=== PATIENT | male | born 1960 | race American Indian/Alaskan Native ===

== ENCOUNTER 2016-07-02 11:11 | Inpatient (IN) | payer MEDICAID, OTHER ==
--- NOTE | 2016-07-02 11:47 | EDPHY ---
H & P Stated Complaint: resp diff. 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 Constitutional: Initial Vital Signs Temperature (C) 36.3 C 07/02/16 11:20 Heart Rate 62 07/02/16 11:20 Respiratory Rate 16 07/02/16 11:20 Blood Pressure 120/70 07/02/16 11:20 O2 Delivery Mode Room Air Allergies/Adverse Reactions: No Known Allergies Allergy (Unverified 01/19/13 11:12) Home Medications: Medication Instructions Recorded Albuterol [Proventil Inhaler HFA 1 - 2 puffs IH DAILY PRN 07/02/16 (*)] Multivitamins [Multivitamin (*)] 1 each PO DAILY 07/02/16 Medical Decision Making ED Course/Re-evaluation: CHIEF COMPLAINT: Cough, fever, feels weak HISTORY OF PRESENT ILLNESS: 56-year-old gentleman who currently resides in the [facility]. He has a very a poor historian and not forthcoming with very much information at all. This patient complains that over the last several days he has had a cough with yellow phlegm in addition to mild shortness of breath and increase rate of breathing according to the care home nurse. It is unclear whether not he has been febrile. This patient claims he has lung cancer also. He believes the cancers now spread all over his body and that is why he is here. The care home nurse actually sent here because she is concerned he may have an upper respiratory infection. REVIEW OF SYSTEMS: A 10 point review of systems was performed and is negative with the exception of the elements mentioned in the history of present illness. PHYSICAL EXAM: HR, BP, O2 Sat, RR. Temp noted General Appearance: Alert, well hydrated, appropriate, and non-toxic appearing. Head: Atraumatic without scalp tenderness or obvious injury Eyes: Pupils equal, round, reactive to light and accommodation, EOMI, no trauma , no injection. Ears: Clear bilaterally, no perforation, normal landmarks Nose: Atraumatic, no rhinorrhea, clear. Throat: There is no erythema or exudates, no lesions, normal tonsils, mucus membranes moist. Neck: Supple, 2+ carotid upstroke, nontender, no lymphadenopathy. Respiratory: No retractions, no distress, no wheezes, and no accessory muscle use. Coarse rhonchi throughout all lung gee with no focal decrease Cardiovascular: Regular rate and rhythm, no murmurs, rubs, or gallops. Bilateral carotid, radial, dorsalis pedis, and posterior tibial pulses intact. Good capillary refill all extremities. Gastrointestinal: Abdomen is soft, nontender, non-distended, no masses, no rebound, no guarding, no peritoneal signs. Musculoskeletal: Normal active ROM of all extremities, atraumatic. Neurological: Alert, appropriate, and interactive. The patient has normal DTRs and non-focal cranial nerves, motor, sensory, and cerebellar exam. Skin: No rashes, good turgor, no nodules on palpation. Past medical history: Gastroesophageal reflux, patient claims he has lung cancer but no objective history of that in the care home medical records Past surgical history: Patient denies Family history: Patient states unknown Social history: Currently resides in care home, denies tobacco use currently but is an ex smoker, is unemployed obviously, denies alcohol or drug abuse currently. DIAGNOSTICS/PROCEDURES/CRITICAL CARE TIME: Study: PA and Lateral Chest X-ray Indication: Trauma, Chest pain Results: After viewing the images myself on the PACS system. My interpretation of the images is: diffuse bilobar pneumonia. The radiologist interpretation is 1. Progressive infiltrate, possibly indicative of chronic interstitial lung disease. 2. Chronic or recurrent cardiomegaly, with increased pulmonary venous hypertension. A pericardial effusion and/or component of underlying interstitial pulmonary edema cannot be excluded. I have discussed the above x-rays with the radiologist. DIFFERENTIAL DIAGNOSIS: The differential diagnosis for the patient's shortness of breath included but was not limited to pneumonia, myocardial infarction, acute mountain sickness, high altitude pulmonary edema, congestive heart failure, and pulmonary embolus. MEDICAL DECISION MAKING: This patient is slightly tachycardic and has coarse rhonchi with yellow phlegm. The very least this point has bronchitis. X-ray laboratory studies are pending. The patient's VBG lactic acid is markedly elevated at 9.1. Sepsis declared at 1213. He will be given fluid bolus and antibiotics. 1219: Consulted with hospitalist. Admission accepted to SDU. 1238: Reassessed patient. His blood pressure is 87/59 at this time. He is mentating properly. A second IV was established. The patient has clearly been septic for a long period of time and I believe he has compensated, which is why he appears so well at this time. If he worsens or becomes hypotensive a central line will have to be placed. 1255: Reassessed patient. After 2 liters of fluid the patient's blood pressure is 91/66. 1329: Reassessed patient. Critical Care Time: I spent a total of 45 minutes of critical care time including but not limited to obtaining history, performing a physical exam, ordering interventions and the bedside monitoring of those interventions, collecting and interpreting tests and discussion with consultants but not including time spent performing procedures. - Data Points Laboratory Results: Laboratory Results 07/02/16 11:42 07/02/16 11:42 07/02/16 11:42 WBC 16.31 H 10^3/uL (3.80-9.50) RBC 5.98 10^6/uL (4.40-6.38) Hgb 11.7 L g/dL (13.7-17.5) Hct 40.9 % (40.0-51.0) MCV 68.4 L fL (81.5-99.8) MCH 19.6 L pg (27.9-34.1) MCHC 28.6 L g/dL (32.4-36.7) RDW 21.9 H % (11.5-15.2) Plt Count 250 10^3/uL (150-400) MPV 10.2 fL (8.7-11.7) Neut % (Auto) 91.4 H % (39.3-74.2) Lymph % (Auto) 4.0 L % (15.0-45.0) Lea % (Auto) 4.0 L % (4.5-13.0) Eos % (Auto) 0.0 L % (0.6-7.6) Baso % (Auto) 0.2 L % (0.3-1.7) Nucleat RBC Rel Count 0.0 % (0.0-0.2) Absolute Neuts (auto) 14.91 H 10^3/uL (1.70-6.50) Absolute Lymphs (auto) 0.65 L 10^3/uL (1.00-3.00) Absolute Monos (auto) 0.65 10^3/uL (0.30-0.80) Absolute Eos (auto) 0.00 L 10^3/uL (0.03-0.40) Absolute Basos (auto) 0.04 10^3/uL (0.02-0.10) Absolute Nucleated RBC 0.00 10^3/uL (0-0.01) Immature Gran % 0.4 % (0.0-1.1) Seg Neutrophils % 51 % Band Neutrophils % 32 % Lymphocytes % 6 % Monocytes % 2 % Metamyelocytes % 8 % Myelocytes % 1 % Immature Gran # 0.06 10^3/uL (0.00-0.10) Absolute Seg Neuts 8.32 H 10^/uL (1.70-6.50) Absolute Band Neuts 5.22 H 10^3/uL (0.00-0.70) Absolute Lymphocytes 0.98 L 10^3/uL (1.00-3.00) Absolute Monocytes 0.33 10^3/uL (0.30-0.80) Absolute Metamyelocyte 1.30 H 10^3/mL (0.00-0.00) Absolute Myelocytes 0.16 H 10^3/mL (0.00-0.00) Platelet Estimate ADEQUATE (ADEQ) Polychromasia 1+ H Hypochromasia 2+ H Oval Macrocytes 1+ H Smear Review By Pending PT 17.6 H SEC (12.0-15.0) INR 1.45 H (0.83-1.16) APTT 35.8 SEC (23.0-38.0) VBG Lactic Acid 9.1 H mmol/L (0.7-2.1) Sodium 138 mEq/L (134-144) Potassium 4.8 mEq/L (3.5-5.2) Chloride 97 mEq/L (97-110) Carbon Dioxide 19 L mEq/l (22-31) Anion Gap 22 mEq/L (8-16) BUN 25 H mg/dL (7-23) Creatinine 1.4 H mg/dL (0.7-1.3) Estimated GFR 52 Glucose 113 H mg/dL (70-100) Calcium 8.4 L mg/dL (8.5-10.4) Total Bilirubin 1.0 mg/dL (0.1-1.4) Medications Given: Discontinued Medications Ertapenem 1 gm/ Sodium (Chloride) 100 mls @ 200 mls/hr IV EDNOW ONE PRN Reason: Protocol Stop: 07/02/16 12:42 Last Admin: 07/02/16 12:36 Dose: 100 mls Sodium Chloride (Ns) 1,000 mls @ 0 mls/hr IV ONCE ONE PRN Reason: Wide Open Stop: 07/02/16 12:52 Last Admin: 07/02/16 12:53 Dose: 1,000 mls Sodium Chloride (Ns *For Sepsis Order Set Only*) 2,177 ml IV EDNOW ONE Stop: 07/02/16 12:14 Last Admin: 07/02/16 12:28 Dose: 2,177 ml Departure - Departure Disposition: [facility] Inpatient Acute Clinical Impression: Sepsis, Lung infiltrate Condition: Fair Report Scribed for: Lucas Wilcox Report Scribed by: Janak Gregory Date of Report: 07/02/16 Time of Report: 12:19
[2016-07-02 12:13] LABS: ANION GAP 22 mEq/L (8-16); CALCIUM 8.4 mg/dL (8.5-10.4); CARBON DIOXIDE 19 mEq/l (22-31); CHLORIDE 97 mEq/L (97-110); CREATININE 1.4 mg/dL (0.7-1.3); GLOMERULAR FILTRATION RATE 52; GLUCOSE 113 mg/dL (70-100); INR 1.45 (0.83-1.16); POTASSIUM 4.8 mEq/L (3.5-5.2); PROTIME(PATIENT) 17.6 SEC (12.0-15.0); SODIUM 138 mEq/L (134-144)
[2016-07-02] MEDS ORDERED: NS 1,000 ML BAG *FOR SEPSIS ORDER SET ONLY IV ONE (12:13)
[2016-07-02] MEDS ORDERED: ERTAPENEM 1 GM in NS 100 ML IV ONE (12:13)
[2016-07-02 12:14] LABS: APTT 35.8 SEC (23.0-38.0)
[2016-07-02] MEDS ORDERED: ALTEPLASE 2 MG VIAL IVP PRN ×2 (12:24→14:08)
--- NOTE | 2016-07-02 12:31 | DX ---
PA and Lateral Chest Clinical Indications: Cough, dyspnea Comparison: May 24, 2013, chest CT July 18, 2014 Findings: There is diffuse increase in lung infiltrate, likely interstitial, since May 2013. I suspect there is also been progression since the CT 24 months ago. The heart remains enlarged. The az ygos vein is more dilated than it was previously. It is difficult to carbon cutter pulmonary vascularity due to the superimposed lung disease. There is a small wedge of consolidation at the medial left base héctor t is new since July 2014. It is difficult to exclude a small right pleural effusion. Impression: 1. Progressive infiltrate, possibly indicative of chronic interstitial lung disease. 2. Chronic or recurrent cardiomegaly, with increased pulmonary venous hypertension. A pericardial eff usion and/or component of underlying interstitial pulmonary edema cannot be excluded.
[2016-07-02 12:36] LABS: % IMMATURE GRANULYOCYTES 0.4 % (0.0-1.1); ABSOLUTE IMMATURE GRANULOCYTES 0.06 10^3/uL (0.00-0.10); ADD DIFF? NO; ADD MORPH? YES; ADD SCAN? YES; ATYPICAL LYMPHOCYTE FLAG 10 (0-99); FRAGMENT RBC FLAG 40 (0-99); HEMATOCRIT 40.9 % (40.0-51.0); HEMOGLOBIN 11.7 g/dL (13.7-17.5); LIPEMIA HEMOLYSIS FLAG 70 (0-99); MEAN CELL HEMOGLOBIN 19.6 pg (27.9-34.1); MEAN PLATELET VOLUME 10.2 fL (8.7-11.7); PLATELET CLUMPS FLAG 0 (0-99); PLATELET COUNT 250 10^3/uL (150-400); RED BLOOD CELL COUNT 5.98 10^6/uL (4.40-6.38)
[2016-07-02 12:37] LABS: LEFT SHIFT FLG 210 (0-99); MEAN CELL HEMOGLOBIN CONCENTR. 28.6 g/dL (32.4-36.7); MEAN CELL VOLUME 68.4 fL (81.5-99.8); RED CELL DISTRIBUTION WIDTH 21.9 % (11.5-15.2)
[2016-07-02] MEDS ORDERED: NS 1,000 ML IV ONE (12:51)
[2016-07-02 12:55] LABS: LACGHOST ORDER
[2016-07-02 13:01] LABS: SCAN POSITIVE
[2016-07-02 13:06] LABS: MACROCYTES 1+; POLYCHROMASIA 1+
[2016-07-02 13:07] LABS: HYPOCHROMIA 2+; PLATELET ESTIMATE ADEQUATE (ADEQ)
[2016-07-02] MEDS ORDERED: NICOTINE POLACRILEX 2 MG GUM B PRN (13:32)
[2016-07-02] MEDS ORDERED: ACETAMINOPHEN 325 MG TAB PO PRN (13:32)
[2016-07-02] MEDS ORDERED: ALBUTEROL 3 ML DEYVIAL IH PRN (13:35)
--- NOTE | 2016-07-02 13:42 | PDGENHP ---
History and Physical - Chief Complaint Acute shortness of breath - History of Present Illness PCP: None HPI: 48-year-old male presents with acute shortness of breath characterized as difficulty, labored breathing with associated productive cough of yellow sputum and anorexia with onset of symptoms quite some time ago but duration of persistent worsening of all the over the past several days. Was noted by the [facility] nurse that the patient had visibly labored breathing and he was sent to [facility] for further evaluation. The patient reports that he was hospitalized last spring a [facility] for pulmonary related issue and he maintains that he has underlying metastatic lung cancer. That being said, the patient has not sought medical attention in the outpatient setting despite being encouraged to do so. The patient denies any aspiration symptoms he reports that he has been mostly bunk bed bound over the past several months while he has been incarcerated. When asked whether there is a particular reason why he has been buying found, the patient reports that he does not like the noise in [facility]. History Information - Allergies/Home Medication List Allergies/Adverse Reactions: No Known Allergies Allergy (Unverified 01/19/13 11:12) Home Medications: Albuterol [Proventil Inhaler HFA (*)] 1 - 2 puffs IH DAILY PRN 07/02/16 [Last Taken Unknown] Multivitamins [Multivitamin (*)] 1 each PO DAILY 07/02/16 [Last Taken Unknown] I have personally reviewed and updated: family history, medical history, social history, surgical history - Past Medical History Additional medical history: Suspected interstitial lung disease with most recent CT of the chest in July of 2014 confirming dense right-sided disease but overall impacted diseases bilateral; untreated hepatitis-C virus; history of pancreatitis; history of alcoholism - Surgical History Additional surgical history: Reports orthopedic surgeries but no chest or heart surgery - Family History Additional family history: No family members with any pulmonary issues, however his mother father and siblings all have coronary artery disease - Social History Smoking Status: Current some day smoker Alcohol Use: Other (History heavy drinker but none while incarcerated) Drug Use: Other (Denies IV drug use) Additional social history: Incarcerated for the last 3 months Review of Systems ROS: 10pt was reviewed & negative except for what was stated in HPI & below Constitutional: Reports: weakness Respiratory: Reports: cough, shortness of breath Gastrointestinal: Reports: other (Anorexia) Physical Exam Temp Pulse Resp BP Pulse Ox 37.8 C 103 H 25 H 89/65 L 96 07/02/16 12:33 07/02/16 13:15 07/02/16 13:15 07/02/16 13:15 07/02/16 13:15 O2 (L/minute) 2 Constitutional: chronically ill appearing, uncomfortable, No not in pain Eyes: PERRL, anicteric sclera, EOMI Ears, Nose, Mouth, Throat: other (Very poor dentition, tacky mucous membranes) Cardiovascular: tachycardia, No systolic murmur, No irregularly irregular, No edema Respiratory: reduced air movement (Bilateral bases), respiratory distress ( Visible tachypnea and use of accessary muscles), rhonchi (Bilaterally, right greater than left), No expiratory wheeze, No bronchial breath sounds Gastrointestinal: normoactive bowel sounds, soft, non-tender abdomen, no palpable masses, No distension Skin: other (Numerous scars without any surrounding erythema, no visible rashes) Neurologic: AAOx3, sensation intact bilaterally, No weakness Psychiatric: interacting appropriately, not anxious, not encephalopathic, thought process linear, flat affect Lab Data & Imaging Review 07/02/16 11:42 07/02/16 11:42 WBC 16.31 10^3/uL (3.80-9.50) H 07/02/16 11:42 RBC 5.98 10^6/uL (4.40-6.38) 07/02/16 11:42 Hgb 11.7 g/dL (13.7-17.5) L 07/02/16 11:42 Hct 40.9 % (40.0-51.0) 07/02/16 11:42 MCV 68.4 fL (81.5-99.8) L 07/02/16 11:42 MCH 19.6 pg (27.9-34.1) L 07/02/16 11:42 MCHC 28.6 g/dL (32.4-36.7) L 07/02/16 11:42 RDW 21.9 % (11.5-15.2) H 07/02/16 11:42 Plt Count 250 10^3/uL (150-400) 07/02/16 11:42 MPV 10.2 fL (8.7-11.7) 07/02/16 11:42 Neut % (Auto) 91.4 % (39.3-74.2) H 07/02/16 11:42 Lymph % (Auto) 4.0 % (15.0-45.0) L 07/02/16 11:42 [place] % (Auto) 4.0 % (4.5-13.0) L 07/02/16 11:42 Eos % (Auto) 0.0 % (0.6-7.6) L 07/02/16 11:42 Baso % (Auto) 0.2 % (0.3-1.7) L 07/02/16 11:42 Nucleat RBC Rel Count 0.0 % (0.0-0.2) 07/02/16 11:42 Absolute Neuts (auto) 14.91 10^3/uL (1.70-6.50) H 07/02/16 11:42 Absolute Lymphs (auto) 0.65 10^3/uL (1.00-3.00) L 07/02/16 11:42 Absolute Monos (auto) 0.65 10^3/uL (0.30-0.80) 07/02/16 11:42 Absolute Eos (auto) 0.00 10^3/uL (0.03-0.40) L 07/02/16 11:42 Absolute Basos (auto) 0.04 10^3/uL (0.02-0.10) 07/02/16 11:42 Absolute Nucleated RBC 0.00 10^3/uL (0-0.01) 07/02/16 11:42 Immature Gran % 0.4 % (0.0-1.1) 07/02/16 11:42 Seg Neutrophils % 51 % 07/02/16 11:42 Band Neutrophils % 32 % 07/02/16 11:42 Lymphocytes % 6 % 07/02/16 11:42 Monocytes % 2 % 07/02/16 11:42 Metamyelocytes % 8 % 07/02/16 11:42 Myelocytes % 1 % 07/02/16 11:42 Immature Gran # 0.06 10^3/uL (0.00-0.10) 07/02/16 11:42 Absolute Seg Neuts 8.32 10^/uL (1.70-6.50) H 07/02/16 11:42 Absolute Band Neuts 5.22 10^3/uL (0.00-0.70) H 07/02/16 11:42 Absolute Lymphocytes 0.98 10^3/uL (1.00-3.00) L 07/02/16 11:42 Absolute Monocytes 0.33 10^3/uL (0.30-0.80) 07/02/16 11:42 Absolute Metamyelocyte 1.30 10^3/mL (0.00-0.00) H 07/02/16 11:42 Absolute Myelocytes 0.16 10^3/mL (0.00-0.00) H 07/02/16 11:42 Platelet Estimate ADEQUATE (ADEQ) 07/02/16 11:42 Polychromasia 1+ H 07/02/16 11:42 Hypochromasia 2+ H 07/02/16 11:42 Oval Macrocytes 1+ H 07/02/16 11:42 PT 17.6 SEC (12.0-15.0) H 07/02/16 11:42 INR 1.45 (0.83-1.16) H 07/02/16 11:42 APTT 35.8 SEC (23.0-38.0) 07/02/16 11:42 VBG Lactic Acid 3.0 mmol/L (0.7-2.1) H 07/02/16 13:06 Sodium 138 mEq/L (134-144) 07/02/16 11:42 Potassium 4.8 mEq/L (3.5-5.2) 07/02/16 11:42 Chloride 97 mEq/L (97-110) 07/02/16 11:42 Carbon Dioxide 19 mEq/l (22-31) L 07/02/16 11:42 Anion Gap 22 mEq/L (8-16) 07/02/16 11:42 BUN 25 mg/dL (7-23) H 07/02/16 11:42 Creatinine 1.4 mg/dL (0.7-1.3) H 07/02/16 11:42 Estimated GFR 52 07/02/16 11:42 Glucose 113 mg/dL (70-100) H 07/02/16 11:42 Calcium 8.4 mg/dL (8.5-10.4) L 07/02/16 11:42 Total Bilirubin 1.0 mg/dL (0.1-1.4) 07/02/16 11:42 Visualized and Interpreted Chest x-ray results: Yes Chest X-Ray results: other (Dense infiltrate on the right, bibasilar airspace disease) Visualized and Interpreted imaging results: Yes Interpretation: Telemetry demonstrates sinus tachycardia Assessment & Plan Assessment: 56-year-old male presents with severe sepsis secondary to pneumonia in the setting of suspected interstitial lung disease Plan: 1. Severe sepsis. Acute, new problem this provider, further workup indicated. Evidenced by tachycardia plus tachypnea plus leukocytosis plus clear evidence of infection notably pneumonia with evidence of end-organ failure notably lactic acidosis, acute kidney injury, respiratory failure, resulting in autonomic dysregulation in the setting of infection -severe sepsis order set placed -receiving weight based fluid challenge -empiric antibiotics -repeat serum lactic acid level 3, given that it remains elevated will recheck in 2 hours and monitor serially thereafter -given the patient's systolic blood pressure is currently greater than 100, patient does not emergently require a central venous line but a PICC line order has been placed given the potential decompensation and potential requirement of pressors for evolution of septic shock 2. Pneumonia. Acute, new problem this provider, further workup indicated. Evidenced by dense right-sided infiltrate in the setting of suspected interstitial lung disease with sepsis physiology as outlined above -get sputum culture -possible Pseudomonas for Gram-negative rods in the setting of suspected interstitial lung disease -discussed with Dr. Wilcox in the emergency department, he reports that the patient received ertapenem, will adjust the patient to renally dosed Zosyn given the possibility of Pseudomonas an underlying ILD -send urine strep and Legionella -given his severity of illness, will also treat with azithromycin 3. Acute kidney injury. Most likely secondary to a combination of hypovolemia and severe sepsis as outlined above -continue IV fluids -monitor I/O 4. Metabolic acidosis. Acute, secondary lactic acid, secondary to combination of hypovolemia and severe sepsis outlined above -monitor lactic acid levels serially -continue IV fluids 5. Hypoxic respiratory failure. Acute, evidenced by objective tachypnea with respiratory rate around 30+ visible respiratory distress with use of accessory muscles and symptomatic shortness of breath -is currently requiring supplemental nasal cannula which may need to be up titrated given his ongoing visible tachypnea -given his underlying smoking history, will provide scheduled duo nebs as needed albuterol -initiate Mucinex -treat underlying infection outlined above -if patient's respiratory status deteriorates overnight, BiPAP would be indicated but the patient has elected to not be intubated Diet. 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 Moderate risk patient, heparin subcu Code. Do not resuscitate per patient, the patient does not want to have any person as is MPOA and would prefer that all medical decisions to be made by his physicians if he is unable to do so Disposition. Anticipated discharge uncertain this time, anticipated length stay is greater than 48 hours warranting inpatient admission status for severe sepsis and pneumonia requiring ICU level of stabilization outlined above. The patient remains critically ill with high risk of morbidity and mortality, 40 minutes of critical care time spent with the patient at bedside addressing the issues outlined above. We will request outside records from [facility] to ascertain what previous workup has been performed for patient's possible ILD versus malignancy.
[2016-07-02 14:39] LABS: BILIRUBIN-CONJUGATED 0.4 mg/dL (0.0-0.5); BILIRUBIN-UNCONJUGATED 0.6 mg/dL (0.0-1.1); TOTAL PROTEIN 7.5 g/dL (6.3-8.2)
[2016-07-02] MEDS: NS 1,000 ML IV SCH ×2 (15:01→22:31)
[2016-07-02] MEDS: IPRATROPIUM/ALBUTEROL 3 ML DEYVIAL IH SCH ×2 (15:03→17:35)
[2016-07-02] MEDS ORDERED: CEPACOL LOZENGE PO PRN (15:14)
--- NOTE | 2016-07-02 15:20 | IR ---
Imaging Guided Peripherally Inserted Central Catheter History: Sepsis, suspicion of pneumonia. Technique: Following informed consent, the right arm was prepped and draped in sterile fashion. All e lements of maximal sterile barrier technique including cap, mask, sterile gown, sterile gloves, large sterile sheet, hand hygiene, and 2% chlorhexidine for cutaneous antisepsis, followed. Ultrasound tra nsducer was placed in sterile sleeve and sterile coupling gel was used. Ultrasound evaluation of pote ntial access sites was performed. After successfully identifying a patent vessel of adequate size, 1% Xylocaine was used for local anesthetic. Ultrasound guidance was used to puncture the basilic vein with a 21-gauge needle. 0.018 measuring wire was passed centrally under fluoroscopic control. A skin domonique with scalpel blade was followed by removing the access needle. A 5.5 Tongan peel-away sheath wa s followed by a 5 Tongan double-lumen central catheter , trimmed to 43 cm length. The tip of the cat heter was positioned centrally and the guidewire removed. AP fluoroscopic spot image was obtained in inspiration. The catheter irrigated easily. The hub of the catheter was secured to the skin using a S tatLock adhesive device, and a sterile dressing was applied. Fluoroscopy time in minutes: 0.1 . Estimated exposure in mGy: 2.4 . Findings: The tip of the central catheter terminates at the junction of the superior vena cava and th e right atrium. Pulmonary infiltrates are found bilaterally. Impression: 5 Tongan double lumen peripherally inserted central catheter is ready to use. - - - - - - - - - - - - - - - - - - - - - - - - - - - - - - - - - - - - - - - - - (Cross-cutting measures: Current medications were listed in the medical record, including all known prescriptions, [id number] medications, herbal medications, and nutritional supplements. The pat ient does not smoke. ) IR Call
[2016-07-02] MEDS: guaiFENesin 600 MG TAB.ER PO SCH ×2 (15:22→20:32)
[2016-07-02] MEDS: PIPERACILLIN/TAZO 3.375 GM/DEX 50 ML IV SCH ×3 (15:22→23:07)
[2016-07-02] MEDS: HEPARIN 5,000 UNIT/0.5 ML SYR SC SCH ×2 (15:22→20:33)
[2016-07-02] MEDS: NICOTINE 21 MG/24 HR PATCH TD SCH (15:22)
[2016-07-02 16:36] LABS: COLOR YELLOW; LEUKOCYTE ESTERASE,URINE NEGATIVE (NEGATIVE); NITRITE,URINE NEGATIVE (NEGATIVE)
[2016-07-02 16:41] LABS: WBC,URINE NONE SEEN /hpf (0-3)
[2016-07-03] MEDS: IPRATROPIUM/ALBUTEROL 3 ML DEYVIAL IH SCH ×5 (00:26→21:40)
[2016-07-03] MEDS: PIPERACILLIN/TAZO 3.375 GM/DEX 50 ML IV SCH ×4 (05:03→23:21)
[2016-07-03] MEDS: HEPARIN 5,000 UNIT/0.5 ML SYR SC SCH ×3 (05:03→20:44)
[2016-07-03 05:48] LABS: % IMMATURE GRANULYOCYTES 0.3 % (0.0-1.1); ABSOLUTE IMMATURE GRANULOCYTES 0.03 10^3/uL (0.00-0.10); ADD DIFF? NO; ADD MORPH? YES; ADD SCAN? NO; ATYPICAL LYMPHOCYTE FLAG 40 (0-99); FRAGMENT RBC FLAG 40 (0-99); HEMATOCRIT 29.8 % (40.0-51.0); HEMOGLOBIN 8.8 g/dL (13.7-17.5); LEFT SHIFT FLG 80 (0-99); LIPEMIA HEMOLYSIS FLAG 70 (0-99); MEAN CELL HEMOGLOBIN 19.7 pg (27.9-34.1); MEAN CELL HEMOGLOBIN CONCENTR. 29.5 g/dL (32.4-36.7); MEAN PLATELET VOLUME 9.8 fL (8.7-11.7); PLATELET CLUMPS FLAG 0 (0-99); PLATELET COUNT 182 10^3/uL (150-400); RED BLOOD CELL COUNT 4.46 10^6/uL (4.40-6.38)
[2016-07-03 05:55] LABS: MEAN CELL VOLUME 66.8 fL (81.5-99.8); RED CELL DISTRIBUTION WIDTH 20.6 % (11.5-15.2)
[2016-07-03 05:57] LABS: INR 1.35 (0.83-1.16); PROTIME(PATIENT) 16.7 SEC (12.0-15.0)
[2016-07-03 06:22] LABS: ELLIPTOCYTES 1+; HYPOCHROMIA 1+; MACROCYTES 1+; MICROCYTES 2+; PLATELET ESTIMATE ADEQUATE (ADEQ); POLYCHROMASIA 1+
[2016-07-03 06:25] LABS: ANION GAP 6 mEq/L (8-16); CALCIUM 7.4 mg/dL (8.5-10.4); CARBON DIOXIDE 25 mEq/l (22-31); CHLORIDE 107 mEq/L (97-110); CREATININE 0.7 mg/dL (0.7-1.3); GLOMERULAR FILTRATION RATE > 60; GLUCOSE 106 mg/dL (70-100); LACTATE DEHYDROGENASE 543 IU/L (313-618); MAGNESIUM 2.1 mg/dL (1.6-2.3); POTASSIUM 4.1 mEq/L (3.5-5.2); SODIUM 138 mEq/L (134-144)
[2016-07-03] MEDS: MULTIVITAMINS 1 EACH TAB PO SCH (07:32)
[2016-07-03] MEDS: NICOTINE 21 MG/24 HR PATCH TD SCH (07:32)
[2016-07-03] MEDS: guaiFENesin 600 MG TAB.ER PO SCH ×2 (07:32→20:43)
--- NOTE | 2016-07-03 10:18 | HOSPPROG ---
Hospitalist Progress Note Assessment/Plan: Assessment: 56-year-old male presents with severe sepsis secondary to pneumonia in the setting of suspected interstitial lung disease Plan: 1. Severe sepsis. Evidenced by tachycardia plus tachypnea plus leukocytosis plus clear evidence of infection notably pneumonia with evidence of end-organ failure notably lactic acidosis, acute kidney injury, respiratory failure, resulting in autonomic dysregulation in the setting of infection -severe sepsis order set placed -received weight based fluid challenge -received empiric antibiotics -monitor CBC 2. Pneumonia. Evidenced by dense right-sided infiltrate in the setting of suspected interstitial lung disease with sepsis physiology as outlined above -possible Pseudomonas for Gram-negative rods in the setting of suspected interstitial lung disease -cont renally dosed Zosyn given the possibility of Pseudomonas an underlying ILD 3. Acute kidney injury. Most likely secondary to a combination of hypovolemia and severe sepsis as outlined above -encourage PO intake -monitor I/O 4. Metabolic acidosis. Acute, secondary lactic acid, secondary to combination of hypovolemia and severe sepsis outlined above -lact cleared 5. Hypoxic respiratory failure. Acute, evidenced by objective tachypnea with respiratory rate around 30+ visible respiratory distress with use of accessory muscles and symptomatic shortness of breath -is currently requiring supplemental nasal cannula 3L -given his underlying smoking history, will provide scheduled duo nebs as needed albuterol -initiated Mucinex -treat underlying infection outlined above -if patient's respiratory status deteriorates overnight, BiPAP would be indicated but the patient has elected to not be intubated -get room air sat Diet. Regular with SERVICE DELIVERY CONSULTANT eval Prophylaxis. Moderate risk patient, heparin subcu Code. Do not resuscitate per patient, the patient does not want to have any person as is MPOA and would prefer that all medical decisions to be made by his physicians if he is unable to do so Disposition. Anticipated discharge uncertain this time, yet to clinically resolve, transfer to med surg today Subjective: ongoing pain diffuse, reports breathing improving Objective: Vital Signs Temp Pulse Resp BP Pulse Ox 36.9 C 90 26 H 92/63 L 96 07/03/16 07:41 07/03/16 07:41 07/03/16 04:00 07/03/16 07:41 07/03/16 07:41 Microbiology 07/02/16 12:43 - Final Sputum, Expectorated Laboratory Results 07/03/16 05:40 07/03/16 05:40 07/02/16 07/03/16 07/04/16 05:59 05:59 05:59 Intake Total 6205 Output Total 1000 Balance 5205 PT 16.7 SEC (12.0-15.0) H 07/03/16 05:40 INR 1.35 (0.83-1.16) H 07/03/16 05:40 - Physical Exam Constitutional: appears nourished, chronically ill appearing, uncomfortable, No not in pain Cardiovascular: tachycardia, No systolic murmur, No irregularly irregular, No edema Respiratory: rhonchi (on insp bilat), other (ongoing tachypnea), No expiratory wheeze, No bronchial breath sounds Gastrointestinal: normoactive bowel sounds, soft, non-tender abdomen, no palpable masses Neurologic: AAOx3, sensation intact bilaterally, No weakness Psychiatric: interacting appropriately, not anxious, not encephalopathic, thought process linear ICD10 Worksheet Patient Problems: Problems Problem Status Diagnosed Lung infiltrate Acute Sepsis Acute Acute respiratory failure with hypoxia Acute Alcohol abuse Acute Hematemesis Acute Ribs, multiple fractures Acute
[2016-07-03] MEDS: NS 1,000 ML IV SCH ×2 (11:56→20:15)
[2016-07-04] MEDS: NS 1,000 ML IV SCH (03:30)
[2016-07-04] MEDS: HEPARIN 5,000 UNIT/0.5 ML SYR SC SCH ×3 (05:59→21:32)
[2016-07-04] MEDS: PIPERACILLIN/TAZO 3.375 GM/DEX 50 ML IV SCH (05:59)
[2016-07-04 06:11] LABS: ANION GAP 6 mEq/L (8-16); CALCIUM 7.3 mg/dL (8.5-10.4); CARBON DIOXIDE 24 mEq/l (22-31); CHLORIDE 109 mEq/L (97-110); CREATININE 0.6 mg/dL (0.7-1.3); GLOMERULAR FILTRATION RATE > 60; GLUCOSE 112 mg/dL (70-100); POTASSIUM 3.7 mEq/L (3.5-5.2); SODIUM 139 mEq/L (134-144)
[2016-07-04 06:15] LABS: % IMMATURE GRANULYOCYTES 0.4 % (0.0-1.1); ABSOLUTE IMMATURE GRANULOCYTES 0.03 10^3/uL (0.00-0.10); ADD DIFF? NO; ADD MORPH? YES; ADD SCAN? NO; ATYPICAL LYMPHOCYTE FLAG 60 (0-99); FRAGMENT RBC FLAG 40 (0-99); HEMOGLOBIN 8.3 g/dL (13.7-17.5); LEFT SHIFT FLG 20 (0-99); LIPEMIA HEMOLYSIS FLAG 70 (0-99); MEAN CELL HEMOGLOBIN 19.5 pg (27.9-34.1); MEAN PLATELET VOLUME 9.6 fL (8.7-11.7); PLATELET CLUMPS FLAG 0 (0-99); PLATELET COUNT 177 10^3/uL (150-400); RED BLOOD CELL COUNT 4.26 10^6/uL (4.40-6.38)
[2016-07-04] MEDS: IPRATROPIUM/ALBUTEROL 3 ML DEYVIAL IH SCH ×4 (06:16→19:21)
[2016-07-04 06:38] LABS: MEAN CELL HEMOGLOBIN CONCENTR. 28.6 g/dL (32.4-36.7); MEAN CELL VOLUME 68.1 fL (81.5-99.8); RED CELL DISTRIBUTION WIDTH 21.1 % (11.5-15.2)
[2016-07-04 07:32] LABS: ELLIPTOCYTES 1+; HYPOCHROMIA 1+; MICROCYTES 2+; POLYCHROMASIA 1+
[2016-07-04 08:47] LABS: PLATELET ESTIMATE ADEQUATE (ADEQ)
--- NOTE | 2016-07-04 09:30 | HOSPPROG ---
Hospitalist Progress Note Assessment/Plan: Assessment: 56-year-old male presents with severe sepsis secondary to pneumonia in the setting of suspected interstitial lung disease Plan: 1. Severe sepsis. Evidenced by tachycardia plus tachypnea plus leukocytosis plus clear evidence of infection notably pneumonia with evidence of end-organ failure notably lactic acidosis, acute kidney injury, respiratory failure, resulting in autonomic dysregulation in the setting of infection -severe sepsis order set placed -received weight based fluid challenge -received empiric antibiotics -monitor CBC 2. Pneumonia. Evidenced by dense right-sided infiltrate in the setting of suspected interstitial lung disease with sepsis physiology as outlined above -possible Pseudomonas for Gram-negative rods in the setting of suspected interstitial lung disease -adjust to Levofloxacin today and gauge effect, monitor for fever/leukocytosis 3. Acute kidney injury. Most likely secondary to a combination of hypovolemia and severe sepsis as outlined above -encourage PO intake -monitor I/O 4. Metabolic acidosis. Acute, secondary lactic acid, secondary to combination of hypovolemia and severe sepsis outlined above -lact cleared 5. Hypoxic respiratory failure. Acute, evidenced by objective tachypnea with respiratory rate around 30+ visible respiratory distress with use of accessory muscles and symptomatic shortness of breath -required uptitration of supp o2 today w/ tachypnea -given his underlying smoking history, will provide scheduled duo nebs as needed albuterol -initiated Mucinex -treat underlying infection outlined above 6. Suspected ILD. Based on prior CT imaging, persistent dense air space disease , unclear whether he has had prior w/u -requested records from [facility] -has not seen a technical sales support manager or had lung biopsy in past, although he claims he has "cancer" -given his persistent respiratory issues, a trial of steroids may be of benefit -will consult w/ Dr. Spears today, potentially initiate steroids -will need outpt pulm f/u -will likely need supp o2 indefinitely Diet. Regular with ELECTRICIAN THIRD eval Prophylaxis. Moderate risk patient, lovenox 40 Code. Do not resuscitate per patient, the patient does not want to have any person as is MPOA and would prefer that all medical decisions to be made by his physicians if he is unable to do so Disposition. Anticipated discharge 07/05, pending resp improvement, d/w case mgmt , detention to be contacted when ready for DC Subjective: reports resp distress this AM w/ movement Objective: Vital Signs Temp Pulse Resp BP Pulse Ox 36.9 C 99 48 H 111/74 89 L 07/04/16 07:28 07/04/16 07:28 07/04/16 07:28 07/04/16 07:28 07/04/16 07:28 Microbiology 07/02/16 12:43 - Final Sputum, Expectorated Laboratory Results 07/04/16 05:45 07/04/16 05:45 07/03/16 07/04/16 07/05/16 05:59 05:59 05:59 Intake Total 6205 740 Output Total 1000 2675 Balance 5205 -1935 PT 16.7 SEC (12.0-15.0) H 07/03/16 05:40 INR 1.35 (0.83-1.16) H 07/03/16 05:40 - Time Spent With Patient Time Spent with Patient: greater than 35 minutes Time Spent with Patient: Greater than 35 minutes spent on this patients care, greater than 50% of time spent counseling, educating, and coordinating care regarding the above mentioned plan. - Pending Discharge Pending Discharge Within 24 Hours: Yes Pending Discharge Date: 07/05/16 Pending Discharge Time: 11:00 - Physical Exam Constitutional: chronically ill appearing, uncomfortable, No not in pain Cardiovascular: tachycardia, No systolic murmur, No irregularly irregular, No edema Respiratory: reduced air movement (on insp and expiration), rhonchi (on insp and expiration), No expiratory wheeze, No bronchial breath sounds Gastrointestinal: normoactive bowel sounds, soft, non-tender abdomen, no palpable masses Neurologic: AAOx3, sensation intact bilaterally Psychiatric: interacting appropriately, not anxious, not encephalopathic, thought process linear ICD10 Worksheet Patient Problems: Problems Problem Status Diagnosed Lung infiltrate Acute Sepsis Acute Acute respiratory failure with hypoxia Acute Alcohol abuse Acute Hematemesis Acute Ribs, multiple fractures Acute
[2016-07-04] MEDS: guaiFENesin 600 MG TAB.ER PO SCH ×2 (10:23→20:10)
[2016-07-04] MEDS: MULTIVITAMINS 1 EACH TAB PO SCH (10:23)
[2016-07-04] MEDS: NICOTINE 21 MG/24 HR PATCH TD SCH (10:24)
--- NOTE | 2016-07-04 15:45 | GCON ---
[f rep st] CONSULTATION CHEST CONSULTATION DATE OF CONSULTATION: 07/04/2016 REASON FOR CONSULTATION: Interstitial lung disease. HISTORY OF PRESENT ILLNESS: The patient is a 56-year-old male with a past medical history of untreated hepatitis C, pancreatitis, and alcoholism. He presents with complaints of breathlessness and in discussion the patient states that he has had increased breathlessness over the last several days with an increasing cough that is distinctly nonproductive. There is no hemoptysis. There is no fever, no night sweats. He was brought to the [facility], where he was diagnosed with pneumonia and placed on antibiotics. He still remains breathless as well as hypoxemic, but is resting comfortably on supplemental oxygen. He states that he has had pulmonary problems over the last several years. He admits to some episodes of hemoptysis while living in [place], [place], approximately 2 years ago. A year ago, he was admitted at [facility]. PAST MEDICAL HISTORY: Again, significant for untreated hepatitis C, pancreatitis, and alcoholism. PAST SURGICAL HISTORY: He has had orthopedic surgeries. ALLERGIES: No known with medications. SOCIAL HISTORY: Current heavy smoker. No significant alcohol use currently. No IV drug use. He has been incarcerated for the last 3 months. He is single without children. He has lived in [place] intermittently for many years. PHYSICAL EXAMINATION: VITAL SIGNS: Blood pressure is 117/78, pulse 100, respirations are 33, temperature is 36.7, oxygen saturation 95% on 5 L. GENERAL : He is a thin 56-year-old white male who is resting comfortably in nasal cannula oxygen. HEENT: Eyes are ALEXYS, EOMI. Throat shows no erythema or tonsillar hypertrophy. NECK: Supple. There is no cervical adenopathy. HEART : Regular rate and rhythm with a 2/6 systolic murmur at the left sternal border without radiation. LUNGS: Diminished breath sounds as well as bibasilar Velcro-like crackles. ABDOMEN: Soft, nontender. Bowel sounds present in all 4 quadrants. EXTREMITIES: No clubbing, cyanosis, or edema. LABORATORY STUDIES: White count is 8.5, hemoglobin 8.3, hematocrit 29, platelet count is 177. Sodium 139, potassium 3.7, chloride 109, CO2 24, BUN 8, creatinine 0.6, glucose is 112. Urinalysis is negative. Chest x-ray shows possible chronic interstitial lung disease. He has cardiomegaly and a pleural effusion. Echocardiogram in May of 2013 showed an ejection fraction of 75% . CT scan of the chest dated December of 2012 showed reticular nodular opacifications in the right lower lobe and right upper lobe with some mediastinal adenopathy. He was seen by Dr. Fournier, of Pulmonology, in December of 2012. RECOMMENDATIONS: 1. We will obtain a high-resolution CT scan of the chest soon. 2. We will obtain an STEVE as well as rheumatoid factor as well as an ANCA screen. 3. Continue supplemental oxygen for now. 4. We will also schedule a repeat echo. /[id number]/MODL MTDD
--- NOTE | 2016-07-04 16:37 | CT ---
CT chest without contrast dated July 04, 2016 Indication: 56-year-old man with acute shortness of breath. Current smoker. Technique: 2.5-mm thick helically acquired slices were obtained through the chest. The study was orde red as a high-resolution chest CT with supine and prone imaging. The patient was unable to hold breat h for more than 2 seconds or lie prone. The high-resolution CT protocol was subsequently abandoned du e to patient's inability to comply with the exam requirements. Dose reduction techniques were utilize d. Comparison: CT chest dated July 18, 2014. Findings: Dense multifocal confluent airspace consolidation consumes bilateral lower lobes and result s in patchy incomplete consolidation of the right upper, right middle, and left upper lobes. The prev iously assessed reticular abnormality in bilateral lower lobes is completely obscured by the underlyi ng airspace consolidation. The central airway is clear and air bronchograms extend peripherally into the consolidation in the ri ght and left lung. No endobronchial lesion or central mucous plugging. Numerous enlarged lymph nodes have developed in the thoracic inlet, superior mediastinum, AP window, and right paratracheal distribution. A industrial relations representative high right paratracheal node on image 28 of ser ies 2 measures 2.7 x 1.7 cm. No enlarged lymph nodes within the axilla or imaged portion of the upper abdomen. Small to moderate right and small left pleural effusions are present with intermediate increased dens ity. The right pleural effusion, measuring 2 cm AP, has a density of 20 Hounsfield units. Nodular ple ural thickening is present along the anterior nondependent aspect of the pleural contour in the upper lobes bilaterally. Minimal thickening and nodularity are present along the major fissures. The heart size is minimally enlarged with small pericardial effusion. Thoracic aorta is tortuous and normal caliber. Three-vessel calcified coronary plaque is present. The right HUMAN FACTORS ADVISOR LEAD is present with the tip in the superior vena cava. Limited imaged portion of the upper abdomen reveals partially calcifie d gallstone in the neck of the gallbladder, on image 132 of series 2. No bone lesions. Impression: 1. Diffuse confluent bilateral airspace consolidation. Differential diagnosis includes bronchopneumon ia, aspiration, drug reaction and less likely chronic process such as eosinophilic pneumonia or crypt ogenic organizing pneumonia. 2. New lymphadenopathy throughout the mediastinum and thoracic inlet. Differential diagnosis includes metastatic disease, lymphoproliferative disorder, or fungal infection. 3. Small to moderate right and small left pleural effusions. 4. New small pleural nodules throughout the right and left hemithorax raises the possibility of metas tatic pleural disease. 5. Trace pericardial effusion and three-vessel calcified coronary plaque. 6. Cholelithiasis.
[2016-07-04] MEDS ORDERED: FUROSEMIDE 40 MG/4 ML VIAL IVP ONE (19:43)
--- NOTE | 2016-07-04 20:22 | DX ---
Single Frontal Chest, July 04, 2016 Clinical indication: Hypoxia. Comparison: CT July 04, 2016 at 1405 hours, chest x-ray July 02, 2016. Findings: Lung volumes are low. There are bilateral pulmonary infiltrates and bilateral pleural effus ions. Infiltrates are worse than 2 days prior and the effusions are larger. Similar findings are pres ent on the CT from July 04, 2016 at 1405 hours. A PIC line is present terminating at the SVC right atrial junction. Impression: Bilateral diffuse infiltrates and bilateral pleural effusions. Not significantly changed from the CT 5 hours prior, but is worse in severity compared to the chest x-ray from 2 days ago.
[2016-07-04] MEDS ORDERED: LORazepam 2 MG/ML INJ IVP ONE (21:39)
[2016-07-05 01:03] LABS: BASE EXCESS -1.4 mEq/L (-2.5-2.5); BICARBONATE 22 mEq/L (22-26); MEASURED OXYGEN SATURATION 83 % (92-95); PCO2 32 mmHg (34-38); PO2 48 mmHg (65-75); TCO2 23 mEq/L (23-27)
[2016-07-05 01:05] LABS: BIPAP YES
[2016-07-05] MEDS ORDERED: LORazepam 2 MG/ML INJ IVP PRN (01:05)
[2016-07-05] MEDS ORDERED: fentaNYL 100 MCG/2 ML INJ IVP PRN (01:05)
[2016-07-05 01:06] LABS: EXP PRESSURE 5; INSP PRESSURE 15; O2 CONCENTRATIION 100 % (0-100); P/F RATIO 48 RATIO
[2016-07-05] MEDS ORDERED: PROPOFOL/EMULSION 1,000 MG/100 ML BOTTLE IV ONE (01:06)
--- NOTE | 2016-07-05 01:06 | HOSPPROG ---
Hospitalist Progress Note Assessment/Plan: Cross Coverage Event Note Pt is 56/M with HCV, h/o alcohol abuse, an undiagnosed interstitial lung disease who was admitted on 07/02/2016 with complaint of shortness of breath, was found to be in acute hypoxic respiratory failure due to multifocal pneumonia. He was initiated on antibiotics and by 07/03, pt appeared to be improving. However, on the evening of 07/04 pt's respiratory status acutely worsened. His O2 requirements increased from 3L NC to 15L nc, he became acutely more tachypneic and anxious. A portable CXR was ordered and revealed worsening bilateral patchy infiltrates. I was then contacted by the RN at approximately 1130pm with concern for worsening respiratory status. On my evaluation, patient stated he felt he couldn't breath. VS at that time: HR 130-140s, RR 40-50s, O2 sat 79-83% on 15L face mask. He was using all accessory muscles of respiration and had diffuse rhonchi present bilaterally; CV exam revealed tachycardia; no peripheral edema. Anxiolytic medicines ( ativan and morphine) were given, but patient demonstrated no improvement in respiratory status. BIPAP was initiated at this time and he was transferred to the ICU. At the time of my evaluation, I discussed with the patient his wishes regarding his advanced directives. I explained that the patient's respiratory status had significantly worsened and asked if he would want us to proceed with intubation , if this were to be necessary to save his life. He expressed understanding of the concept and indicated he would want that done. I then asked him about CPR, stating it is documented he wouldn't want CPR performed if needed. He then pointed to his DNR wristband and said "cut it off" and expressed his wishes to have full resuscitation efforts made. This conversation was witnessed by the CORRECTIONAL NURSE. After approximately 1 hr on BIPAP FiO2 at 100%, ABG revealed significant hypoxemic respiratory failure. At this time, decision was made to intubate, in coordination with the patient. ED physician was called and successfully intubated patient. CXR was obtained, revealed ELMA intubation, so ETT was withdrawn 3 cm in total, with adequate position confirmed on repeat CXR. Oxygen saturations improved significantly with mechanical ventilation. Will again broaden abx coverage back to Vanc/zosyn and repeat post-intubation ABG. Objective: Vital Signs Temp Pulse Resp BP Pulse Ox 38.7 C H 130 H 58 H 95/61 L 87 L 07/05/16 00:43 07/05/16 00:50 07/05/16 00:50 07/05/16 00:50 07/05/16 00:50 Microbiology 07/02/16 12:43 - Final Sputum, Expectorated Laboratory Results 07/04/16 05:45 07/04/16 05:45 07/03/16 07/04/16 07/05/16 05:59 05:59 05:59 Intake Total 6205 740 900 Output Total 1000 2675 450 Balance 5205 -1935 450 PT 16.7 SEC (12.0-15.0) H 07/03/16 05:40 INR 1.35 (0.83-1.16) H 07/03/16 05:40 ICD10 Worksheet Patient Problems: Problems Problem Status Diagnosed Lung infiltrate Acute Sepsis Acute Acute respiratory failure with hypoxia Acute Alcohol abuse Acute Hematemesis Acute Ribs, multiple fractures Acute
[2016-07-05] MEDS ORDERED: fentanYL/NACL/100 ML BAG IV ONE (01:07)
[2016-07-05] MEDS ORDERED: SUCCINYLCHOLINE CHLORIDE*ANESTHESIA ONLY*200 MG/10 ML SYR IVP ONE ×2 (01:46→02:00)
[2016-07-05] MEDS ORDERED: ETOMIDATE 40 MG/20 ML INJ ONE (01:47)
[2016-07-05] MEDS: fentaNYL/NACL 100 ML IV SCH ×3 (01:48→23:39)
[2016-07-05] MEDS ORDERED: ETOMIDATE 40 MG/20 ML INJ IVP ONE (02:00)
[2016-07-05] MEDS: PROPOFOL/EMULSION 100 ML IV SCH ×4 (02:06→20:42)
--- NOTE | 2016-07-05 02:23 | EDPHY ---
Inpatient Procedure Narrative: I was asked to come and see and evaluate this patient for possible intubation on the floor for declining status, respiratory distress with significant hypoxia. I was asked to please come and intubate the patient. Patient admitted to the hospitalist service for pneumonia with an oxygen requirement however this evening progressively had increasing need him oxygen requirement. From 2-3 L nasal clean up to 15 L and then full face BiPAP. Upon my evaluation the patient is tachypneic in the 50s satting 83% on full face BiPAP with FiO2 100%. Patient seemed to be in respiratory distress. The hospitalist service did discuss with the patient if he would like to be intubated and put on a ventilator he agreed to this. the patient was examined noted to be tachycardic, tachypneic in the 50s, hypoxic in the 80s. Severe respiratory distress. Under direct laryngoscopy the patient was intubated with an 8.0 ET tube with a MAC 4 blade. The patient was given RSI medications 20 mg of IV etomidate, 100 mg of succinylcholine, I had direct visualization of the cords the endotracheal tube was passed by the cords under direct visualization with 1 attempt no complications. The tube was confirmed with end-tidal CO2 exchange, bilateral breath sounds, and chest x-ray. ED x-ray chest one view post intubation: endotracheal tube is in appropriate position above the alessandra. Both lung gee are significant for severe pneumonia questionable/ARDS. After completion intubation patient is hemodynamically stable oxygenating appropriately.. Critical Care: Total Critical Care Time Spent Managing this Patient: 30 Minutes. This time was spent Exclusively with this patient. This Care was exclusive of procedures. The Organ System/life at risk was respiratory This Patient was in Critical Condition because severe respiratory distress, hypoxia, multifocal pneumonia, ARDS
--- NOTE | 2016-07-05 02:40 | CPEKG ---
Heart Rate: 126 RR Interval: 476 P-R Interval: 152 QRSD Interval: 94 QT Interval: 296 QTC Interval: 429 P [place]: 46 QRS [place]: 31 T Wave [place]: 10 EKG Severity - OTHERWISE NORMAL ECG - EKG Impression: SINUS TACHYCARDIA EKG Impression: LOW VOLTAGE IN FRONTAL LEADS Electronically Signed By: Rodrigo Alicea 05-Jul-2016 09:12:30
[2016-07-05 02:52] LABS: BICARBONATE 22 mEq/L (22-26); MEASURED OXYGEN SATURATION 94 % (92-95); PCO2 54 mmHg (34-38); PO2 95 mmHg (65-75); TCO2 24 mEq/L (23-27)
[2016-07-05 03:05] LABS: END TIDAL CO2 39; O2 CONCENTRATIION 100 % (0-100); P/F RATIO 95 RATIO; PATIENT RATE 31; PIP 19; PRESSURE SUPPORT 7; SIMV YES
[2016-07-05] MEDS: PIPERACILLIN SODIUM/TAZOBACTAM 3.375 GM in D5W 50 ML IV SCH ×2 (03:19→11:11)
[2016-07-05] MEDS ORDERED: VANCOMYCIN 1.25 GM in D5W 250 ML IV SCH (03:30)
[2016-07-05] MEDS ORDERED: NS BOLUS 500 ML (Wide open) IV ONE (04:00)
[2016-07-05] MEDS ORDERED: NS BOLUS 500 ML (Wide open) IV PRN (04:00)
[2016-07-05] MEDS ORDERED: NOREPINEPHRINE BITARTRATE 4 MG in D5W 500 ML IV SCH (05:00)
[2016-07-05 05:06] LABS: BASE EXCESS -3.4 mEq/L (-2.5-2.5); BICARBONATE 22 mEq/L (22-26); MEASURED OXYGEN SATURATION 94 % (92-95); PCO2 49 mmHg (34-38); PO2 85 mmHg (65-75); TCO2 24 mEq/L (23-27)
[2016-07-05 05:08] LABS: O2 CONCENTRATIION 100 % (0-100); P/F RATIO 85 RATIO; PATIENT RATE 28; PRESSURE SUPPORT 7; SIMV YES
[2016-07-05 05:12] LABS: % IMMATURE GRANULYOCYTES 0.6 % (0.0-1.1); ABSOLUTE IMMATURE GRANULOCYTES 0.07 10^3/uL (0.00-0.10); ADD DIFF? NO; ADD MORPH? YES; ADD SCAN? NO; ATYPICAL LYMPHOCYTE FLAG 40 (0-99); FRAGMENT RBC FLAG 40 (0-99); HEMATOCRIT 29.4 % (40.0-51.0); HEMOGLOBIN 8.6 g/dL (13.7-17.5); LEFT SHIFT FLG 10 (0-99); LIPEMIA HEMOLYSIS FLAG 70 (0-99); MEAN CELL HEMOGLOBIN 19.5 pg (27.9-34.1); MEAN CELL HEMOGLOBIN CONCENTR. 29.3 g/dL (32.4-36.7); MEAN PLATELET VOLUME 9.8 fL (8.7-11.7); PLATELET CLUMPS FLAG 0 (0-99); PLATELET COUNT 200 10^3/uL (150-400)
[2016-07-05 05:19] LABS: MEAN CELL VOLUME 66.8 fL (81.5-99.8); RED CELL DISTRIBUTION WIDTH 20.7 % (11.5-15.2)
[2016-07-05 05:23] LABS: ANION GAP 8 mEq/L (8-16); CARBON DIOXIDE 25 mEq/l (22-31); CHLORIDE 103 mEq/L (97-110); CREATININE 0.9 mg/dL (0.7-1.3); GLOMERULAR FILTRATION RATE > 60; GLUCOSE 79 mg/dL (70-100); SODIUM 136 mEq/L (134-144)
[2016-07-05] MEDS: HEPARIN 5,000 UNIT/0.5 ML SYR SC SCH (05:27)
[2016-07-05 05:38] LABS: ELLIPTOCYTES 1+; HYPOCHROMIA 1+; MACROCYTES 1+; MICROCYTES 2+; PLATELET ESTIMATE ADEQUATE (ADEQ); POLYCHROMASIA 1+
[2016-07-05] MEDS ORDERED: IPRATROPIUM/ALBUTEROL 3 ML DEYVIAL NEB SCH (06:00)
[2016-07-05] MEDS ORDERED: ALBUTEROL 60 PUFFS/8 GM MDI IH SCH (06:00)
[2016-07-05] MEDS: CHLORHEXIDINE GLUCONATE 15 ML UDL PO SCH ×2 (08:21→19:41)
[2016-07-05] MEDS: FAMOTIDINE 20 MG/NACL 50 ML IV SCH ×2 (08:21→20:10)
[2016-07-05] MEDS: NICOTINE 21 MG/24 HR PATCH TD SCH (08:22)
--- NOTE | 2016-07-05 08:32 | PDINTPN ---
Tool Machinist Progress Note Assessment/Plan: Assessment/Plan: * Acute Resp Failure-now on max vent support. Peak pressures okay. -increase peep and Resp rate -may need to paralyze/rotarest * ?ILD- * Strep Pneumonia from sputum-on Zosyn/vanco -D/C vanco -add levaquin * ? H/O lung cancer- -obtain records from [facility] * Sepsis * Septic shock-on levo -add colloids * Hep C * H/O alcohol abuse * VTE proph * Stress ulcer proph 40 min of critical care time spent with patient Case discussed with RT, nursing. Subjective: Sedated Objective: Vital Signs Temp Pulse Resp BP Pulse Ox 36.5 C 98 26 H 96/67 L 92 07/05/16 08:00 07/05/16 08:00 07/05/16 08:00 07/05/16 08:00 07/05/16 08:00 Microbiology 07/02/16 12:43 - Final Sputum, Expectorated Laboratory Results 07/05/16 04:50 07/05/16 04:50 07/04/16 07/05/16 07/06/16 05:59 05:59 05:59 Intake Total 740 2536.6 Output Total 2675 700 Balance -1935 1836.6 PT 16.7 SEC (12.0-15.0) H 07/03/16 05:40 INR 1.35 (0.83-1.16) H 07/03/16 05:40 Laboratory Results 07/05/16 04:50 07/05/16 04:50 07/05/16 04:55 Patient Temperature 37.9 DEGREES pCO2 49 H mmHg (34 - 38) pO2 85 H mmHg (65 - 75) Total CO2 24 mEq/L (23 - 27) ABG pH 7.29 L (7.35 - 7.45) ABG PO2/FiO2 Ratio 85 RATIO ABG O2 Saturation 94 % (92 - 95) ABG Base Excess -3.4 L mEq/L (-2.5 - 2.5) O2 Concentration % 100 % Actual Respiration Rate 28 Set Respiration Rate 28 SIMV YES Tidal Volume 500 PEEP 8 07/02/16 12:43 - Final Sputum, Expectorated Sputum Culture - Preliminary Streptococcus Pneumoniae Physical Exam - Physical Exam General Appearance: other (sedated), No alert EENT: PERRL/EOMI, ET tube Neck: non-tender, full range of motion Respiratory: respiratory distress, crackles (diffuse), other (tachypnea) Cardiac/Chest: normal peripheral pulses, regular rate, rhythm, systolic murmur Abdomen: normal bowel sounds, non-tender, soft Male Genitalia: deferred Rectal: deferred Skin: normal color, warm/dry Extremities: normal range of motion, non-tender, normal inspection, normal capillary refill Neuro/Psych: No alert ICD10 Worksheet Patient Problems: Problems Problem Status Diagnosed Lung infiltrate Acute Sepsis Acute Acute respiratory failure with hypoxia Acute Alcohol abuse Acute Hematemesis Acute Ribs, multiple fractures Acute
[2016-07-05] MEDS ORDERED: TAZOBACTAM IV SCH (08:40)
[2016-07-05] MEDS ORDERED: D5W IV SCH (08:40)
[2016-07-05] MEDS ORDERED: PIPERACILLIN SODIUM IV SCH (08:40)
[2016-07-05] MEDS ORDERED: ALBUMIN 25% 100 ML IV ONE (08:45)
[2016-07-05] MEDS ORDERED: FUROSEMIDE 40 MG/4 ML VIAL IVP ONE (08:45)
--- NOTE | 2016-07-05 08:48 | DX ---
Portable Semiupright AP Chest July 05, 2016 0149 hours History: Assess endotracheal tube. Comparison: July 04 and July 02, 2016. Findings: Endotracheal tube terminates 3.4 cm above the alessandra. Esophagogastric tube reaches the stom ach. Right upper extremity peripherally inserted central catheter terminates at the junction of super ior vena cava and right atrium. Diffuse bilateral pulmonary consolidation is exaggerated by poor insp iratory depth and possible overlying pleural fluid (non upright position). Abnormality appears simila r to July 04. Impression: 1. Endotracheal tube is in good position. 2. Esophagogastric tube and peripherally inserted central catheter are in good positions. 3. Severe bilateral pulmonary consolidation and poor inspiratory depth.
[2016-07-05] MEDS ORDERED: levOFLOXACIN 500 MG/DEXTROSE 100 ML IV SCH (09:00)
[2016-07-05] MEDS: guaiFENesin 600 MG TAB.ER PO SCH (09:07)
[2016-07-05] MEDS: MULTIVITAMINS 1 EACH TAB PO SCH (09:08)
--- NOTE | 2016-07-05 09:15 | ECHO ---
[id number] + + [address] : : [place] [address] : : [phone] + + Adult Echocardiographic Report + --+ :Name: DANNY ANDERSON NStudy Date: 07/05/2016 07:42 AM : : Hospital Admission Number: [id number] Location: 2 55: :: 1960 Gender: Male Height: 72 in : :Age: 56 yrs Race: AIA Weight: 160 lb : :Reason For Study: Eval LV Fx : : BSA: 1.9 meters2 : :History: Dyspnea : + --+ MMode/2D Measurements & Calculations IVSd: 0.88 cm RVDd: 5.9 cm FS: 39.9 % Ao root diam: 3.4 cm LVPWd: 1.1 cm LVIDd: 4.6 cm EDV(Teich): 97.2 ml ACS: 1.5 cm LVIDs: 2.8 cm ESV(Teich): 28.6 ml LA dimension: 3.2 cm EF(Teich): 70.6 % Normal Measurement Values: + + :LVIDd (3.5-5.7cm) IVSd (0.6-1.1cm) LVPWd (0.6-1.1cm) Aortic Root (2.0-3.7cm)Left Atrium (1.5-4.0cm): :LV Vol(d) (76-115ml) LV Vol(s) (29-48ml) Ejec Fraction (50-65%)PV Pankaj (0.6- 1.2m/s) TV Pankaj (0.4-1.0m/s) : :MV E Pankaj (0.8-1.0m/s)MV A Pankaj (0.3-1.0m/s)LVOT Pankaj (0.7-1.2m/s) Asc Ao Pankaj ( 0.9-1.8m/s) : + + Doppler Measurements & Calculations MV E max pankaj: 61.7 cm/sec PA V2 max: 146.3 cm/sec TR max pankaj: 384.6 cm/sec MV A max pankaj: 73.5 cm/sec PA max P.6 mmHg TR max P.2 mmHg MV E/A: 0.84 RAP systole: 10.0 mmHg RVSP(TR): 69.2 mmHg Left Ventricle The left ventricle is normal in size and function. There is normal left ventricular wall thickness. Ejection Fraction = 71%. There is Doppler evidence for diastolic dysfunction. Flattened septum is consistent with RV pressure/volume overload. Right Ventricle The right ventricle is moderate to severely dilated. The right ventricular systolic function is severely reduced. Atria The left atrial size is normal. Right atrial size is normal. Mitral Valve The mitral valve is normal. There is no mitral valve stenosis. There is no mitral regurgitation noted. Tricuspid Valve Normal tricuspid valve. There is mild tricuspid regurgitation. Right ventricular systolic pressure is 70mmHg. There is Doppler evidence for severe pulmonary hypertension. Aortic Valve Mild Aortic Valve Calcification. There is no aortic stenosis. There is no aortic insufficiency. Pulmonic Valve The pulmonic valve is normal in structure and function. There is no pulmonic valvular regurgitation. Great Vessels The aortic root is normal size. Pericardium/Pleural Small anterior pericardial effusion. There are no echocardiographic indications of cardiac tamponade. Conclusion A complete two-dimensional transthoracic echocardiogram was performed (2D, M-mode, Doppler and color flow Doppler). The left ventricle is normal in size and function. Ejection Fraction = 71%. There is Doppler evidence for diastolic dysfunction. Flattened septum is consistent with RV pressure/volume overload. The right ventricle is moderate to severely dilated. The right ventricular systolic function is severely reduced. The mitral valve is normal. There is mild tricuspid regurgitation. Right ventricular systolic pressure is 70mmHg. There is Doppler evidence for severe pulmonary hypertension. Mild Aortic Valve Calcification There is no aortic stenosis. The pulmonic valve is normal in structure and function. The aortic root is normal size. Small anterior pericardial effusion There are no echocardiographic indications of cardiac tamponade. Final Reading Physician: Dr Darcy Gamble electronically signed on 07/05/2016 09:14 AM Ordering Physician: Raghav Spears Performed By: Jose Santos, CS
[2016-07-05 09:31] LABS: ALBUMIN 2.1 g/dL (3.5-5.0); BILIRUBIN,TOTAL 0.4 mg/dL (0.1-1.4); BILIRUBIN-CONJUGATED 0.2 mg/dL (0.0-0.5); BILIRUBIN-UNCONJUGATED 0.2 mg/dL (0.0-1.1); TOTAL PROTEIN 5.1 g/dL (6.3-8.2)
[2016-07-05 09:45] LABS: BASE EXCESS -3.9 mEq/L (-2.5-2.5); BICARBONATE 22 mEq/L (22-26); MEASURED OXYGEN SATURATION 96 % (92-95); PCO2 48 mmHg (34-38); PO2 92 mmHg (65-75); TCO2 24 mEq/L (23-27)
[2016-07-05 09:46] LABS: ASSIST CONTROL YES; P/F RATIO 92 RATIO
[2016-07-05 09:47] LABS: END TIDAL CO2 39; O2 CONCENTRATIION 100 % (0-100); TOTAL RATE 28
[2016-07-05] MEDS: PIPERACILLIN/TAZO 4.5 GM/DEX 100 ML IV SCH ×3 (09:53→20:43)
[2016-07-05] MEDS: NOREPINEPHRINE BITARTRATE 16 MG in D5W 250 ML IV SCH (10:03)
[2016-07-05] MEDS ORDERED: VECURONIUM BROMIDE 50 MG in D5W 50 ML IV SCH (11:00)
[2016-07-05] MEDS: ALBUTEROL 60 PUFFS/8 GM MDI IH SCH ×3 (11:13→19:53)
[2016-07-05] MEDS ORDERED: methylPREDNISolone SOD SUCC 125 MG/2 ML VIAL IVP SCH ×2 (12:00)
[2016-07-05] MEDS: guaiFENesin 200 MG/10 ML UDCUP TUBE SCH ×3 (12:35→20:59)
[2016-07-05] MEDS: MULTIVITAMINS 5 ML UDL TUBE SCH (12:36)
[2016-07-05] MEDS: methylPREDNISolone SOD SUCC 250 MG in D5W 50 ML IV SCH ×2 (12:37→17:42)
[2016-07-05] MEDS: ACETAMINOPHEN 650 MG/20.3 ML UDCUP TUBE PRN (13:08)
--- NOTE | 2016-07-05 13:12 | GCON ---
[f rep st] CONSULTATION CARDIOLOGY CONSULT DATE OF CONSULTATION: 07/05/2016 CHIEF COMPLAINT: Respiratory failure. HISTORY OF PRESENT ILLNESS: We were asked by Dr. Spears to visit with Mr. Maria. The history is obt ained from chart review as the patient is currently intubated and sedated. Mr. Maria is a 56-year-old male with a history of ongoing tobacco abuse, past alcohol abuse, possible interstitial lung disease and a self-reported history, per the chart, of lung cancer. He also has h epatitis C. He has had previous admissions to [facility]. I reviewed some of these re cords. His was most recently there in October 2015 with an indeterminate troponin, alcohol intoxication and an upper GI bleed. He was seen by Cardiology without noninvasive testing or coronary angiogram p erformed as his echocardiogram at that time was reportedly normal. He was admitted to [facility] on July 02 with cough and progressive dyspnea. He wa s diagnosed with strep pneumoniae pneumonia and this has been complicated by respiratory failure requ iring intubation early this morning as well as sepsis currently on pressors. He did have an echocardiogram yesterday showing normal LV systolic function without ischemic wall mot ion abnormality. His right ventricle is moderately to severely dilated with severely reduced systoli c function. Estimated pulmonary pressures are in the 70s. Therefore I am asked for a cardiac evalua tion in the setting of his respiratory failure and hypotension. REVIEW OF SYSTEMS: Unable to perform due the patient's intubated status. ALLERGIES: No known drug allergies. PAST MEDICAL HISTORY: 1. Possible interstitial lung disease based on CT scan. He does have mediastinal lymphadenopathy ra ising a concern for lung cancer which is also a problem listed in his chart. 2. History of tobacco and alcohol abuse with multiple admissions for alcohol intoxication. 3. Hepatitis C. 4. Coronary artery calcification seen on chest CT. 5. History of pancreatitis. 6. GERD/esophagitis. 7. History of GI bleed. 8. Multiple orthopedic surgeries. OUTPATIENT MEDICATIONS: Multivitamin and albuterol inhaler. SOCIAL HISTORY: The patient is currently incarcerated. He does continue to smoke cigarettes daily. Past history of alcohol abuse. FAMILY HISTORY: Notable for coronary disease in siblings and parents. PHYSICAL EXAM: VITAL SIGNS: Blood pressure 101/66, heart rate in the low 100s. Oxygen saturation i s 98% on 100% FiO2 on the ventilator. T-max over the past 24 hours has been 38.7 degrees C. GENERAL : This is an ill-appearing cachectic middle-aged male. He is intubated and sedated. CARDIOVASCULAR : Regular tachycardic rhythm without murmur, rub, or gallop. LUNGS: Diffuse rhonchi throughout all anterior lateral lung gee. ABDOMEN: Soft, without obvious masses or hepatosplenomegaly. EXTREM ITIES: Warm and well perfused without cyanosis, clubbing, or edema. NEURO: He is intubated and sed ated. LAB DATA: White count 12.07, hematocrit 29.4, platelets are 200. INR 1.35. pH on his blood gas is 7.29. Sodium 136, potassium 4, chloride 103, bicarb 25, BUN 7, creatinine 0.9. LFTs are normal. Al bumin is 2.1. Urine shows 1+ protein and 1+ blood. RF factor is within normal limits. STEVE screen, proteinase 3 and myeloperoxidase antibody pending. HIV negative. Sputum culture shows streptococcus pneumoniae. Blood cultures are no growth to date. IMAGIN. EKG reviewed by me dated 07/05/2016 at 2:23 a.m.: Sinus tachycardia with low frontal lead voltag e. 2. Echocardiogram reviewed by me as detailed in the history of present illness. 3. Chest CT reviewed by me: Diffuse bilateral airspace consolidation. Mediastinal lymph adenopathy . Qculo-qs-mbizjrio right and small left pleural effusion. Pleural nodules. Trace pericardial effu samm with three-vessel coronary disease. 4. Serial chest x-ray was reviewed by me: Worsening bilateral airspace disease. ET tube in positio n on his most recent film. 5. [facility] echo 2013 shows normal biventricular size and systolic function. [facility] echo by report dated October 2015 shows mild concentric LVH with normal biventricular size and systolic function. Mild left atrial dilation. Moderate right atrial dilation. Unable to e stimate PA systolic pressures by that echo report. ASSESSMENT/PLAN: A 56-year-old, male with a history of underlying lung disease, possibly interstitia l lung disease and/or lung carcinoma in the setting of tobacco abuse. Admitted with pneumonia compli cated by respiratory failure requiring intubation and sepsis. 1. Hypoxic respiratory failure: Clearly he has pulmonary parenchymal disease with superimposed pneu monia. I do not think that his respiratory failure represents primary heart failure. Per Dr. Spears , continue antibiotics, ventilatory support, steroids. 2. Right ventricular enlargement and dysfunction with severe pulmonary hypertension seen on echocard iogram. He is currently requiring pressors. He does not have significant peripheral edema. He is l ikely preload dependent given his RV dysfunction, so would ensure adequate fluid resuscitation. Rega rding pressors, if an additional agent is needed consider low-dose dopamine for RV support. It is yanet arana that his underlying pulmonary process is causing significant RV strain. While pulmonary embolis m is on the differential, I do think that he has enough pulmonary parenchymal disease to explain his echocardiographic findings. Continue DVT prophylaxis. 3. History of indeterminate troponin when previously admitted at [facility]. Coronary calcif ications seen on chest CT. EKG is nonischemic. Upon admission, according to the chart, he did not c omplain of angina. We will check a troponin, but I doubt that there is significant contribution from coronary disease to his current clinical picture. 4. Hepatitis C virus. We will need outpatient management. 5. History of tobacco and alcohol abuse: Certainly this complicates his medical care. Thank you for allowing us to participate in Mr. Maria's care. We will follow with you. /[id number]/MODL
--- NOTE | 2016-07-05 13:25 | HOSPPROG ---
Hospitalist Progress Note Assessment/Plan: INTERVAL SUMMARY & DAILY PROGRESS NOTE DATE OF ADMISSION: 07/02/2016 INTERVAL DIAGNOSES 1. Septic shock 2. Suspected streptococcal pneumonia 3. Acute hypoxic and hypercapnic respiratory failure 4. Suspected chronic interstitial lung disease 5. Acute kidney injury 6. Acute metabolic acidosis 7. Hepatitis-C virus 8. Chronic alcoholism 9. Acute systolic CHF exacerbation CONSULTATIONS Pulmonary Critical Care PROCEDURES / IMAGING 07/05/16 intubation CHIEF COMPLAINT Acute cough and shortness of breath SUBJECTIVE Patient experienced acute worsening of his shortness of breath overnight and was intubated HOSPITAL COURSE BY PROBLEM The patient presented on 07/02/2016 with severe sepsis secondary to pneumonia in the setting of chronic interstitial lung disease. He received 3 days of Zosyn and was clinically improving when he experienced acute decompensation with tachycardia, tachypnea, fever, worsening respiratory distress comma chest x-ray which demonstrated diffuse bilateral worsening infiltrates and nearly complete whiteout. The patient had initially elected to be a do not resuscitate/do not intubate, but this was revisited with the patient prior overnight hospitalist and the patient elected to adjust his goals of care to full code at that time. Consequently, the patient was started on combination of vancomycin, Zosyn, levofloxacin, was intubated, initiated on Levophed for shock, and required 100% FiO2 on ventilator. It is suspected that the patient is experiencing worsening pneumonia as well as systolic CHF in the setting of a chronically compromised state from interstitial lung disease. An echocardiogram has demonstrated reduced left ventricular and right ventricular systolic functions as well as significantly elevated RVSP. We are considering exacerbation by pulmonary embolism and performing ultrasounds of his legs as well as consulting with Cardiology. We are also obtaining an ethics consultation to help define how medical decisions should be made for this patient who was very clear on his presentation that he did not want any family or friends involved in medical decisions and would want his treating physicians to be his medical decision makers if he was in a cognitive state where he is unable to do so. Assessment: 56-year-old male presents with septic shock secondary to pneumonia in the setting of suspected interstitial lung disease, c/b acute hypoxic and hypercapnic respiratory failure, sCHF Plan: 1. Septic shock. Evidenced by tachycardia plus tachypnea plus leukocytosis plus clear evidence of infection notably pneumonia with evidence of end-organ failure notably lactic acidosis, acute kidney injury, respiratory failure, and evolving into shock requiring pressors, resulting in autonomic dysregulation in the setting of infection -order set placed -received weight based fluid challenge -received empiric antibiotics -monitor CBC -cont on levophed -given one dose of albumin this AM 2. Suspected streptococcal pneumonia. Evidenced by dense right-sided infiltrate in the setting of suspected interstitial lung disease with sepsis physiology as outlined above, evolved to nearly complete white-out on most recent CXR (personally interpreted) -d/w Dr. Spears, will provide double coverage for strep/possible pseudomonas w/ levofloxacin/zosyn 3. Acute kidney injury. Most likely secondary to a combination of hypovolemia and severe sepsis as outlined above -monitor I/O 4. Metabolic acidosis. Acute, secondary lactic acid, secondary to combination of hypovolemia and severe sepsis outlined above -lact cleared 5. Hypoxic and hypercapnic respiratory failure. Acute, evidenced by objective tachypnea with respiratory rate around 30+ visible respiratory distress with use of accessory muscles and symptomatic shortness of breath, worsening o/n w/ pCO2 54, pH 7.25, and PaO2 48, 2/2 worsening PNA and possible systolic CHF, possible diffuse alveolar damage -patient consented to intubation, currently requiring 100% FiO2, increased PEEP -placing on rotorest bed -cont scheduled nebs -treat underlying infection and attempting to diurese -d/w Dr. Spears, will likely add steroids 6. Suspected ILD. Based on prior CT imaging, persistent dense air space disease , reviewed [facility] records from 11/13 and it does not appear that he has had prior bronchoscopy or lung biopsy -although he claims he has "lung cancer", there is no evidence of a definitive diagnosis, and it appears that his hilar/mediastinal LAD is chronic 7. Systolic CHF exacerbation. Acute, evidenced by diffuse infiltrates on CXR + Echo w/ reduced LV and RV functions -reviewed [facility] echo from 11/13, had diastolic dysfunction but normal EF and RV fxn -Cards consult appreciated -given dose of lasix last PM, again this AM, monitor I/O and UOP -get LE US to r/o large clot as contributing issue Diet. NPO Prophylaxis. Moderate risk patient, lovenox 40 Code. Patient elected to adjust code status to FULL, and this AM he has indicated that he would like to continue this course of treatment. He indicated on 07/02/16 H&P that he does NOT want family/friends involved in his care, and would want his treating medical providers to make his medical decisions for him if he is unable to do so himself. Ethics has been consulted to assist and defining which members of our team should carry this responsibility while the patient is receiving sedation and unable to fully communicate his wishes. At the present time, Dr. Spears and myself are his medical providers and will be making medical decisions in tandem, in the best interest of the patient, which is consistent with his specifically stated request from 07/02/16. Disposition. Remains critically ill. 35 minutes of additional critical care time spent w/ the patient, at bedside and on rounds, from 10:30-11:05 a.m., addressing the issues above. He remains critically ill w/ high risk of mortality. Subjective: Significantly worsening shortness of breath overnight, was intubated Objective: Vital Signs Temp Pulse Resp BP Pulse Ox 38.4 C H 106 H 28 H 91/66 L 93 07/05/16 12:00 07/05/16 12:00 07/05/16 12:00 07/05/16 12:00 07/05/16 12:00 Microbiology 07/02/16 12:43 - Final Sputum, Expectorated Laboratory Results 07/05/16 04:50 07/05/16 04:50 07/04/16 07/05/16 07/06/16 05:59 05:59 05:59 Intake Total 740 2536.6 Output Total 2675 700 35 Balance -1935 1836.6 -35 PT 16.7 SEC (12.0-15.0) H 07/03/16 05:40 INR 1.35 (0.83-1.16) H 07/03/16 05:40 - Physical Exam Constitutional: chronically ill appearing, uncomfortable Cardiovascular: systolic murmur (2/6 at the sternum), tachycardia, No irregularly irregular, No edema Respiratory: rhonchi (Diffuse, bilaterally, on inspiration and expiration) Neurologic: other (Patient able to nod yes and no, able to follow one-step commands including squeezing hand, unable to verbalize given his ET tube) ICD10 Worksheet Patient Problems: Problems Problem Status Diagnosed Lung infiltrate Acute Sepsis Acute Acute respiratory failure with hypoxia Acute Alcohol abuse Acute Hematemesis Acute Ribs, multiple fractures Acute
--- NOTE | 2016-07-05 13:51 | US ---
Ultrasound Venous Duplex Doppler - Bilateral Legs at 1319 hour History: Pulmonary hypertension. Findings: Ultrasound venous Duplex and Doppler imaging of the bilateral common femoral veins, femo ral veins, popliteal veins, calf veins, and greater saphenous vein origins demonstrates normal compre ssibility, Duplex color-flow, Doppler flow without deep venous thrombosis. Impression: No deep venous thrombosis bilateral legs.
[2016-07-05 13:52] LABS: TROPONIN I 0.125 ng/mL (0-0.034)
[2016-07-05] MEDS: ENOXAPARIN 40 MG/0.4 ML SYR SC SCH (20:11)
[2016-07-05 20:15] LABS: BASE EXCESS -6.9 mEq/L (-2.5-2.5); BICARBONATE 21 mEq/L (22-26); MEASURED OXYGEN SATURATION 97 % (92-95); PCO2 52 mmHg (34-38); PO2 110 mmHg (65-75); TCO2 22 mEq/L (23-27)
[2016-07-05 20:16] LABS: ASSIST CONTROL YES; END TIDAL CO2 37; TOTAL RATE 28
[2016-07-05 20:17] LABS: O2 CONCENTRATIION 60 % (0-100); P/F RATIO 183 RATIO
[2016-07-05] MEDS ORDERED: NA BICARBONATE 50 MEQ/50 ML VIAL ONE (20:39)
[2016-07-05] MEDS ORDERED: NA BICARBONATE 50 MEQ/50 ML VIAL IV ONE (21:00)
[2016-07-06 00:04] LABS: ANION GAP 14 mEq/L (8-16); CALCIUM 7.8 mg/dL (8.5-10.4); CARBON DIOXIDE 23 mEq/l (22-31); CHLORIDE 102 mEq/L (97-110); CREATININE 0.7 mg/dL (0.7-1.3); GLOMERULAR FILTRATION RATE > 60; GLUCOSE 175 mg/dL (70-100); MAGNESIUM 1.8 mg/dL (1.6-2.3); POTASSIUM 4.1 mEq/L (3.5-5.2); SODIUM 139 mEq/L (134-144)
--- NOTE | 2016-07-06 00:12 | CPEKG ---
Heart Rate: 63 RR Interval: 952 P-R Interval: 188 QRSD Interval: 102 QT Interval: 436 QTC Interval: 447 P [place]: 52 QRS [place]: 29 T Wave [place]: -4 EKG Severity - ABNORMAL ECG - EKG Impression: SINUS RHYTHM EKG Impression: LOW VOLTAGE IN FRONTAL LEADS EKG Impression: ABNORMAL T, PROBABLE ISCHEMIA, ANTERIOR LEADS Electronically Signed By: Rodrigo Alicea 06-Jul-2016 10:24:31
[2016-07-06] MEDS ORDERED: MAGNESIUM SULF 2 GM/WATER 50 ML IV ONE (00:36)
[2016-07-06] MEDS: ALBUTEROL 60 PUFFS/8 GM MDI IH SCH ×6 (00:47→20:02)
[2016-07-06] MEDS: methylPREDNISolone SOD SUCC 250 MG in D5W 50 ML IV SCH ×5 (00:49→23:08)
--- NOTE | 2016-07-06 01:56 | SOAPPROG ---
SOAP Progress Note Assessment/Plan: Called by RN for bradycardia: HR 40-65; has been 80-100s today. Currently on Levo and propofol. Echo showing severe RH strain. Repeat EKG shows new anterior TWIs. Repeating trop (prior 0.125) Exam afebrile, BP 151/95 (MAP 107), Fio2 60%, 100% sedated ETT in place CV: kristy Plan: 1. Bradycardia: DDx: ischemia vs. propofol -repeat trop, decrease propofol and trial Ativan for sedation 07/06/16 01:54 07/06/16 01:55 07/06/16 01:57 Objective: Vital Signs Temp Pulse Resp BP Pulse Ox 36 C 63 32 H 151/95 H 100 07/06/16 00:00 07/06/16 00:00 07/06/16 00:00 07/06/16 00:00 07/06/16 00:00 Microbiology 07/02/16 12:43 - Final Sputum, Expectorated Laboratory Results 07/05/16 04:50 07/05/16 23:10 07/04/16 07/05/16 07/06/16 05:59 05:59 05:59 Intake Total 740 2536.6 1746.0 Output Total 2675 700 1335 Balance -1935 1836.6 411.0 PT 16.7 SEC (12.0-15.0) H 07/03/16 05:40 INR 1.35 (0.83-1.16) H 07/03/16 05:40 ICD10 Worksheet Patient Problems: Problems Problem Status Diagnosed Lung infiltrate Acute Sepsis Acute Acute respiratory failure with hypoxia Acute Alcohol abuse Acute Hematemesis Acute Ribs, multiple fractures Acute
[2016-07-06] MEDS ORDERED: MIDAZOLAM HCL 50 MG in D5W 50 ML IV SCH (02:00)
[2016-07-06] MEDS ORDERED: LORazepam 40 MG in D5W 40 ML IV SCH (02:00)
[2016-07-06] MEDS: guaiFENesin 200 MG/10 ML UDCUP TUBE SCH ×6 (02:05→22:49)
[2016-07-06] MEDS: PIPERACILLIN/TAZO 4.5 GM/DEX 100 ML IV SCH ×4 (03:05→20:27)
[2016-07-06] MEDS ORDERED: NA BICARBONATE 50 MEQ/50 ML VIAL ONE (03:26)
[2016-07-06] MEDS ORDERED: NA BICARBONATE 50 MEQ/50 ML VIAL IV ONE (03:30)
[2016-07-06] MEDS ORDERED: ATROPINE SULFATE 1 MG/10 ML SYR ONE (04:20)
[2016-07-06 04:46] LABS: BICARBONATE 25 mEq/L (22-26); MEASURED OXYGEN SATURATION 99 % (92-95); PCO2 44 mmHg (34-38); PO2 134 mmHg (65-75); TCO2 27 mEq/L (23-27)
[2016-07-06 04:46] LABS: % IMMATURE GRANULYOCYTES 0.4 % (0.0-1.1); ABSOLUTE IMMATURE GRANULOCYTES 0.03 10^3/uL (0.00-0.10); ADD DIFF? NO; ADD MORPH? YES; ADD SCAN? NO; ATYPICAL LYMPHOCYTE FLAG 40 (0-99); FRAGMENT RBC FLAG 40 (0-99); HEMATOCRIT 35.5 % (40.0-51.0); LEFT SHIFT FLG 0 (0-99); LIPEMIA HEMOLYSIS FLAG 70 (0-99); MEAN CELL HEMOGLOBIN 19.2 pg (27.9-34.1); MEAN PLATELET VOLUME 9.6 fL (8.7-11.7); PLATELET CLUMPS FLAG 20 (0-99); PLATELET COUNT 244 10^3/uL (150-400); RED BLOOD CELL COUNT 5.21 10^6/uL (4.40-6.38)
[2016-07-06 04:47] LABS: ASSIST CONTROL YES
[2016-07-06 04:48] LABS: END TIDAL CO2 31; O2 CONCENTRATIION 60 % (0-100); P/F RATIO 223 RATIO; TOTAL RATE 32
[2016-07-06 04:50] LABS: MEAN CELL VOLUME 68.1 fL (81.5-99.8)
[2016-07-06 04:51] LABS: MEAN CELL HEMOGLOBIN CONCENTR. 28.2 g/dL (32.4-36.7); RED CELL DISTRIBUTION WIDTH 21.7 % (11.5-15.2)
[2016-07-06 05:00] LABS: ALANINE AMINOTRANSFERASE 30 IU/L (21-72); ALBUMIN 2.7 g/dL (3.5-5.0); ALKALINE PHOSPHATASE 111 IU/L (38-126); ANION GAP 10 mEq/L (8-16); ASPARTATE AMINOTRANSFERASE 29 IU/L (17-59); BILIRUBIN,TOTAL 0.8 mg/dL (0.1-1.4); CALCIUM 7.9 mg/dL (8.5-10.4); CARBON DIOXIDE 27 mEq/l (22-31); CHLORIDE 103 mEq/L (97-110); CREATININE 0.7 mg/dL (0.7-1.3); GLOMERULAR FILTRATION RATE > 60; GLUCOSE 159 mg/dL (70-100); SODIUM 140 mEq/L (134-144); TOTAL PROTEIN 5.8 g/dL (6.3-8.2)
[2016-07-06] MEDS: fentaNYL/NACL 100 ML IV SCH ×3 (05:38→19:40)
[2016-07-06 05:58] LABS: MICROCYTES 2+; POLYCHROMASIA 1+
[2016-07-06 06:00] LABS: HYPOCHROMIA 1+; PLATELET ESTIMATE ADEQUATE (ADEQ); SCHISTOCYTES 1+
[2016-07-06] MEDS: CHLORHEXIDINE GLUCONATE 15 ML UDL PO SCH ×2 (07:53→19:42)
[2016-07-06] MEDS: FAMOTIDINE 20 MG/NACL 50 ML IV SCH ×2 (07:53→20:01)
[2016-07-06] MEDS: MULTIVITAMINS 5 ML UDL TUBE SCH (07:56)
[2016-07-06] MEDS: NICOTINE 21 MG/24 HR PATCH TD SCH (07:58)
--- NOTE | 2016-07-06 08:18 | DX ---
Chest, One View Portable July 06, 2016 0637 hours History: Multiple tubes and lines on ventilatory support. Comparison: July 05, 2016. Findings: Cardiac silhouette is moderately enlarged. Endotracheal tube 3 cm above the alessandra. Right arm PICC in the superior vena cava. Nasogastric tube in the stomach. Bilateral diffuse alveolar opaci ties are slightly improved since yesterday. No pneumothorax. Impression: 1. Multiple tubes and lines without pneumothorax. 2. Slight improvement in bilateral diffuse alveolar opacities. 3. Endotracheal tube 3 cm above the alessandra.
--- NOTE | 2016-07-06 08:42 | CPEKG ---
Heart Rate: 74 RR Interval: 811 P-R Interval: 180 QRSD Interval: 96 QT Interval: 420 QTC Interval: 466 P [place]: 52 QRS [place]: 13 T Wave [place]: -8 EKG Severity - ABNORMAL ECG - EKG Impression: SINUS RHYTHM EKG Impression: LOW VOLTAGE IN FRONTAL LEADS EKG Impression: NONSPECIFIC T ABNORMALITIES, ANTERIOR LEADS Electronically Signed By: Rodrigo Alicea 06-Jul-2016 10:24:22
--- NOTE | 2016-07-06 08:55 | PDINTPN ---
Tube Dispatcher Progress Note Assessment/Plan: Assessment/Plan: * Acute Resp Failure-now on max vent support. Peak pressures okay. Marked improvement in FIO2 -decrease rate * Cor Pulmonale/pulmonary HTN-likely from ILD/pna -duplex US LE negative * ?ILD- * Strep Pneumonia from sputum-on Zosyn/vanco -D/C vanco -add levaquin * ? H/O lung cancer- -obtain records from [place] * Sepsis * Septic shock-resolved * Sedation-will change to precedex * Hep C * H/O alcohol abuse * VTE proph * Stress ulcer proph 35 min of critical care time spent with patient Case discussed with RT, nursing. Overall, better Subjective: sedated Objective: Vital Signs Temp Pulse Resp BP Pulse Ox 36.5 C 79 32 H 113/73 99 07/06/16 08:00 07/06/16 08:19 07/06/16 08:19 07/06/16 08:00 07/06/16 08:19 Microbiology 07/02/16 12:43 - Final Sputum, Expectorated Sputum Culture - Final Streptococcus Pneumoniae Laboratory Results 07/06/16 04:00 07/06/16 04:00 07/05/16 07/06/16 07/07/16 05:59 05:59 05:59 Intake Total 2536.6 2977.0 Output Total 700 3335 Balance 1836.6 -358.0 PT 16.7 SEC (12.0-15.0) H 07/03/16 05:40 INR 1.35 (0.83-1.16) H 07/03/16 05:40 Laboratory Results 07/06/16 04:00 07/06/16 04:00 07/06/16 07/06/16 07/06/16 04:40 04:00 01:45 Patient Temperature 36.2 DEGREES pCO2 44 H mmHg (34 - 38) pO2 134 H mmHg (65 - 75) Total CO2 27 mEq/L (23 - 27) ABG pH 7.37 (7.35 - 7.45) ABG PO2/FiO2 Ratio 223 RATIO ABG O2 Saturation 99 H % (92 - 95) ABG Base Excess 0.0 mEq/L (-2.5 - 2.5) O2 Concentration % 60 % Respiration Rate 32 Set Respiration Rate 32 Assist Control YES Tidal Volume 500 End Tidal CO2 31 PEEP 5 Calcium 7.9 L mg/dL (8.5 - 10.4) Total Bilirubin 0.8 D mg/dL (0.1 - 1.4) AST 29 IU/L (17 - 59) ALT 30 IU/L (21 - 72) Alkaline Phosphatase 111 IU/L (38 - 126) Troponin I 0.068 H ng/mL (0 - 0.034) Total Protein 5.8 L g/dL (6.3 - 8.2) Albumin 2.7 L g/dL (3.5 - 5.0) 07/02/16 12:43 - Final Sputum, Expectorated Sputum Culture - Final Streptococcus Pneumoniae CXR-ETT okay. Some improvement throughout. - Time Spent With Patient Time Spent With Patient: 35 Physical Exam - Physical Exam General Appearance: other (sedated), No alert EENT: PERRL/EOMI, normal ENT inspection, ET tube Neck: non-tender, full range of motion, supple Respiratory: crackles (bilat), No respiratory distress, No stridor, No wheezing Cardiac/Chest: normal peripheral pulses, regular rate, rhythm, systolic murmur Peripheral Pulses: 2+: carotid (R), carotid (L), femoral (R), femoral (L), dorsalis-pedis (R), dorsalis-pedis (L) Abdomen: normal bowel sounds, non-tender, soft Male Genitalia: deferred Rectal: deferred Skin: normal color, warm/dry Extremities: normal range of motion, non-tender, normal inspection, normal capillary refill Neuro/Psych: No alert ICD10 Worksheet Patient Problems: Problems Problem Status Diagnosed Lung infiltrate Acute Sepsis Acute Acute respiratory failure with hypoxia Acute Alcohol abuse Acute Hematemesis Acute Ribs, multiple fractures Acute
[2016-07-06] MEDS: DEXMEDETOMIDINE HCL 400 MCG in NS 100 ML IV SCH ×4 (09:51→23:52)
--- NOTE | 2016-07-06 10:11 | HOSPPROG ---
Hospitalist Progress Note Assessment/Plan: 56-year-old male presents with septic shock secondary to pneumonia in the setting of suspected interstitial lung disease, c/b acute hypoxic and hypercapnic respiratory failure, sCHF Plan: 1. Septic shock 2. streptococcal pneumonia -cont levaquin/zosyn as ordered 3. Acute kidney injury (resolved) 4. Metabolic acidosis (resolved) 5. Hypoxic and hypercapnic respiratory failure -attempt to wean from vent 6. Suspected ILD. Based on prior CT imaging, persistent dense air space disease , reviewed [facility] records from 11/13 and it does not appear that he has had prior bronchoscopy or lung biopsy -although he claims he has "lung cancer", there is no evidence of a definitive diagnosis, and it appears that his hilar/mediastinal LAD is chronic 7. Systolic CHF exacerbation with bradycardia -cards consult appreciated Diet. NPO Prophylaxis. Moderate risk patient, lovenox 40 Code. ethics involved. MD as proxy if pt does not regain decisional capacity Disposition. Remains critically ill. Subjective: intubated/sedated Objective: Vital Signs Temp Pulse Resp BP Pulse Ox 36.4 C 47 L 26 H 142/79 H 100 07/06/16 10:00 07/06/16 10:00 07/06/16 10:00 07/06/16 10:00 07/06/16 10:00 Microbiology 07/02/16 12:43 - Final Sputum, Expectorated Sputum Culture - Final Streptococcus Pneumoniae Laboratory Results 07/06/16 04:00 07/06/16 04:00 07/05/16 07/06/16 07/07/16 05:59 05:59 05:59 Intake Total 2536.6 2977.0 Output Total 700 3335 Balance 1836.6 -358.0 PT 16.7 SEC (12.0-15.0) H 07/03/16 05:40 INR 1.35 (0.83-1.16) H 07/03/16 05:40 - Physical Exam Constitutional: chronically ill appearing Cardiovascular: regular rate and rhythym, no murmur, rub, or gallop Respiratory: no respiratory distress, no rales or rhonchi, clear to auscultation Gastrointestinal: normoactive bowel sounds, soft, non-tender abdomen, no palpable masses Skin: no rashes or abrasions, no fluctuance, no induration ICD10 Worksheet Patient Problems: Problems Problem Status Diagnosed Lung infiltrate Acute Sepsis Acute Acute respiratory failure with hypoxia Acute Alcohol abuse Acute Hematemesis Acute Ribs, multiple fractures Acute
--- NOTE | 2016-07-06 11:27 | PDCARPN ---
Cardiology Progress Note Assessment/Plan: 56-year-old male with in severe pre-existing pulmonary issues admitted with pneumonia resulting in septic shock requiring pressors and respiratory failure requiring intubation. Echocardiography demonstrated normal left ventricular systolic function. He had RV dilatation and significant RV dysfunction. Pulmonary parameters improving (e.g.- decreasing ventilatory rate and FiO2 need) . May be able to be extubated within the next 24-48 hours. Continues on low dose Levophed. Septic Shock- in light of his poor right ventricular performance, he will be sensitive to hypovolemia. If he has additional problems with hypotension, would consider dobutamine or dopamine as pressors of choice which should help hiss RV inotropic function as well as bradycardia. Bradycardia- has had heart rates into the 30s and 40s overnight without significant hemodynamic impact. May be partly related to sedation/pain medicines. Is not on any cardioactive medications that would produce bradycardia. No indication at this time for a temporary pacemaker. As above, consider dobutamine or dopamine if problems persist. Coronary Artery Disease- has incidentally noted coronary calcification involving all 3 coronary territories on chest CT. Mild troponin elevation is likely secondary to subendocardial ischemia in the setting of his septic shock. Has early precordial T-wave inversions on ECG. Has a history of other admissions to [facility] with mild troponin elevations. Consider pharmacologic nuclear stress test prior to discharge. 07/06/16 11:28 Subjective: Unable to voice complaints. Objective: Vital Signs (8 Hrs) Temp Pulse Resp BP Pulse Ox 07/06/16 11:15 136/79 H 07/06/16 11:00 36.5 C 55 L 22 H 91/51 L 98 07/06/16 10:00 36.4 C 47 L 26 H 142/79 H 100 07/06/16 09:00 36.6 C 75 26 H 97/64 L 98 07/06/16 08:19 79 32 H 99 07/06/16 08:00 36.5 C 74 32 H 113/73 98 07/06/16 07:00 36.4 C 74 32 H 136/79 H 99 07/06/16 05:58 36.4 C 71 32 H 114/81 H 98 07/06/16 05:00 36.4 C 66 32 H 137/84 H 100 07/06/16 04:25 75 32 H 100 07/06/16 04:00 36.2 C 88 32 H 149/96 H 100 Intake/Output (24 Hrs) 07/05/16 07/06/16 07/07/16 05:59 05:59 05:59 Intake Total 2536.6 2977.0 Output Total 700 3335 Balance 1836.6 -358.0 Intake: Oral (ml) 900 IV Intake (ml) 1434 1798 IV Infused (ml) 202.6 1179.0 fentaNYL/NACL 100 ml @ 62.6 308 Per Protocol IV CONT [facility] Rx#:[id number] Propofol/Emulsion 100 ml 70 321 @ Per Protocol IV CONT [facility] Rx#:[id number] Norepinephrine Bitartrate 70 454.3 4 mg In D5w 500 ml @ Titrate IV CONT [facility] Rx#: [id number] Norepinephrine Bitartrate 89.7 16 mg In D5w 250 ml @ Per Protocol IV CONT [facility] Rx#:[id number] LORazepam 40 mg In D5w 40 6 ml @ As Directed IV CONT [facility] Rx#:[id number] Output: Urine (ml) 700 3185 Urinal 450 Catheter 250 3185 OG Drainage (ml) 150 Large Bore (>12 Samoan) 150 Non-weighted Oral 16 Samoan Other: Number of Stools Bedside Commode 1 Result Diagrams: 07/06/16 04:00 07/06/16 04:00 Cardiac Labs: Cardiac Lab Results (72 Hrs) 07/06/16 07/05/16 01:45 13:10 Troponin I 0.068 H 0.125 H - Physical Exam Constitutional: other (chronically ill appearing; intubated and sedated) Eyes: anicteric sclera Ears, Nose, Mouth, Throat: moist mucous membranes Cardiovascular: regular rate and rhythm, no murmurs Respiratory: clear to auscultate bilat (anteriorly) Gastrointestinal: normoactive bowel sounds, no masses Skin: no edema Neurologic: other (intubated and sedated) ICD10 Worksheet Patient Problems: Problems Problem Status Diagnosed Lung infiltrate Acute Sepsis Acute Acute respiratory failure with hypoxia Acute Alcohol abuse Acute Hematemesis Acute Ribs, multiple fractures Acute
[2016-07-06] MEDS: NOREPINEPHRINE BITARTRATE 16 MG in D5W 250 ML IV SCH (11:56)
[2016-07-06 18:33] LABS: BASE EXCESS 2.9 mEq/L (-2.5-2.5); BICARBONATE 27 mEq/L (22-26); MEASURED OXYGEN SATURATION 98 % (92-95); PCO2 45 mmHg (34-38); PO2 116 mmHg (65-75); TCO2 29 mEq/L (23-27)
[2016-07-06 18:34] LABS: O2 CONCENTRATIION 40 % (0-100); P/F RATIO 290 RATIO; SIMV YES
[2016-07-06 18:35] LABS: END TIDAL CO2 37; PATIENT RATE 24; PRESSURE SUPPORT 10
[2016-07-06] MEDS: ENOXAPARIN 40 MG/0.4 ML SYR SC SCH (20:28)
[2016-07-07] MEDS: ALBUTEROL 60 PUFFS/8 GM MDI IH SCH ×7 (00:42→23:18)
[2016-07-07] MEDS: fentaNYL/NACL 100 ML IV SCH ×2 (01:49→06:30)
[2016-07-07] MEDS: guaiFENesin 200 MG/10 ML UDCUP TUBE SCH ×6 (01:51→22:31)
[2016-07-07] MEDS: PIPERACILLIN/TAZO 4.5 GM/DEX 100 ML IV SCH ×4 (02:12→21:33)
[2016-07-07] MEDS: DEXMEDETOMIDINE HCL 400 MCG in NS 100 ML IV SCH (03:48)
[2016-07-07 04:29] LABS: % IMMATURE GRANULYOCYTES 0.7 % (0.0-1.1); ABSOLUTE IMMATURE GRANULOCYTES 0.05 10^3/uL (0.00-0.10); ABSOLUTE NRBC COUNT 0.02 10^3/uL (0-0.01); ADD DIFF? NO; ADD MORPH? YES; ADD SCAN? NO; ATYPICAL LYMPHOCYTE FLAG 50 (0-99); FRAGMENT RBC FLAG 40 (0-99); HEMATOCRIT 32.5 % (40.0-51.0); HEMOGLOBIN 9.5 g/dL (13.7-17.5); LEFT SHIFT FLG 0 (0-99); LIPEMIA HEMOLYSIS FLAG 70 (0-99); MEAN CELL HEMOGLOBIN 19.3 pg (27.9-34.1); MEAN CELL HEMOGLOBIN CONCENTR. 29.2 g/dL (32.4-36.7); MEAN PLATELET VOLUME 9.3 fL (8.7-11.7); NRBC-AUTO% 0.3 % (0.0-0.2); PLATELET CLUMPS FLAG 0 (0-99); PLATELET COUNT 226 10^3/uL (150-400); RED BLOOD CELL COUNT 4.91 10^6/uL (4.40-6.38)
[2016-07-07 04:31] LABS: MEAN CELL VOLUME 66.2 fL (81.5-99.8); RED CELL DISTRIBUTION WIDTH 21.5 % (11.5-15.2)
[2016-07-07 04:46] LABS: ALANINE AMINOTRANSFERASE 26 IU/L (21-72); ALBUMIN 2.7 g/dL (3.5-5.0); ALKALINE PHOSPHATASE 93 IU/L (38-126); ANION GAP 10 mEq/L (8-16); ASPARTATE AMINOTRANSFERASE 20 IU/L (17-59); BILIRUBIN,TOTAL 0.6 mg/dL (0.1-1.4); CALCIUM 8.3 mg/dL (8.5-10.4); CARBON DIOXIDE 29 mEq/l (22-31); CHLORIDE 105 mEq/L (97-110); CREATININE 0.7 mg/dL (0.7-1.3); GLOMERULAR FILTRATION RATE > 60; GLUCOSE 165 mg/dL (70-100); SODIUM 144 mEq/L (134-144)
[2016-07-07] MEDS: methylPREDNISolone SOD SUCC 250 MG in D5W 50 ML IV SCH (05:02)
[2016-07-07 05:11] LABS: HYPOCHROMIA 1+; MICROCYTES 2+; POLYCHROMASIA 1+
[2016-07-07 05:14] LABS: PLATELET ESTIMATE ADEQUATE (ADEQ)
[2016-07-07 05:17] LABS: BASE EXCESS 2.6 mEq/L (-2.5-2.5); BICARBONATE 27 mEq/L (22-26); MEASURED OXYGEN SATURATION 97 % (92-95); PCO2 42 mmHg (34-38); PO2 94 mmHg (65-75); TCO2 28 mEq/L (23-27)
[2016-07-07 05:18] LABS: CPAP YES; END TIDAL CO2 36; O2 CONCENTRATIION 40 % (0-100); P/F RATIO 235 RATIO; PATIENT RATE 19
[2016-07-07 05:19] LABS: PRESSURE SUPPORT 10
[2016-07-07] MEDS: CHLORHEXIDINE GLUCONATE 15 ML UDL PO SCH ×2 (08:13→21:32)
[2016-07-07] MEDS: NICOTINE 21 MG/24 HR PATCH TD SCH (08:13)
[2016-07-07] MEDS: MULTIVITAMINS 5 ML UDL TUBE SCH (08:13)
--- NOTE | 2016-07-07 08:31 | PDINTPN ---
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 CPAP trial good -extubate * Cor Pulmonale/pulmonary HTN-likely from ILD/pna -duplex US LE negative * ?ILD- * Strep Pneumonia from sputum-on Zosyn/vanco -D/C vanco -add levaquin * ? H/O lung cancer- -obtain records from [place] * Sepsis * Septic shock-resolved * Sedation-will continue precedex * Hep C * H/O alcohol abuse * VTE proph * Stress ulcer proph 40 min of critical care time spent with patient Case discussed with RT, nursing. Overall, better Subjective: Awake. Objective: Vital Signs Temp Pulse Resp BP Pulse Ox 36.9 C 84 14 142/82 H 99 07/07/16 06:00 07/07/16 06:00 07/07/16 07:00 07/07/16 07:00 07/07/16 07:00 Microbiology 07/02/16 12:43 - Final Sputum, Expectorated Sputum Culture - Final Streptococcus Pneumoniae Laboratory Results 07/07/16 04:19 07/07/16 04:19 07/06/16 07/07/16 07/08/16 05:59 05:59 05:59 Intake Total 2977.0 3145.8 Output Total 3335 1170 Balance -358.0 1975.8 PT 16.7 SEC (12.0-15.0) H 07/03/16 05:40 INR 1.35 (0.83-1.16) H 07/03/16 05:40 Laboratory Results 07/07/16 04:19 07/07/16 04:19 07/07/16 05:10 Patient Temperature 37.1 DEGREES pCO2 42 H mmHg (34 - 38) pO2 94 H mmHg (65 - 75) Total CO2 28 H mEq/L (23 - 27) ABG pH 7.42 (7.35 - 7.45) ABG PO2/FiO2 Ratio 235 RATIO ABG O2 Saturation 97 H % (92 - 95) ABG Base Excess 2.6 H mEq/L (-2.5 - 2.5) O2 Concentration % 40 % Actual Respiration Rate 19 End Tidal CO2 36 PEEP 5 Pressure Support 10 CPAP YES Physical Exam - Physical Exam General Appearance: alert, no apparent distress EENT: PERRL/EOMI, normal ENT inspection, ET tube Neck: non-tender, full range of motion, supple Respiratory: chest non-tender, crackles, No wheezing, No prolonged expiration Cardiac/Chest: normal peripheral pulses, regular rate, rhythm Peripheral Pulses: 2+: carotid (R), carotid (L), femoral (R), femoral (L), dorsalis-pedis (R), dorsalis-pedis (L) Abdomen: normal bowel sounds, non-tender, soft Male Genitalia: deferred Rectal: deferred Skin: normal color, warm/dry Extremities: normal range of motion, non-tender, normal inspection, normal capillary refill ICD10 Worksheet Patient Problems: Problems Problem Status Diagnosed Lung infiltrate Acute Sepsis Acute Acute respiratory failure with hypoxia Acute Alcohol abuse Acute Hematemesis Acute Ribs, multiple fractures Acute
--- NOTE | 2016-07-07 08:42 | DX ---
Portable Chest, Single View July 07, 2016 at 6:48 a.m. Indication: ICU patient. Follow up pulmonary status. Comparison: Portable chest dated July 06, 2016. Findings: The ET tube and right PICC remain well-positioned. Given differences in technique, diffuse bilateral confluent airspace consolidation has not significantly improved. Impression: No change since one day prior.
--- NOTE | 2016-07-07 09:42 | PDCARPN ---
Cardiology Progress Note Assessment/Plan: 56-year-old male with in severe pre-existing pulmonary issues admitted with pneumonia resulting in septic shock requiring pressors and respiratory failure requiring intubation. Echocardiography demonstrated normal left ventricular systolic function. He had RV dilatation and significant RV dysfunction. Septic Shock- resolved; extubated this morning; off of IV pressor agents. Bradycardia- had heart rates into the 30s and 40s two nights ago without significant hemodynamic impact. Likely related to sedation/pain meds. Resolved. Coronary Artery Disease- has incidentally noted coronary calcification involving all 3 coronary territories on chest CT. Mild troponin elevation is likely secondary to subendocardial ischemia in the setting of his septic shock. Has early precordial T-wave inversions on ECG. Has a history of other admissions to [facility] with mild troponin elevations. Needs Lexiscan nuclear stress test prior to discharge. 07/07/16 09:37 Subjective: Still very somnolent. Does not offer complaints. Objective: Vital Signs (8 Hrs) Temp Pulse Resp BP Pulse Ox 07/07/16 08:43 37.2 C 69 18 139/86 H 98 07/07/16 07:00 14 142/82 H 99 07/07/16 06:00 36.9 C 84 18 98 07/07/16 05:10 61 99 07/07/16 05:00 36.6 C 87 20 130/70 H 99 07/07/16 04:00 37.3 C 53 L 18 144/83 H 97 07/07/16 03:00 37.8 C 62 18 149/84 H 98 07/07/16 02:00 67 18 150/88 H 99 Intake/Output (24 Hrs) 07/06/16 07/07/16 07/08/16 05:59 05:59 05:59 Intake Total 2977.0 3145.8 Output Total 3335 1170 Balance -358.0 1975.8 Intake: IV Intake (ml) 1798 1375 IV Infused (ml) 1179.0 1325.8 fentaNYL/NACL 100 ml @ 308 369 Per Protocol IV CONT [facility] Rx#:[id number] Propofol/Emulsion 100 ml 321 91 @ Per Protocol IV CONT [facility] Rx#:[id number] Famotidine 20 mg/NaCl 50 50 ml @ 200 mls/hr IV Q12HRS [facility] Rx#:[id number] Norepinephrine Bitartrate 454.3 4 mg In D5w 500 ml @ Titrate IV CONT [facility] Rx#: [id number] Piperacillin/Tazo 4.5 gm/ 200 Dex 100 ml @ 200 mls/hr IV Q6H [facility] Rx#:[id number] Norepinephrine Bitartrate 89.7 30.1 16 mg In D5w 250 ml @ Per Protocol IV CONT [facility] Rx#:[id number] methylPREDNISolone SOD 100 SUCC 250 mg In D5w 50 ml @ 108 mls/hr IV Q6 [facility] Rx #:[id number] LORazepam 40 mg In D5w 40 6 29.7 ml @ As Directed IV CONT [facility] Rx#:[id number] Dexmedetomidine HCl 400 456 mcg In Ns 100 ml @ Titrate IV CONT [facility] Rx#: [id number] Tube Feeding (ml) 315 Tube Flush (ml) 130 Output: Urine (ml) 3185 1170 Catheter 3185 1170 OG Drainage (ml) 150 Large Bore (>12 Nepali) 150 Non-weighted Oral 16 Nepali Result Diagrams: 07/07/16 04:19 07/07/16 04:19 Cardiac Labs: Cardiac Lab Results (72 Hrs) 07/06/16 07/05/16 01:45 13:10 Troponin I 0.068 H 0.125 H - Physical Exam Constitutional: other (chronically ill appearing) Eyes: anicteric sclera Ears, Nose, Mouth, Throat: moist mucous membranes Cardiovascular: regular rate and rhythm, no murmurs, no gallops Respiratory: clear to auscultate bilat (anteriorly) Gastrointestinal: normoactive bowel sounds, no masses Neurologic: other (still very somnolent from sedation) ICD10 Worksheet Patient Problems: Problems Problem Status Diagnosed Lung infiltrate Acute Sepsis Acute Acute respiratory failure with hypoxia Acute Alcohol abuse Acute Hematemesis Acute Ribs, multiple fractures Acute
[2016-07-07] MEDS: FAMOTIDINE 20 MG/NACL 50 ML IV SCH ×2 (11:15→19:34)
[2016-07-07] MEDS: methylPREDNISolone SOD SUCC 125 MG/2 ML VIAL IVP SCH ×2 (11:30→17:46)
--- NOTE | 2016-07-07 14:56 | HOSPPROG ---
Hospitalist Progress Note Assessment/Plan: 56-year-old male presents with septic shock secondary to pneumonia in the setting of suspected interstitial lung disease, c/b acute hypoxic and hypercapnic respiratory failure, sCHF Plan: 1. Septic shock 2. Hypoxic and hypercapnic respiratory failure secondary to streptococcal pneumonia - extubated this am -cont levaquin/zosyn as ordered 3. Acute kidney injury (resolved) 4. Metabolic acidosis (resolved) 5. Suspected ILD. Based on prior CT imaging, persistent dense air space disease , per [facility] records from 11/13, it does not appear that he has had prior bronchoscopy or lung biopsy -although he claims he has "lung cancer", there is no evidence of a definitive diagnosis, and it appears that his hilar/mediastinal LAD is chronic 6. Systolic CHF exacerbation with bradycardia -cards consult appreciated 7. CAD - Lexiscan prior to dc Diet. NPO Prophylaxis. Moderate risk patient, lovenox 40 Code. ethics involved. MD as proxy if pt does not regain decisional capacity Disposition. Remains critically ill. Subjective: Pt is extubated, answers questions. Denies pain. Objective: Vital Signs Temp Pulse Resp BP Pulse Ox 36.9 C 63 25 H 107/61 99 07/07/16 12:00 07/07/16 12:00 07/07/16 14:00 07/07/16 14:00 07/07/16 14:00 Laboratory Results 07/07/16 04:19 07/07/16 04:19 07/06/16 07/07/16 07/08/16 05:59 05:59 05:59 Intake Total 2977.0 3145.8 Output Total 3335 1170 Balance -358.0 1975.8 PT 16.7 SEC (12.0-15.0) H 07/03/16 05:40 INR 1.35 (0.83-1.16) H 07/03/16 05:40 - Physical Exam Constitutional: no apparent distress Eyes: PERRL Ears, Nose, Mouth, Throat: moist mucous membranes Cardiovascular: regular rate and rhythym Respiratory: no respiratory distress Gastrointestinal: normoactive bowel sounds, soft, non-tender abdomen Skin: warm Neurologic: other (+digits forward) ICD10 Worksheet Patient Problems: Problems Problem Status Diagnosed Lung infiltrate Acute Sepsis Acute Acute respiratory failure with hypoxia Acute Alcohol abuse Acute Hematemesis Acute Ribs, multiple fractures Acute
[2016-07-07] MEDS: ENOXAPARIN 40 MG/0.4 ML SYR SC SCH (19:36)
[2016-07-07] MEDS ORDERED: ALBUTEROL 3 ML DEYVIAL IH PRN (23:07)
[2016-07-08] MEDS: methylPREDNISolone SOD SUCC 125 MG/2 ML VIAL IVP SCH ×5 (00:02→23:12)
[2016-07-08 03:10] LABS: BASE EXCESS 4.5 mEq/L (-2.5-2.5); BICARBONATE 28 mEq/L (22-26); MEASURED OXYGEN SATURATION 93 % (92-95); PCO2 41 mmHg (34-38); PO2 67 mmHg (65-75); TCO2 30 mEq/L (23-27)
[2016-07-08] MEDS: ALBUTEROL 60 PUFFS/8 GM MDI IH SCH ×4 (03:25→16:18)
[2016-07-08] MEDS: guaiFENesin 200 MG/10 ML UDCUP TUBE SCH ×4 (03:25→15:40)
[2016-07-08] MEDS: PIPERACILLIN/TAZO 4.5 GM/DEX 100 ML IV SCH ×4 (03:31→20:25)
[2016-07-08 04:08] LABS: ADD DIFF? NO; ADD MORPH? YES; ADD SCAN? NO; ATYPICAL LYMPHOCYTE FLAG 30 (0-99); FRAGMENT RBC FLAG 60 (0-99); HEMOGLOBIN 9.1 g/dL (13.7-17.5); LEFT SHIFT FLG 0 (0-99); LIPEMIA HEMOLYSIS FLAG 70 (0-99); MEAN CELL HEMOGLOBIN 19.3 pg (27.9-34.1); MEAN CELL HEMOGLOBIN CONCENTR. 29.4 g/dL (32.4-36.7); MEAN PLATELET VOLUME 8.9 fL (8.7-11.7); PLATELET CLUMPS FLAG 0 (0-99); PLATELET COUNT 263 10^3/uL (150-400); RED BLOOD CELL COUNT 4.72 10^6/uL (4.40-6.38)
[2016-07-08 04:10] LABS: MEAN CELL VOLUME 65.7 fL (81.5-99.8); RED CELL DISTRIBUTION WIDTH 21.4 % (11.5-15.2)
[2016-07-08 04:38] LABS: ALANINE AMINOTRANSFERASE 23 IU/L (21-72); ALBUMIN 2.7 g/dL (3.5-5.0); ALKALINE PHOSPHATASE 75 IU/L (38-126); ANION GAP 10 mEq/L (8-16); ASPARTATE AMINOTRANSFERASE 20 IU/L (17-59); BILIRUBIN,TOTAL 0.4 mg/dL (0.1-1.4); CALCIUM 8.2 mg/dL (8.5-10.4); CARBON DIOXIDE 30 mEq/l (22-31); CHLORIDE 105 mEq/L (97-110); CREATININE 0.6 mg/dL (0.7-1.3); GLOMERULAR FILTRATION RATE > 60; GLUCOSE 145 mg/dL (70-100); POTASSIUM 3.4 mEq/L (3.5-5.2); SODIUM 145 mEq/L (134-144); TOTAL PROTEIN 5.6 g/dL (6.3-8.2)
[2016-07-08 04:41] LABS: GIANT PLATELETS PRESENT; HYPOCHROMIA 2+; LARGE PLATELETS PRESENT; MICROCYTES 2+; PLATELET ESTIMATE ADEQUATE (ADEQ)
[2016-07-08 04:45] LABS: POLYCHROMASIA 1+; TOXIC GRANULATION PRESENT
--- NOTE | 2016-07-08 08:29 | DX ---
Portable chest x-ray 0635 hours. History: Followup pneumonia. Findings: Comparison to July 07, 2016. The ET tube and NG tube have been removed. PICC line remains in place. Heart size remains mildly enla rged. Pulmonary vasculature is prominent centrally stable in appearance. Moderate bilateral alveolar infiltrates are once again seen diffusely. There may be small effusions layering posteriorly. Osseous structures are unchanged. Impression: 1. Interval removal of ET tube and NG tube. 2. Stable moderate bilateral alveolar infiltrates. There may be small effusions as well layering post eriorly.
[2016-07-08] MEDS ORDERED: FUROSEMIDE 40 MG/4 ML VIAL IVP ONE (09:06)
[2016-07-08] MEDS ORDERED: PROTOCOL POTASSIUM 1 DOSE MISC PRN (09:06)
[2016-07-08] MEDS ORDERED: POTASSIUM CL 10 MEQ TAB PO ONE ×2 (09:08→19:35)
[2016-07-08] MEDS: CHLORHEXIDINE GLUCONATE 15 ML UDL PO SCH ×2 (09:10→19:34)
[2016-07-08] MEDS: MULTIVITAMINS 5 ML UDL TUBE SCH (09:11)
[2016-07-08] MEDS: FAMOTIDINE 20 MG/NACL 50 ML IV SCH (09:11)
[2016-07-08] MEDS: NICOTINE 21 MG/24 HR PATCH TD SCH (09:14)
--- NOTE | 2016-07-08 09:14 | HOSPPROG ---
Hospitalist Progress Note Assessment/Plan: 56-year-old male presents with septic shock secondary to pneumonia in the setting of suspected interstitial lung disease, c/b acute hypoxic and hypercapnic respiratory failure, sCHF Plan: 1. Septic shock 2. Hypoxic and hypercapnic respiratory failure secondary to streptococcal pneumonia - extubated yesterday and was on 4 LPM, now up to 15 LPM and more tachypneic. -cont levaquin/zosyn as ordered -Query some fluid aspect, repeat Lasix today -U/S thoracentesis today, fluid analysis and cytology planned -wean high dose steroids 3. Acute kidney injury (resolved) 4. Metabolic acidosis (resolved) 5. Suspected ILD. Based on prior CT imaging, persistent dense air space disease , per [facility] records from 11/13, it does not appear that he has had prior bronchoscopy or lung biopsy -although he claims he has "lung cancer", there is no evidence of a definitive diagnosis, and it appears that his hilar/mediastinal LAD is chronic 6. Diastolic CHF exacerbation with bradycardia -cards consult appreciated -repeat Lasix today 7. CAD - Lexiscan prior to dc Diet. NPO Prophylaxis. Moderate risk patient, lovenox 40 Code. ethics involved. MD as proxy if pt does not maintain decisional capacity Disposition - ICU Subjective: Pt awake, alert, more tachypneic. Denies CP. No fevers. Still some cough. Objective: Vital Signs Temp Pulse Resp BP Pulse Ox 36.8 C 67 29 H 141/79 H 94 07/08/16 08:00 07/08/16 08:00 07/08/16 08:00 07/08/16 08:00 07/08/16 08:00 Laboratory Results 07/08/16 04:01 07/08/16 04:01 07/07/16 07/08/16 07/09/16 05:59 05:59 05:59 Intake Total 3145.8 1000 Output Total 1170 1050 Balance 1975.8 -50 PT 16.7 SEC (12.0-15.0) H 07/03/16 05:40 INR 1.35 (0.83-1.16) H 07/03/16 05:40 - Physical Exam Constitutional: no apparent distress Eyes: PERRL Ears, Nose, Mouth, Throat: moist mucous membranes Cardiovascular: regular rate and rhythym Respiratory: no respiratory distress, inspiratory crackles Gastrointestinal: normoactive bowel sounds, soft, non-tender abdomen Skin: warm Neurologic: AAOx3 Psychiatric: interacting appropriately ICD10 Worksheet Patient Problems: Problems Problem Status Diagnosed Lung infiltrate Acute Sepsis Acute Acute respiratory failure with hypoxia Acute Alcohol abuse Acute Hematemesis Acute Ribs, multiple fractures Acute
--- NOTE | 2016-07-08 09:35 | PDINTPN ---
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 H/O lung cancer- -agree with thoracentesis * Sepsis-resolved * Septic shock-resolved * Sedation-will continue precedex * Hep C * H/O alcohol abuse * VTE proph * Stress ulcer proph Case discussed with RT, nursing. Overall, better Subjective: Awake and alert. Breathing easier. Hungry Objective: Vital Signs Temp Pulse Resp BP Pulse Ox 36.8 C 67 29 H 141/79 H 94 07/08/16 08:00 07/08/16 08:00 07/08/16 08:00 07/08/16 08:00 07/08/16 08:00 Laboratory Results 07/08/16 04:01 07/08/16 04:01 07/07/16 07/08/16 07/09/16 05:59 05:59 05:59 Intake Total 3145.8 1000 Output Total 1170 1050 Balance 1975.8 -50 PT 16.7 SEC (12.0-15.0) H 07/03/16 05:40 INR 1.35 (0.83-1.16) H 07/03/16 05:40 Laboratory Results 07/08/16 04:01 07/08/16 04:01 07/08/16 02:50 Patient Temperature 37.0 DEGREES pCO2 41 H mmHg (34 - 38) pO2 67 mmHg (65 - 75) Total CO2 30 H mEq/L (23 - 27) ABG pH 7.46 H (7.35 - 7.45) ABG O2 Saturation 93 % (92 - 95) ABG Base Excess 4.5 H mEq/L (-2.5 - 2.5) Total O2 Concentration 6.0 LITERS Physical Exam - Physical Exam General Appearance: alert, mild distress EENT: PERRL/EOMI, normal ENT inspection Neck: non-tender, full range of motion, supple Respiratory: respiratory distress (mild), crackles (scattered), No wheezing, No prolonged expiration Cardiac/Chest: normal peripheral pulses, regular rate, rhythm, systolic murmur Peripheral Pulses: 2+: carotid (R), carotid (L), femoral (R), femoral (L), dorsalis-pedis (R), dorsalis-pedis (L) Abdomen: normal bowel sounds, non-tender, soft Male Genitalia: deferred Rectal: deferred Skin: normal color, warm/dry Extremities: normal range of motion, non-tender, normal inspection, normal capillary refill Neuro/Psych: alert ICD10 Worksheet Patient Problems: Problems Problem Status Diagnosed Lung infiltrate Acute Sepsis Acute Acute respiratory failure with hypoxia Acute Alcohol abuse Acute Hematemesis Acute Ribs, multiple fractures Acute
[2016-07-08 10:04] LABS: LACTATE DEHYDROGENASE 779 IU/L (313-618)
--- NOTE | 2016-07-08 11:58 | PDCARPN ---
Cardiology Progress Note Assessment/Plan: 56-year-old male with in severe pre-existing pulmonary issues admitted with pneumonia resulting in septic shock requiring pressors and respiratory failure requiring intubation. Echocardiography demonstrated normal left ventricular systolic function. He had RV dilatation and significant RV dysfunction. Septic Shock- resolved; extubated yesterday; off of IV pressor agents. Bradycardia- had heart rates into the 30s and 40s; Likely related to sedation/ pain meds. Resolved. Coronary Artery Disease- has incidentally noted coronary calcification involving all 3 coronary territories on chest CT. Mild troponin elevation was likely secondary to subendocardial ischemia in the setting of his septic shock. Has early precordial T-wave inversions on ECG. Has a history of other admissions to [facility] with mild troponin elevations. Needs Lexiscan nuclear stress test prior to discharge. 07/08/16 11:55 Objective: Vital Signs (8 Hrs) Temp Pulse Resp BP Pulse Ox 07/08/16 10:00 87 29 H 122/68 H 95 07/08/16 09:59 98 24 H 94 07/08/16 08:00 36.8 C 67 29 H 141/79 H 94 07/08/16 04:00 37.4 C 80 16 130/68 H 93 Intake/Output (24 Hrs) 07/07/16 07/08/16 07/09/16 05:59 05:59 05:59 Intake Total 3145.8 1000 Output Total 1170 1050 Balance 1975.8 -50 Intake: Oral (ml) 400 IV Intake (ml) 1375 600 IV Infused (ml) 1325.8 fentaNYL/NACL 100 ml @ 369 Per Protocol IV CONT [facility] Rx#:[id number] Propofol/Emulsion 100 ml 91 @ Per Protocol IV CONT [facility] Rx#:[id number] Famotidine 20 mg/NaCl 50 50 ml @ 200 mls/hr IV Q12HRS [facility] Rx#:[id number] Piperacillin/Tazo 4.5 gm/ 200 Dex 100 ml @ 200 mls/hr IV Q6H [facility] Rx#:[id number] Norepinephrine Bitartrate 30.1 16 mg In D5w 250 ml @ Per Protocol IV CONT [facility] Rx#:[id number] methylPREDNISolone SOD 100 SUCC 250 mg In D5w 50 ml @ 108 mls/hr IV Q6 [facility] Rx #:[id number] LORazepam 40 mg In D5w 40 29.7 ml @ As Directed IV CONT [facility] Rx#:[id number] Dexmedetomidine HCl 400 456 mcg In Ns 100 ml @ Titrate IV CONT [facility] Rx#: [id number] Tube Feeding (ml) 315 Tube Flush (ml) 130 Output: Urine (ml) 1170 1050 Urinal 200 Bedside Commode 450 Catheter 1170 400 Other: Number of Voids Bedside Commode 3 Number of Stools Bedside Commode 3 Result Diagrams: 07/08/16 04:01 07/08/16 04:01 Cardiac Labs: Cardiac Lab Results (72 Hrs) 07/06/16 07/05/16 01:45 13:10 Troponin I 0.068 H 0.125 H - Physical Exam Constitutional: other (somnolent) Eyes: anicteric sclera Ears, Nose, Mouth, Throat: moist mucous membranes Cardiovascular: regular rate and rhythm, no murmurs Respiratory: clear to auscultate bilat Gastrointestinal: normoactive bowel sounds, no masses Psychiatric: other (somnolent, not interacting) ICD10 Worksheet Patient Problems: Problems Problem Status Diagnosed Lung infiltrate Acute Sepsis Acute Acute respiratory failure with hypoxia Acute Alcohol abuse Acute Hematemesis Acute Ribs, multiple fractures Acute
--- NOTE | 2016-07-08 15:39 | DX ---
Portable AP chest July 08, 2016, 1503 hours History: immediate post right thoracentesis of 600 mL. Findings: Compared to 0635 hours today and also to yesterday. Silhouette of the right hemidiaphragm i s now visible. Lungs are diffusely consolidated, bilaterally. Peripherally inserted central catheter terminates at the junction of superior vena cava and right atrium. Oxygen tubing and telemetry leads pass over the chest. Impression: 1. No pneumothorax after right thoracentesis. 2. Severe bilateral pulmonary consolidation. IR Call
--- NOTE | 2016-07-08 16:27 | US ---
Ultrasound-Guided Right Thoracentesis History: Pneumonia, pleural effusion. Consent: Risks and benefits of the procedure were discussed in detail. Informed consent was obtained . Technique: Preliminary sonography was used to locate the optimal site for entry. The skin was labeled and then prepped and draped in sterile fashion. 1% Xylocaine was used for local anesthetic. After a skin domonique with a scalpel, a 6-Moldovan multi-sidehole pigtail drainage tube was inserted into the right pleural cavity in trocar fashion. 600 mL of clear yellow fluid were evacuated. The fluid was sent to the laboratory for multiple tests. Sterile dressing was applied. The patient tolerated the procedure well and was taken to diagnostic radiology for chest radiograph. Findings: It was somewhat surprising to evacuate 600 mL given the small size of the pleural effusion by sonography. Impression: Ultrasound-guided right thoracentesis of 600 mL of clear yellow fluid. - - - - - - - - - - - - - - - - - - - - - - - - - - - - - - - - - - - - - - - - - - - - (PQRS Measures: Current medications were listed in the medical record, including all known prescript ions, oxsu-sef-mazjozs medications, herbal medications, and nutritional supplements. Tobacco Use: Non e. Prophylactic antibiotic: Unnecessary. VTE prophylaxis: Unnecessary .) IR Call
[2016-07-08] MEDS ORDERED: guaiFENesin 200 MG/10 ML UDCUP TUBE PRN (16:49)
[2016-07-08 17:38] LABS: LD, PLEURAL FLUID 421 IU/L
[2016-07-08 18:32] LABS: POTASSIUM 3.2 mEq/L (3.5-5.2)
--- NOTE | 2016-07-08 19:22 | CPEKG ---
Heart Rate: 78 RR Interval: 769 P-R Interval: 156 QRSD Interval: 96 QT Interval: 456 QTC Interval: 520 P [place]: 41 QRS [place]: 8 T Wave [place]: 20 EKG Severity - ABNORMAL ECG - EKG Impression: SINUS RHYTHM EKG Impression: BORDERLINE T ABNORMALITIES, ANTERIOR LEADS EKG Impression: BORDERLINE PROLONGED QT INTERVAL Electronically Signed By: Rodrigo Alicea 08-Jul-2016 22:06:14
[2016-07-08] MEDS: ENOXAPARIN 40 MG/0.4 ML SYR SC SCH (20:13)
[2016-07-08] MEDS: FAMOTIDINE 20 MG TAB PO SCH (20:19)
[2016-07-09] MEDS: PIPERACILLIN/TAZO 4.5 GM/DEX 100 ML IV SCH ×2 (02:09→07:39)
[2016-07-09] MEDS: methylPREDNISolone SOD SUCC 125 MG/2 ML VIAL IVP SCH (05:09)
[2016-07-09 05:17] LABS: ANION GAP 8 mEq/L (8-16); CARBON DIOXIDE 35 mEq/l (22-31); CHLORIDE 103 mEq/L (97-110); CREATININE 0.6 mg/dL (0.7-1.3); GLOMERULAR FILTRATION RATE > 60; GLUCOSE 180 mg/dL (70-100); POTASSIUM 3.4 mEq/L (3.5-5.2); SODIUM 146 mEq/L (134-144)
[2016-07-09] MEDS: FAMOTIDINE 20 MG TAB PO SCH ×2 (07:39→21:56)
[2016-07-09] MEDS: NICOTINE 21 MG/24 HR PATCH TD SCH (07:39)
[2016-07-09] MEDS: MULTIVITAMINS 5 ML UDL TUBE SCH (07:39)
[2016-07-09] MEDS: CHLORHEXIDINE GLUCONATE 15 ML UDL PO SCH ×2 (07:41→21:56)
[2016-07-09] MEDS ORDERED: POTASSIUM CL 10 MEQ TAB PO ONE (08:09)
[2016-07-09] MEDS ORDERED: FUROSEMIDE 40 MG/4 ML VIAL IVP SCH (09:00)
[2016-07-09] MEDS ORDERED: POTASSIUM CL 10 MEQ TAB ONE (09:03)
--- NOTE | 2016-07-09 09:08 | DX ---
AP Portable Chest July 09, 2016 Clinical Indication: Pneumonia. Comparison: July 07, 2016. Findings: PICC tip terminates in the upper right atrium unchanged in position. Heart size is mildly e nlarged. Diffuse interstitial and alveolar infiltrates are unchanged. Costophrenic angles are slightl y blunted suggesting small effusions. There is no significant change from one day prior. Impression: 1. Stable alveolar interstitial infiltrates. 2. Stable bilateral effusions from one day prior. 3. PICC unchanged.
[2016-07-09] MEDS: ACETAMINOPHEN 650 MG/20.3 ML UDCUP TUBE PRN (12:22)
--- NOTE | 2016-07-09 13:01 | HOSPPROG ---
Hospitalist Progress Note Assessment/Plan: 56-year-old male presents with septic shock secondary to pneumonia in the setting of suspected interstitial lung disease, c/b acute hypoxic and hypercapnic respiratory failure, sCHF Plan: 1. Septic shock - shock physiology resolved 2. Hypoxic and hypercapnic respiratory failure secondary to streptococcal pneumonia by sputum Cx - extubated 07/08. -tailor to oral Levaquin -Query some fluid aspect, continue IV Lasix -U/S thoracentesis yesterday, fluid appears to be transudative -wean high dose steroids, change to oral Prednisone 3. Acute kidney injury (resolved) 4. Metabolic acidosis (resolved) 5. Suspected ILD. Based on prior CT imaging, persistent dense air space disease , per [facility] records from 11/13, it does not appear that he has had prior bronchoscopy or lung biopsy -although he claims he has "lung cancer", there is no evidence of a definitive diagnosis, and it appears that his hilar/mediastinal LAD is chronic -cytology sent of pleural fluid 6. Diastolic CHF exacerbation with bradycardia -cards consult appreciated -repeat Lasix today 7. CAD - Lexiscan in am Diet. NPO Prophylaxis. Moderate risk patient, lovenox 40 Code. ethics involved. MD as proxy if pt does not maintain decisional capacity Disposition - ICU Subjective: Pt feels better, up in chair, less SOB. No fevers. Appetite improved. Denies CP. Objective: Vital Signs Temp Pulse Resp BP Pulse Ox 36.6 C 81 16 117/77 92 07/08/16 20:00 07/09/16 12:00 07/09/16 12:00 07/09/16 12:00 07/09/16 12:00 Microbiology 07/02/16 12:43 - Final Sputum, Expectorated Sputum Culture - Final Streptococcus Pneumoniae 07/08/16 15:45 Gram Stain - Final Thoracic Fluid - Aspirate Laboratory Results 07/08/16 04:01 07/09/16 04:26 07/08/16 07/09/16 07/10/16 05:59 05:59 05:59 Intake Total 1000 1250 Output Total 1050 2975 1900 Balance -50 -1725 -1900 PT 16.7 SEC (12.0-15.0) H 07/03/16 05:40 INR 1.35 (0.83-1.16) H 07/03/16 05:40 - Physical Exam Constitutional: no apparent distress Eyes: PERRL Ears, Nose, Mouth, Throat: moist mucous membranes Cardiovascular: regular rate and rhythym, no murmur, rub, or gallop Respiratory: no respiratory distress, reduced air movement Gastrointestinal: normoactive bowel sounds, soft, non-tender abdomen Skin: warm Neurologic: AAOx3 Psychiatric: interacting appropriately ICD10 Worksheet Patient Problems: Problems Problem Status Diagnosed Lung infiltrate Acute Sepsis Acute Acute respiratory failure with hypoxia Acute Alcohol abuse Acute Hematemesis Acute Ribs, multiple fractures Acute
--- NOTE | 2016-07-09 14:10 | PDCARPN ---
Cardiology Progress Note Assessment/Plan: 56-year-old male with in severe pre-existing pulmonary issues admitted with pneumonia resulting in septic shock requiring pressors and respiratory failure requiring intubation. Echocardiography demonstrated normal left ventricular systolic function. He had RV dilatation and significant RV dysfunction. Septic Shock- resolved; extubated 07/07; off of IV pressor agents. Going to PCU today. Bradycardia- had heart rates into the 30s and 40s; Likely related to sedation/ pain meds. Resolved. Coronary Artery Disease- has incidentally noted coronary calcification involving all 3 coronary territories on chest CT. Mild troponin elevation was likely secondary to subendocardial ischemia in the setting of his septic shock. Has early precordial T-wave inversions on ECG. Has a history of other admissions to [facility] with mild troponin elevations. Lexiscan nuclear stress test tomorrow. 07/09/16 14:07 Subjective: No complaints. Objective: Vital Signs (8 Hrs) Pulse Resp BP Pulse Ox 07/09/16 13:30 117/77 98 07/09/16 12:00 81 16 117/77 92 07/09/16 10:00 82 14 110/73 96 07/09/16 08:00 80 14 119/80 97 Intake/Output (24 Hrs) 07/08/16 07/09/16 07/10/16 05:59 05:59 05:59 Intake Total 1000 1250 Output Total 1050 2975 2100 Balance -50 -1725 -2100 Intake: Oral (ml) 400 950 IV Intake (ml) 600 300 Output: Urine (ml) 1050 2975 2100 Urinal 200 2975 1900 Bedside Commode 450 200 Catheter 400 Other: Output Comment Bedside Commode knutson Number of Voids Bedside Commode 3 Number of Stools Bedside Commode 3 1 1 Result Diagrams: 07/08/16 04:01 07/09/16 04:26 - Physical Exam Constitutional: other (Chronically ill appearing) Eyes: anicteric sclera Ears, Nose, Mouth, Throat: moist mucous membranes Cardiovascular: regular rate and rhythm, no murmurs Respiratory: clear to auscultate bilat Gastrointestinal: normoactive bowel sounds, no masses Skin: no edema Psychiatric: interactive, not anxious ICD10 Worksheet Patient Problems: Problems Problem Status Diagnosed Lung infiltrate Acute Sepsis Acute Acute respiratory failure with hypoxia Acute Alcohol abuse Acute Hematemesis Acute Ribs, multiple fractures Acute
--- NOTE | 2016-07-09 17:44 | PDINTPN ---
Demonstrator Knitting Progress Note Assessment/Plan: Assessment: * Acute Resp Failure- resolved * Cor Pulmonale/pulmonary HTN-likely from ILD/pna -duplex US LE negative * ILD-verses more of an acute interstitial pneumonia/fluid * Strep Pneumonia from sputum-on levaquin * ? H/O lung CA - S/P thoracentesis. Cytology is pending * Sepsis-resolved * Septic shock-resolved * Sedation-will continue precedex * Hep C * H/O alcohol abuse * VTE proph * Stress ulcer proph Plan: Continue antibiotics, bronchopulmonary therapies. Can decrease steroids. Can transfer to a medical-surgical bed today. Objective: Vital Signs Temp Pulse Resp BP Pulse Ox 36.8 C 80 18 116/78 98 07/09/16 15:53 07/09/16 15:53 07/09/16 15:53 07/09/16 15:53 07/09/16 15:53 Microbiology 07/08/16 15:45 Gram Stain - Final Thoracic Fluid - Aspirate 07/02/16 12:43 - Final Sputum, Expectorated Sputum Culture - Final Streptococcus Pneumoniae Laboratory Results 07/08/16 04:01 07/09/16 04:26 07/08/16 07/09/16 07/10/16 05:59 05:59 05:59 Intake Total 1000 1250 Output Total 1050 2975 2100 Balance -50 -1725 -2100 PT 16.7 SEC (12.0-15.0) H 07/03/16 05:40 INR 1.35 (0.83-1.16) H 07/03/16 05:40 Laboratory Tests 07/08/16 07/09/16 02:50 04:26 pCO2 41 H pO2 67 ABG pH 7.46 H Total O2 Concentration 6.0 Calcium 8.0 L CXR: Bilateral infiltrates centrally unchanged. Small effusions present. Physical Exam - Physical Exam General Appearance: alert, no apparent distress EENT: other (Nasal cannula 2 L) Neck: normal inspection Respiratory: decreased breath sounds, rales (At both bases), No rhonchi Cardiac/Chest: regular rate, rhythm Abdomen: normal bowel sounds, non-tender, soft Skin: warm/dry Extremities: pedal edema (Trace +) Neuro/Psych: no motor/sensory deficits, No cognition abnormalities ICD10 Worksheet Patient Problems: Problems Problem Status Diagnosed Lung infiltrate Acute Sepsis Acute Acute respiratory failure with hypoxia Acute Alcohol abuse Acute Hematemesis Acute Ribs, multiple fractures Acute
[2016-07-09 18:26] LABS: POTASSIUM 3.6 mEq/L (3.5-5.2)
[2016-07-09] MEDS: ENOXAPARIN 40 MG/0.4 ML SYR SC SCH (21:55)
[2016-07-09] MEDS: POTASSIUM CL 20 MEQ TAB PO SCH (21:56)
[2016-07-10 04:17] LABS: % IMMATURE GRANULYOCYTES 0.9 % (0.0-1.1); ABSOLUTE IMMATURE GRANULOCYTES 0.08 10^3/uL (0.00-0.10); ABSOLUTE NRBC COUNT 0.02 10^3/uL (0-0.01); ADD DIFF? NO; ADD MORPH? YES; ADD SCAN? NO; ATYPICAL LYMPHOCYTE FLAG 30 (0-99); FRAGMENT RBC FLAG 40 (0-99); HEMATOCRIT 32.5 % (40.0-51.0); HEMOGLOBIN 9.6 g/dL (13.7-17.5); LEFT SHIFT FLG 0 (0-99); LIPEMIA HEMOLYSIS FLAG 70 (0-99); MEAN CELL HEMOGLOBIN 19.9 pg (27.9-34.1); MEAN CELL HEMOGLOBIN CONCENTR. 29.5 g/dL (32.4-36.7); NRBC-AUTO% 0.2 % (0.0-0.2); PLATELET CLUMPS FLAG 0 (0-99); PLATELET COUNT 279 10^3/uL (150-400); RED BLOOD CELL COUNT 4.83 10^6/uL (4.40-6.38)
[2016-07-10 04:22] LABS: MEAN CELL VOLUME 67.3 fL (81.5-99.8)
[2016-07-10 04:23] LABS: RED CELL DISTRIBUTION WIDTH 22.1 % (11.5-15.2)
[2016-07-10 04:28] LABS: ANION GAP 5 mEq/L (8-16); CALCIUM 8.1 mg/dL (8.5-10.4); CARBON DIOXIDE 35 mEq/l (22-31); CHLORIDE 103 mEq/L (97-110); CREATININE 0.6 mg/dL (0.7-1.3); GLOMERULAR FILTRATION RATE > 60; GLUCOSE 81 mg/dL (70-100); POTASSIUM 3.3 mEq/L (3.5-5.2); SODIUM 143 mEq/L (134-144)
[2016-07-10] MEDS ORDERED: POTASSIUM CL 10 MEQ TAB PO ONE ×2 (04:52→08:29)
[2016-07-10 05:10] LABS: GIANT PLATELETS PRESENT; LARGE PLATELETS PRESENT; MACROCYTES 1+; MICROCYTES 1+; PLATELET ESTIMATE ADEQUATE (ADEQ); POLYCHROMASIA 1+; TOXIC GRANULATION PRESENT
[2016-07-10 05:13] LABS: HYPOCHROMIA 3+
[2016-07-10] MEDS: CHLORHEXIDINE GLUCONATE 15 ML UDL PO SCH ×2 (08:40→22:41)
[2016-07-10] MEDS: MULTIVITAMINS 5 ML UDL TUBE SCH (08:40)
[2016-07-10] MEDS: POTASSIUM CL 20 MEQ TAB PO SCH ×3 (08:41→22:42)
[2016-07-10] MEDS: predniSONE 20 MG TAB PO SCH (08:41)
[2016-07-10] MEDS: NICOTINE 21 MG/24 HR PATCH TD SCH (08:41)
[2016-07-10] MEDS: FAMOTIDINE 20 MG TAB PO SCH (08:55)
[2016-07-10] MEDS ORDERED: FUROSEMIDE 40 MG/4 ML VIAL IVP SCH (09:00)
--- NOTE | 2016-07-10 09:34 | HOSPPROG ---
Hospitalist Progress Note Assessment/Plan: 56-year-old male presents with septic shock secondary to pneumonia in the setting of suspected interstitial lung disease with acute hypoxic and hypercapnic respiratory failure Plan: . Septic shock - shock physiology resolved . Hypoxic and hypercapnic respiratory failure secondary to streptococcal pneumonia by sputum Cx - extubated 07/08. -cont oral Levaquin -Query some fluid aspect, continue Lasix -U/S thoracentesis done, fluid appears to be transudative -cont oral Prednisone . Acute kidney injury (resolved) . Severe pulmonary hypertension likely secondary to ILD . Suspected ILD. Based on prior CT imaging. He claims he has "lung cancer", but there is no evidence of a definitive diagnosis, and it appears that his hilar/mediastinal LAD is chronic -cytology on pleural fluid pending . Diastolic CHF exacerbation with bradycardia -cards consult appreciated -change to oral Lasix . CAD - Lexiscan today Diet. NPO Prophylaxis. Moderate risk patient, lovenox 40 Code. ethics involved. MD as proxy if pt does not maintain decisional capacity Disposition - ICU Subjective: Pt feels better. He has exhibited some behavioral issues today, stooling on the floor and in the trash can. Spits on the floor. No fevers. Breathing improved. No CP. Objective: Vital Signs Temp Pulse Resp BP Pulse Ox 36.3 C 68 14 110/69 99 07/10/16 08:05 07/10/16 08:05 07/10/16 08:05 07/10/16 08:05 07/10/16 08:05 Microbiology 07/08/16 15:45 Gram Stain - Final Thoracic Fluid - Aspirate 07/02/16 12:43 - Final Sputum, Expectorated Sputum Culture - Final Streptococcus Pneumoniae Laboratory Results 07/10/16 04:00 07/10/16 04:00 07/09/16 07/10/16 07/11/16 05:59 05:59 05:59 Intake Total 1250 550 Output Total 2975 3075 Balance -1725 -2525 PT 16.7 SEC (12.0-15.0) H 07/03/16 05:40 INR 1.35 (0.83-1.16) H 07/03/16 05:40 - Physical Exam Constitutional: no apparent distress Eyes: PERRL Ears, Nose, Mouth, Throat: moist mucous membranes Cardiovascular: regular rate and rhythym Respiratory: no respiratory distress Gastrointestinal: normoactive bowel sounds, soft, non-tender abdomen Skin: warm Neurologic: AAOx3 Psychiatric: interacting appropriately ICD10 Worksheet Patient Problems: Problems Problem Status Diagnosed Lung infiltrate Acute Sepsis Acute Acute respiratory failure with hypoxia Acute Alcohol abuse Acute Hematemesis Acute Ribs, multiple fractures Acute
--- NOTE | 2016-07-10 10:51 | NM ---
Radiopharmaceutical Administration for Aborted Nuclear Medicine Myocardial Perfusion Scan Clinical History: 56-year-old male in the ICU, presenting for evaluation of myocardial ischemia. Radiopharmaceutical: 10.7 mCi of IV technetium 99m sestamibi. Note: The technologist indicated that the patient was injected with the radiopharmaceutical, but no i mages were acquired as the patient was unable to stay still under the camera. A resting study will be reattempted again tomorrow.
[2016-07-10] MEDS: FUROSEMIDE 40 MG TAB PO SCH (12:20)
--- NOTE | 2016-07-10 12:44 | SOAPPROG ---
SOAP Progress Note Assessment/Plan: Assessment: * Acute Resp Failure- resolved * Cor Pulmonale/pulmonary HTN-likely from ILD/pna -duplex US LE negative. On Lasix * ILD-verses more of an acute interstitial pneumonia/fluid-CHF picture. On steroids * Strep Pneumonia from sputum-on levaquin * ? H/O lung CA - S/P thoracentesis. Cytology is pending * Sepsis/Septic shock-resolved * Hep C * H/O alcohol abuse * VTE proph-on Lovenox * Stress ulcer proph-eating, can stop Pepcid * Anemia: Hematocrit 31, stable. 40 on admission but likely volume depleted at that time. Plan: Continue Levaquin, bronchopulmonary therapies, Lasix. Continue steroids : Prednisone at 58. Awaiting cytologies. Follow chest x-ray intermittently, laboratory Subjective: Doing okay, denies significant shortness of breath. Has some anterior chest discomfort. Objective: Vital Signs Temp Pulse Resp BP Pulse Ox 36.3 C 81 18 114/73 98 07/10/16 12:17 07/10/16 12:17 07/10/16 12:17 07/10/16 12:17 07/10/16 12:17 Microbiology 07/08/16 15:45 Gram Stain - Final Thoracic Fluid - Aspirate 07/02/16 12:43 - Final Sputum, Expectorated Sputum Culture - Final Streptococcus Pneumoniae Laboratory Results 07/10/16 04:00 07/10/16 04:00 07/09/16 07/10/16 07/11/16 05:59 05:59 05:59 Intake Total 1250 550 Output Total 2975 3075 Balance -1725 -2525 PT 16.7 SEC (12.0-15.0) H 07/03/16 05:40 INR 1.35 (0.83-1.16) H 07/03/16 05:40 Laboratory Tests 07/04/16 07/08/16 07/10/16 05:45 02:50 04:00 pCO2 41 H pO2 67 ABG pH 7.46 H Total O2 Concentration 6.0 Calcium 8.1 L STEVE Screen 1.80 H STEVE Titer 1:160 STEVE Pattern HOMOGENOUS Physical Exam - Physical Exam General Appearance: alert, no apparent distress EENT: other (Nasal cannula at 2 L, 98%) Neck: normal inspection (JVD present) Respiratory: lungs clear (Anteriorly), decreased breath sounds (And decreased excursions), rales (Few at the bases), wheezing (Minimal expiratory wheezing), other (Somewhat tachypneic, positive E to A changes at the lower right base), No rhonchi Cardiac/Chest: regular rate, rhythm (Distant heart tones, likely soft systolic murmur, increased P2) Abdomen: normal bowel sounds, non-tender, soft Male Genitalia: other (No Ibarra catheter. Good urine output the last 2 days. Output greater than input) Skin: warm/dry, pallor Lymphatic: no adenopathy Extremities: No pedal edema Neuro/Psych: no motor/sensory deficits, cognition abnormalities (Responses somewhat limited) ICD10 Worksheet Patient Problems: Problems Problem Status Diagnosed Lung infiltrate Acute Sepsis Acute Acute respiratory failure with hypoxia Acute Alcohol abuse Acute Hematemesis Acute Ribs, multiple fractures Acute
[2016-07-10 18:09] LABS: POTASSIUM 4.2 mEq/L (3.5-5.2)
[2016-07-10] MEDS: ENOXAPARIN 40 MG/0.4 ML SYR SC SCH (22:40)
[2016-07-11] MEDS: predniSONE 20 MG TAB PO SCH (07:50)
[2016-07-11] MEDS: FUROSEMIDE 40 MG TAB PO SCH (07:51)
[2016-07-11] MEDS: MULTIVITAMINS 5 ML UDL TUBE SCH (07:51)
[2016-07-11] MEDS: CHLORHEXIDINE GLUCONATE 15 ML UDL PO SCH (07:51)
[2016-07-11] MEDS: POTASSIUM CL 20 MEQ TAB PO SCH ×3 (07:51→20:49)
[2016-07-11] MEDS: NICOTINE 21 MG/24 HR PATCH TD SCH (07:52)
[2016-07-11 07:59] LABS: ANION GAP 8 mEq/L (8-16); CALCIUM 8.1 mg/dL (8.5-10.4); CARBON DIOXIDE 31 mEq/l (22-31); CHLORIDE 103 mEq/L (97-110); CREATININE 0.7 mg/dL (0.7-1.3); GLOMERULAR FILTRATION RATE > 60; GLUCOSE 89 mg/dL (70-100); POTASSIUM 4.2 mEq/L (3.5-5.2); SODIUM 142 mEq/L (134-144)
--- NOTE | 2016-07-11 12:09 | PDCARPN ---
Cardiology Progress Note Assessment/Plan: 56-year-old male with in severe pre-existing pulmonary issues admitted with pneumonia resulting in septic shock requiring pressors and respiratory failure requiring intubation. Echocardiography demonstrated normal left ventricular systolic function. He had RV dilatation and significant RV dysfunction. Septic Shock- resolved; extubated 07/07; off of IV pressor agents. Coronary Artery Disease- has incidentally noted coronary calcification involving all 3 coronary territories on chest CT. Mild troponin elevation was likely secondary to subendocardial ischemia in the setting of his septic shock. Has early precordial T-wave inversions on ECG. Has a history of other admissions to [facility] with mild troponin elevations. Lexiscan nuclear stress test attempted yesterday but was aborted as resting perfusion images could not be performed due to the patient's inability to remain still under the camera. Will reattempt tomorrow. Should be on low dose ASA and a statin. Will check a lipid panel in a.m. to guide dosing decision. 07/11/16 12:16 Subjective: Complains of all over pain. Objective: Vital Signs (8 Hrs) Temp Pulse Resp BP Pulse Ox 07/11/16 11:09 36.9 C 74 20 102/68 98 07/11/16 07:07 36.4 C 75 14 103/67 93 Intake/Output (24 Hrs) 07/10/16 07/11/16 07/12/16 05:59 05:59 05:59 Intake Total 550 1200 240 Output Total 3075 1625 Balance -2525 -425 240 Intake: Oral (ml) 550 1200 240 Output: Urine (ml) 3075 1625 Urinal 1900 1625 Bedside Commode 1175 Other: Intake Quantity Yes Sufficient Output Comment Bedside Commode knutson Number of Voids Urinal 1 Bedside Commode 1 Incontinence 4 Number of Stools Bedside Commode 1 1 Result Diagrams: 07/10/16 04:00 07/11/16 07:16 - Physical Exam Constitutional: no apparent distress Eyes: anicteric sclera Ears, Nose, Mouth, Throat: moist mucous membranes Cardiovascular: regular rate and rhythm, no murmurs, no gallops Respiratory: clear to auscultate bilat Gastrointestinal: normoactive bowel sounds, no masses Skin: no edema Psychiatric: cooperative, following commands ICD10 Worksheet Patient Problems: Problems Problem Status Diagnosed Lung infiltrate Acute Sepsis Acute Acute respiratory failure with hypoxia Acute Alcohol abuse Acute Hematemesis Acute Ribs, multiple fractures Acute
[2016-07-11] MEDS ORDERED: ACETAMINOPHEN 325 MG TAB ONE (16:21)
[2016-07-11] MEDS: ACETAMINOPHEN 650 MG/20.3 ML UDCUP TUBE PRN ×2 (16:22→20:48)
--- NOTE | 2016-07-11 17:23 | HOSPPROG ---
Hospitalist Progress Note Assessment/Plan: 56-year-old male presents with septic shock secondary to pneumonia in the setting of suspected interstitial lung disease with acute hypoxic and hypercapnic respiratory failure Plan: . Septic shock - shock physiology resolved . Hypoxic and hypercapnic respiratory failure secondary to streptococcal pneumonia by sputum Cx - extubated 07/08. -he has completed 9 days of atbx, will dc Levaquin -Query some fluid aspect, continue Lasix -thora done, fluid appears to be transudative -s/p 7 days of prednisone burst, will dc . Acute kidney injury (resolved) . Severe pulmonary hypertension likely secondary to ILD . Suspected ILD. Based on prior CT imaging. He claims he has "lung cancer", but there is no evidence of a definitive diagnosis, and it appears that his hilar/mediastinal LAD is chronic -cytology on pleural fluid neg for malignancy . Diastolic CHF exacerbation with bradycardia -cards consult appreciated -change to oral Lasix . CAD - Lexiscan yesterday not completed due to pt's inability to remain still. Pt already had caffeine today. -Make caffeine free and re-attempt Lori in am -Start low dose ASA -lipid panel in am, likely to start statin Diet. Cardiac Prophylaxis. Moderate risk patient, lovenox 40 Code. ethics MD (Dr. Zhanna Cruz) as proxy if pt does not maintain decisional capacity Disposition - PCU Subjective: Pt still feels poorly, a bit SOB. Denies CP. Appetite good. No fevers. Objective: Vital Signs Temp Pulse Resp BP Pulse Ox 36.9 C 80 18 99/65 L 99 07/11/16 15:07 07/11/16 15:07 07/11/16 15:07 07/11/16 15:07 07/11/16 15:07 Microbiology 07/08/16 15:45 Gram Stain - Final Thoracic Fluid - Aspirate Body Fluid Culture - Final Laboratory Results 07/10/16 04:00 07/11/16 07:16 07/10/16 07/11/16 07/12/16 05:59 05:59 05:59 Intake Total 550 1200 240 Output Total 3075 1625 600 Balance -2675 -425 -360 PT 16.7 SEC (12.0-15.0) H 07/03/16 05:40 INR 1.35 (0.83-1.16) H 01/03/17 05:40 - Physical Exam Constitutional: no apparent distress Eyes: PERRL Ears, Nose, Mouth, Throat: moist mucous membranes Cardiovascular: regular rate and rhythym Respiratory: no respiratory distress, reduced air movement Gastrointestinal: normoactive bowel sounds, soft, non-tender abdomen Skin: warm Neurologic: AAOx3 Psychiatric: interacting appropriately ICD10 Worksheet Patient Problems: Problems Problem Status Diagnosed Lung infiltrate Acute Sepsis Acute Acute respiratory failure with hypoxia Acute Alcohol abuse Acute Hematemesis Acute Ribs, multiple fractures Acute
[2016-07-11] MEDS: ASPIRIN EC 81 MG TAB PO SCH (18:13)
[2016-07-11 20:13] LABS: POTASSIUM 4.8 mEq/L (3.5-5.2)
[2016-07-11] MEDS: ENOXAPARIN 40 MG/0.4 ML SYR SC SCH (20:48)
[2016-07-12] MEDS: ACETAMINOPHEN 650 MG/20.3 ML UDCUP TUBE PRN ×2 (01:39→08:13)
[2016-07-12 05:33] LABS: CHOLESTEROL 126 mg/dL (140-220); CHOLESTEROL/HDL RATIO 3.41 RATIO (1.00-4.97); HIGH DENSITY LIPOPROTEIN 37 mg/dL (40-65); LDL/HDL RATIO 1.95 RATIO (1.00-3.64); LOW DENSITY LIPOPROTEIN 72 mg/dL (80-100); NON-HIGH DENSITY LIPOPROTEIN 89 mg/dL (90-129); POTASSIUM 4.2 mEq/L (3.5-5.2); TRIGLYCERIDE 85 mg/dL (40-150); VERY LOW DENSITY LIPOPROTEINS 17 mg/dL (8-25)
[2016-07-12] MEDS: ASPIRIN EC 81 MG TAB PO SCH (08:12)
[2016-07-12] MEDS: POTASSIUM CL 20 MEQ TAB PO SCH ×3 (08:13→23:11)
[2016-07-12] MEDS ORDERED: predniSONE 20 MG TAB PO SCH (09:00)
--- NOTE | 2016-07-12 09:30 | HOSPPROG ---
Hospitalist Progress Note Assessment/Plan: DIAGNOSIS: 1. ACUTE RESPIRATORY FAILURE, HYPOXEMIC 2. ? ACUTE PNEUMONIA, COMMUNITY ACQUIRED 3. INTERSTITIAL LUNG DISEASE, PROGRESSED SINCE 2015; PULMONARY HYPERTENSION 4. SUBSTERNAL/EPIGASTRIC PAIN UNCERTAIN ETIOLOGY 5. HIGH RISK FOR CORONARY ARTERY DISEASE This patient's story is very difficult to sort through in terms of getting history from him and assessing symptoms. He changes his story several times during my visit with him today. Assessing the severity, chronicity, and location and quality of his pain is difficult. He does continue to repeat to me that he has had cancer that spread all through his body but when I asked him what kind of cancer mention that I have never seen any documentation of cancer in his chart he states that maybe it is cirrhosis that on talking about. The patient does state that he has ongoing chronic pain and has been taking chronic pain medicines. I mentioned to him that this was not ascertained by our pharmacist when they did his regional reconciliation. He tells me that he has been getting pain medicines from pharmacy at the [facility] in [place] though has not been there for some time. Despite this he mentions that he has been getting pain medicines recently. At 1st he tells me he was taking morphine and then he tells me he was switched to OxyContin. There are other inconsistencies in the story as well. This morning he declined to have his Lexiscan stress test. I did discuss with him that he is at high risk for coronary disease and having chest pains in that we wish to assess his heart further to determine whether he might need interventions. At this point he seems agreeable. PLANS: -Will attempt to get Lexiscan stress test done today if the patient will cooperate with that -will try to contact his primary care doctor at [facility] to clarify any of the above history that I can clarify -will check the [place] prescription medication profile to see if I can find whether he actually has been getting narcotics here recently - yesterday Dr. Rios mentioned continuing steroids for his lungs the steroid was discontinued. I will review this with pulmonology today SUBJECTIVE: Complains of ongoing pain in multiple body locations. The pain in his abdomen and chest are unchanged. Very difficult for me to determine chronicity and location of his various pains or the quality of his pains due to his changing stories and somewhat tangential answers to my questions. Denies shortness of breath. Says he has been unable to eat due to vomiting. OBJECTIVE Vitals reviewed: Stable without fever security monitor, reviewed by me: Sinus rhythm Exam: alert oriented Somewhat tangential in speech but does not appear psychotic or confused skin warm dry color ok resps not labored lungs diffuse rales heart regular abd soft nondistended nontender, bowel sounds present limbs warm, no edema iv site ok Labs reviewed by me I reviewed his chest x-ray images from this hospitalization as well Objective: Vital Signs Temp Pulse Resp BP Pulse Ox 36.7 C 83 18 101/63 95 07/12/16 07:08 07/12/16 07:08 07/12/16 07:08 07/12/16 07:08 07/12/16 07:08 Microbiology 07/08/16 15:45 Gram Stain - Final Thoracic Fluid - Aspirate Body Fluid Culture - Final Laboratory Results 07/10/16 04:00 07/12/16 04:45 07/11/16 07/12/16 07/13/16 06:59 06:59 06:59 Intake Total 1200 740 Output Total 1625 925 Balance -425 -185 PT 16.7 SEC (12.0-15.0) H 07/03/16 05:40 INR 1.35 (0.83-1.16) H 07/03/16 05:40 ICD10 Worksheet Patient Problems: Problems Problem Status Diagnosed Lung infiltrate Acute Sepsis Acute Acute respiratory failure with hypoxia Acute Alcohol abuse Acute Hematemesis Acute Ribs, multiple fractures Acute
--- NOTE | 2016-07-12 11:08 | PDCARPN ---
Cardiology Progress Note Assessment/Plan: 56-year-old male with in severe pre-existing pulmonary issues admitted with pneumonia resulting in septic shock requiring pressors and respiratory failure requiring intubation. Echocardiography demonstrated normal left ventricular systolic function. He had RV dilatation and significant RV dysfunction. Septic Shock- resolved; extubated 07/07; off of IV pressor agents. Coronary Artery Disease- has incidentally noted coronary calcification involving all 3 coronary territories on chest CT. Mild troponin elevation was likely secondary to subendocardial ischemia in the setting of his septic shock. Has early precordial T-wave inversions on ECG. Has a history of other admissions to [facility] with mild troponin elevations. Informs me he does not want to do Lexiscan nuclear stress test. Will defer further cardiac testing until such time as he is able and willing ot proceed. Should be on low dose ASA and a statin. Lipid panel this a.m. demonstrated an LDL of 72. Will start atorvastatin 10 mg daily. 07/12/16 10:59 Subjective: Continues to complain of pain all over. Objective: Vital Signs (8 Hrs) Temp Pulse Resp BP Pulse Ox 07/12/16 07:08 36.7 C 83 18 101/63 95 07/12/16 03:57 36.6 C 77 16 98/64 L 95 Intake/Output (24 Hrs) 07/11/16 07/12/16 07/13/16 05:59 05:59 05:59 Intake Total 1200 740 Output Total 1625 925 Balance -425 -185 Intake: Oral (ml) 1200 740 Output: Urine (ml) 1625 925 Urinal 1625 325 Incontinence 600 Other: Intake Quantity Yes Sufficient Number of Voids Urinal 1 1 Incontinence 4 Number of Stools Bedside Commode 1 Result Diagrams: 07/10/16 04:00 07/12/16 04:45 - Physical Exam Constitutional: other (chronically ill appearing) Eyes: anicteric sclera Ears, Nose, Mouth, Throat: moist mucous membranes Cardiovascular: regular rate and rhythm, no murmurs Respiratory: clear to auscultate bilat Gastrointestinal: normoactive bowel sounds, no masses Skin: no edema Psychiatric: following commands, not anxious ICD10 Worksheet Patient Problems: Problems Problem Status Diagnosed Lung infiltrate Acute Sepsis Acute Acute respiratory failure with hypoxia Acute Alcohol abuse Acute Hematemesis Acute Ribs, multiple fractures Acute
[2016-07-12] MEDS: NICOTINE 21 MG/24 HR PATCH TD SCH (12:39)
[2016-07-12] MEDS ORDERED: ACETAMINOPHEN 325 MG TAB PO PRN (15:54)
[2016-07-12] MEDS ORDERED: guaiFENesin 200 MG/10 ML UDCUP PO PRN (15:55)
[2016-07-12] MEDS: FUROSEMIDE 40 MG TAB PO SCH (16:30)
[2016-07-12] MEDS: ATORVASTATIN CALCIUM 10 MG TAB PO SCH (16:30)
[2016-07-12] MEDS: predniSONE 20 MG TAB PO SCH (16:30)
[2016-07-12] MEDS: ENOXAPARIN 40 MG/0.4 ML SYR SC SCH (20:38)
[2016-07-12] MEDS ORDERED: traMADol 50 MG TAB PO PRN (20:56)
[2016-07-12] MEDS: ONDANSETRON 4 MG/2 ML VIAL IVP PRN (22:41)
[2016-07-13] MEDS ORDERED: traMADol 50 MG TAB PO PRN (00:01)
[2016-07-13] MEDS: traMADol 50 MG TAB PO PRN ×4 (01:54→20:01)
[2016-07-13] MEDS: FUROSEMIDE 40 MG TAB PO SCH (09:33)
[2016-07-13] MEDS: ATORVASTATIN CALCIUM 10 MG TAB PO SCH (09:33)
[2016-07-13] MEDS: predniSONE 20 MG TAB PO SCH (09:33)
[2016-07-13] MEDS: POTASSIUM CL 20 MEQ TAB PO SCH ×3 (09:33→23:18)
[2016-07-13] MEDS: ASPIRIN EC 81 MG TAB PO SCH (09:33)
[2016-07-13] MEDS: NICOTINE 21 MG/24 HR PATCH TD SCH (09:34)
[2016-07-13] MEDS: IPRATROPIUM/ALBUTEROL 3 ML DEYVIAL IH SCH ×2 (16:40→22:05)
[2016-07-13] MEDS: ONDANSETRON 4 MG/2 ML VIAL IVP PRN (17:18)
--- NOTE | 2016-07-13 17:18 | HOSPPROG ---
Hospitalist Progress Note Assessment/Plan: DIAGNOSIS: 1. ACUTE RESPIRATORY FAILURE, HYPOXEMIC 2. ? ACUTE PNEUMONIA, COMMUNITY ACQUIRED 3. INTERSTITIAL LUNG DISEASE, PROGRESSED SINCE 2015; PULMONARY HYPERTENSION 4. SUBSTERNAL/EPIGASTRIC PAIN UNCERTAIN ETIOLOGY 5. HIGH RISK FOR CORONARY ARTERY DISEASE PLANS: -Will attempt to get Lexiscan stress test done tomorrow which the patient is now agreeable to -continue steroid for now -may need abd imaging and or gi endoscopy for gi sxs, but would like to look at his heart first SUBJECTIVE: still w some pain today but less eating a bit better but nausea still an issue he is now agreeable to lexiscan stress test OBJECTIVE Vitals reviewed: Stable without fever channel account manager, reviewed by me: Sinus rhythm Exam: alert oriented more direct and logical in speech today, does not have changing conflicting statements like yesterday skin warm dry color ok resps not labored lungs diffuse rales heart regular abd soft nondistended nontender, bowel sounds present limbs warm, no edema iv site ok Objective: Vital Signs Temp Pulse Resp BP Pulse Ox 36.4 C 95 18 108/77 93 07/13/16 12:00 07/13/16 16:40 07/13/16 16:40 07/13/16 12:00 07/13/16 16:40 Laboratory Results 07/10/16 04:00 07/12/16 04:45 07/12/16 07/13/16 07/14/16 06:59 06:59 06:59 Intake Total 740 940 Output Total 925 1125 Balance -185 -185 PT 16.7 SEC (12.0-15.0) H 07/03/16 05:40 INR 1.35 (0.83-1.16) H 07/03/16 05:40 ICD10 Worksheet Patient Problems: Problems Problem Status Diagnosed Lung infiltrate Acute Sepsis Acute Acute respiratory failure with hypoxia Acute Alcohol abuse Acute Hematemesis Acute Ribs, multiple fractures Acute
[2016-07-13 18:24] LABS: POTASSIUM 3.9 mEq/L (3.5-5.2)
[2016-07-13] MEDS: ENOXAPARIN 40 MG/0.4 ML SYR SC SCH (20:01)
[2016-07-14] MEDS: IPRATROPIUM/ALBUTEROL 3 ML DEYVIAL IH SCH ×3 (04:28→15:27)
[2016-07-14] MEDS: FUROSEMIDE 40 MG TAB PO SCH (08:34)
[2016-07-14] MEDS: ASPIRIN EC 81 MG TAB PO SCH (08:34)
[2016-07-14] MEDS: ATORVASTATIN CALCIUM 10 MG TAB PO SCH (08:34)
[2016-07-14] MEDS: POTASSIUM CL 20 MEQ TAB PO SCH ×2 (08:34→14:14)
[2016-07-14] MEDS: predniSONE 20 MG TAB PO SCH (08:35)
[2016-07-14] MEDS: NICOTINE 21 MG/24 HR PATCH TD SCH ×2 (08:35→08:38)
[2016-07-14] MEDS: traMADol 50 MG TAB PO PRN ×2 (08:41→14:14)
--- NOTE | 2016-07-14 09:41 | SOAPPROG ---
SOAP Progress Note Assessment/Plan: Assessment: 1. Coronary artery disease by CT scanning. 2. abnormal EKG with precordial T-wave inversions. 3. RV dilatation with RV dysfunction in the setting of underlying COPD, pneumonia. 4. mild troponin elevation. 5. Cardiovascular risk: Tobacco, hyperlipidemia. Patient has been previously seen by my partner Dr. Jermain Larsen. Since last visit patient has had no significant cardiac events. He has had continued right -sided pleuritic chest pain felt to be secondary to his rib fractures and pneumonia. He continues to feel weak. He denies angina, PND, orthopnea. He has had no palpitations syncope or near syncope. Fever has resolved. He is committed to quitting smoking. At the present time based on stable vital signs , stable clinical examination there is no evidence of an acute coronary syndrome. Troponin elevation likely secondary RV strain in the setting of sepsis and pneumonia. An attempt was made to perform a Lexiscan but the patient was unable to complete this. He is tolerating medical therapy well. Would recommend continued convalescence from recent critical illness. Aggressive medical therapy. Outpatient follow-up. Considerations for risk stratification at that time pending how he is doing clinically.Will repeat EKG today. If changes are involving would revisit inpatient risk stratification. 07/14/16 09:37 Subjective: Tired and weak. Continues to have right-sided pleuritic chest pain. Walking minimally. No fever or chills. Review of past medical history patient has had no prior cardiac events. He does have a family history of heart disease, He continues to smoke at least 3-4 cigarettes per day. Objective: Vital Signs Temp Pulse Resp BP Pulse Ox 36.8 C 86 17 107/68 84 L 07/14/16 08:00 07/14/16 08:00 07/14/16 08:00 07/14/16 08:00 07/14/16 09:05 Laboratory Results 07/10/16 04:00 07/13/16 17:30 07/13/16 07/14/16 07/15/16 05:59 05:59 05:59 Intake Total 940 3500 Output Total 1125 1800 Balance -185 1700 PT 16.7 SEC (12.0-15.0) H 07/03/16 05:40 INR 1.35 (0.83-1.16) H 07/03/16 05:40 Physical Exam - Physical Exam General Appearance: cachetic, other EENT: other ( poor dentition) Neck: supple Respiratory: decreased breath sounds, crackles, rhonchi, pain on movement Cardiac/Chest: normal peripheral pulses, regular rate, rhythm, No edema, No gallop, No JVD Abdomen: normal bowel sounds Skin: warm/dry Lymphatic: no adenopathy Extremities: No pedal edema, No calf tenderness Neuro/Psych: alert, speech abnormalities, depressed affect ICD10 Worksheet Patient Problems: Problems Problem Status Diagnosed Lung infiltrate Acute Sepsis Acute Acute respiratory failure with hypoxia Acute Alcohol abuse Acute Hematemesis Acute Ribs, multiple fractures Acute Review of Systems - Review of Systems Constitutional: denies: chills, fever Respiratory: cough, hurts to breath Cardiac: no symptoms reported Gastrointestinal/Abdominal: no symptoms reported Genitourinary: no symptoms Musculoskelatal: no symptoms Skin: no symptoms Neurological: no symptoms Hematologic/Lymphatic: no symptoms reported Past Medical History - Personal History Current Tetanus/Diphtheria Vaccine: Unsure Current Tetanus Diphtheria and Acellular Pertussis (TDAP): Unsure Tetanus Vaccine Date: unknown - Medical/Surgical History Hx Asthma: No Hx Chronic Respiratory Disease: Yes Hx Cardiac Disease: No Hx Diabetes: No Hx Renal Disease: No Hx Alcoholism: Yes Hx Cirrhosis: Yes Hx HIV/AIDS: No Hx Splenectomy or Spleen Trauma: No Other PMH: 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
--- NOTE | 2016-07-14 11:05 | CPEKG ---
Heart Rate: 106 RR Interval: 566 P-R Interval: 168 QRSD Interval: 82 QT Interval: 324 QTC Interval: 431 P [place]: 54 QRS [place]: 28 T Wave [place]: 27 EKG Severity - OTHERWISE NORMAL ECG - EKG Impression: SINUS TACHYCARDIA Electronically Signed By: Milad Benson 15-Jul-2016 08:34:49
[2016-07-14 11:09] LABS: TROPONIN I 0.012 ng/mL (0-0.034)
[2016-07-14 15:14] VITALS: BP 95/59; TEMP 98.6
[2016-07-14 15:30] VITALS: PULSE 108; RESP 22; O2SAT 94
--- NOTE | 2016-07-14 17:07 | PDIAF ---
- Diagnosis Diagnosis: 1. chf 2. pneumonia 3. coronary calcium plaque 4. sepsis Code Status: Full Code - Medication Management Discharge Medications: Medications to Continue on Transfer Multivitamins [Multivitamin (*)] 1 each PO DAILY 07/02/16 [Last Taken Unknown] Aspirin EC [Aspirin EC 81 mg (*)] 81 mg PO DAILY #0 tab 07/14/16 [Last Taken Unknown] Atorvastatin Calcium [Lipitor 10 mg (*)] 10 mg PO DAILY #0 tab 07/14/16 [Last Taken Unknown] Furosemide [Lasix 40 MG (*)] 40 mg PO DAILY #0 tab 07/14/16 [Last Taken Unknown] Ipratropium/Albuterol [Duoneb (*)] 3 ml IH Q6HRS #0 deyvial 07/14/16 [Last Taken Unknown] Nicotine [Nicoderm Cq 21 mg (*)] 21 mg TD DAILY #0 patch 07/14/16 [Last Taken Unknown] Potassium Cl [Klor-Con 20 meq (*)] 20 meq PO TID #0 tab 07/14/16 [Last Taken Unknown] predniSONE 20 mg PO DAILY #0 tablet 07/14/16 [Last Taken Unknown] traMADol [Ultram 50 mg (*)] 50 - 100 mg PO Q6HRS PRN #0 tab 07/14/16 [Last Taken Unknown] Discharge Medications: Refer to the Discharge Home Medication list for PRN reason. - Orders Services needed: Registered Nurse Oxygen: 1 L nc Diet Recommendation: sodium restricted Diet Texture: Regular Texture Diet, Thin Liquids, Meds Whole w/Liquids Equipment: cane Additional: Follow up appts: [facility] 2 weeks [phone]; Dr Rios in 2- 3 weeks [phone] pulmonology
--- NOTE | 2016-07-14 17:08 | PDDCSUM ---
Discharge Summary Discharge Summary: DISCHARGE SUMMARY NOTE DISCHARGE DIAGNOSES: 1. ACUTE RESPIRATORY FAILURE, HYPOXEMIC 2. ? ACUTE PNEUMONIA, COMMUNITY ACQUIRED 3. INTERSTITIAL LUNG DISEASE, PROGRESSED SINCE 2015; PULMONARY HYPERTENSION 4. SUBSTERNAL/EPIGASTRIC PAIN UNCERTAIN ETIOLOGY 5. HIGH RISK FOR CORONARY ARTERY DISEASE CONSULTANTS: Cardiology PROCEDURES: CT scan chest, with no evidence of pulmonary embolism, with evidence pneumonia HOSPITAL COURSE SUMMARY: This 56-year-old man who was transferred here from care home with shortness of breath. He was found to have evidence of probable pneumonia, acute on chronic respiratory failure with chronic interstitial lung disease. He was treated with steroids bronchodilators and antibiotics and responded well. Cultures did not grow any organism. In addition the patient was with likely evidence of acute sepsis at the time of admission and this resolved quickly with standard therapy. He also had a minimally elevated troponin which was felt likely due to his acute illness as above. However there was some chest ache felt most likely to due to pneumonia and rib fractures. He does have a CT scan here showing evidence of coronary calcification, he is a smoker, and has family history of cardiac coronary disease. We did attempt to do risk stratification with Lexiscan and stress testing on 2 occasions but the patient was too anxious and unwilling to comply with the procedure. It was not felt that angiography was indicated. At this time was elected to proceed with smoking cessation attempts, aggressive preventive medical care, and trying to get him back into the Cardiology Clinic where he might be more able to comply with a Lexiscan stress test in the outpatient setting. At this time the patient is stable for discharge from the hospital. It is required that he goes back to the care home. He does require 1 L of nasal cannula oxygen, and a cane. FOLLOW-UP PLAN: Appointments recommended with Dr. Antonio Rios in 2-3 weeks and jose cruz [facility] in 2 weeks Greater than 35 minutes bedside and care coordination time today
--- NOTE | 2016-07-14 18:04 | PDINTPN ---
Speed Belt Sander Tender Progress Note Assessment/Plan: Assessment: * Acute Resp Failure- resolved * Cor Pulmonale/pulmonary HTN-secondary to acute and possibly chronic pulmonary disease? -duplex US LE negative. On Lasix * ILD-verses more of an acute interstitial pneumonia/fluid-CHF picture. On steroids * Strep Pneumonia from sputum-on levaquin * ? H/O lung CA - S/P thoracentesis. Cytology is negative for evidence of malignancy * Sepsis/Septic shock-resolved * Hep C * H/O alcohol abuse * VTE proph-on Lovenox * Stress ulcer proph-eating * Anemia: Hematocrit 32.5, slightly better. 40 on admission but likely volume depleted at that time. Plan: [facility] from my standpoint. May or may not need a small amount of oxygen over time. Taper prednisone slowly. Repeat chest x- ray in 2-4 weeks with outpatient follow-up if possible. He could do this at [facility] were can follow up in our office if needed. Subjective: Doing okay. Denies significant shortness of breath. Since his breathing is probably close to baseline. Upset regarding being returned to prison in the near future. Objective: Vital Signs Temp Pulse Resp BP Pulse Ox 37.0 C 108 H 22 H 95/59 L 94 07/14/16 15:10 07/14/16 15:25 07/14/16 15:25 07/14/16 15:10 07/14/16 15:25 Laboratory Results 07/10/16 04:00 07/13/16 17:30 07/13/16 07/14/16 07/15/16 05:59 05:59 05:59 Intake Total 940 3500 300 Output Total 1125 1800 475 Balance -185 1700 -175 PT 16.7 SEC (12.0-15.0) H 07/03/16 05:40 INR 1.35 (0.83-1.16) H 07/03/16 05:40 Laboratory Tests 07/14/16 10:30 Creatine Kinase < 20 Troponin I 0.012 Physical Exam - Physical Exam General Appearance: alert, no apparent distress EENT: other (Nasal cannula 1 L: 94%) Neck: normal inspection (No JVD) Respiratory: lungs clear, decreased breath sounds (And excursions), No rales, No rhonchi, No wheezing Cardiac/Chest: tachycardia (105, systolic murmur), systolic murmur Abdomen: normal bowel sounds, non-tender, soft Skin: normal color, warm/dry Extremities: No pedal edema Neuro/Psych: no motor/sensory deficits, No cognition abnormalities ICD10 Worksheet Patient Problems: Problems Problem Status Diagnosed Lung infiltrate Acute Sepsis Acute Acute respiratory failure with hypoxia Acute Alcohol abuse Acute Hematemesis Acute Ribs, multiple fractures Acute
--- NOTE | 2016-07-18 13:08 | PQFORM ---
PHYSICIAN QUERY FORM Needs Your Response This query form is being sent to you to assure this patient record is coded properly. Please respond to the question below: FURNACE OPERATOR AND TENDER QUESTION: Dear Dr. Mackey, Patient is documented in the Hospitalist Progress Note's to have 'Severe sepsis with septic shock'. Stated to be "evidenced by tachycardia, leukocytosis with end organ failure." After study, do you believe the diagnosis of 'Severe sepsis with septic shock' should be included in the Discharge summary? Yes No Other Unable to determine Thank you Paradise Verduzco, [facility] [phone] INSTRUCTIONS FOR RESPONSE: Answer question by clicking on the "Edit Document" button. Move cursor to area below the stars. When complete, hit "Save." Click on the "Sign" button, then click "Sign" again. Type in your PIN and hit "Enter." yes septic shock was present MTDD
--- NOTE | 2016-07-18 13:16 | PQFORM ---
PHYSICIAN QUERY FORM Needs Your Response This query form is being sent to you to assure this patient record is coded properly. Please respond to the question below: CRIMINAL INTELLIGENCE SPECIALIST QUESTION: Dear Dr. Mackey, Patient is documented to have 'Acute kidney injury' due to both severe sepsis and hypovolemia. After study, do you believe that the diagnosis of ' Acute kidney injury' should be included in the Discharge summary? Yes No Other Unable to determine Thank you [facility] [phone] INSTRUCTIONS FOR RESPONSE: Answer question by clicking on the "Edit Document" button. Move cursor to area below the stars. When complete, hit "Save." Click on the "Sign" button, then click "Sign" again. Type in your PIN and hit "Enter." yes acute kidney injury was present MTDD
--- NOTE | 2016-07-18 13:35 | PQFORM ---
PHYSICIAN QUERY FORM Needs Your Response This query form is being sent to you to assure this patient record is coded properly. Please respond to the question below: VICE PRESIDENT INDUSTRIAL RELATIONS QUESTION: Dear Dr. Mackey, Patient is documented in the Hospitalist progress note's to have 'Acute systolic CHF exacerbation, with diffuse infiltrates on chest XR, Echo with reduced LV and RV functions.' Also documented is 'Diastolic CHF exacerbation with bradycardia.' After study, can the Congestive heart failure be further specified as: Combined acute systolic and diastolic heart failure Combined acute on chronic systolic and diastolic heart failure Acute systolic heart failure Unspecified Diastolic heart failure Other more appropriate diagnosis Unable to determine Thank you [facility] [phone] INSTRUCTIONS FOR RESPONSE: Answer question by clicking on the "Edit Document" button. Move cursor to area below the stars. When complete, hit "Save." Click on the "Sign" button, then click "Sign" again. Type in your PIN and hit "Enter." right side chf was present MTDD
--- NOTE | 2016-07-18 13:42 | PQFORM ---
PHYSICIAN QUERY FORM Needs Your Response This query form is being sent to you to assure this patient record is coded properly. Please respond to the question below: FRONT OFFICE MANAGER QUESTION: Dear Dr. Mackey, Patient is documented in the H&P as well as the progress notes to have ' Metabolic acidosis secondary to lactic acid, hypovolemia and severe sepsis.' After study, do you believe that the diagnosis of 'acidosis' should be included in the Discharge summary? Yes No Other Unable to determine Thank you [facility] [phone] INSTRUCTIONS FOR RESPONSE: Answer question by clicking on the "Edit Document" button. Move cursor to area below the stars. When complete, hit "Save." Click on the "Sign" button, then click "Sign" again. Type in your PIN and hit "Enter." MTDD
== END 2016-07-14 18:00 | DRG 871 ==
LOC: F2N 14:39 → F3E 07-03 15:26 → F2N 07-05 00:37 → F2W 07-10 14:14
PROVIDERS: ADMIT Internal Medicine; ATTEND Internal Medicine
PROC: 02HV33Z Insertion of Infusion Device into Superior Vena Cava, Percutaneous Approach (ICD-10-PCS; 2016-07-02)
PROC: 5A1945Z Respiratory Ventilation, 24-96 Consecutive Hours (ICD-10-PCS; principal; 2016-07-05)
PROC: 0BH18EZ Insertion of Endotracheal Airway into Trachea, Via Natural or Artificial Opening Endoscopic (ICD-10-PCS; principal; 2016-07-05)
PROC: 0W993ZZ Drainage of Right Pleural Cavity, Percutaneous Approach (ICD-10-PCS; 2016-07-08)
DX: A40.3 Sepsis due to Streptococcus pneumoniae (principal); J18.8 Other pneumonia, unspecified organism; J96.21 Acute and chronic respiratory failure with hypoxia; R65.21 Severe sepsis with septic shock; N17.9 Acute kidney failure, unspecified; I27.2 Other secondary pulmonary hypertension; I50.9 Heart failure, unspecified; B19.20 Unspecified viral hepatitis C without hepatic coma; R10.13 Epigastric pain; Z66 Do not resuscitate; Z72.0 Tobacco use
CPT/HCPCS: 83516-90; 83520-90; 92526-GN; 92610-GN; 96365; 97116-GP; 97161-GP; 97164-GP; A9500; C1751; J0330; J0461; J1335; J1650; J1956; J2060; J2405; J2543; J2704; J2930; J2997; J3010; J3370; P9047

== ENCOUNTER 2016-08-27 18:04 | Inpatient (IN) | payer MEDICAID, OTHER ==
--- NOTE | 2016-08-27 18:22 | CPEKG ---
Heart Rate: 94 RR Interval: 638 P-R Interval: 168 QRSD Interval: 84 QT Interval: 344 QTC Interval: 431 P [place]: 64 QRS [place]: 44 T Wave [place]: 9 EKG Severity - NORMAL ECG - EKG Impression: SINUS RHYTHM Electronically Signed By: Maciej Vu 28-Aug-2016 17:04:11
[2016-08-27] MEDS ORDERED: NS 1,000 ML IV ONE (18:26)
--- NOTE | 2016-08-27 18:31 | EDPHY ---
General Narrative: CHIEF COMPLAINT: Chest pain HISTORY OF PRESENT ILLNESS: Sudden onset of left-sided chest pain that started at 3:00 p.m. today. The patient was at rest at his relative's house. It is a moderate to severe pain that radiates to the back. Patient is minimally ambulatory due to chronic debility, and denies any change in pain with his minimal ambulation. Comprehensive Advisor is difficult to quantify exacerbating factors. Nausea but no vomiting. No diaphoresis. No cough or recent infection. No abdominal pain. No urinary complaints. No fever chills. Does not have a diagnosis of coronary artery disease to his knowledge, but has had a previous cardiac workup sometime last year. He does not remember feeling any stents. No history of venous thrombolic event or PE. No recent travel or surgery. No lower extremity erythema edema or pain. No other associated complaints or modifying factors. REVIEW OF SYSTEMS: Ten systems reviewed and are negative unless otherwise noted in the HPI EXAMINATION General Appearance: Alert, no distress , unkempt. Head: normocephalic, atraumatic Eyes: Pupils equal and round, no conjunctival pallor or injection . EOMs intact. ENT, Mouth: Mucous membranes moist . Uvula midline. No erythema or edema. Neck: Normal inspection, supple, non-tender Respiratory: Mild scattered rhonchi. No wheezing. No consolidation. No diminishment. No distress. Cardiovascular: Regular rate and rhythm . No murmur. Pulses intact distally with symmetric radial pulses are 2+, symmetric DP pulses at 2+. Gastrointestinal: Abdomen is soft and nontender . No CVA tenderness. Neurological: A&O, nonfocal, Walks with a cane.Strength is symmetric in all limbs. Skin: Warm and dry, no rash Extremities: Nontender, no pedal edema Psychiatric: Mood and affect normal DIFFERENTIAL DIAGNOSES: Including but not limited to ACS, chest pain NOS, PE, reflux, pneumonia, costochondritis, strain, malingering MDM: 6:30 p.m. chest pain that started at approximately 3:00 p.m. while at rest. Radiates into the back. Patient is minimally ambulatory but says it was worse when he was up with his cane. Nausea but no vomiting. Some sweating. No fever chills. No cough. Recent cardiac workup several months ago, but he does not know the details. 7:10 p.m. notified by radiologist that the patient has pneumonia appears to be improving by chest x-ray, but that he cannot rule out a small pneumothorax on the right side of the chest. Given the patient's pain radiates to the back I will obtain a CT scan of the chest rule out PE, evaluated left-sided pain, and rule out or in a right-sided pneumothorax. 8:[address] scan of the chest is negative for PE. There is some interstitial lung disease as well as a right-sided apical pneumothorax. I have re-evaluated the patient and contacted Trauma for consult. Patient still denies any trauma or chest pain on the right side. He is resting comfortably, has no right-sided pain , is normotensive, is oxygenating well on room air. 8:30 p.m. case discussed with Dr. Lindquist via circulating nurse. He will provide consultation. Case also discussed with Dr. Blue, and she will admit the patient. 9:00 p.m. patient has been admitted for chest pain. Primary admission was initially for ACS rule out for the left-sided chest pain that started at 3:00 p.m.. However during the workup we found an incidental right-sided apical pneumothorax. This has been addressed by Trauma consultation. No need for chest tube at this time per trauma surgeon. He will be monitored overnight with repeat imaging in the morning. He has been admitted to Medicine for his chest pain In stable condition. EKG: Interpreted by Dr. Adam SUPERVISION: Patient was evaluated in conjunction with the supervising physician. Please see their note for details. - History Smoking Status: Current some day smoker - Objective Vital Signs: Initial Vital Signs Temperature (C) 98.4 F 08/27/16 18:09 Heart Rate 95 08/27/16 18:09 Respiratory Rate 20 08/27/16 18:09 Blood Pressure 103/80 08/27/16 18:09 O2 Sat (%) 92 08/27/16 18:09 O2 Delivery Mode Room Air Allergies/Adverse Reactions: No Known Allergies Allergy (Verified 08/27/16 18:08) Home Medications: Medication Instructions Recorded Multivitamins [Multivitamin (*)] 1 each PO DAILY 07/02/16 Aspirin EC [Aspirin EC 81 mg (*)] 81 mg PO DAILY #0 tab 07/14/16 Atorvastatin Calcium [Lipitor 10 10 mg PO DAILY #0 tab 07/14/16 mg (*)] Furosemide [Lasix 40 MG (*)] 40 mg PO DAILY #0 tab 07/14/16 Ipratropium/Albuterol [Duoneb (*)] 3 ml IH Q6HRS #0 deyvial 07/14/16 Nicotine [Nicoderm Cq 21 mg (*)] 21 mg TD DAILY #0 patch 07/14/16 Potassium Cl [Klor-Con 20 meq (*)] 20 meq PO TID #0 tab 07/14/16 predniSONE 20 mg PO DAILY #0 tablet 07/14/16 traMADol [Ultram 50 mg (*)] 50 - 100 mg PO Q6HRS PRN #0 tab 07/14/16 Laboratory Results: Laboratory Results 08/27/16 18:40 08/27/16 18:40 08/27/16 08/27/16 08/27/16 18:40 18:40 18:40 WBC 8.10 10^3/uL 10^3/uL (3.80-9.50) RBC 6.08 10^6/uL 10^6/uL (4.40-6.38) Hgb 12.5 g/dL L g/dL (13.7-17.5) Hct 43.7 % % (40.0-51.0) MCV 71.9 fL L fL (81.5-99.8) MCH 20.6 pg L pg (27.9-34.1) MCHC 28.6 g/dL L g/dL (32.4-36.7) RDW 21.5 % H % (11.5-15.2) Plt Count 326 10^3/uL 10^3/uL (150-400) MPV 9.4 fL fL (8.7-11.7) Neut % (Auto) 71.4 % % (39.3-74.2) Lymph % (Auto) 14.9 % L % (15.0-45.0) [place] % (Auto) 5.3 % % (4.5-13.0) Eos % (Auto) 7.5 % % (0.6-7.6) Baso % (Auto) 0.7 % % (0.3-1.7) Nucleat RBC Rel Count 0.0 % % (0.0-0.2) Absolute Neuts (auto) 5.77 10^3/uL 10^3/uL (1.70-6.50) Absolute Lymphs (auto) 1.21 10^3/uL 10^3/uL (1.00-3.00) Absolute Monos (auto) 0.43 10^3/uL 10^3/uL (0.30-0.80) Absolute Eos (auto) 0.61 10^3/uL H 10^3/uL (0.03-0.40) Absolute Basos (auto) 0.06 10^3/uL 10^3/uL (0.02-0.10) Absolute Nucleated RBC 0.00 10^3/uL 10^3/uL (0-0.01) Immature Gran % 0.2 % % (0.0-1.1) Immature Gran # 0.02 10^3/uL 10^3/uL (0.00-0.10) Platelet Estimate ADEQUATE (ADEQ) Polychromasia 1+ H Hypochromasia 2+ H Microcytic Cells 2+ H PT 13.9 SEC SEC (12.0-15.0) INR 1.08 (0.83-1.16) APTT 29.1 SEC SEC (23.0-38.0) D-Dimer 0.52 ug/mLFEU H ug/mLFEU (0.00-0.50) Sodium 137 mEq/L mEq/L (134-144) Potassium 4.2 mEq/L mEq/L (3.5-5.2) Chloride 105 mEq/L mEq/L (97-110) Carbon Dioxide 21 mEq/l L mEq/l (22-31) Anion Gap 11 mEq/L mEq/L (8-16) BUN 13 mg/dL mg/dL (7-23) Creatinine 0.6 mg/dL L mg/dL (0.7-1.3) Estimated GFR > 60 Glucose 88 mg/dL mg/dL (70-100) Calcium 9.2 mg/dL mg/dL (8.5-10.4) Troponin I < 0.012 ng/mL ng/mL (0-0.034) NT-Pro-B Natriuret Pep 175 pg/mL H pg/mL (0-125) Lipase 247.0 IU/L IU/L (23-300) Medications Given: Discontinued Medications Sodium Chloride (Ns) 1,000 mls @ 0 mls/hr IV ONCE ONE PRN Reason: Wide Open Stop: 08/27/16 18:27 Last Admin: 08/27/16 19:00 Dose: 1,000 mls Departure - Departure Disposition: [facility] Inpatient Acute Clinical Impression: Acute chest pain, Pneumothorax, right, Interstitial lung disease Condition: Good Referrals: NONE *PRIMARY CARE P,. [Primary Care Provider] - As per Instructions [facility],. [Clinic] - As per Instructions Raad Bains MD [Medical Doctor] - As per Instructions
[2016-08-27 18:46] LABS: % IMMATURE GRANULYOCYTES 0.2 % (0.0-1.1); ABSOLUTE IMMATURE GRANULOCYTES 0.02 10^3/uL (0.00-0.10); ADD DIFF? NO; ADD MORPH? YES; ADD SCAN? NO; ATYPICAL LYMPHOCYTE FLAG 10 (0-99); FRAGMENT RBC FLAG 40 (0-99); HEMATOCRIT 43.7 % (40.0-51.0); HEMOGLOBIN 12.5 g/dL (13.7-17.5); LEFT SHIFT FLG 0 (0-99); LIPEMIA HEMOLYSIS FLAG 70 (0-99); MEAN CELL HEMOGLOBIN 20.6 pg (27.9-34.1); MEAN CELL VOLUME 71.9 fL (81.5-99.8); MEAN PLATELET VOLUME 9.4 fL (8.7-11.7); PLATELET CLUMPS FLAG 20 (0-99); PLATELET COUNT 326 10^3/uL (150-400); RED BLOOD CELL COUNT 6.08 10^6/uL (4.40-6.38)
[2016-08-27 18:50] LABS: MEAN CELL HEMOGLOBIN CONCENTR. 28.6 g/dL (32.4-36.7); RED CELL DISTRIBUTION WIDTH 21.5 % (11.5-15.2)
[2016-08-27 19:07] LABS: ANION GAP 11 mEq/L (8-16); CALCIUM 9.2 mg/dL (8.5-10.4); CARBON DIOXIDE 21 mEq/l (22-31); CHLORIDE 105 mEq/L (97-110); CREATININE 0.6 mg/dL (0.7-1.3); GLOMERULAR FILTRATION RATE > 60; GLUCOSE 88 mg/dL (70-100); POTASSIUM 4.2 mEq/L (3.5-5.2); SODIUM 137 mEq/L (134-144)
[2016-08-27 19:12] LABS: INR 1.08 (0.83-1.16); PROTIME(PATIENT) 13.9 SEC (12.0-15.0)
[2016-08-27 19:13] LABS: APTT 29.1 SEC (23.0-38.0)
[2016-08-27 19:16] LABS: HYPOCHROMIA 2+; MICROCYTES 2+; PLATELET ESTIMATE ADEQUATE (ADEQ); POLYCHROMASIA 1+
[2016-08-27] MEDS ORDERED: IOPAMIDOL (ISOVUE 370) 100 ML BTL IV ONE (19:18)
[2016-08-27 19:19] LABS: TROPONIN I < 0.012 ng/mL (0-0.034)
[2016-08-27] MEDS ORDERED: ONDANSETRON DISINTEGRATING 4 MG TAB PO PRN (20:36)
[2016-08-27] MEDS ORDERED: ALBUTEROL 60 PUFFS/8 GM MDI IH PRN (21:13)
--- NOTE | 2016-08-27 22:01 | GHP ---
DATE OF ADMISSION: 08/27/2016 CHIEF COMPLAINT: Chest pain. HISTORY OF PRESENT ILLNESS: The patient is a 56-year-old homeless male, recently released from alf, presenting with chest pain. He states he was sitting at 3 o'clock today and developed sharp, stabbing, substernal chest pain that lasted for 1 minute. It felt like a needle with some SOB. No radiation, numbness, or diaphoresis. Reports productive cough for an unknown amount of time. Of note, patient is a very poor historian. He was hospitalized recently in July with sepsis secondary to Streptococcus pneumoniae warranting intubation and ICU admission. He c/o of chronic pain all over. Denies fevers, chills or sweats. No nausea, vomiting, or diarrhea. He was released a week ago. He does not have a place to stay. ER team planned to admit him here today for ACS rule out and incidentally found a right-sided apical pneumothorax on CXR and CT chest.Surgery was consulted. REVIEW OF SYSTEMS: I completed a 10-point review of systems. Negative, except as noted in HPI. PAST MEDICAL HISTORY: 1. Pulmonary hypertension. 2. Interstitial lung disease. 3. Streptococcus pneumoniae pneumonia in July 2016. 4. Recent right-sided pleura effusion that was negative for malignancy. 5. Chronic pain. 6. Hepatitis C. 7. History of alcohol abuse. 8. History of tobacco abuse. 9. Anemia. PAST SURGICAL HISTORY: None. MEDICATIONS: The patient was not able to tell me what medications he is taking , but per reconciliation: 1. Tramadol 50 q.6 hours p.r.n. 2. Prednisone 20 mg daily. 3. Potassium. 4. Nicotine patch. 5. Multivitamin. 6. Albuterol. 7. Lasix 40 mg daily. 8. Atorvastatin. 9. Aspirin 81 mg daily. ALLERGIES: No known drug allergies. FAMILY HISTORY: Mother and father unknown. Brother with an MD. SOCIAL HISTORY: Out of alf 1 week. Homeless now. Reports less cigarettes 6 months ago. Reports last drink of alcohol a month ago. Eats edibles. PHYSICAL EXAM: VITAL SIGNS: Temperature 36.9, blood pressure 103/87, heart rate 95, respirations 20, 92% on room air. GENERAL: Patient is disheveled. HEENT: PERRLA, EOMI. Poor dentition. Oropharynx clear. No exudate or erythema. CV: Regular rate and rhythm. No murmurs, gallops, or rubs. LUNGS: Decreased breath sounds throughout. Crackles left lower base. ABDOMEN: Diffusely tender. No rebound or guarding. Positive bowel sounds. : No [place]. No suprapubic tenderness. MUSCULOSKELETAL: Moving all 4 extremities. NEURO: Cranial nerves II through XII intact. PSYCH: Alert and oriented x3. Not participating in interview consistently. LABS: WBC is 8, hemoglobin is 12, hematocrit is 43, platelets 326, MCV is 71. D-dimer is 0.52. INR is 1.3. PT 13. Sodium 137, potassium 4.2, chloride 105, carbon dioxide 21, BUN 13, creatinine 0.6, glucose 80. Troponin less than 0.012. BNP is 195. Lipase is 247. STUDIES: EKG as personally reviewed by me: Sinus tachycardia normal sinus rhythm. Chest x-ray as personally reviewed by me: Mild apical right-sided pneumothorax , pulmonary fibrosis bilaterally. CTA: No definite pulmonary embolism, no aortic aneurysm, coronary atherosclerosis, small right pneumothorax, UIP/interstitial pulmonary fibrosis with honeycombing throughout. ASSESSMENT AND PLAN: 1. Acute chest pain: Differential dx includes pulmonary embolism versus acute coronary syndrome versus gastroesophageal reflux disease versus musculoskeletal. Initial troponin and EKG were negative. CTA negative for clot. He was evaluated by Cardiology last admission and they recommended a Lexiscan, but patient could not tolerate it. Cardiac cath was not deemed necessary then, thus maximize medical management. Will continue statin and aspirin and repeat troponin and EKG. 2. Small right apical pneumothorax: evaluated by Dr. Lindquist with Surgery. Will repeat x-ray in the morning. If increased in size, will place a chest tube. He is currently stable on room air. 3. Chronic pain: Continue tramadol. 4. Pulmonary fibrosi/pulmonary hypertension: Stable on room air. 5. Will provide an inhaler. 6. Diet: Regular. 7. Deep venous thrombosis prophylaxis: Ambulatory. DISPOSITION: Patient warrants observation admission given acute pneumothorax warranting oxygen and repeat imaging. /[id number]/MODL MTDD
[2016-08-27] MEDS: NICOTINE 21 MG/24 HR PATCH TD SCH (22:05)
[2016-08-27] MEDS: ATORVASTATIN CALCIUM 10 MG TAB PO SCH (23:02)
[2016-08-27] MEDS: ASPIRIN 81 MG CHEWABLE TAB PO SCH (23:02)
[2016-08-27] MEDS: traMADol 50 MG TAB PO PRN (23:05)
[2016-08-28 06:32] LABS: ALANINE AMINOTRANSFERASE 34 IU/L (21-72); ALBUMIN 3.5 g/dL (3.5-5.0); ALKALINE PHOSPHATASE 90 IU/L (38-126); ANION GAP 11 mEq/L (8-16); ASPARTATE AMINOTRANSFERASE 34 IU/L (17-59); BILIRUBIN,TOTAL 0.4 mg/dL (0.1-1.4); CALCIUM 9.1 mg/dL (8.5-10.4); CARBON DIOXIDE 22 mEq/l (22-31); CHLORIDE 106 mEq/L (97-110); CREATININE 0.6 mg/dL (0.7-1.3); GLOMERULAR FILTRATION RATE > 60; GLUCOSE 84 mg/dL (70-100); POTASSIUM 4.7 mEq/L (3.5-5.2); SODIUM 139 mEq/L (134-144); TOTAL PROTEIN 6.8 g/dL (6.3-8.2)
[2016-08-28 06:42] LABS: TROPONIN I < 0.012 ng/mL (0-0.034)
--- NOTE | 2016-08-28 07:02 | GCON ---
DATE OF CONSULTATION: 08/27/2016 CHIEF COMPLAINT: Left-sided chest pain. HISTORY OF PRESENT ILLNESS: This is a 56-year-old, homeless male, who presents to the emergency dep artment complaining of left-sided chest pain, although on further review the patient has pain pretty much everywhere you touch. He states that he has not really felt well since his recent admission, which briefly he was admitted for the better part of July, most of it spent in the intensive care unit on the ventilator for bilateral pneumonia. He was subsequently discharged back to snf and re leased early August. He states that he has never really felt well. He is currently homeless and states that the left-sided chest pain became acutely worse earlier today, which prompted his present ation here. He endorses fevers and chills and pain pretty much everywhere you touch, including the extremities, but states that the majority of his pain is on the left side of his chest. He is reall y otherwise a poor historian. Chest film was performed, as well as a CT of the chest in the emergen cy department, which showed a small right-sided pneumothorax. PAST MEDICAL HISTORY: Pulmonary hypertension, interstitial lung disease, strep pneumonia, recent ri ght-sided pleural effusion, negative for malignancy, chronic pain, hepatitis C, alcohol abuse, tobac co abuse, anemia. PAST SURGICAL HISTORY: None. CURRENT MEDICATIONS: Please see the medical reconciliation in the chart for full med rec. ALLERGIES: None. REVIEW OF SYSTEMS: A full 10-point review was performed and unless explicitly stated above, is othe rwise negative. SOCIAL HISTORY: Homeless, recently out of snf. Endorses alcohol and tobacco use. PHYSICAL EXAM: VITAL SIGNS: Temp 36.9, blood pressure 103/87, heart rate 95, respirations 20, 92% on room air. GENERAL: The patient appears older than stated age. He is disheveled and appears to be in mild amount of distress. CV: He is normotensive with a regular rhythm. LUNGS: Clear. I do not appreciate any distant lung sounds on the right side. ABDOMEN: Tender to palpation everywhere . EXTREMITIES: Warm. LABS: White count 8, hemoglobin 12, D-dimer elevated at 0.52. Chest x-ray shows the above right-si ded pneumothorax. CT scan confirms that it is small. ASSESSMENT AND PLAN: A 56-year-old male with recent hospital admission for severe bilateral pneumon ia, now with right-sided pneumothorax. The patient appears to be not symptomatic from it, as he is currently saturating well on room air. His pain is also on the contralateral side. He will subsequ ently be admitted to the medical service for further workup and treatment of his ailments. Will dash sarmiento to follow with plan to obtain a chest x-ray in the morning to evaluate whether or not the cristiana ent requires tube thoracostomy placement. I discussed this with him. He appears to understand alth ough is fairly distant for the conversation. /[id number]/MODL
[2016-08-28] MEDS: NICOTINE 21 MG/24 HR PATCH TD SCH (07:29)
[2016-08-28] MEDS: ASPIRIN 81 MG CHEWABLE TAB PO SCH (07:29)
[2016-08-28] MEDS: traMADol 50 MG TAB PO PRN ×3 (07:29→20:26)
[2016-08-28] MEDS: ATORVASTATIN CALCIUM 10 MG TAB PO SCH (07:29)
[2016-08-28] MEDS ORDERED: ALBUTEROL 60 PUFFS/8 GM MDI IH PRN (13:47)
--- NOTE | 2016-08-28 14:30 | HOSPPROG ---
Hospitalist Progress Note Assessment/Plan: 56 yo M with hx of pulmonary fibrosis recently discharged from [facility] admitted with chest pain and found to have ptx # ptx: small right apical PTX noted on personal review of chest xray and CT. Gen surg following and at this point likely self limited and will resolve with additional o2. repeat CXR showing no change # chest pain: in setting of above and likely related to same, previous admission for chest pain led to recommendation for stress test that patient never had. Would recommend stress when clinically improved from above. Trops and ecg not c/w acs. Personal review of ecg showing sr without ischemic changes # chronic pain: patient notes pain literally "everywhere", not significantly more pain in his chest. On discussion with patient, though he is a very poor historian, this does sound to be chronic rather than acute. Continue tramadol. # pulmonary fibrosis: noted to have bilateral honeycombing on CT and findings c/ w UIP. Patient should establish care with pulmonary. Likely underlying etiology for spontaneous ptx. # distal esophageal thickening: ct findings c/w esophagitis and associated small hiatal hernia. Will begin PPI. # dispo: IP status, will need > 48 hours stay for eval/mgmt of above Patient new to my care. Old records reviewed and summarized as above. Subjective: no significant overnight events, patient states he continues to have pain everywhere but better than before Objective: Vital Signs Temp Pulse Resp BP Pulse Ox 36.7 C 99 18 106/77 95 08/28/16 11:50 08/28/16 11:50 08/28/16 11:50 08/28/16 11:50 08/28/16 11:50 Laboratory Results 08/28/16 04:20 08/27/16 08/28/16 08/29/16 05:59 05:59 05:59 Intake Total 1500 Output Total 200 Balance 1500 -200 PT 13.9 SEC (12.0-15.0) 08/27/16 18:40 INR 1.08 (0.83-1.16) 08/27/16 18:40 thin awake alert anicteric op clear rrr tachy no mrg cta with dec bs throughout soft nt nd no cce warm dry well perfused oriented appropriate ICD10 Worksheet Patient Problems: Problems Problem Status Onset Hematemesis Acute Acute respiratory failure with hypoxia Acute Alcohol abuse Acute Ribs, multiple fractures Acute Sepsis Acute Lung infiltrate Acute Acute chest pain Acute Pneumothorax, right Acute Interstitial lung disease Acute
[2016-08-29] MEDS: traMADol 50 MG TAB PO PRN ×4 (02:31→22:26)
[2016-08-29] MEDS: NICOTINE 21 MG/24 HR PATCH TD SCH (09:28)
[2016-08-29] MEDS: ATORVASTATIN CALCIUM 10 MG TAB PO SCH (09:31)
[2016-08-29] MEDS: ASPIRIN 81 MG CHEWABLE TAB PO SCH (09:31)
--- NOTE | 2016-08-29 17:11 | HOSPPROG ---
Hospitalist Progress Note Assessment/Plan: 56 yo M with hx of pulmonary fibrosis recently discharged from [facility] admitted with chest pain and found to have ptx # ptx: small right apical PTX noted on personal review of chest xray and CT. repeat cxr again today personally reviewed and shows no change # chest pain: improved and likely related to above as well as underlying chronic pain syndrome # chronic pain: pain improved on tramadol, will continue # acute hypoxic respiratory failure: desaturating to mid 80s on RA, but improved to low 90s with low flow o2, likely related to ptx and limited mobility but with underlying pulmonary fibrosis as below as well # pulmonary fibrosis: noted to have bilateral honeycombing on CT and findings c/ w UIP. Patient should establish care with pulmonary. Likely underlying etiology for spontaneous ptx. # distal esophageal thickening: ct findings c/w esophagitis and associated small hiatal hernia. Will treat with PPI # dispo: IP status, will need > 48 hours stay for eval/mgmt of above Subjective: no signficant overnight events, patient currently feeling a bit better, though still doesn't feel great, denies sob, has pain everywhere still Objective: Vital Signs Temp Pulse Resp BP Pulse Ox 36.6 C 97 20 115/75 97 08/29/16 08:50 08/29/16 08:50 08/29/16 08:50 08/29/16 08:50 08/29/16 08:50 08/28/16 08/29/16 08/30/16 05:59 05:59 05:59 Intake Total 1200 Output Total 200 225 Balance 1000 -225 PT 13.9 SEC (12.0-15.0) 08/27/16 18:40 INR 1.08 (0.83-1.16) 08/27/16 18:40 thin awake alert anicteric op clear rrr tachy no mrg cta with dec bs throughout soft nt nd no cce warm dry well perfused oriented appropriate ICD10 Worksheet Patient Problems: Problems Problem Status Onset Acute chest pain Acute Interstitial lung disease Acute Pneumothorax, right Acute Acute respiratory failure with hypoxia Acute Alcohol abuse Acute Hematemesis Acute Lung infiltrate Acute Ribs, multiple fractures Acute Sepsis Acute
[2016-08-29] MEDS: PANTOPRAZOLE SODIUM 40 MG TAB PO SCH (18:44)
[2016-08-30] MEDS: traMADol 50 MG TAB PO PRN ×4 (04:20→22:42)
[2016-08-30] MEDS: ASPIRIN 81 MG CHEWABLE TAB PO SCH (08:00)
[2016-08-30] MEDS: PANTOPRAZOLE SODIUM 40 MG TAB PO SCH (08:00)
[2016-08-30] MEDS: ATORVASTATIN CALCIUM 10 MG TAB PO SCH (08:00)
[2016-08-30] MEDS: NICOTINE 21 MG/24 HR PATCH TD SCH (08:01)
--- NOTE | 2016-08-30 09:03 | SOAPPROG ---
SOAP Progress Note Assessment/Plan: Assessment/Plan - PTX from CXR yesterday shows no changes, still no plan for CT placement. Will cont to monitor. 08/30/16 09:02 Objective: Vital Signs Temp Pulse Resp BP Pulse Ox 36.8 C 108 H 20 118/82 H 89 L 08/30/16 08:05 08/30/16 08:05 08/30/16 08:05 08/30/16 08:05 08/30/16 08:05 08/29/16 08/30/16 08/31/16 05:59 05:59 05:59 Intake Total 1200 500 Output Total 200 1025 200 Balance 1000 -525 -200 PT 13.9 SEC (12.0-15.0) 08/27/16 18:40 INR 1.08 (0.83-1.16) 08/27/16 18:40 ICD10 Worksheet Patient Problems: Problems Problem Status Onset Acute chest pain Acute Interstitial lung disease Acute Pneumothorax, right Acute Acute respiratory failure with hypoxia Acute Alcohol abuse Acute Hematemesis Acute Lung infiltrate Acute Ribs, multiple fractures Acute Sepsis Acute
--- NOTE | 2016-08-30 17:24 | HOSPPROG ---
Hospitalist Progress Note Assessment/Plan: 56 yo M with hx of pulmonary fibrosis recently discharged from care home admitted with chest pain and found to have ptx # ptx: small right apical PTX noted on personal review of chest xray and CT which has had no change since admission. Will not require intervention. # chest pain: improved and likely related to above as well as underlying chronic pain syndrome # chronic pain: pain improved on tramadol, will continue # acute hypoxic respiratory failure: continues to desaturate to as low as 80%, given that patient is homeless and does not have any way to have oxygen when he discharges cannot dc today. Unclear if we will be able to dc him now. # pulmonary fibrosis: noted to have bilateral honeycombing on CT and findings c/ w UIP. Patient should establish care with pulmonary. Likely underlying etiology for spontaneous ptx. # distal esophageal thickening: ct findings c/w esophagitis and associated small hiatal hernia. Will treat with PPI # dispo: IP status, will need > 48 hours stay for eval/mgmt of above Subjective: no significant overnight events, patient continues to complain of "pain everywhere" Objective: Vital Signs Temp Pulse Resp BP Pulse Ox 37.3 C 120 H 24 H 135/84 H 93 08/30/16 16:42 08/30/16 16:42 08/30/16 16:42 08/30/16 16:26 08/30/16 16:42 08/29/16 08/30/16 08/31/16 05:59 05:59 05:59 Intake Total 5730 601 4929 Output Total 200 1025 200 Balance 1000 -525 800 PT 13.9 SEC (12.0-15.0) 08/27/16 18:40 INR 1.08 (0.83-1.16) 08/27/16 18:40 thin awake alert anicteric op clear rrr tachy no mrg cta with dec bs throughout soft nt nd no cce warm dry well perfused oriented appropriate ICD10 Worksheet Patient Problems: Problems Problem Status Onset Acute chest pain Acute Interstitial lung disease Acute Pneumothorax, right Acute Acute respiratory failure with hypoxia Acute Alcohol abuse Acute Hematemesis Acute Lung infiltrate Acute Ribs, multiple fractures Acute Sepsis Acute
[2016-08-30] MEDS: IPRATROPIUM/ALBUTEROL 3 ML DEYVIAL IH SCH ×2 (17:51→21:46)
[2016-08-30] MEDS: ACETYLCYSTEINE 10% 30 ML VIAL IH SCH ×2 (17:51→21:47)
[2016-08-31] MEDS: traMADol 50 MG TAB PO PRN ×3 (04:16→19:29)
[2016-08-31] MEDS: ACETYLCYSTEINE 10% 30 ML VIAL IH SCH ×4 (05:54→23:07)
[2016-08-31] MEDS: IPRATROPIUM/ALBUTEROL 3 ML DEYVIAL IH SCH ×4 (05:54→23:06)
[2016-08-31] MEDS: ASPIRIN 81 MG CHEWABLE TAB PO SCH (09:50)
[2016-08-31] MEDS: ATORVASTATIN CALCIUM 10 MG TAB PO SCH (09:50)
[2016-08-31] MEDS: PANTOPRAZOLE SODIUM 40 MG TAB PO SCH ×2 (09:50→20:09)
[2016-08-31] MEDS: NICOTINE 21 MG/24 HR PATCH TD SCH (09:50)
--- NOTE | 2016-08-31 14:31 | HOSPPROG ---
Hospitalist Progress Note Assessment/Plan: 56 yo M with hx of pulmonary fibrosis recently discharged from half-way admitted with chest pain and found to have ptx # ptx: small right apical PTX on arrival, spontaneous and in setting of underlying pulmonary fibrosis. On personal review of cxr from today it has resolved # acute on chronic hypoxic respiratory failure: has had intermittent improvement however with even minimal exertion is desaturating to the low 80s or high 70s. Given resolution of ptx and no e/o pna, suspect that this is largely related to pulmonary fibrosis and atelectasis. Unclear if this is likely to improve and given his homelessness it will be difficult to dc him with oxygen. Treatment as next # pulmonary fibrosis: likely UIP based on imaging, query if he may be having an acute exacerbation--challenging to determine as patient is a very poor historian and even physical exam is challenging given his tendency to moan constantly. Will start IV methylpred for now and monitor for improvement with hopes that he can be weaned off of o2 in order to dc given homelessness # chronic pain: pain improved on tramadol, will continue, patient does continue to complain of pain "everywhere" without any clear etiology or foci # pulmonary fibrosis: noted to have bilateral honeycombing on CT and findings c/ w UIP. Patient should establish care with pulmonary. Likely underlying etiology for spontaneous ptx. # distal esophageal thickening: ct findings c/w esophagitis and associated small hiatal hernia. Will treat with PPI # dispo: IP status, will need > 48 hours stay for eval/mgmt of above. CM looking into possible snf stay though this will be challenging given that patient's only real acute issue is need for supplemntal o2. Care plan reviewed with case management and RT Subjective: no significant overnight events, continues to desaturate Objective: Vital Signs Temp Pulse Resp BP Pulse Ox 36.6 C 125 H 30 H 110/78 83 L 08/31/16 08:27 08/31/16 10:22 08/31/16 10:22 08/31/16 08:27 08/31/16 10:22 08/30/16 08/31/16 09/01/16 05:59 05:59 05:59 Intake Total 500 1500 Output Total 1025 1000 225 Balance -525 500 -225 PT 13.9 SEC (12.0-15.0) 08/27/16 18:40 INR 1.08 (0.83-1.16) 08/27/16 18:40 thin awake alert anicteric op clear rrr tachy no mrg cta with dec bs throughout soft nt nd no cce warm dry well perfused oriented appropriate - Time Spent With Patient Time Spent with Patient: greater than 35 minutes Time Spent with Patient: Greater than 35 minutes spent on this patients care, greater than 50% of time spent counseling, educating, and coordinating care regarding the above mentioned plan. ICD10 Worksheet Patient Problems: Problems Problem Status Onset Acute chest pain Acute Interstitial lung disease Acute Pneumothorax, right Acute Acute respiratory failure with hypoxia Acute Alcohol abuse Acute Hematemesis Acute Lung infiltrate Acute Ribs, multiple fractures Acute Sepsis Acute
--- NOTE | 2016-08-31 14:40 | SOAPPROG ---
SOAP Progress Note Assessment/Plan: Assessment/Plan - CXR this AM shows resolution of R sided ptx, in addition Pt having no R sided CP or Sx. Will s/o. Call with questions 08/30/16 09:02 08/31/16 14:39 Subjective: No SOB, likes the nasal canula better than the facemask Objective: Vital Signs Temp Pulse Resp BP Pulse Ox 36.6 C 125 H 30 H 110/78 83 L 08/31/16 08:27 08/31/16 10:22 08/31/16 10:22 08/31/16 08:27 08/31/16 10:22 08/30/16 08/31/16 09/01/16 05:59 05:59 05:59 Intake Total 500 1500 Output Total 1025 1000 225 Balance -525 500 -225 PT 13.9 SEC (12.0-15.0) 08/27/16 18:40 INR 1.08 (0.83-1.16) 08/27/16 18:40 ICD10 Worksheet Patient Problems: Problems Problem Status Onset Acute chest pain Acute Interstitial lung disease Acute Pneumothorax, right Acute Acute respiratory failure with hypoxia Acute Alcohol abuse Acute Hematemesis Acute Lung infiltrate Acute Ribs, multiple fractures Acute Sepsis Acute
[2016-08-31] MEDS ORDERED: methylPREDNISolone SOD SUCC 125 MG/2 ML VIAL IVP SCH (18:00)
[2016-08-31] MEDS: METHYLPREDNISOLONE SOD SUCC IV SCH ×2 (18:45→23:30)
[2016-08-31] MEDS: D5W IV SCH ×2 (18:45→23:30)
[2016-09-01] MEDS: traMADol 50 MG TAB PO PRN ×4 (01:35→21:57)
[2016-09-01 05:44] LABS: % IMMATURE GRANULYOCYTES 0.3 % (0.0-1.1); ABSOLUTE IMMATURE GRANULOCYTES 0.01 10^3/uL (0.00-0.10); ADD DIFF? NO; ADD MORPH? YES; ADD SCAN? YES; ATYPICAL LYMPHOCYTE FLAG 0 (0-99); FRAGMENT RBC FLAG 40 (0-99); HEMATOCRIT 41.9 % (40.0-51.0); HEMOGLOBIN 11.8 g/dL (13.7-17.5); LEFT SHIFT FLG 0 (0-99); LIPEMIA HEMOLYSIS FLAG 70 (0-99); MEAN CELL HEMOGLOBIN 20.4 pg (27.9-34.1); MEAN CELL VOLUME 72.5 fL (81.5-99.8); MEAN PLATELET VOLUME 9.9 fL (8.7-11.7); PLATELET CLUMPS FLAG 0 (0-99); PLATELET COUNT 311 10^3/uL (150-400); RED BLOOD CELL COUNT 5.78 10^6/uL (4.40-6.38)
[2016-09-01 05:50] LABS: MEAN CELL HEMOGLOBIN CONCENTR. 28.2 g/dL (32.4-36.7); RED CELL DISTRIBUTION WIDTH 20.3 % (11.5-15.2)
[2016-09-01] MEDS: ACETYLCYSTEINE 10% 30 ML VIAL IH SCH ×4 (05:53→21:06)
[2016-09-01] MEDS: IPRATROPIUM/ALBUTEROL 3 ML DEYVIAL IH SCH ×3 (05:53→21:06)
[2016-09-01 06:08] LABS: ANION GAP 13 mEq/L (8-16); CALCIUM 9.6 mg/dL (8.5-10.4); CARBON DIOXIDE 24 mEq/l (22-31); CHLORIDE 101 mEq/L (97-110); CREATININE 0.5 mg/dL (0.7-1.3); GLOMERULAR FILTRATION RATE > 60; GLUCOSE 154 mg/dL (70-100); POTASSIUM 4.9 mEq/L (3.5-5.2); SODIUM 138 mEq/L (134-144)
[2016-09-01 06:38] LABS: SCAN POSITIVE
[2016-09-01 06:52] LABS: HYPOCHROMIA 2+; MICROCYTES 2+; PLATELET ESTIMATE ADEQUATE (ADEQ); POLYCHROMASIA 1+
[2016-09-01] MEDS: D5W IV SCH ×2 (06:59→11:52)
[2016-09-01] MEDS: METHYLPREDNISOLONE SOD SUCC IV SCH ×2 (06:59→11:52)
[2016-09-01] MEDS: ATORVASTATIN CALCIUM 10 MG TAB PO SCH (08:15)
[2016-09-01] MEDS: PANTOPRAZOLE SODIUM 40 MG TAB PO SCH ×2 (08:15→21:57)
[2016-09-01] MEDS: ASPIRIN 81 MG CHEWABLE TAB PO SCH (08:15)
[2016-09-01] MEDS: NICOTINE 21 MG/24 HR PATCH TD SCH (08:16)
--- NOTE | 2016-09-01 15:37 | HOSPPROG ---
Hospitalist Progress Note Assessment/Plan: 56 yo M with hx of pulmonary fibrosis recently discharged from skilled nursing admitted with chest pain and found to have ptx # ptx: small right apical PTX on arrival, spontaneous and in setting of underlying pulmonary fibrosis with honeycombing. personally reviewed cxr from yesterday, PTX has resolved # acute on chronic hypoxic respiratory failure: desats to low 80s or high 70s with activity. Given resolution of ptx and no e/o pna, suspect that this is largely related to pulmonary fibrosis and atelectasis. He has h/o PNA in 07/2016 , which may still be resolving. Unclear if this is likely to improve and given his homelessness it will be difficult to dc him with oxygen. # pulmonary fibrosis: personally reviewed CT, b/l honeycombing, improved from prior CT when he had PNA. ? acute exacerbation. Discussed with Pulmonology, no indication for steroids. Will d/c solumedrol, cont mucomyst. Will need outpt pulm f/u. # chronic pain: prn tramadol # distal esophageal thickening: ct findings c/w esophagitis and associated small hiatal hernia. Cont PPI # dvt pplx - lovenox # dispo: Cont inpt. CM looking into possible snf stay though this will be challenging given that patient's only real acute issue is need for supplemental o2. Subjective: Pt still c/o some SOB, moans a lot. Denies CP. Tolerating po. Ambulating. Weaning O2 as able as he is unable to receive home O2, ?homeless. Objective: Vital Signs Temp Pulse Resp BP Pulse Ox 36.6 C 111 H 22 H 129/92 H 96 09/01/16 08:00 09/01/16 10:15 09/01/16 10:15 09/01/16 08:00 09/01/16 10:15 Laboratory Results 09/01/16 05:20 09/01/16 05:20 08/31/16 09/01/16 09/02/16 05:59 05:59 05:59 Intake Total 1500 1050 480 Output Total 1000 1025 300 Balance 500 25 180 PT 13.9 SEC (12.0-15.0) 08/27/16 18:40 INR 1.08 (0.83-1.16) 08/27/16 18:40 - Physical Exam Constitutional: no apparent distress Eyes: PERRL Ears, Nose, Mouth, Throat: moist mucous membranes Cardiovascular: tachycardia Respiratory: no respiratory distress, clear to auscultation Gastrointestinal: normoactive bowel sounds, soft, non-tender abdomen Skin: warm Neurologic: AAOx3 Psychiatric: interacting appropriately ICD10 Worksheet Patient Problems: Problems Problem Status Onset Acute chest pain Acute Interstitial lung disease Acute Pneumothorax, right Acute Acute respiratory failure with hypoxia Acute Alcohol abuse Acute Hematemesis Acute Lung infiltrate Acute Ribs, multiple fractures Acute Sepsis Acute
[2016-09-01] MEDS: ENOXAPARIN 40 MG/0.4 ML SYR SC SCH (18:25)
[2016-09-01] MEDS: CEPACOL LOZENGE PO PRN ×2 (22:37→23:39)
[2016-09-01] MEDS ORDERED: NS 500 ML IV ONE (23:41)
[2016-09-02 01:38] LABS: LACTATE DEHYDROGENASE 678 IU/L (313-618)
[2016-09-02] MEDS: ACETYLCYSTEINE 10% 30 ML VIAL IH SCH ×4 (05:08→22:49)
[2016-09-02] MEDS: IPRATROPIUM/ALBUTEROL 3 ML DEYVIAL IH SCH ×4 (05:09→22:49)
[2016-09-02] MEDS ORDERED: methylPREDNISolone SOD SUCC 125 MG in D5W 100 ML IV SCH (09:00)
[2016-09-02] MEDS: ATORVASTATIN CALCIUM 10 MG TAB PO SCH (09:19)
[2016-09-02] MEDS: ASPIRIN 81 MG CHEWABLE TAB PO SCH (09:19)
[2016-09-02] MEDS: PANTOPRAZOLE SODIUM 40 MG TAB PO SCH ×2 (09:19→21:47)
[2016-09-02] MEDS: NICOTINE 21 MG/24 HR PATCH TD SCH (09:19)
[2016-09-02] MEDS ORDERED: LIDOCAINE 1% 30 ML SDV IF ONE (11:43)
--- NOTE | 2016-09-02 11:57 | HOSPPROG ---
Hospitalist Progress Note Assessment/Plan: 56 yo M with hx of pulmonary fibrosis recently discharged from care home admitted with chest pain and found to have ptx # ptx: small right apical PTX on arrival, spontaneous, in setting of underlying IPF with honeycombing. this completely resolved without chest tube, but pt had increased SOB and increased O2 requirement today. Rpt CXR today showed moderately large right PTX, CT placed by Dr. Lindquist with improvement on f/u film. He then acutely decompensated and rpt CXR showed much larger PTX. Surgery notified, adjusted CT with ~1L output of jd blood. PTX much improved on rpt film. He is transferred to SDU. # hypotension and tachycardia: in setting of acute decompensation from enlarging PTX. no IV access for some time after pt pulled out IV. Peripheral line finally placed, followed by central line. SBP and HR responsive to NS fluid bolus, improving, cont IVF's. hgb stable, no need for transfusion at this time, follow. # elevated troponin: likely strain given acute decompensation. will trend. # acute on chronic hypoxic respiratory failure: in setting of new, larger PTX, improving with adjusted CT. # pulmonary fibrosis: personally reviewed CT, b/l honeycombing, improved from prior CT when he had PNA. Discussed with Pulmonology, no indication for steroids. Solumedrol d/c'd, cont mucomyst. Will need outpt pulm f/u. # chronic pain: prn tramadol # distal esophageal thickening: ct findings c/w esophagitis and associated small hiatal hernia. Cont PPI # dvt pplx - lovenox # dispo: Cont inpt. CM looking into possible snf stay though this will be challenging given that patient's only real acute issue is need for supplemental o2. Subjective: Pt more SOb this am, found to have PTX, chest tube placed. shortly after, he became very SOB, panicky. Required IM Valium, transfer to ICU and chest tube manipulation. Late this afternoon, he is resting comfortably. No fevers. Objective: Vital Signs Temp Pulse Resp BP Pulse Ox 36.6 C 106 H 20 137/81 H 90 L 09/02/16 07:12 09/02/16 07:12 09/02/16 07:12 09/02/16 07:12 09/02/16 07:12 Laboratory Results 09/01/16 05:20 09/01/16 09/02/16 09/03/16 05:59 05:59 05:59 Intake Total 1050 980 Output Total 1025 600 400 Balance 25 380 -400 PT 13.9 SEC (12.0-15.0) 08/27/16 18:40 INR 1.08 (0.83-1.16) 08/27/16 18:40 - Physical Exam Constitutional: chronically ill appearing Eyes: PERRL Ears, Nose, Mouth, Throat: moist mucous membranes Cardiovascular: tachycardia Respiratory: reduced air movement, respiratory distress Gastrointestinal: normoactive bowel sounds, soft, non-tender abdomen Skin: warm Musculoskeletal: full muscle strength Psychiatric: poor insight ICD10 Worksheet Patient Problems: Problems Problem Status Onset Acute chest pain Acute Interstitial lung disease Acute Pneumothorax, right Acute Acute respiratory failure with hypoxia Acute Alcohol abuse Acute Hematemesis Acute Lung infiltrate Acute Ribs, multiple fractures Acute Sepsis Acute
[2016-09-02 11:58] LABS: % IMMATURE GRANULYOCYTES 0.4 % (0.0-1.1); ABSOLUTE IMMATURE GRANULOCYTES 0.03 10^3/uL (0.00-0.10); ADD DIFF? NO; ADD MORPH? YES; ADD SCAN? NO; ATYPICAL LYMPHOCYTE FLAG 10 (0-99); FRAGMENT RBC FLAG 40 (0-99); HEMATOCRIT 36.7 % (40.0-51.0); HEMOGLOBIN 10.4 g/dL (13.7-17.5); LEFT SHIFT FLG 0 (0-99); LIPEMIA HEMOLYSIS FLAG 70 (0-99); MEAN CELL HEMOGLOBIN 20.1 pg (27.9-34.1); MEAN CELL VOLUME 70.8 fL (81.5-99.8); MEAN PLATELET VOLUME 9.5 fL (8.7-11.7); PLATELET CLUMPS FLAG 0 (0-99); PLATELET COUNT 307 10^3/uL (150-400); RED BLOOD CELL COUNT 5.18 10^6/uL (4.40-6.38); RED CELL DISTRIBUTION WIDTH 19.9 % (11.5-15.2)
[2016-09-02 12:00] LABS: MEAN CELL HEMOGLOBIN CONCENTR. 28.3 g/dL (32.4-36.7)
[2016-09-02] MEDS: traMADol 50 MG TAB PO PRN ×2 (12:05→19:23)
[2016-09-02 12:42] LABS: HYPOCHROMIA 2+
[2016-09-02 12:43] LABS: MICROCYTES 2+; PLATELET ESTIMATE ADEQUATE (ADEQ); POLYCHROMASIA 1+
[2016-09-02] MEDS: HYDROmorphONE/DILAUDID 1 MG/ML SYR IVP PRN ×5 (13:37→22:03)
--- NOTE | 2016-09-02 14:07 | GOP ---
DATE OF OPERATION: 09/02/2016 SURGEON: Brandon Lindquist MD ZIGZAG STITCHER: None. ANESTHESIA: 1% lidocaine local with IV narcotic adjunct. PREOPERATIVE DIAGNOSIS: Expanding right pneumothorax. POSTOPERATIVE DIAGNOSIS: Expanding right pneumothorax. PROCEDURE PERFORMED: Right chest tube thoracostomy placement. FINDINGS: Successful placement into the right chest cavity. Good wagner of air upon entering the dav[address] st cavity. Minimal bleeding. SPECIMENS: None. ESTIMATED BLOOD LOSS: 10 cc. DESCRIPTION OF PROCEDURE: The patient was greeted in his room. Risks, benefits, and alternatives to thoracostomy tube placement were discussed. After this was done, the consent was signed. The [facility] chest was prepped and draped in a typical sterile fashion. A [employer] timeout wa s performed prior to doing so. Local anesthesia was infiltrated throughout the area to create a field block. I then made an approx imate 2 cm incision in the anterior axillary line at the approximate 5th intercostal space. I track ed this through subcutaneous tissue, where I encountered the intercostal space. I then bluntly ente red the chest cavity and had a large wagner of air upon entering it. Through this, I inserted my 28-Fr ench straight chest tube without incident, noting good wagner of air and minimal blood loss. It was t hen attached to the skin with an interrupted silk suture and attached to the Pleur-evac, where an ai r leak was appreciated. Patient tolerated the procedure without any intraprocedural complications. DRAINS: [id number] straight chest tube to the right chest. /[id number]/MODL
[2016-09-02] MEDS: ENOXAPARIN 40 MG/0.4 ML SYR SC SCH (14:29)
[2016-09-02] MEDS ORDERED: DIAZEPAM 10 MG/2 ML SYR IVP ONE ×2 (15:19→15:30)
[2016-09-02] MEDS ORDERED: NS 1,000 ML IV ONE (15:30)
--- NOTE | 2016-09-02 15:31 | CPEKG ---
Heart Rate: 156 RR Interval: 385 P-R Interval: 88 QRSD Interval: 86 QT Interval: 256 QTC Interval: 413 P [place]: 0 QRS [place]: 60 T Wave [place]: -20 EKG Severity - OTHERWISE NORMAL ECG - EKG Impression: SINUS TACHYCARDIA EKG Impression: VENTRICULAR PREMATURE COMPLEX Electronically Signed By: Milad Benson 02-Sep-2016 21:05:47
[2016-09-02] MEDS ORDERED: LIDOCAINE 1% 30 ML SDV ONE (16:10)
[2016-09-02 16:17] LABS: BASE EXCESS -11.4 mEq/L (-2.5-2.5); BICARBONATE 18 mEq/L (22-26); MEASURED OXYGEN SATURATION 48 % (92-95); PCO2 59 mmHg (34-38); TCO2 20 mEq/L (23-27)
[2016-09-02 16:20] LABS: PO2 39 mmHg (65-75)
[2016-09-02] MEDS ORDERED: ALTEPLASE 2 MG VIAL IVP PRN (16:20)
[2016-09-02 17:26] LABS: % IMMATURE GRANULYOCYTES 0.3 % (0.0-1.1); ABSOLUTE IMMATURE GRANULOCYTES 0.04 10^3/uL (0.00-0.10); ABSOLUTE NRBC COUNT 0.07 10^3/uL (0-0.01); ADD DIFF? NO; ADD MORPH? YES; ADD SCAN? NO; ATYPICAL LYMPHOCYTE FLAG 10 (0-99); FRAGMENT RBC FLAG 40 (0-99); HEMOGLOBIN 9.8 g/dL (13.7-17.5); LEFT SHIFT FLG 40 (0-99); LIPEMIA HEMOLYSIS FLAG 70 (0-99); MEAN CELL HEMOGLOBIN 20.2 pg (27.9-34.1); MEAN PLATELET VOLUME 9.3 fL (8.7-11.7); NRBC-AUTO% 0.5 % (0.0-0.2); PLATELET CLUMPS FLAG 0 (0-99); PLATELET COUNT 429 10^3/uL (150-400); RED BLOOD CELL COUNT 4.86 10^6/uL (4.40-6.38); RED CELL DISTRIBUTION WIDTH 19.9 % (11.5-15.2)
[2016-09-02 17:41] LABS: ANION GAP 7 mEq/L (8-16); CALCIUM 8.6 mg/dL (8.5-10.4); CARBON DIOXIDE 27 mEq/l (22-31); CHLORIDE 109 mEq/L (97-110); CREATININE 0.9 mg/dL (0.7-1.3); GLOMERULAR FILTRATION RATE > 60; GLUCOSE 97 mg/dL (70-100); POTASSIUM 4.5 mEq/L (3.5-5.2); SODIUM 143 mEq/L (134-144)
[2016-09-02 17:52] LABS: TROPONIN I 0.045 ng/mL (0-0.034)
[2016-09-02 17:53] LABS: HYPOCHROMIA 2+; MICROCYTES 2+; PLATELET ESTIMATE ADEQUATE (ADEQ)
[2016-09-02 18:10] LABS: BASE EXCESS -2.1 mEq/L (-2.5-2.5); BICARBONATE 24 mEq/L (22-26); MEASURED OXYGEN SATURATION 98 % (92-95); PCO2 49 mmHg (34-38); PO2 114 mmHg (65-75); TCO2 25 mEq/L (23-27)
[2016-09-02] MEDS ORDERED: KETOROLAC 30 MG/1 ML SDV IVP PRN (19:58)
[2016-09-02] MEDS ORDERED: KETOROLAC 30 MG/1 ML SDV IVP ONE (20:30)
--- NOTE | 2016-09-02 21:54 | GOP ---
DATE OF OPERATION: 09/02/2016 SURGEON: Brandon Lindquist MD GLASS SILVERER: None. ANESTHESIA: 1% lidocaine local. PREOPERATIVE DIAGNOSIS: Nonfunctioning previous chest tube with worsening pneumothorax and tension physiology. POSTOPERATIVE DIAGNOSIS: Nonfunctioning previous chest tube with worsening pneumothorax and tension physiology. PROCEDURE PERFORMED: 32-Cameroonian straight chest tube placement. FINDINGS: ESTIMATED BLOOD LOSS: 5 cc from the procedure, and an additional 900 cc out from the tube. DESCRIPTION OF PROCEDURE: The patient was transferred to the Intensive Care Unit. Consent was gain ed verbally, as the patient was in extremis. His previous right chest tube had not been functioning appropriately. The right chest was prepped and draped in the midaxillary line at the approximate 5 th intercostal space. Local anesthesia was induced to create a field block, through which dissectio n was done. The chest cavity was entered, where a large wagner of air was identified, through which a 32-Cameroonian straight chest tube was placed without incident. It was attached to the skin with an int errupted silk suture into the Pleur-evac suction. It was tidaling well with a positive air leak. T he patient tolerated the procedure without any intraprocedural complications. DRAINS: A 32-Cameroonian straight chest tube. /[id number]/MODL
--- NOTE | 2016-09-02 21:54 | GOP ---
DATE OF OPERATION: 09/02/2016 SURGEON: Brandon Lindquist MD YOUTH AGENT: None. ANESTHESIA: 1% lidocaine. PREOPERATIVE DIAGNOSIS: Hypotension. POSTOPERATIVE DIAGNOSIS: Hypotension. PROCEDURE PERFORMED: Right subclavian central venous catheter placement. FINDINGS: Satisfactory placement without complication. ESTIMATED BLOOD LOSS: 1 cc. DESCRIPTION OF PROCEDURE: After placing the patient's previous chest tube, intravenous access was d ifficult to obtain. I obtained consent for a triple-lumen catheter. After obtaining consent, I pre pped his right neck in the typical sterile fashion. Using an anatomical technique, I identified the deltopectoral groove and successfully cannulated the right subclavian vein with a single pass, thro ugh which I threaded my needle and my wire. Over the wire, I serially dilated and placed the triple -lumen catheter within the subclavian vein and tracked it to the superior vena cava. Once in correc t position, it withdrew and flushed appropriately. It was attached to the skin with a single interr upted silk suture. A sterile dressing with Biopatch was placed. The patient tolerated the procedur e well without any intraoperative complications. DRAINS: Triple-lumen catheter successfully cannulated into the subclavian vein at the atriocaval ju nction. /[id number]/MODL
[2016-09-02] MEDS: NS 1,000 ML IV SCH (22:05)
[2016-09-02] MEDS: NS 1,000 ML IV PRN (22:05)
[2016-09-02 22:21] LABS: HEMATOCRIT 32.2 % (40.0-51.0); HEMOGLOBIN 8.8 g/dL (13.7-17.5)
[2016-09-03] MEDS: KETOROLAC 15 MG/1 ML SDV IVP SCH ×4 (02:05→21:12)
[2016-09-03] MEDS: ACETYLCYSTEINE 10% 30 ML VIAL IH SCH (04:50)
[2016-09-03] MEDS: IPRATROPIUM/ALBUTEROL 3 ML DEYVIAL IH SCH ×4 (04:50→20:17)
[2016-09-03] MEDS: NS 1,000 ML IV SCH ×3 (05:03→20:27)
[2016-09-03 05:09] LABS: % IMMATURE GRANULYOCYTES 0.3 % (0.0-1.1); ABSOLUTE IMMATURE GRANULOCYTES 0.02 10^3/uL (0.00-0.10); ADD DIFF? NO; ADD MORPH? YES; ADD SCAN? NO; ATYPICAL LYMPHOCYTE FLAG 30 (0-99); FRAGMENT RBC FLAG 40 (0-99); HEMATOCRIT 24.4 % (40.0-51.0); LEFT SHIFT FLG 90 (0-99); LIPEMIA HEMOLYSIS FLAG 70 (0-99); MEAN CELL HEMOGLOBIN 20.4 pg (27.9-34.1); MEAN CELL VOLUME 73.3 fL (81.5-99.8); MEAN PLATELET VOLUME 9.1 fL (8.7-11.7); PLATELET CLUMPS FLAG 0 (0-99); PLATELET COUNT 225 10^3/uL (150-400); RED BLOOD CELL COUNT 3.33 10^6/uL (4.40-6.38); RED CELL DISTRIBUTION WIDTH 19.6 % (11.5-15.2)
[2016-09-03 05:15] LABS: HEMOGLOBIN 6.8 g/dL (13.7-17.5); MEAN CELL HEMOGLOBIN CONCENTR. 27.9 g/dL (32.4-36.7)
[2016-09-03] MEDS: HYDROmorphONE/DILAUDID 1 MG/ML SYR IVP PRN ×8 (05:24→21:41)
[2016-09-03 05:36] LABS: ANION GAP 5 mEq/L (8-16); CALCIUM 7.5 mg/dL (8.5-10.4); CARBON DIOXIDE 24 mEq/l (22-31); CHLORIDE 112 mEq/L (97-110); CREATININE 0.8 mg/dL (0.7-1.3); GLOMERULAR FILTRATION RATE > 60; GLUCOSE 108 mg/dL (70-100); SODIUM 141 mEq/L (134-144)
[2016-09-03 05:40] LABS: TROPONIN I 0.032 ng/mL (0-0.034)
[2016-09-03 06:18] LABS: HYPOCHROMIA 2+; MICROCYTES 2+; POLYCHROMASIA 1+
[2016-09-03 06:19] LABS: PLATELET ESTIMATE ADEQUATE (ADEQ); ROULEAUX PRESENT
[2016-09-03] MEDS: traMADol 50 MG TAB PO PRN ×3 (07:19→18:38)
[2016-09-03] MEDS: ASPIRIN 81 MG CHEWABLE TAB PO SCH (07:19)
[2016-09-03] MEDS: PANTOPRAZOLE SODIUM 40 MG TAB PO SCH ×2 (07:19→20:22)
[2016-09-03] MEDS: ENOXAPARIN 40 MG/0.4 ML SYR SC SCH (07:19)
[2016-09-03] MEDS: ATORVASTATIN CALCIUM 10 MG TAB PO SCH (07:20)
[2016-09-03] MEDS: NICOTINE 21 MG/24 HR PATCH TD SCH (07:23)
--- NOTE | 2016-09-03 08:51 | HOSPPROG ---
Hospitalist Progress Note Assessment/Plan: 56 yo M with hx of pulmonary fibrosis recently [facility] admitted with chest pain and found to have ptx # tension ptx: small right apical PTX on arrival, spontaneous, in setting of underlying IPF with honeycombing. this completely resolved without chest tube, but pt had increased SOB and increased O2 requirement yesterday. Rpt CXR showed moderately large right PTX, CT placed by Dr. Lindquist with improvement on f/u film. He then acutely decompensated and rpt CXR showed much larger tension PTX. Surgery notified, adjusted CT with ~1L output of jd blood. PTX much improved on rpt film, stable this am, personally reviewed CXR. Continue O2, CT and ICU care. # hypotension and tachycardia: in setting of acute decompensation from enlarging PTX. no IV access for some time after pt pulled out IV. Peripheral line finally placed, followed by central line. SBP and HR responsive to NS fluid bolus, improving, cont IVF's. # acute blood loss anemia: hgb trended down to 6.5, needs prbc's today, ordered. # elevated troponin: likely strain given acute decompensation, trended down. # acute on chronic hypoxic respiratory failure: in setting of new, larger PTX, improving with adjusted CT. # pulmonary fibrosis: personally reviewed CT, b/l honeycombing, improved from prior CT when he had PNA. Discussed with Pulmonology, no indication for steroids. Solumedrol d/c'd, cont mucomyst. Discussed case with Dr. Rios, who will consult today. # chronic pain: prn tramadol # distal esophageal thickening: ct findings c/w esophagitis and associated small hiatal hernia. Cont PPI # dvt pplx - lovenox # dispo: Cont inpt. CM looking into possible snf stay though this will be challenging given that patient's only real acute issue is need for supplemental o2. Subjective: Pt feels much better today, denies SOB, though appears tachypneic. No CP. No fevers. Coughing up some knutson sputum. No N/V/D. Objective: Vital Signs Temp Pulse Resp BP Pulse Ox 37.1 C 136 H 44 H 94/63 L 87 L 09/03/16 04:00 09/03/16 07:00 09/03/16 07:00 09/03/16 07:00 09/03/16 07:00 Laboratory Results 09/03/16 04:55 09/03/16 04:55 09/02/16 09/03/16 09/04/16 05:59 05:59 05:59 Intake Total 980 3850 Output Total 600 2470 Balance 380 1380 PT 13.9 SEC (12.0-15.0) 08/27/16 18:40 INR 1.08 (0.83-1.16) 08/27/16 18:40 - Physical Exam Constitutional: no apparent distress Eyes: PERRL Ears, Nose, Mouth, Throat: moist mucous membranes Cardiovascular: regular rate and rhythym Respiratory: other (tachypneic, clear on left, diminished on right) Gastrointestinal: normoactive bowel sounds, soft, non-tender abdomen Skin: warm Musculoskeletal: full muscle strength Neurologic: AAOx3 Psychiatric: interacting appropriately ICD10 Worksheet Patient Problems: Problems Problem Status Onset Acute chest pain Acute Interstitial lung disease Acute Pneumothorax, right Acute Acute respiratory failure with hypoxia Acute Alcohol abuse Acute Hematemesis Acute Lung infiltrate Acute Ribs, multiple fractures Acute Sepsis Acute
[2016-09-03] MEDS: ONDANSETRON 4 MG/2 ML VIAL IVP PRN ×2 (12:15→20:22)
--- NOTE | 2016-09-03 12:17 | SOAPPROG ---
SOAP Progress Note Assessment/Plan: Assessment/Plan - Did ok overnight, pain does seem better but requiring a lot of adjuncts. Will start CAFETERIA TABLE ATTENDANT today to see if it helps - CXR shows persistent ptx, CT is tidaling without air leak? will cont to suction. Hesitant to place addl tube given overall friability of the lung tissue and wanting to avoid any further trauma/bleeding. - vomiting: RN thinks may be bloody, looks like dark bile to me. - Hb< 7, transfuse 1 unit today. Recheck but CT output has slowed and thinned. 08/30/16 09:02 08/31/16 14:39 09/03/16 12:15 Subjective: Pain is better, but still tachypneic and breathing heavy Objective: Vital Signs Temp Pulse Resp BP Pulse Ox 37.1 C 120 H 37 H 106/89 H 99 09/03/16 04:00 09/03/16 10:00 09/03/16 10:00 09/03/16 10:00 09/03/16 10:00 Laboratory Results 09/03/16 04:55 09/03/16 04:55 09/02/16 09/03/16 09/04/16 05:59 05:59 05:59 Intake Total 980 3850 Output Total 600 2470 303 Balance 380 1380 -303 PT 13.9 SEC (12.0-15.0) 08/27/16 18:40 INR 1.08 (0.83-1.16) 08/27/16 18:40 ICD10 Worksheet Patient Problems: Problems Problem Status Onset Acute chest pain Acute Interstitial lung disease Acute Pneumothorax, right Acute Acute respiratory failure with hypoxia Acute Alcohol abuse Acute Hematemesis Acute Lung infiltrate Acute Ribs, multiple fractures Acute Sepsis Acute
[2016-09-03] MEDS: CEPACOL LOZENGE PO PRN (12:48)
[2016-09-03] MEDS: LORazepam 2 MG/ML INJ IVP PRN (13:19)
[2016-09-03 18:06] LABS: HEMATOCRIT 26.2 % (40.0-51.0)
--- NOTE | 2016-09-03 19:52 | GCON ---
PULMONARY CONSULTATION DATE OF CONSULTATION: 09/03/2016 REASON FOR CONSULTATION: Interstitial lung disease, pneumothorax. HISTORY: The patient is a 56-year-old who is known to our service. He was here about a month ago w ith streptococcal pneumoniae. He previously had known interstitial lung disease. This was present on his last admission with some basilar honeycombing. He was found to have this on a previous hospi talization. The patient when last seen [facility]. To my knowledge, he did not follow u p with Pulmonary. He was discharged on prednisone. No oxygen was given as his saturations were gen erally around 90%. He was let out of prison to the streets. He did well for about a week until he de veloped chest pain. He came back to the emergency department and was found to have a small pneumoth orax. He was admitted 4 days ago. A chest tube was placed. He had some bleeding associated with t his, is stopped functioning, and a larger bore chest tube was put in. He has been treated in the intensive care unit. He states he is feeling better. However, he still has some persistent chest pain. PAST MEDICAL HISTORY: Remarkable for the interstitial lung disease, secondary pulmonary hypertensio n, history of a pleural effusion for which a thoracentesis was done on his previous admission. Ther e was no evidence of malignancy. There is a history of chronic pain and narcotic use, hepatitis C, alcohol and tobacco use, and chronic anemia. ALLERGIES: None known. SOCIAL HISTORY: He is homeless. He states he has not been drinking since he has been out of prison. He does take marijuana edibles. He smokes cigarettes daily when he has them, up to a pack per day. He is a [place]. He does have some relatives who live elsewhere, but no , and I believe his parents are . PHYSICAL EXAMINATION: GENERAL: Reveals a pleasant gentleman who remembers me from previously. He is lying comfortably in bed. A chest tube is in place on the right. There is no air leak currently . VITAL SIGNS: Blood pressure is 100/70, heart rate 125 with sinus rhythm on the monitor. Respira tory rate is 30 and somewhat shallow, on 5 L saturations are 100%. HEENT: Unremarkable for lymphad enopathy or thyromegaly. Mucous membranes appear moist. CHEST: Reveals decreased breath sounds bi laterally with some scattered bibasilar rales. There are no wheezes, rhonchi. The heart is tachyca rdic. Heart tones are distant. Soft systolic murmur is present. There is no obvious gallop. ABDO MEN: Soft, nontender. Bowel sounds are present. There is no organomegaly. No Ibarra catheter is i n place. EXTREMITIES: Remarkable for only trace plus edema. NEUROLOGIC: Nonfocal, cognition is i ntact. DATABASE: Chest x-ray today shows a persistent pneumothorax on the right, interstitial disease is p resent. LABORATORY DATA: White blood cell count 7300, hematocrit 24, platelets 225,000. PT and PTT on admi ssion were normal. Sodium is 141, potassium 5.0, BUN 35, with creatinine 0.8, CO2 of 24, glucose 10 8, calcium 7.5, troponin 0.032. ASSESSMENT: 1. Interstitial lung disease. He likely has idiopathic pulmonary fibrosis. Previous workup for in flammatory disorders or collagen vascular disease was negative. Some of the serology can be repeate d. 2. Spontaneous pneumothorax. Clearly related to his interstitial lung disease and honeycombing. H e has a chest tube in place but no large air leak, arguing that the lung may be difficult to expand even with negative pressure suction. There does appear to be good respiratory variations in the tub e and it is not blocked. 3. Pulmonary hypertension, secondary to interstitial lung disease and likely hypoxemia. 4. Anemia. Hematocrit is 24. There is evidence of some old blood that he occasionally will bring up from his stomach, likely secondary to gastritis. 5. Gastrointestinal bleed, probably gastritis. Hematocrit is being followed. There is no bright r ed blood or evidence of a bleed currently. 6. History of homelessness. 7. History of alcohol tobacco abuse in the past. 8. History of hepatitis C. 9. Disposition is going to be a difficult issue. He cannot return to the streets with the severity of his underlying lung disease. He will likely need to be in a residential facility and will r equire oxygen going forward. This was discussed with social professionals, who are trying to help make a rrangements for him once he is ready to be discharged. PLAN/RECOMMENDATIONS: The patient will be kept in the intensive care unit. Chest tube will be kept to suction. Chest x-ray will be followed. Hematocrit will be followed. If old gastric blood pers ists, then GI consultation can be considered. Chemistries will be followed as well. I will review his previous workup for interstitial lung disease and see if there is anything we may be missing. Florian onofre would not appear to be a candidate for newer agents like pirfenidone, but this can be discussed in the future at some point. Pulmonary function studies will be needed. These can be done as an outp atient. Further plans and recommendations will be made based on his progress over the next 12-24 hours. /[id number]/MODL
[2016-09-04] MEDS: HYDROmorphONE/DILAUDID 1 MG/ML SYR IVP PRN (00:12)
[2016-09-04] MEDS: LORazepam 2 MG/ML INJ IVP PRN (00:13)
[2016-09-04 00:59] LABS: ABSOLUTE NRBC COUNT 0.08 10^3/uL (0-0.01); ADD MORPH? YES; ADD SCAN? YES; ATYPICAL LYMPHOCYTE FLAG 0 (0-99); FRAGMENT RBC FLAG 40 (0-99); HEMATOCRIT 27.1 % (40.0-51.0); HEMOGLOBIN 7.8 g/dL (13.7-17.5); LIPEMIA HEMOLYSIS FLAG 70 (0-99); MEAN CELL HEMOGLOBIN 23.2 pg (27.9-34.1); MEAN CELL VOLUME 80.7 fL (81.5-99.8); MEAN PLATELET VOLUME 9.8 fL (8.7-11.7); NRBC-AUTO% 0.4 % (0.0-0.2); PLATELET CLUMPS FLAG 0 (0-99); PLATELET COUNT 278 10^3/uL (150-400); RED BLOOD CELL COUNT 3.36 10^6/uL (4.40-6.38); RED CELL DISTRIBUTION WIDTH 19.2 % (11.5-15.2)
[2016-09-04 01:00] LABS: LEFT SHIFT FLG 120 (0-99); MEAN CELL HEMOGLOBIN CONCENTR. 28.8 g/dL (32.4-36.7)
[2016-09-04 01:16] LABS: BICARBONATE 13 mEq/L (22-26); MEASURED OXYGEN SATURATION 91 % (92-95); TCO2 14 mEq/L (23-27)
[2016-09-04 01:19] LABS: BASE EXCESS -14.2 mEq/L (-2.5-2.5); PCO2 37 mmHg (34-38); PO2 81 mmHg (65-75)
[2016-09-04 01:26] LABS: ADD DIFF? YES; SCAN POSITIVE
[2016-09-04 01:39] LABS: HYPOCHROMIA 1+; MACROCYTES 2+; PLATELET ESTIMATE ADEQUATE (ADEQ); POLYCHROMASIA 2+
[2016-09-04 01:42] LABS: HYPOCHROMIA 1+; MACROCYTES 2+; PLATELET ESTIMATE ADEQUATE (ADEQ); POLYCHROMASIA 2+
[2016-09-04] MEDS ORDERED: SODIUM BICARBONATE 50 MEQ/50 ML SYR ONE (01:43)
[2016-09-04] MEDS ORDERED: SODIUM BICARBONATE 50 MEQ/50 ML SYR IV ONE (02:00)
[2016-09-04] MEDS ORDERED: PROPOFOL/EMULSION 1,000 MG/100 ML BOTTLE IV ONE (02:26)
[2016-09-04] MEDS ORDERED: LIDOCAINE 1% 30 ML SDV ONE (02:35)
[2016-09-04] MEDS ORDERED: LIDOCAINE 2% JELLY 20 ML (UROJECT) ONE ×3 (02:35→03:10)
[2016-09-04] MEDS ORDERED: LIDOCAINE 2% JELLY 5 ML TUBE ONE (02:36)
[2016-09-04 02:40] LABS: ANION GAP 11 mEq/L (8-16); CALCIUM 7.9 mg/dL (8.5-10.4); CARBON DIOXIDE 17 mEq/l (22-31); CHLORIDE 111 mEq/L (97-110); CREATININE 1.4 mg/dL (0.7-1.3); GLOMERULAR FILTRATION RATE 52; GLUCOSE 129 mg/dL (70-100); POTASSIUM 5.4 mEq/L (3.5-5.2); SODIUM 139 mEq/L (134-144)
[2016-09-04] MEDS ORDERED: ERTAPENEM 1 GM in NS 100 ML IV ONE (03:00)
[2016-09-04] MEDS ORDERED: SODIUM BICARBONATE 50 MEQ/50 ML SYR IVP ONE (03:06)
[2016-09-04] MEDS ORDERED: NS 1,000 ML BAG *FOR SEPSIS ORDER SET ONLY IV ONE (03:07)
[2016-09-04 03:18] LABS: INR 1.67 (0.83-1.16); PROTIME(PATIENT) 19.7 SEC (12.0-15.0)
[2016-09-04 03:19] LABS: APTT 34.9 SEC (23.0-38.0)
[2016-09-04] MEDS: PROPOFOL/EMULSION 100 ML IV SCH ×2 (03:20→14:23)
[2016-09-04] MEDS ORDERED: fentaNYL 100 MCG/2 ML INJ IVP ONE (03:30)
[2016-09-04] MEDS ORDERED: MIDAZOLAM 2 MG/2 ML VIAL IVP ONE (03:30)
[2016-09-04] MEDS ORDERED: NA BICARBONATE 50 MEQ/50 ML VIAL IV ONE (03:30)
[2016-09-04] MEDS ORDERED: VANCOMYCIN HCL/NORMAL SALINE 250 ML IV ONE (03:30)
[2016-09-04] MEDS: KETOROLAC 15 MG/1 ML SDV IVP SCH (03:36)
[2016-09-04 03:44] LABS: BASE EXCESS -5.5 mEq/L (-2.5-2.5); BICARBONATE 21 mEq/L (22-26); HEMOGLOBIN ABG 5.6 gm/dL (14.5-17.3); IONIZED CALCIUM 1.14 MMOL/L (1.12-1.30); MEASURED OXYGEN SATURATION 99 % (92-95); PCO2 50 mmHg (34-38); PO2 198 mmHg (65-75); SODIUM ABG 143 mEq/L (137-146); TCO2 22 mEq/L (23-27)
[2016-09-04 03:47] LABS: ASSIST CONTROL YES; END TIDAL CO2 40; O2 CONCENTRATIION 100 % (0-100); P/F RATIO 198 RATIO; TOTAL RATE 28
[2016-09-04 03:51] LABS: COLOR YELLOW; LEUKOCYTE ESTERASE,URINE NEGATIVE (NEGATIVE); NITRITE,URINE NEGATIVE (NEGATIVE)
[2016-09-04 03:53] LABS: CALCULATED OXYGEN SATURATION 63 % (92-95)
[2016-09-04 03:55] LABS: AMORPHOUS PRESENT /hpf (NONE-1+); BACTERIA 4+ /hpf (NONE SEEN)
--- NOTE | 2016-09-04 04:00 | PDINTPN ---
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 The patient had hypotension, with a systolic blood pressure in the 60s shortly after my arrival. Pertinent laboratories included a marked increase in white blood count , Cr, and INR, and a low but stable Hgb. Septic Shock: Suspect intra-abdominal source, with possible perforation due to peptic ulcer or ischemic bowel. Urinary tract infection and pneumonia or other possible sources. I emergently consulted Dr. Dean who promptly responded, and it was his opinion that it is appropriate for the patient to be taken to emergently to the operating room for an exploratory laparotomy and chest tube repositioning. Due to the patient's respiratory distress I intubated him and performed bronchoscopy, which demonstrated probable gastric contents primarily in the right lower lobe, which was easily cleared with suctioning. Patient was started on the sepsis protocol. His systolic blood pressure improved to the 90s with 2 L of IV fluids. Blood cultures were drawn and he was given vancomycin and Invanz a urine culture was sent as well as sputum culture for bacteria and AFB. His Lovenox will be held. D/W Emmett Christie, Mirna, RN, RT Prognosis guarded Total critical care time exclusive of procedures: 95 minutes 09/04/16 04:14 Subjective: Obtunded Objective: Vital Signs Temp Pulse Resp BP Pulse Ox 37.3 C 147 H 55 H 87/48 L 91 L 09/04/16 00:00 09/04/16 02:00 09/04/16 02:00 09/04/16 02:00 09/04/16 02:00 Laboratory Results 09/04/16 00:46 09/04/16 02:10 09/02/16 09/03/16 09/04/16 05:59 05:59 05:59 Intake Total 980 3850 2282 Output Total 600 2470 1953 Balance 380 1380 329 PT 19.7 SEC (12.0-15.0) H 09/04/16 03:02 INR 1.67 (0.83-1.16) H 09/04/16 03:02 3-way: Stable PTX, Increased infiltrates bases. Possible free air RLQ, dilated cecum. Images reviewed. Laboratory Tests 09/04/16 09/04/16 09/04/16 01:10 01:40 03:02 INR 1.67 H pCO2 37 pO2 81 H Total CO2 ABG pH 7.17 L* ABG HCO3 ABG O2 Saturation ABG Lactic Acid 8.1 H Total O2 Concentration 10.0 O2 Concentration % Respiration Rate Assist Control Tidal Volume 09/04/16 09/04/16 03:30 03:42 INR pCO2 50 H 53 H pO2 198 H D 40 L Total CO2 22 L ABG pH 7.24 L 7.19 L* ABG HCO3 20 L ABG O2 Saturation 99 H ABG Lactic Acid Total O2 Concentration O2 Concentration % 100 Respiration Rate 28 Assist Control YES Tidal Volume 550 Physical Exam - Physical Exam General Appearance: obtunded EENT: No pharynx normal (dry) Neck: normal inspection Respiratory: crackles Cardiac/Chest: tachycardia Abdomen: No normal bowel sounds, No non-tender (diffusely tender-patient moaning ), No soft (semi-rigid) Skin: No normal color (pallor) Extremities: normal inspection Neuro/Psych: No alert ICD10 Worksheet Patient Problems: Problems Problem Status Onset Acute chest pain Acute Interstitial lung disease Acute Pneumothorax, right Acute Acute respiratory failure with hypoxia Acute Alcohol abuse Acute Hematemesis Acute Lung infiltrate Acute Ribs, multiple fractures Acute Sepsis Acute
[2016-09-04] MEDS ORDERED: ROCURONIUM 50 MG/5 ML VIAL ONE ×3 (04:25→05:14)
--- NOTE | 2016-09-04 04:25 | HOSPPROG ---
Hospitalist Progress Note Assessment/Plan: Patient developed acute tachypnea and worsening tachycardia prompting STAT ABG # Acute septic shock - elevated WBC count , worsening tachypnea RR > 50, Tachycardia HR 140-150's and new hypotension- intraabdominal source suspected - IVF boluses given - broad spectrum antibiotic started- cultures collected - pressors initiated # Acute Hypoxic Respiratory failure - O2 requirements increased to 10L - marked new Tachypnea - ABG with ph 7.17 and lactic acid of 8.1 CXR confirming no new or recurrent PTX - emergently intubated by Dr. Betts- mechanical ventilation initiated - work up for metabolic acidosis initiated # Acute Metabolic Acidosis - lactic acid of 8.1- in setting of abd pain and preceding hematemesis very worrisome for bowel ischemia/perforation ABD xray (personally reviewed and interpreted) worrisome for free air - 4 amps bicarb given IV push - patient taken emergently to OR by Dr. Dean for exploration - can continue correction post op based on gases # JAMIE 2/2 septic shock - creatinine 0.8->1.4 - above treatment of septic shock I spent > 60 minutes bedside providing critical care Case discussed with Dr. Dean and Alpesh- patient stabilized and taken emergently to OR Subjective: reporting abd pain Objective: Vital Signs Temp Pulse Resp BP Pulse Ox 37.3 C 147 H 55 H 87/48 L 91 L 09/04/16 00:00 09/04/16 02:00 09/04/16 02:00 09/04/16 02:00 09/04/16 02:00 Laboratory Results 09/04/16 00:46 09/04/16 02:10 09/02/16 09/03/16 09/04/16 05:59 05:59 05:59 Intake Total 980 3850 2282 Output Total 600 2470 1953 Balance 380 1380 329 PT 19.7 SEC (12.0-15.0) H 09/04/16 03:02 INR 1.67 (0.83-1.16) H 09/04/16 03:02 - Physical Exam Constitutional: chronically ill appearing Eyes: anicteric sclera Ears, Nose, Mouth, Throat: other (ETT) Cardiovascular: tachycardia Respiratory: inspiratory crackles Gastrointestinal: distension, other (tense) Genitourinary: no bladder fullness Skin: normal color Musculoskeletal: No asymmetric calves Neurologic: other (sedated), No AAOx3 Psychiatric: No agitated Lymph, Heme, Immunologic: No no cervical LAD ICD10 Worksheet Patient Problems: Problems Problem Status Onset Acute chest pain Acute Interstitial lung disease Acute Pneumothorax, right Acute Acute respiratory failure with hypoxia Acute Alcohol abuse Acute Hematemesis Acute Lung infiltrate Acute Ribs, multiple fractures Acute Sepsis Acute
[2016-09-04 04:54] LABS: BASE EXCESS -3.7 mEq/L (-2.5-2.5); BICARBONATE 22 mEq/L (22-26); MEASURED OXYGEN SATURATION 99 % (92-95); PCO2 50 mmHg (34-38); PO2 225 mmHg (65-75); TCO2 24 mEq/L (23-27)
[2016-09-04] MEDS: NS 1,000 ML IV PRN (05:57)
[2016-09-04] MEDS ORDERED: NS 1,000 ML IV ONE (05:58)
--- NOTE | 2016-09-04 05:58 | POSTOPPROG ---
Post Op Note Date of Operation: 09/04/16 Surgeon: Rodriguez Dean Anesthesia: GET(General Endotracheal) Pre-op Diagnosis: sepsis - etiology unclear Post-op Diagnosis: no intra-abdominal source for sepsis Indication: sepsis - etiology unclear Procedure: exploratory laparotomy Findings: no intra-abdominal source for sepsis- 2900 cc coffee grounds out NG Inf/Abcess present in the surg proc area at time of surgery?: No EBL: Minimal Complications: none
[2016-09-04] MEDS: ALBUTEROL 60 PUFFS/8 GM MDI IH SCH ×4 (06:02→20:34)
--- NOTE | 2016-09-04 06:04 | GPN ---
DATE OF PROCEDURE: 09/04/2016 PROCEDURE: Flexible fiberoptic bronchoscopy. REASON FOR PROCEDURE: Acute hypercapnic and hypoxemic respiratory failure, possible aspiration of g astric contents, need for deep suctioning and airway management. DESCRIPTION OF PROCEDURE: Due to the emergent nature of the procedure and the obtundation of the pa tiepili, informed consent was implied. The entire procedure was performed in the intensive care unit. Because of the emergent nature of the procedure, the procedure could not be performed in a negativ e pressure room so N95 respiratory masks were used by all personnel throughout the procedure. The claire kong's oropharynx was anesthetized with 1% lidocaine, and a bite block was placed between his teet h. The bronchoscope was advanced through the bite block into the vocal cords. There was a brown/bl ack thin liquid in the posterior pharynx, consistent with bloody gastric contents. This was bypasse d and the bronchoscope was advanced through the vocal cords into the main trachea. A 7.5 endotrache al tube was advanced over the endotracheal tube and was secured in place. The patient was bagged, t hen the bronchoscope was reintroduced into the endotracheal tube and the airways were examined. On the left side there was scant dark secretions which relieved with suction. On the right, there was a moderate amount of thin black secretions in the right lower lobe which were easily suctioned, and sent for culture. All airways were clear of secretions at the end of the procedure. The patient to lerated the procedure well. 2 mg of Versed were used intravenously for analgesia. Specimens were s ent for bacterial and AFB cultures. There was no blood loss. /[id number]/MODL
[2016-09-04 06:20] LABS: BASE EXCESS -3.8 mEq/L (-2.5-2.5); BICARBONATE 23 mEq/L (22-26); MEASURED OXYGEN SATURATION 100 % (92-95); PCO2 63 mmHg (34-38); PO2 271 mmHg (65-75); TCO2 25 mEq/L (23-27)
[2016-09-04 06:21] LABS: ASSIST CONTROL YES
[2016-09-04 06:22] LABS: END TIDAL CO2 51; P/F RATIO 301 RATIO; TOTAL RATE 28
[2016-09-04 06:23] LABS: O2 CONCENTRATIION 90 % (0-100)
[2016-09-04] MEDS: PIPERACILLIN/TAZO 4.5 GM/DEX 100 ML IV SCH ×3 (06:24→17:51)
--- NOTE | 2016-09-04 06:24 | GOP ---
DATE OF OPERATION: 09/04/2016 SURGEON: Rodriguez Dean MD PREOPERATIVE DIAGNOSIS: 1. Sepsis, unclear etiology. 2. Persistent pneumothorax. POSTOPERATIVE DIAGNOSIS: No intraabdominal source for sepsis. PROCEDURE PERFORMED: 1. Exploratory laparotomy. 2. Removal of hypofunctional right chest tube. 3. Placement of 36-Malian straight chest tube over the top of the 3rd rib in the mid axilla. FINDINGS: No intraabdominal source for sepsis, 1900 cc of coffee-ground out NG. SPECIMENS: None. ESTIMATED BLOOD LOSS: Minimal. INDICATIONS: This patient appears to be septic. He has an ongoing acidosis which appears to be both respiratory and metabolic in origin. He has a tender abdomen and unknown source for his sepsis. DESCRIPTION OF PROCEDURE: A surgical time-out was carried out and agreed to by all members of the operative team. The patient was placed under general endotracheal anesthesia. He had been warmed and resuscitated as best as we could. The abdomen was prepped and draped. A vertical midline incision was made from upper epigastrium to upper hypogastrium. Cautery was used to control bleeding. Hemostasis is adequately controlled. The abdomen was carefully entered. Although the cecum is somewhat distended, the colon is full of hard stool. The small bowel was run throughout its length and it is unremarkable. I cannot palpate a duodenal ulcer. I do not appreciated a gastric ulcer either. An NG tube in place at the beginning of the case, and 2900 cc of dark coffee ground material was removed. This was the same type of material which had been removed on bronchoscopy. I felt nothing further could be gained from intraabdominal exploration. The fascia was closed with a running suture #0 PDS. The subcutaneous tissue was irrigated. The skin was closed with lora. A sterile dressing was applied. Attention was now directed to the right chest. A sterile field was developed. The skin is incised just below the right 3rd rib. Careful dissection was carried over the top of the right 3rd rib. A 36-Malian straight chest tube was positioned. Secured with sutures. The old chest tube was removed. Site was prepped and the skin was closed with vertical a mattress suture of 2-0 silk. The new chest tube was secured appropriately. A chest x-ray is pending. The patient was transferred to the ICU in a stable and satisfactory condition. INDICATIONS: Sepsis etiology unclear. COMPLICATIONS: None. /[id number]/MODL MTDD
[2016-09-04 06:50] LABS: ALANINE AMINOTRANSFERASE 91 IU/L (21-72); ALBUMIN 1.5 g/dL (3.5-5.0); ALKALINE PHOSPHATASE 47 IU/L (38-126); ANION GAP 5 mEq/L (8-16); ASPARTATE AMINOTRANSFERASE 124 IU/L (17-59); BILIRUBIN,TOTAL 0.2 mg/dL (0.1-1.4); CALCIUM 6.7 mg/dL (8.5-10.4); CARBON DIOXIDE 25 mEq/l (22-31); CHLORIDE 114 mEq/L (97-110); CREATININE 1.1 mg/dL (0.7-1.3); GLOMERULAR FILTRATION RATE > 60; GLUCOSE 112 mg/dL (70-100); POTASSIUM 4.7 mEq/L (3.5-5.2); SODIUM 144 mEq/L (134-144); TOTAL PROTEIN 3.3 g/dL (6.3-8.2)
[2016-09-04] MEDS: SUCRALFATE 1 GM/10 ML UDCUP PO SCH ×2 (07:10→12:18)
[2016-09-04 07:26] LABS: MIXED VENOUS O2 SATURATION 90 % (65-75)
[2016-09-04] MEDS: NOREPINEPHRINE BITARTRATE 4 MG in D5W 500 ML IV SCH ×5 (07:40→16:39)
[2016-09-04] MEDS: VASOPRESSIN/DEXTROSE 250 ML IV SCH ×3 (08:50→20:53)
[2016-09-04] MEDS: ASPIRIN 81 MG CHEWABLE TAB PO SCH (09:48)
[2016-09-04] MEDS: ATORVASTATIN CALCIUM 10 MG TAB PO SCH (09:49)
[2016-09-04] MEDS: NICOTINE 21 MG/24 HR PATCH TD SCH (09:49)
[2016-09-04] MEDS: PANTOPRAZOLE SODIUM 40 MG TAB PO SCH (09:49)
[2016-09-04] MEDS: PANTOPRAZOLE SODIUM 40 MG in NS 100 ML IV SCH ×2 (09:56→20:52)
[2016-09-04 10:29] LABS: % IMMATURE GRANULYOCYTES 1.4 % (0.0-1.1); ABSOLUTE IMMATURE GRANULOCYTES 0.22 10^3/uL (0.00-0.10); ABSOLUTE NRBC COUNT 0.06 10^3/uL (0-0.01); ADD DIFF? NO; ADD MORPH? NO; ADD SCAN? YES; ATYPICAL LYMPHOCYTE FLAG 30 (0-99); FRAGMENT RBC FLAG 20 (0-99); HEMATOCRIT 27.2 % (40.0-51.0); HEMOGLOBIN 8.6 g/dL (13.7-17.5); LIPEMIA HEMOLYSIS FLAG 80 (0-99); MEAN CELL HEMOGLOBIN 24.5 pg (27.9-34.1); MEAN CELL HEMOGLOBIN CONCENTR. 31.6 g/dL (32.4-36.7); MEAN CELL VOLUME 77.5 fL (81.5-99.8); MEAN PLATELET VOLUME 9.2 fL (8.7-11.7); NRBC-AUTO% 0.4 % (0.0-0.2); PLATELET CLUMPS FLAG 10 (0-99); PLATELET COUNT 175 10^3/uL (150-400); RED BLOOD CELL COUNT 3.51 10^6/uL (4.40-6.38); RED CELL DISTRIBUTION WIDTH 19.1 % (11.5-15.2)
[2016-09-04 10:30] LABS: LEFT SHIFT FLG 300 (0-99)
[2016-09-04 10:38] LABS: INR 1.46 (0.83-1.16); PROTIME(PATIENT) 17.7 SEC (12.0-15.0)
[2016-09-04 10:39] LABS: APTT 33.9 SEC (23.0-38.0)
[2016-09-04 10:52] LABS: ALANINE AMINOTRANSFERASE 135 IU/L (21-72); ALBUMIN 1.8 g/dL (3.5-5.0); ALKALINE PHOSPHATASE 53 IU/L (38-126); ANION GAP 7 mEq/L (8-16); ASPARTATE AMINOTRANSFERASE 212 IU/L (17-59); BILIRUBIN,TOTAL 0.8 mg/dL (0.1-1.4); CARBON DIOXIDE 24 mEq/l (22-31); CHLORIDE 110 mEq/L (97-110); GLOMERULAR FILTRATION RATE > 60; GLUCOSE 180 mg/dL (70-100); POTASSIUM 4.9 mEq/L (3.5-5.2); SODIUM 141 mEq/L (134-144); TOTAL PROTEIN 4.1 g/dL (6.3-8.2)
[2016-09-04 10:59] LABS: SCAN POSITIVE
[2016-09-04 11:04] LABS: TROPONIN I 0.013 ng/mL (0-0.034)
[2016-09-04 11:06] LABS: MICROCYTES 1+; PLATELET ESTIMATE ADEQUATE (ADEQ); POLYCHROMASIA 1+
--- NOTE | 2016-09-04 11:43 | PDINTPN ---
Equity Research Associate Progress Note Assessment/Plan: Assessment: Plan: Objective: Vital Signs Temp Pulse Resp BP Pulse Ox 38.1 C 113 H 28 H 94/56 L 100 09/04/16 11:00 09/04/16 11:00 09/04/16 11:00 09/04/16 11:00 09/04/16 11:00 Laboratory Results 09/04/16 10:20 09/04/16 10:20 09/03/16 09/04/16 09/05/16 05:59 05:59 05:59 Intake Total 3350 7765 Output Total 7510 2228 Balance 1380 5541 PT 17.7 SEC (12.0-15.0) H 09/04/16 10:20 INR 1.46 (0.83-1.16) H 09/04/16 10:20 ICD10 Worksheet Patient Problems: Problems Problem Status Onset Hematemesis Acute Acute respiratory failure with hypoxia Acute Alcohol abuse Acute Ribs, multiple fractures Acute Sepsis Acute Lung infiltrate Acute Acute chest pain Acute Pneumothorax, right Acute Interstitial lung disease Acute
[2016-09-04 12:32] LABS: CALCULATED OXYGEN SATURATION 93 % (92-95)
--- NOTE | 2016-09-04 12:32 | PDINTPN ---
Lockstitch Back Maker Progress Note Assessment/Plan: Assessment: Acute respiratory failure. Likely this was secondary to aspiration of gastric coffee ground material. Status post bronchoscopy and intubation. Cultures pending. Oxygenation is good and pCO2 coming down with ventilatory adjustments. Hypotension: Multifactorial. In part secondary to blood loss and hypovolemia. Sepsis cannot be excluded. Probably secondary to acute pneumonia/pneumonitis from aspiration. On Zosyn and vancomycin. On pressors. CVP remains low despite blood in fluids. Interstitial lung disease, status post spontaneous pneumothorax. Had a new chest tube placed last night. Expansion of the lungs clearly better and no definite acute process is evident by chest x-ray. Status post exploratory laparotomy: Secondary to abdominal pain last night around the time of intubation. Findings were negative last night. Per Dr. Dean. GI bleed. Clearly has an upper GI bleed with coffee-ground material from his stomach yesterday and with over 2 L of this material when his NG tube was placed. GI consultation has been requested. They will see him later this afternoon. Upper endoscopy requested. Acute blood-loss anemia: Secondary to above. He has received 3 units of blood today. Follow-up H&H pending. Elevated liver function studies. AST and ALT have increased today. Possibly secondary to hypotension. History of tobacco abuse, alcohol use, hepatitis-C, homelessness, etc Plan: Ventilatory support will be maintained with adjustments as needed. Continue pressors, IV fluids, blood and blood products as needed. Follow laboratory, H&H, ABG, and chest x-ray. Await GI evaluation and upper endoscopy later today. 1 hour of critical care time spent directly with the patient today. Discussed with Dr. Dean, hospitalist, nursing, respiratory therapy, and the ICU multi disciplinary team. Subjective: Sedated, on the ventilator, arouses. Objective: Vital Signs Temp Pulse Resp BP Pulse Ox 38.3 C 117 H 28 H 90/51 L 100 09/04/16 12:00 09/04/16 12:16 09/04/16 12:16 09/04/16 12:00 09/04/16 12:16 Laboratory Results 09/04/16 10:20 09/04/16 10:20 09/03/16 09/04/16 09/05/16 05:59 05:59 05:59 Intake Total 3850 7794 Output Total 2470 2228 900 Balance 1380 5541 -900 PT 17.7 SEC (12.0-15.0) H 09/04/16 10:20 INR 1.46 (0.83-1.16) H 09/04/16 10:20 Laboratory Tests 09/03/16 09/04/16 09/04/16 Unknown 06:10 10:20 PT INR APTT pCO2 63 H pO2 271 H ABG pH 7.20 L ABG Lactic Acid 1.5 D Respiration Rate 28 Tidal Volume 550 Calcium 7.0 L AST 212 H ALT 135 H Troponin I 0.013 Albumin 1.8 L Gastric Occult Blood POSITIVE H 09/04/16 10:20 PT 17.7 H INR 1.46 H APTT 33.9 pCO2 pO2 ABG pH ABG Lactic Acid Respiration Rate Tidal Volume Calcium AST ALT Troponin I Albumin Gastric Occult Blood CXR: Lungs better expanded, small pneumothorax remains present. Lines and tubes appear to be in good position Physical Exam - Physical Exam General Appearance: thin, other (Sedated, on the ventilator. It appears comfortable) EENT: PERRL/EOMI, ET tube, other (NG in place, decreased) Neck: normal inspection (No JVD. CVP 2-3) Respiratory: decreased breath sounds, rales (Bilateral crackles), No rhonchi, No wheezing Cardiac/Chest: tachycardia (Sinus,) Abdomen: soft, No normal bowel sounds, No organomegaly Male Genitalia: other (Ibarra catheter in place: Input greater than output) Skin: warm/dry, pallor Extremities: pedal edema (Trace +) Neuro/Psych: no motor/sensory deficits (Moves all extremities), No cognition abnormalities (Hard to assess, doubt) ICD10 Worksheet Patient Problems: Problems Problem Status Onset Hematemesis Acute Acute respiratory failure with hypoxia Acute Alcohol abuse Acute Ribs, multiple fractures Acute Sepsis Acute Lung infiltrate Acute Acute chest pain Acute Pneumothorax, right Acute Interstitial lung disease Acute
[2016-09-04] MEDS ORDERED: ALBUMIN 5% 500 ML IV ONE (15:41)
[2016-09-04 16:10] LABS: HEMATOCRIT 28.1 % (40.0-51.0); HEMOGLOBIN 9.2 g/dL (13.7-17.5)
--- NOTE | 2016-09-04 16:19 | SOAPPROG ---
SOAP Progress Note Assessment/Plan: 09/04/16 16:12 POD#1 Assessment: On pressors, HCT stable with augmentation, lactate up slightly. Impression- ongoing GI blood loss. Awaiting GI for endoscopy. Currently on PPI and carafate. Appears to have volume issue secondary to GI blood loss. Presume a posterior duodenal ulcer although gastritis remains a possibility. Intermittent air leak noted. Chest tube to 30 cmH2O and lung up. Plan: Maintain volume replacement (use pressors as second line support), Get GI consult/EGD, Follow lactate, ABG's other labs and CXR. Subjective: Patient intubated Objective: Vital Signs Temp Pulse Resp BP Pulse Ox 38.2 C 109 H 28 H 96/56 L 100 09/04/16 15:00 09/04/16 15:57 09/04/16 15:57 09/04/16 15:00 09/04/16 15:57 Laboratory Results 09/04/16 10:20 09/03/16 09/04/16 09/05/16 05:59 05:59 05:59 Intake Total 3850 7769 975 Output Total 2470 2228 900 Balance 1380 5541 75 PT 17.7 SEC (12.0-15.0) H 09/04/16 10:20 INR 1.46 (0.83-1.16) H 09/04/16 10:20 - Time Spent With Patient Time Spent With Patient: 35 minutes critical care - Pending Discharge Pending Discharge Within 24 Hours: No Pending Discharge Within 48 Hours: No Physical Exam - Physical Exam General Appearance: other (intubated but arousable) Neck: normal inspection Respiratory: crackles, rales, rhonchi Cardiac/Chest: regular rate, rhythm Abdomen: non-tender, soft, distended, other (hypoactive bowel sounds) Male Genitalia: deferred Rectal: deferred Skin: normal color, warm/dry ICD10 Worksheet Patient Problems: Problems Problem Status Onset Acute chest pain Acute Interstitial lung disease Acute Pneumothorax, right Acute Acute respiratory failure with hypoxia Acute Alcohol abuse Acute Hematemesis Acute Lung infiltrate Acute Ribs, multiple fractures Acute Sepsis Acute
[2016-09-04] MEDS: VANCOMYCIN 750 MG in D5W 150 ML IV SCH (16:39)
--- NOTE | 2016-09-04 17:38 | HOSPPROG ---
Hospitalist Progress Note Assessment/Plan: Assessment: 56 yo M p/w acute tension pneumothorax c/b acute upper GI hemorrhage resulting in suspected aspiration PNA, acute shock, acute respiratory failure, JAMIE Plan: # Shock. Acute, likely multifactoral including hemorrhagic, hypovolemic, and possibly septic, evidenced by lactic 8.1 and requiring 2 pressors - cont on levo and vaso, A-line monitoring - maintenance IVF when not receiving blood - cont CVP monitoring - status post ex lap by Dr. Dean, no evidence of ischemic bowel # Possible Septic shock. Evidenced by sepsis-2 and [id number] criteria w/ leukocytosis (WBC 21,300) + tachypnea (RR 55) + tachycardia (HR 120s) + source ( aspiration pneumonia) + shock (lact 8.1) and end-organ failure (trop 0.1, coagulopathy, JAMIE, resp failure, encephalopathy) - cont broad Abx - cont IVF and CVP monitoring, pressors # Suspected aspiration PNA. Gastric material noted in R bronchi on bronch by Dr. Betts, s/p vomiting - on Vanco/Zosyn re: recent hospitalization - cont Abx D#1 # Acute on chronic hypoxic and hypercapnic respiratory failure. Evidenced by pH 7.2 w/ pCO2 63, PaO2 40, labored breathing and distress, 2/2 suspected aspiration PNA in setting of known ILD - intubated, sedated - appreciate pulm assistance o/n w/ vent mgmt # Acute upper gastrointestinal hemorrhage. Coffee ground emesis w/ FOB (+) - d/w Dr. Rios, has arranged EGD today # Acute blood loss anemia. Hgb 12.5->7.8, s/p 2u - combination of pulm (at chest tube site) and GI - cont to monitor # Tension ptx. Acute, right apical PTX on arrival, spontaneous, in setting of underlying IPF with honeycombing - d/w Dr. Dean, s/p chest tube replacement o/n # Pulmonary fibrosis. Chronic, no indication for steroids # Distal esophageal thickening. CT findings c/w esophagitis and associated small hiatal hernia, cont PPI Diet. NPO PPx. Holding given bleed, on SCDs Code. Full Dispo. ADD uncertain Additional 50 minutes of critical care time spent with the patient at bedside, [id number], addressing issues outlined above and coordinating care between patient's numerous intensive care unit providers. Patient remains high risk for worsening morbidity and/or mortality, remains critically ill. Subjective: Worsening respiratory status overnight, vomiting, X lap Objective: Vital Signs Temp Pulse Resp BP Pulse Ox 38 C 99 28 H 103/51 L 100 09/04/16 16:00 09/04/16 17:00 09/04/16 17:00 09/04/16 17:00 09/04/16 17:00 Laboratory Results 09/04/16 15:55 09/04/16 10:20 09/03/16 09/04/16 09/05/16 05:59 05:59 05:59 Intake Total 3850 7769 975 Output Total 2470 2228 900 Balance 1380 5541 75 PT 17.7 SEC (12.0-15.0) H 09/04/16 10:20 INR 1.46 (0.83-1.16) H 09/04/16 10:20 - Physical Exam Constitutional: not in pain, chronically ill appearing Eyes: other (Pupils fixed and reactive to light) Cardiovascular: systolic murmur (2/6 at the sternum), tachycardia, No irregularly irregular, No edema Respiratory: rhonchi (Bilaterally on inspiration), No expiratory wheeze, No bronchial breath sounds Gastrointestinal: No normoactive bowel sounds (Hypoactive bowel sounds), No distension Skin: no rashes or abrasions, no fluctuance, no induration Psychiatric: other (Not responded to tactile stimuli) ICD10 Worksheet Patient Problems: Problems Problem Status Onset Acute chest pain Acute Interstitial lung disease Acute Pneumothorax, right Acute Acute respiratory failure with hypoxia Acute Alcohol abuse Acute Hematemesis Acute Lung infiltrate Acute Ribs, multiple fractures Acute Sepsis Acute
[2016-09-04] MEDS: SUCRALFATE 1 GM/10 ML UDCUP TUBE SCH ×2 (17:51→20:53)
--- NOTE | 2016-09-04 17:53 | SOAPPROG ---
SOAP Progress Note Assessment/Plan: Assessment:EGD requested to evaluate for source of coffee grounds in stomach. Previous h/o GI disease unknown. Pt intubated. Consent signed by Attending. EGD reveals small non-bleeding erosions in fundus, no varices or MW tear, no other peptic injuries. Currently no evidence of active or recent bleeding. CLOtest not performed to avoid iatrogenic bleeding. Plan:Continue PPIs. D/C octreotide. Carafate can also be d/c'd. Please call for further GI issues. 09/04/16 17:50 Objective: Vital Signs Temp Pulse Resp BP Pulse Ox 38 C 99 28 H 103/51 L 100 09/04/16 16:00 09/04/16 17:00 09/04/16 17:00 09/04/16 17:00 09/04/16 17:00 Laboratory Results 09/04/16 15:55 09/04/16 10:20 09/03/16 09/04/16 09/05/16 05:59 05:59 05:59 Intake Total 3850 7793 975 Output Total 2470 2228 900 Balance 1380 5541 75 PT 17.7 SEC (12.0-15.0) H 09/04/16 10:20 INR 1.46 (0.83-1.16) H 09/04/16 10:20 ICD10 Worksheet Patient Problems: Problems Problem Status Onset Acute chest pain Acute Interstitial lung disease Acute Pneumothorax, right Acute Acute respiratory failure with hypoxia Acute Alcohol abuse Acute Hematemesis Acute Lung infiltrate Acute Ribs, multiple fractures Acute Sepsis Acute
--- NOTE | 2016-09-04 18:31 | GPN ---
PROCEDURE: Gastroscopy. INDICATIONS: The patient is a 56-year-old male, who has been admitted for a pulmonary issue but dur ing intubation last night, was noted to have coffee-grounds emesis. Further history from the patien t is unobtainable. Apparently, he has had hospitalizations for hematemesis due to alcoholic gastrit is. Gastroscopy is being requested to evaluate for the source of the coffee-grounds. DESCRIPTION OF PROCEDURE: After proper consent was obtained via the attending physician, patient wa s more deeply sedated with propofol. Videogastroscope was introduced through the mouth, down the es ophagus, into the stomach, past the pylorus, into the duodenum. Findings were as follows: 1. Esophagus appears normal with no varices or esophagitis. 2. The fundus has small erosions, which are not actively bleeding. These are superficial in nature . 3. The antrum and duodenum are normal. There is a small amount of retained stomach contents, but no evidence of any active bleeding. I elected not to perform a CLOtest to avoid any iatrogenically caused bleeding. At this point, the instrument was removed. Patient tolerated the procedure well and remained in ICU in critical condition. RECOMMENDATIONS: Agree with continuing proton pump inhibitors. Carafate could be discontinued. If the patient is on octreotide, I would be comfortable having that discontinued. /[id number]/MODL
[2016-09-04] MEDS: NS 1,000 ML IV SCH (20:53)
[2016-09-05] MEDS: ALBUTEROL 60 PUFFS/8 GM MDI IH SCH ×7 (00:11→23:38)
[2016-09-05] MEDS: PROPOFOL/EMULSION 100 ML IV SCH ×2 (00:54→08:21)
[2016-09-05] MEDS: NOREPINEPHRINE BITARTRATE 4 MG in D5W 500 ML IV SCH ×2 (00:54→09:30)
[2016-09-05] MEDS: PIPERACILLIN/TAZO 4.5 GM/DEX 100 ML IV SCH ×4 (00:55→19:32)
[2016-09-05] MEDS: VANCOMYCIN 750 MG in D5W 150 ML IV SCH ×2 (04:32→17:54)
[2016-09-05 05:10] LABS: BASE EXCESS 1.7 mEq/L (-2.5-2.5); BICARBONATE 26 mEq/L (22-26); MEASURED OXYGEN SATURATION 98 % (92-95); PCO2 42 mmHg (34-38); PO2 102 mmHg (65-75); TCO2 27 mEq/L (23-27)
[2016-09-05 05:11] LABS: ASSIST CONTROL YES; END TIDAL CO2 33; O2 CONCENTRATIION 40 % (0-100); P/F RATIO 255 RATIO
[2016-09-05 05:19] LABS: ADD MORPH? NO; ADD SCAN? YES; ATYPICAL LYMPHOCYTE FLAG 0 (0-99); FRAGMENT RBC FLAG 20 (0-99); HEMATOCRIT 21.4 % (40.0-51.0); LIPEMIA HEMOLYSIS FLAG 80 (0-99); MEAN CELL HEMOGLOBIN 25.8 pg (27.9-34.1); MEAN CELL HEMOGLOBIN CONCENTR. 32.7 g/dL (32.4-36.7); MEAN PLATELET VOLUME 9.6 fL (8.7-11.7); PLATELET CLUMPS FLAG 10 (0-99); PLATELET COUNT 83 10^3/uL (150-400); RED BLOOD CELL COUNT 2.71 10^6/uL (4.40-6.38); RED CELL DISTRIBUTION WIDTH 19.5 % (11.5-15.2)
[2016-09-05 05:30] LABS: INR 1.53 (0.83-1.16); PROTIME(PATIENT) 18.4 SEC (12.0-15.0)
[2016-09-05 05:31] LABS: APTT 39.3 SEC (23.0-38.0)
[2016-09-05 05:34] LABS: ALANINE AMINOTRANSFERASE 143 IU/L (21-72); ALBUMIN 1.6 g/dL (3.5-5.0); ALKALINE PHOSPHATASE 48 IU/L (38-126); ANION GAP 4 mEq/L (8-16); ASPARTATE AMINOTRANSFERASE 169 IU/L (17-59); BILIRUBIN,TOTAL 0.6 mg/dL (0.1-1.4); BILIRUBIN-CONJUGATED 0.3 mg/dL (0.0-0.5); BILIRUBIN-UNCONJUGATED 0.3 mg/dL (0.0-1.1); CALCIUM 7.3 mg/dL (8.5-10.4); CARBON DIOXIDE 26 mEq/l (22-31); CHLORIDE 101 mEq/L (97-110); CREATININE 0.6 mg/dL (0.7-1.3); GLOMERULAR FILTRATION RATE > 60; GLUCOSE 146 mg/dL (70-100); MAGNESIUM 1.6 mg/dL (1.6-2.3); POTASSIUM 3.7 mEq/L (3.5-5.2); SODIUM 131 mEq/L (134-144); TOTAL PROTEIN 3.4 g/dL (6.3-8.2)
[2016-09-05 05:36] LABS: LEFT SHIFT FLG 280 (0-99)
[2016-09-05 05:49] LABS: ADD DIFF? YES; SCAN POSITIVE
[2016-09-05 05:55] LABS: HYPOCHROMIA 2+; MICROCYTES 2+; POLYCHROMASIA 1+
[2016-09-05 05:56] LABS: LARGE PLATELETS PRESENT; PLATELET ESTIMATE DECREASED (ADEQ); TOXIC GRANULATION PRESENT
[2016-09-05] MEDS ORDERED: NS 1,000 ML IV SCH (06:15)
--- NOTE | 2016-09-05 06:21 | SOAPPROG ---
SOAP Progress Note Assessment/Plan: 09/04/16 16:12 POD#1 Assessment: On pressors, HCT stable with augmentation, lactate up slightly. Impression- ongoing GI blood loss. Awaiting GI for endoscopy. Currently on PPI and carafate. Appears to have volume issue secondary to GI blood loss. Presume a posterior duodenal ulcer although gastritis remains a possibility. Intermittent air leak noted. Chest tube to 30 cmH2O and lung up. Plan: Maintain volume replacement (use pressors as second line support), Get GI consult/EGD, Follow lactate, ABG's other labs and CXR. 09/05/16 06:13 POD#2 Assesment/Plan: Etiology of events now a bit clearer. Blood cultures (1 of 2) positive for MSSA. WBC dpwn Bands decreased from 48 to 39. On vancomycin. EGD consistent with gastritis. Minimal bowel sounds. Would not attempt to feed yet. Hct decreased from 28 to 21. IV fluids at ~ 200 cc/hr. ~2000cc urine out this shift. I feel that the hct drop is due to fluid recruitment/overload and hemolysis of transfused blood. I have decreased IV fluids and ordered a F/u HCT. He is not showing compromise from fluids yet so have not ordered diuretics yet. Minimal air leak remains. 200 cc out chest tube ( mainly serous ). Will continue chest tube suction. CXR pending ( done but not available yet) Subjective: He is awake and responding Objective: Vital Signs Temp Pulse Resp BP Pulse Ox 37.3 C 78 28 H 124/60 H 100 09/05/16 04:00 09/05/16 05:00 09/05/16 05:00 09/05/16 05:00 09/05/16 05:00 Microbiology 09/04/16 03:20 Mycobacterial Smear (SOFI) - Final Lung Left Lobe - Bronchial Washings Laboratory Results 09/05/16 05:00 09/05/16 05:00 09/04/16 09/05/16 09/06/16 05:59 05:59 05:59 Intake Total 6638 47 Output Total 6222 7521 Balance 5541 2060 PT 18.4 SEC (12.0-15.0) H 09/05/16 05:00 INR 1.53 (0.83-1.16) H 09/05/16 05:00 - Time Spent With Patient Time Spent With Patient: 30 - Pending Discharge Pending Discharge Within 24 Hours: No Pending Discharge Within 48 Hours: No Physical Exam - Physical Exam General Appearance: WD/WN, alert, no apparent distress, other (intubated) Neck: full range of motion, supple Respiratory: lungs clear, normal breath sounds Cardiac/Chest: regular rate, rhythm Abdomen: soft, other (hypoactive bowel sounds. NG output clearing somewhat) Male Genitalia: deferred Rectal: deferred Skin: normal color, warm/dry Neuro/Psych: alert ICD10 Worksheet Patient Problems: Problems Problem Status Onset Acute chest pain Acute Interstitial lung disease Acute Pneumothorax, right Acute Acute respiratory failure with hypoxia Acute Alcohol abuse Acute Hematemesis Acute Lung infiltrate Acute Ribs, multiple fractures Acute Sepsis Acute
[2016-09-05] MEDS: SUCRALFATE 1 GM/10 ML UDCUP TUBE SCH ×4 (06:29→22:23)
[2016-09-05 09:51] LABS: % IMMATURE GRANULYOCYTES 2.1 % (0.0-1.1); ABSOLUTE IMMATURE GRANULOCYTES 0.16 10^3/uL (0.00-0.10); ABSOLUTE NRBC COUNT 0.02 10^3/uL (0-0.01); ADD DIFF? NO; ADD MORPH? YES; ADD SCAN? YES; ATYPICAL LYMPHOCYTE FLAG 0 (0-99); FRAGMENT RBC FLAG 20 (0-99); HEMATOCRIT 20.1 % (40.0-51.0); LIPEMIA HEMOLYSIS FLAG 80 (0-99); MEAN CELL HEMOGLOBIN 25.9 pg (27.9-34.1); MEAN CELL HEMOGLOBIN CONCENTR. 33.3 g/dL (32.4-36.7); MEAN CELL VOLUME 77.6 fL (81.5-99.8); MEAN PLATELET VOLUME 9.6 fL (8.7-11.7); NRBC-AUTO% 0.3 % (0.0-0.2); PLATELET CLUMPS FLAG 0 (0-99); PLATELET COUNT 80 10^3/uL (150-400); RED BLOOD CELL COUNT 2.59 10^6/uL (4.40-6.38); RED CELL DISTRIBUTION WIDTH 19.7 % (11.5-15.2)
[2016-09-05 09:53] LABS: HEMOGLOBIN 6.7 g/dL (13.7-17.5); LEFT SHIFT FLG 160 (0-99)
[2016-09-05] MEDS: PANTOPRAZOLE SODIUM 40 MG in NS 100 ML IV SCH ×2 (09:54→22:23)
[2016-09-05] MEDS ORDERED: ALTEPLASE 2 MG VIAL IVP PRN (10:09)
[2016-09-05 10:51] LABS: APTT 36.5 SEC (23.0-38.0); FIBRINOGEN 529 mg/dL (214-456); PROTIME(PATIENT) 17.1 SEC (12.0-15.0)
[2016-09-05 11:32] LABS: SCAN NEGATIVE
[2016-09-05 11:34] LABS: PLATELET ESTIMATE DECREASED (ADEQ)
[2016-09-05 11:39] LABS: MICROCYTES 1+
[2016-09-05 11:40] LABS: POLYCHROMASIA 1+
[2016-09-05 11:42] LABS: PLATELET COUNT 80 10^3/uL (150-400)
--- NOTE | 2016-09-05 11:55 | PDINTPN ---
Negative Spotter Progress Note Assessment/Plan: Assessment: Acute respiratory failure. Likely secondary to aspiration of gastric coffee ground material. Status post bronchoscopy and intubation. Cultures neg so far. Oxygenation is good, pCO2 down: 42 with a normal pH. We can start CPAP trials Hypotension: Multifactorial. In part secondary to blood loss and hypovolemia and sepsis/SIRS associated with acute pulmonary injury/infection. On Zosyn and vancomycin, pressors. CVP remains low despite blood and fluids. Interstitial lung disease, status post spontaneous pneumothorax. Has a new chest tube. Lung now re-expanded. Positive air leak. Increased infiltrates probably on right consistent with aspiration pneumonia/pneumonitis. Status post exploratory laparotomy: Secondary to abdominal pain at the time of intubation. Findings were negative. GI bleed. Clearly has an upper GI bleed with coffee-ground material from his stomach, with over 2 L of this material in stomach when his NG tube was placed. GI consultation appreciated. EGD did not find much: Only some gastric erosions. These may have been the source of his GI bleed. Acute blood-loss anemia: Secondary to above. Remains anemic, hematocrit 20 today. For 2 more units. No evidence of active ongoing bleeding at this time. Current drop likely secondary to ablation.. Elevated liver function studies. AST and ALT remain increased, stable. Possibly secondary to hypotension. Will follow History of tobacco abuse, alcohol use, hepatitis-C, homelessness, etc Plan: Ventilatory support will be maintained with adjustments as needed. Will start CPAP trials Continue pressors, wean as possible. Continue, IV fluids, blood and blood products as needed. For 2 units more today. Follow laboratory , H&H, ABG, and chest x-ray. 50 mins of critical care time spent directly with the patient today. Discussed with Dr. Dean, hospitalist, nursing, respiratory therapy, and the ICU multi disciplinary team. Subjective: Sedated, on the ventilator, arouses weekly and responds. Appears comfortable Objective: Vital Signs Temp Pulse Resp BP Pulse Ox 37.5 C 74 28 H 115/53 L 100 09/05/16 11:00 09/05/16 11:00 09/05/16 11:00 09/05/16 11:00 09/05/16 11:00 Microbiology 09/04/16 03:00 Blood Panel (PCR) - Final Blood S.aureus Methicillin Suscept. 09/04/16 03:20 Mycobacterial Smear (SOFI) - Final Lung Left Lobe - Bronchial Washings Laboratory Results 09/05/16 09:40 09/05/16 05:00 09/04/16 09/05/16 09/06/16 05:59 05:59 05:59 Intake Total 7769 7412 Output Total 2228 4382 325 Balance 5541 3030 -325 PT 17.1 SEC (12.0-15.0) H 09/05/16 09:40 INR 1.40 (0.83-1.16) H 09/05/16 09:40 Laboratory Tests 09/05/16 09/05/16 05:00 05:00 pCO2 42 H pO2 102 H ABG O2 Saturation 98 H O2 Concentration % 40 Set Respiration Rate 28 Assist Control YES Tidal Volume 650 PEEP 5 Calcium 7.3 L Phosphorus 1.7 L Total Bilirubin 0.6 AST 169 H ALT 143 H Albumin 1.6 L CXR: Bilateral pulmonary infiltrates and interstitial disease persists, right greater than left. The right lung is now well expanded. Lines and tubes in good position. Physical Exam - Physical Exam General Appearance: moderate distress, other (Sedated, on the ventilator, arouses and responds weekly), No no apparent distress EENT: ET tube, other (NG in place) Neck: normal inspection Respiratory: decreased breath sounds, rales (Bilaterally, right greater than left), other (Right touch tube in place, positive air leak.), No rhonchi Cardiac/Chest: regular rate, rhythm Abdomen: soft, No normal bowel sounds, No non-tender (Mild tenderness appears to be present) Male Genitalia: other (Ibarra catheter in place. Good urine output but input greater than output by approximately 8.5 L last 48 hours) Skin: normal color, warm/dry Extremities: pedal edema (Trace) Neuro/Psych: no motor/sensory deficits (Difficult to assess but moves all extremities weakly, follows commands) ICD10 Worksheet Patient Problems: Problems Problem Status Onset Hematemesis Acute Acute respiratory failure with hypoxia Acute Alcohol abuse Acute Ribs, multiple fractures Acute Sepsis Acute Lung infiltrate Acute Acute chest pain Acute Pneumothorax, right Acute Interstitial lung disease Acute
[2016-09-05] MEDS: NICOTINE 21 MG/24 HR PATCH TD SCH (13:13)
--- NOTE | 2016-09-05 15:36 | SOAPPROG ---
SOAP Progress Note Assessment/Plan: Assessment:EGD requested to evaluate for source of coffee grounds in stomach. Previous h/o GI disease unknown. Pt intubated. Consent signed by Attending. EGD reveals small non-bleeding erosions in fundus, no varices or MW tear, no other peptic injuries. Currently no evidence of active or recent bleeding. CLOtest not performed to avoid iatrogenic bleeding. Plan:Continue PPIs. D/C octreotide. Carafate can also be d/c'd. Please call for further GI issues. 09/04/16 17:50 09/05/16 15:35 No further coffee grounds in NG aspirate. I will sign off. If further GI issues arise, [facility] will be covering me through Saturday. Objective: Vital Signs Temp Pulse Resp BP Pulse Ox 37.6 C 26 L 24 H 121/58 H 100 09/05/16 13:00 09/05/16 15:25 09/05/16 13:00 09/05/16 13:00 09/05/16 15:25 Microbiology 09/04/16 03:00 Blood Panel (PCR) - Final Blood S.aureus Methicillin Suscept. 09/04/16 03:20 Mycobacterial Smear (SOFI) - Final Lung Left Lobe - Bronchial Washings Laboratory Results 09/05/16 09:40 09/05/16 05:00 09/04/16 09/05/16 09/06/16 05:59 05:59 05:59 Intake Total 7769 7412 Output Total 2228 4382 435 Balance 5541 3030 -435 PT 17.1 SEC (12.0-15.0) H 09/05/16 09:40 INR 1.40 (0.83-1.16) H 09/05/16 09:40 ICD10 Worksheet Patient Problems: Problems Problem Status Onset Acute chest pain Acute Interstitial lung disease Acute Pneumothorax, right Acute Acute respiratory failure with hypoxia Acute Alcohol abuse Acute Hematemesis Acute Lung infiltrate Acute Ribs, multiple fractures Acute Sepsis Acute
--- NOTE | 2016-09-05 18:12 | HOSPPROG ---
Hospitalist Progress Note Assessment/Plan: Assessment: 56 yo M p/w acute tension pneumothorax c/b acute upper GI hemorrhage resulting in suspected aspiration PNA, acute shock, acute respiratory failure, JAMIE, MSSA bacteremia Plan: # Shock. Acute, likely multifactoral including hemorrhagic, hypovolemic, and septic, evidenced by lactic 8.1 and requiring 2 pressors - cont on levo and vaso, A-line monitoring - maintenance IVF when not receiving blood - cont CVP monitoring - status post ex lap by Dr. Dean, no evidence of ischemic bowel # Septic shock. Evidenced by sepsis-2 and sepsis-3 criteria w/ leukocytosis ( WBC 21,300) + tachypnea (RR 55) + tachycardia (HR 120s) + source (aspiration pneumonia) + shock (lact 8.1) and end-organ failure (trop 0.1, coagulopathy, JAMIE , resp failure, encephalopathy) - cont broad Abx - cont IVF and CVP monitoring, pressors # Aspiration PNA. Gastric material noted in R bronchi on bronch by Dr. Betts, infiltrate on CXR on R stable (personally interpreted) - on Vanco/Zosyn re: recent hospitalization - cont Abx D#2 # MSSA bacteremia. Present on 09/04 BCx 2/2 bottles, unclear whether 2/2 pulm source vs. CVC - removed CVC, PICC placed s/p 24hrs of Abx - d/w Dr. Bowman, ID consult appreciated - on Vanco, can likely narrow to naf or ancef, pending whether we continue dual abx for asp PNA - repeat BCx 3/9 AM # Acute on chronic hypoxic and hypercapnic respiratory failure. Evidenced by pH 7.2 w/ pCO2 63, PaO2 40, labored breathing and distress, 2/2 suspected aspiration PNA in setting of known ILD - intubated, sedated - appreciate pulm assistance o/n w/ vent mgmt, begin CPAP trials # Acute upper gastrointestinal hemorrhage. Coffee ground emesis w/ FOB (+) - EGD w/ gastritis, cont PPI # Acute blood loss anemia. Hgb 12.5->7, giving 3/4th units today - combination of pulm (at chest tube site) and GI - cont to monitor # Tension ptx. Acute, right apical PTX on arrival, spontaneous, in setting of underlying IPF with honeycombing - d/w Dr. Dean, s/p chest tube replacement # Pulmonary fibrosis. Chronic, no indication for steroids # Distal esophageal thickening. CT findings c/w esophagitis and associated small hiatal hernia, cont PPI # Thrombocytopenia. Acute, new problem, further w/u indicated. Consider DIC vs. HIT - get DIC panel and HIT ab Diet. NPO PPx. Holding given bleed, on SCDs Code. Full Dispo. ADD uncertain Subjective: Patient is currently intubated and sedated, responds to commands Objective: Vital Signs Temp Pulse Resp BP Pulse Ox 37.4 C 101 H 24 H 113/55 L 100 09/05/16 17:00 09/05/16 17:00 09/05/16 17:00 09/05/16 17:00 09/05/16 17:00 Microbiology 09/04/16 03:15 Blood Panel (PCR) - Final Blood No Organism Detected 09/04/16 03:00 Blood Panel (PCR) - Final Blood S.aureus Methicillin Suscept. 09/04/16 03:20 Mycobacterial Smear (SOFI) - Final Lung Left Lobe - Bronchial Washings Laboratory Results 09/05/16 09:40 09/05/16 05:00 09/04/16 09/05/16 09/06/16 05:59 05:59 05:59 Intake Total 7769 7436 2005 Output Total 2221 4382 935 Balance 5541 3030 1071 PT 17.1 SEC (12.0-15.0) H 09/05/16 09:40 INR 1.40 (0.83-1.16) H 09/05/16 09:40 - Physical Exam Constitutional: no apparent distress, not in pain, chronically ill appearing, No uncomfortable Eyes: PERRL, anicteric sclera, EOMI (To voice commands) Cardiovascular: systolic murmur (1/6 systolic murmur at the sternum, distant heart sounds), No irregularly irregular, No tachycardia, No edema Respiratory: rhonchi (On inspiration bilaterally), No reduced air movement, No expiratory wheeze, No bronchial breath sounds Gastrointestinal: soft, non-tender abdomen, No normoactive bowel sounds ( Hypoactive bowel sounds), No guarding, No distension Neurologic: other (Patient able to follow one-step commands, response to verbal stimuli) ICD10 Worksheet Patient Problems: Problems Problem Status Onset Hematemesis Acute Acute respiratory failure with hypoxia Acute Alcohol abuse Acute Ribs, multiple fractures Acute Sepsis Acute Lung infiltrate Acute Acute chest pain Acute Pneumothorax, right Acute Interstitial lung disease Acute
[2016-09-06] MEDS: PIPERACILLIN/TAZO 4.5 GM/DEX 100 ML IV SCH ×4 (00:54→19:15)
[2016-09-06] MEDS: ALBUTEROL 60 PUFFS/8 GM MDI IH SCH ×5 (03:27→20:17)
[2016-09-06] MEDS: VANCOMYCIN 750 MG in D5W 150 ML IV SCH ×2 (03:46→16:52)
[2016-09-06] MEDS: PROPOFOL/EMULSION 100 ML IV SCH (03:59)
[2016-09-06 04:10] LABS: % IMMATURE GRANULYOCYTES 2.4 % (0.0-1.1); ABSOLUTE NRBC COUNT 0.04 10^3/uL (0-0.01); ADD DIFF? NO; ADD MORPH? NO; ADD SCAN? NO; ATYPICAL LYMPHOCYTE FLAG 10 (0-99); FRAGMENT RBC FLAG 20 (0-99); HEMATOCRIT 25.8 % (40.0-51.0); HEMOGLOBIN 8.7 g/dL (13.7-17.5); LEFT SHIFT FLG 80 (0-99); LIPEMIA HEMOLYSIS FLAG 80 (0-99); MEAN CELL HEMOGLOBIN 26.7 pg (27.9-34.1); MEAN CELL HEMOGLOBIN CONCENTR. 33.7 g/dL (32.4-36.7); MEAN CELL VOLUME 79.1 fL (81.5-99.8); MEAN PLATELET VOLUME 9.1 fL (8.7-11.7); NRBC-AUTO% 0.5 % (0.0-0.2); PLATELET CLUMPS FLAG 0 (0-99); PLATELET COUNT 72 10^3/uL (150-400); RED BLOOD CELL COUNT 3.26 10^6/uL (4.40-6.38); RED CELL DISTRIBUTION WIDTH 18.5 % (11.5-15.2)
[2016-09-06 04:32] LABS: ALANINE AMINOTRANSFERASE 151 IU/L (21-72); ALBUMIN 1.7 g/dL (3.5-5.0); ALKALINE PHOSPHATASE 62 IU/L (38-126); ANION GAP 4 mEq/L (8-16); ASPARTATE AMINOTRANSFERASE 138 IU/L (17-59); BILIRUBIN,TOTAL 0.9 mg/dL (0.1-1.4); CALCIUM 7.5 mg/dL (8.5-10.4); CARBON DIOXIDE 28 mEq/l (22-31); CHLORIDE 104 mEq/L (97-110); CREATININE 0.5 mg/dL (0.7-1.3); GLOMERULAR FILTRATION RATE > 60; GLUCOSE 73 mg/dL (70-100); POTASSIUM 2.9 mEq/L (3.5-5.2); SODIUM 136 mEq/L (134-144); TOTAL PROTEIN 3.6 g/dL (6.3-8.2)
[2016-09-06] MEDS ORDERED: PROTOCOL POTASSIUM 1 DOSE MISC PRN (04:46)
[2016-09-06] MEDS: POTASSIUM Cl (KCl) 50 ML IV SCH ×4 (05:11→21:46)
[2016-09-06] MEDS: PANTOPRAZOLE SODIUM 40 MG in NS 100 ML IV SCH ×2 (08:55→20:52)
[2016-09-06] MEDS ORDERED: MAGNESIUM SULF 2 GM/WATER 50 ML IV ONE (09:04)
[2016-09-06 10:20] LABS: POTASSIUM 3.3 mEq/L (3.5-5.2)
[2016-09-06] MEDS: SUCRALFATE 1 GM/10 ML UDCUP TUBE SCH ×4 (10:36→20:51)
[2016-09-06] MEDS: NICOTINE 21 MG/24 HR PATCH TD SCH (10:36)
[2016-09-06] MEDS: POTASSIUM Cl (KCl) 100 ML IV SCH ×2 (10:45→11:47)
--- NOTE | 2016-09-06 10:47 | GCON ---
[f rep st] CONSULTATION INPATIENT INFECTIOUS DISEASE CONSULTATION REFERRING PHYSICIAN: Maciej Partida MD REASON FOR CONSULTATION: Staph aureus bacteremia. HISTORY OF PRESENT ILLNESS: Patient is a 56-year-old male, who was admitted to [facility] on the evening of 08/27/2016 with a complaint of chest pain. Patient has a history of interstit ial lung disease and was diagnosed with a spontaneous pneumothorax that required thoracostomy tube p lacement on 09/02/2016. Patient had a kel postoperative course including development of a tension pneumothorax as well as hypotension felt to be secondary to sepsis. He had a tender abdomen and was taken to surgery again on 09/04/2016 for evaluation for infected source intra-abdominally. Nothing w as found. Patient has since then been managed in the ICU. He had evidence of aspiration. Blood cultu res drawn on 09/04/2016 showed methicillin sensitive Staph aureus in 1 out of 2 sets. Patient was th en placed empirically starting on 09/04 with vancomycin and Zosyn. Currently, he is in the ICU intub ated with decreasing need for pressors. We are consulted to help guide duration of therapy and choic e of agent. PAST MEDICAL HISTORY: 1. Pulmonary hypertension. 2. Interstitial lung disease. 3. Chronic pain. 4. Hepatitis C. 5. Alcohol abuse. 6. Tobacco abuse. 7. Chronic anemia. PAST SURGICAL HISTORY: As above in the history of present illness. MEDICATIONS: Antibiotics: 1. Vancomycin. 2. Zosyn. ALLERGIES: No known drug allergies. SOCIAL HISTORY: Patient is homeless. He was recently incarcerated. He smokes and consumes alcohol. FAMILY HISTORY: Reviewed from the chart, but noncontributory. REVIEW OF SYSTEMS: Other than that detailed above in the history of present illness, a comprehensiv e 10-system review is negative. PHYSICAL EXAMINATION: VITAL SIGNS: Temperature maximum is 38.3, temperature current is 37.3, heart rate is 93, respiratory rate is 24, blood pressure is 122/58. GENERAL: Patient is a well-formed, wel l-nourished, older male, who is intubated and sedated in the ICU. HEENT: Normocephalic, atraumatic. No scleral icterus. No oral lesion. ET tube in correct position. Eyes, lids, and conjunctivae within normal limits. Pupils are equal, round, bilaterally. NECK: Supple. No meningismus. LUNGS: Coarse br eath sounds bilaterally. HEART: Tachycardic, but regular. No significant peripheral edema. ABDOMEN: Soft. Incision dressed. No rash or lesion noted. MUSCULOSKELETAL: No muscle belly tenderness is note d. No joint line effusion or arthritis seen. LABORATORY DATA: Patient has a CBC dated 09/05/2016 shows a white blood cell count of 7.6, hemoglob in of 6.7, hematocrit of 20.1, platelet count of 80. Differential shows left shift with 79.5 segment ed neutrophils. Serum chemistries on 09/05/2016 show sodium 131, potassium 3.7, chloride 101, bicarb lino 26, BUN of 21, creatinine of 0.6. AST is 169, ALT is 143. LABORATORY DATA: Patient's blood cultures dated 09/04/2016, one out of two sets is growing methicil aileen-sensitive Staph aureus. The other set is growing a gram-positive venecia. ASSESSMENT: 1. Bacteremia with methicillin-sensitive Staph aureus. Patient is clearly covered with both vancomy giovana and Zosyn. 2. Likely aspiration pneumonia. Both of the above drugs would cover typical etiologies. I do not be lieve that the bacteremia has a source from the pulmonary infiltrate. PLAN: 1. Continue vancomycin and Zosyn empirically at present. Discussed with [facility], and bronch wash samples are being initiated for routine culture and Gram stain. 2. Follow clinical course and decrease pressor use. /[id number]/MODL
[2016-09-06 12:09] LABS: BASE EXCESS 2.5 mEq/L (-2.5-2.5); BICARBONATE 28 mEq/L (22-26); MEASURED OXYGEN SATURATION 99 % (92-95); PCO2 48 mmHg (34-38); PO2 127 mmHg (65-75); TCO2 29 mEq/L (23-27)
[2016-09-06 12:11] LABS: CPAP YES; END TIDAL CO2 48; O2 CONCENTRATIION 40 % (0-100); P/F RATIO 318 RATIO; PATIENT RATE 24; PRESSURE SUPPORT 7
[2016-09-06] MEDS: POTASSIUM Cl (KCl) 40 MEQ in NS 1,000 ML IV SCH (12:14)
--- NOTE | 2016-09-06 12:45 | PDINTPN ---
Fur Liner Progress Note Assessment/Plan: Assessment: Acute respiratory failure. Likely secondary to aspiration of gastric coffee ground material. Status post bronchoscopy and intubation 09/04. Sputum cultures negative. Doing well on CPAP. If weaning parameters and CPAP gas okay then I will extubate. On Zosyn and vancomycin secondary to aspiration in presumed nosocomial acquired aspiration pneumonia. Hypotension: Multifactorial, resolved, off pressors. In part secondary to blood loss and hypovolemia and sepsis/SIRS associated with acute pulmonary injury/infection. CVP improved, approximately 6 currently. Interstitial lung disease, status post spontaneous pneumothorax. Has a new chest tube. Lung now re-expanded. Positive air leak. Stable. Status post exploratory laparotomy: Secondary to abdominal pain at the time of intubation. Findings were negative. Has residual postop tenderness GI bleed. Clearly had an upper GI bleed with coffee-ground material from his stomach, with over 2 L of this material in stomach when his NG tube was placed. GI consultation appreciated. EGD did not find much: only some gastric erosions. These may have been the source of his GI bleed. He has had no evidence of active GI bleeding since. Acute blood-loss anemia: Secondary to above. Improved hematocrit: 26.7 today after 2 units yesterday. No evidence of active ongoing bleeding at this time. Elevated liver function studies. AST and ALT remain increased, stable. Possibly secondary to hypotension or underlying hep C? Will follow. Nutrition: None since intubation and laparotomy. Hopefully we can start feeding him once extubated. History of tobacco abuse, alcohol use, hepatitis-C, homelessness, etc Plan: Will extubate today if weaning parameters and gas on CPAP after 3 hours or so are acceptable. Continue supportive care in the intensive care unit. Continue antibiotics, bronchodilator therapies. Continue CT to suction. Follow x-ray, laboratory... 45 mins of critical care time spent directly with the patient. Discussed with Dr. Orellana, hospitalist, nursing, respiratory therapy, and the ICU multi disciplinary team. Subjective: Sedated lightly, on the ventilator. Responds, appropriate. Doing well on CPAP. Objective: Vital Signs Temp Pulse Resp BP Pulse Ox 37.4 C 99 20 114/62 100 09/06/16 12:00 09/06/16 12:00 09/06/16 12:00 09/06/16 12:00 09/06/16 12:00 Microbiology 09/04/16 03:00 Blood Panel (PCR) - Final Blood S.aureus Methicillin Suscept. 09/04/16 03:20 Urine Culture - Final Urine,Catheterized 09/04/16 03:15 Blood Panel (PCR) - Final Blood No Organism Detected 09/04/16 03:28 Gram Stain - Final Lung Left Lower Lobe - Bronchial Washings Laboratory Results 09/06/16 04:00 09/06/16 09:45 09/05/16 09/06/16 09/07/16 05:59 05:59 05:59 Intake Total 7412 3525 Output Total 4382 4440 1150 Balance 3030 -915 -1150 PT 17.1 SEC (12.0-15.0) H 09/05/16 09:40 INR 1.40 (0.83-1.16) H 09/05/16 09:40 Laboratory Tests 09/06/16 12:00 pCO2 48 H ABG pH 7.38 O2 Concentration % 40 CPAP YES CXR: Lungs well expanded on the right. Chest tube in place. Bilateral infiltrates persist, impart chronic with likely some acute changes on the right secondary to aspiration. Lines and tubes in good position Physical Exam - Physical Exam General Appearance: other (On ventilator, arouses, responds) EENT: PERRL/EOMI, ET tube, other (NG tube to suction) Neck: normal inspection (Venous distension) Respiratory: decreased breath sounds, rales (Bibasilar rales are present), other (Chest tube in place, good respiratory excursions, small air leak.) Cardiac/Chest: regular rate, rhythm (To sinus tachycardia) Abdomen: No normal bowel sounds (Hypoactive), No non-tender (Tenderness present) , No soft Male Genitalia: other (Ibarra catheter in place. Excellent urine output.) Skin: normal color, warm/dry Extremities: No pedal edema Neuro/Psych: no motor/sensory deficits, No cognition abnormalities ICD10 Worksheet Patient Problems: Problems Problem Status Onset Hematemesis Acute Acute respiratory failure with hypoxia Acute Alcohol abuse Acute Ribs, multiple fractures Acute Sepsis Acute Lung infiltrate Acute Acute chest pain Acute Pneumothorax, right Acute Interstitial lung disease Acute
[2016-09-06] MEDS ORDERED: fentaNYL/NACL 100 ML IV SCH (15:00)
[2016-09-06 15:53] LABS: HEPARIN INDUCED ANTIBODY Negative (Negative); REACTIVITY 9 % (<20)
[2016-09-06 16:12] LABS: HEMATOCRIT 28.6 % (40.0-51.0); HEMOGLOBIN 9.4 g/dL (13.7-17.5)
--- NOTE | 2016-09-06 17:37 | PCMIDPN ---
Assessment/Plan: Assessment/Plan: * MSSA bacteremia: No clearly defined etiology although multiple considerations with complex hospital stay. Repeat blood cultures are pending to assess for clearing of bacteremia. Currently covered by Zosyn which is being utilized for aspiration pneumonia. * Gram-positive venecia bacteremia: Unclear if this represents true pathogen versus contaminant. Await identification. Continue vancomycin pending further ID. * Aspiration pneumonia: Continue Zosyn which has activity against healthcare associated pathogens which could be contributing based on length of stay. 09/06/16 17:34 Subjective: Patient extubated today. Complains of mild abdominal pain. Objective: Vital Signs Temp Pulse Resp BP Pulse Ox 37.6 C 96 28 H 111/69 97 09/06/16 16:00 09/06/16 16:00 09/06/16 16:00 09/06/16 16:00 09/06/16 16:00 Microbiology 09/04/16 03:00 Blood Panel (PCR) - Final Blood S.aureus Methicillin Suscept. 09/04/16 03:15 Blood Panel (PCR) - Final Blood No Organism Detected 09/04/16 03:20 Urine Culture - Final Urine,Catheterized 09/04/16 03:28 Gram Stain - Final Lung Left Lower Lobe - Bronchial Washings Laboratory Results 09/06/16 15:55 09/06/16 09:45 09/05/16 09/06/16 09/07/16 05:59 05:59 05:59 Intake Total 7412 3525 Output Total 4382 4440 1850 Balance 3030 -915 -1850 Vancomycin # 3 Zosyn # 3 Blood cultures 1/2 sets MSSA, 1/2 sets gram-positive venecia Blood cultures 09/06/2016 pending Chest x-ray with bilateral infiltrates - Physical Exam General Appearance: alert, no apparent distress EENT: No scleral icterus, No conjunctival petechiae Respiratory: crackles (Right base) Cardiac/Chest: regular rate, rhythm Abdomen: non-tender (Mild j luis-incisional), other (Midline incision with intact lora), No distended Skin: No embolic lesions - Line/s LUE PICC Lines: No drainage, No erythema ICD10 Worksheet Patient Problems: Problems Problem Status Onset Acute chest pain Acute Interstitial lung disease Acute Pneumothorax, right Acute Acute respiratory failure with hypoxia Acute Alcohol abuse Acute Hematemesis Acute Lung infiltrate Acute Ribs, multiple fractures Acute Sepsis Acute
[2016-09-06] MEDS: VANCOMYCIN HCL/NORMAL SALINE 250 ML IV SCH (17:59)
[2016-09-06 18:42] LABS: POTASSIUM 3.1 mEq/L (3.5-5.2)
--- NOTE | 2016-09-06 19:12 | HOSPPROG ---
Hospitalist Progress Note Assessment/Plan: INTERVAL SUMMARY & DAILY PROGRESS NOTE DATE OF ADMISSION: 08/27/2016 INTERVAL DIAGNOSES 1. Septic shock 2. Aspiration pneumonia 3. MSSA bacteremia 4. Acute on chronic hypoxic and hypercapnic respiratory failure 5. Acute upper gastrointestinal hemorrhage 6. Acute blood loss anemia 7. Acute tension pneumothorax 8. Chronic pulmonary fibrosis 9. Acute thrombocytopenia CONSULTATIONS General surgery, pulmonary Critical Care, Infectious Disease PROCEDURES / IMAGING 09/04/2016 exploratory laparotomy not demonstrating any ischemic bowel, 09/04/2016 bronchoscopy demonstrating coffee-ground material in the right lung, intubation CHIEF COMPLAINT Chest pain shortness of breath SUBJECTIVE Patient is currently intubated, attempting to communicate with this hand HOSPITAL COURSE BY PROBLEM The patient presented with acute chest pain shortness of breath secondary to a spontaneous pneumothorax on the right. He received a chest tube placement and experienced a recurrent pneumothorax causing tension. He underwent chest tube adjustment and there was evidence of blood which drained from the pulmonary space. On 09/04, he began experiencing abdominal pain nausea and vomiting. It is suspected that he aspirated some blood which was secondary to gastritis and this caused aspiration pneumonia as well as septic shock. He underwent exploratory laparotomy which did not demonstrate any abnormalities. He was intubated and treated for shock as well as infection. His condition has been stabilizing and he is undergoing CPAP trial for extubation consideration today. Assessment: 56 yo M p/w acute tension pneumothorax c/b acute upper GI hemorrhage resulting in aspiration PNA, septic shock, acute respiratory failure , JAMIE, MSSA bacteremia Plan: # Shock. Acute, likely multifactoral including hemorrhagic, hypovolemic, and septic, evidenced by lactic 8.1 and requiring 2 pressors - cont on levo, wean - maintenance IVF - status post ex lap by Dr. Dean, no evidence of ischemic bowel # Septic shock. Cont broad Abx, cont maint IVF and levo # Aspiration PNA. Gastric material noted in R bronchi on bronch by Dr. Betts, cont on Vanco/Zosyn re: recent hospitalization - cont Abx D#3 # MSSA bacteremia. Present on 09/04 BCx, unclear whether 2/2 pulm source vs. CVC - removed CVC, PICC placed s/p 24hrs of Abx - repeat BCx 09/06 # Acute on chronic hypoxic and hypercapnic respiratory failure. 2/2 suspected aspiration PNA in setting of known ILD - intubated, CPAP trial today # Acute upper gastrointestinal hemorrhage. Coffee ground emesis w/ FOB (+) - EGD w/ gastritis, cont PPI # Acute blood loss anemia. Hgb 12.5->7, giving 4 units - combination of pulm (at chest tube site) and GI - cont to monitor # Tension ptx. Acute, right apical PTX on arrival, spontaneous, in setting of underlying IPF with honeycombing - appreciate gen surg CT mgmt # Pulmonary fibrosis. Chronic, no indication for steroids # Distal esophageal thickening. CT findings c/w esophagitis and associated small hiatal hernia, cont PPI # Thrombocytopenia. Acute, new problem, further w/u indicated. No e/o DIC, HIT Ab pending Diet. NPO PPx. Holding given bleed, on SCDs Code. Full, d/w Ethics, patient would like to clarify his MPOA/[place] when extubated Dispo. ADD uncertain Subjective: Patient attempting to signal with hands Objective: Vital Signs Temp Pulse Resp BP Pulse Ox 37.5 C 90 26 H 111/70 100 09/06/16 18:00 09/06/16 18:00 09/06/16 18:00 09/06/16 18:00 09/06/16 18:00 Microbiology 09/04/16 03:28 Gram Stain - Final Lung Left Lower Lobe - Bronchial Washings 09/04/16 03:00 Blood Panel (PCR) - Final Blood S.aureus Methicillin Suscept. 09/04/16 03:15 Blood Panel (PCR) - Final Blood No Organism Detected 09/04/16 03:20 Urine Culture - Final Urine,Catheterized Laboratory Results 09/06/16 15:55 09/06/16 18:00 09/05/16 09/06/16 09/07/16 05:59 05:59 05:59 Intake Total 7412 3525 1028 Output Total 4382 4440 2750 Balance 3030 -915 -1722 PT 17.1 SEC (12.0-15.0) H 09/05/16 09:40 INR 1.40 (0.83-1.16) H 09/05/16 09:40 - Physical Exam Constitutional: no apparent distress, not in pain, chronically ill appearing, uncomfortable Cardiovascular: No systolic murmur, No irregularly irregular, No tachycardia, No edema Respiratory: reduced air movement (On right), rhonchi (On inspiration on), No expiratory wheeze, No bronchial breath sounds, No respiratory distress Gastrointestinal: normoactive bowel sounds, tenderness (Right hemidiaphragm), No guarding, No distension Skin: no rashes or abrasions, no fluctuance, no induration Neurologic: other (Patient following commands, signaling with hands) ICD10 Worksheet Patient Problems: Problems Problem Status Onset Hematemesis Acute Acute respiratory failure with hypoxia Acute Alcohol abuse Acute Ribs, multiple fractures Acute Sepsis Acute Lung infiltrate Acute Acute chest pain Acute Pneumothorax, right Acute Interstitial lung disease Acute
[2016-09-06] MEDS ORDERED: LACTULOSE 20 GM/30 ML UDCUP PO PRN (19:13)
[2016-09-06] MEDS ORDERED: POLYETHYLENE GLYCOL 3350 17 GM PKT PO PRN (19:13)
[2016-09-06] MEDS ORDERED: BISACODYL 10 MG SUPP PR PRN (19:13)
[2016-09-06] MEDS ORDERED: MAGNESIUM HYDROXIDE 30 ML UDCUP PO PRN (19:13)
[2016-09-06] MEDS: IPRATROPIUM/ALBUTEROL 3 ML DEYVIAL IH SCH (20:40)
[2016-09-06] MEDS: HYDROmorphONE/DILAUDID 1 MG/ML SYR IVP PRN (20:55)
[2016-09-06] MEDS ORDERED: SENNOSIDES 17.6 MG/10 ML UDL TUBE ONE (21:00)
--- NOTE | 2016-09-06 23:52 | SOAPPROG ---
SOAP Progress Note Assessment/Plan: Assessment: ABD SOFT WITH INCISIONAL TENDERNESS LOW GRADE TEMP/ CXR SHOWS RLL INFILTRATE WOUND CLEAN AND DRY Plan:PER IM 09/06/16 23:51 Objective: Vital Signs Temp Pulse Resp BP Pulse Ox 37.5 C 96 20 106/66 96 09/06/16 22:00 09/06/16 22:00 09/06/16 22:00 09/06/16 22:00 09/06/16 22:00 Microbiology 09/04/16 03:15 Blood Panel (PCR) - Final Blood No Organism Detected 09/04/16 03:28 Gram Stain - Final Lung Left Lower Lobe - Bronchial Washings 09/04/16 03:00 Blood Panel (PCR) - Final Blood S.aureus Methicillin Suscept. 09/04/16 03:20 Urine Culture - Final Urine,Catheterized Laboratory Results 09/06/16 15:55 09/06/16 18:00 09/05/16 09/06/16 09/07/16 05:59 05:59 05:59 Intake Total 7412 3525 1028 Output Total 4382 4440 2900 Balance 3030 -915 -1872 PT 17.1 SEC (12.0-15.0) H 09/05/16 09:40 INR 1.40 (0.83-1.16) H 09/05/16 09:40 ICD10 Worksheet Patient Problems: Problems Problem Status Onset Acute chest pain Acute Interstitial lung disease Acute Pneumothorax, right Acute Acute respiratory failure with hypoxia Acute Alcohol abuse Acute Hematemesis Acute Lung infiltrate Acute Ribs, multiple fractures Acute Sepsis Acute
[2016-09-07] MEDS: PIPERACILLIN/TAZO 4.5 GM/DEX 100 ML IV SCH ×5 (00:52→23:58)
[2016-09-07 01:31] LABS: POTASSIUM 3.7 mEq/L (3.5-5.2)
[2016-09-07] MEDS ORDERED: POTASSIUM Cl (KCl) 50 ML IV ONE ×2 (02:11→09:38)
[2016-09-07] MEDS: IPRATROPIUM/ALBUTEROL 3 ML DEYVIAL IH SCH ×4 (03:46→19:57)
[2016-09-07] MEDS: VANCOMYCIN HCL/NORMAL SALINE 250 ML IV SCH (05:22)
[2016-09-07 05:39] LABS: ABSOLUTE NRBC COUNT 0.07 10^3/uL (0-0.01); ADD DIFF? YES; ADD MORPH? NO; ADD SCAN? NO; ATYPICAL LYMPHOCYTE FLAG 20 (0-99); FRAGMENT RBC FLAG 20 (0-99); HEMATOCRIT 30.6 % (40.0-51.0); HEMOGLOBIN 9.7 g/dL (13.7-17.5); LEFT SHIFT FLG 70 (0-99); LIPEMIA HEMOLYSIS FLAG 80 (0-99); MEAN CELL HEMOGLOBIN 26.7 pg (27.9-34.1); MEAN CELL HEMOGLOBIN CONCENTR. 31.7 g/dL (32.4-36.7); MEAN CELL VOLUME 84.3 fL (81.5-99.8); MEAN PLATELET VOLUME 9.6 fL (8.7-11.7); NRBC-AUTO% 0.5 % (0.0-0.2); PLATELET CLUMPS FLAG 70 (0-99); PLATELET COUNT 85 10^3/uL (150-400); RED BLOOD CELL COUNT 3.63 10^6/uL (4.40-6.38)
[2016-09-07 05:52] LABS: ALANINE AMINOTRANSFERASE 126 IU/L (21-72); ALKALINE PHOSPHATASE 100 IU/L (38-126); ANION GAP 8 mEq/L (8-16); ASPARTATE AMINOTRANSFERASE 86 IU/L (17-59); BILIRUBIN,TOTAL 0.9 mg/dL (0.1-1.4); CALCIUM 7.7 mg/dL (8.5-10.4); CARBON DIOXIDE 25 mEq/l (22-31); CHLORIDE 106 mEq/L (97-110); CREATININE 0.5 mg/dL (0.7-1.3); GLOMERULAR FILTRATION RATE > 60; GLUCOSE 76 mg/dL (70-100); POTASSIUM 3.8 mEq/L (3.5-5.2); SODIUM 139 mEq/L (134-144); TOTAL PROTEIN 4.3 g/dL (6.3-8.2)
[2016-09-07 06:33] LABS: GIANT PLATELETS PRESENT; HYPOCHROMIA 1+; PLATELET ESTIMATE DECREASED (ADEQ); POLYCHROMASIA 2+
[2016-09-07 08:40] LABS: BASE EXCESS 2.4 mEq/L (-2.5-2.5); BICARBONATE 27 mEq/L (22-26); MEASURED OXYGEN SATURATION 99 % (92-95); PCO2 48 mmHg (34-38); PO2 167 mmHg (65-75); TCO2 29 mEq/L (23-27)
[2016-09-07 08:41] LABS: BIPAP YES; EXP PRESSURE 7; INSP PRESSURE 15; O2 CONCENTRATIION 100 % (0-100); P/F RATIO 167 RATIO
--- NOTE | 2016-09-07 09:06 | SOAPPROG ---
SOAP Progress Note Assessment/Plan: 09/04/16 16:12 POD#1 Assessment: On pressors, HCT stable with augmentation, lactate up slightly. Impression- ongoing GI blood loss. Awaiting GI for endoscopy. Currently on PPI and carafate. Appears to have volume issue secondary to GI blood loss. Presume a posterior duodenal ulcer although gastritis remains a possibility. Intermittent air leak noted. Chest tube to 30 cmH2O and lung up. Plan: Maintain volume replacement (use pressors as second line support), Get GI consult/EGD, Follow lactate, ABG's other labs and CXR. 09/05/16 06:13 POD#2 Assesment/Plan: Etiology of events now a bit clearer. Blood cultures (1 of 2) positive for MSSA. WBC dpwn Bands decreased from 48 to 39. On vancomycin. EGD consistent with gastritis. Minimal bowel sounds. Would not attempt to feed yet. Hct decreased from 28 to 21. IV fluids at ~ 200 cc/hr. ~2000cc urine out this shift. I feel that the hct drop is due to fluid recruitment/overload and hemolysis of transfused blood. I have decreased IV fluids and ordered a F/u HCT. He is not showing compromise from fluids yet so have not ordered diuretics yet. Minimal air leak remains. 200 cc out chest tube ( mainly serous ). Will continue chest tube suction. CXR pending ( done but not available yet) 09/07/16 09:02 POD#4 Assessment: Patient alert on BiPAP. Respiratory rate increasing as is PCO2. Minimal apical Right Ptx but no air leak. Chest tube migrated slightly. Chest tube site looks good. Right pleural fluid on CXR. 250cc serosanguineous fluid out last 24. Increasing left chest infiltrates. Will probably need reintubation. GI- He reports passing flatus. BS, none the less, are quite hypoactive and abdomen tympanitic. Nutrition needs to be addressed (TPN?). That will increase his CO2 production and will also tip him more toward reintubation. Incision looks good. Infection - addressed by ID (WBC up, gram negative venecia on blood culture ( yet to be ID'd ) influence uncertain) Plan: Follow CXR and reassess chest tube. GI tract not yet ready for nutritional challenge. Subjective: C/o dry mouth, reports flatus Objective: Vital Signs Temp Pulse Resp BP Pulse Ox 37.9 C 95 40 H 118/63 100 03/10/17 08:35 09/07/16 08:35 09/07/16 08:35 09/07/16 06:00 09/07/16 08:35 Microbiology 09/04/16 03:15 Blood Panel (PCR) - Final Blood No Organism Detected 09/04/16 03:28 Gram Stain - Final Lung Left Lower Lobe - Bronchial Washings 09/04/16 03:00 Blood Panel (PCR) - Final Blood S.aureus Methicillin Suscept. 09/04/16 03:20 Urine Culture - Final Urine,Catheterized Laboratory Results 09/07/16 05:30 09/07/16 05:30 09/06/16 09/07/16 09/08/16 05:59 05:59 05:59 Intake Total 3525 2228 Output Total 4440 4100 Balance -915 -1872 PT 17.1 SEC (12.0-15.0) H 09/05/16 09:40 INR 1.40 (0.83-1.16) H 09/05/16 09:40 - Time Spent With Patient Time Spent With Patient: 30 Physical Exam - Physical Exam General Appearance: alert, mild distress Neck: non-tender, full range of motion, supple, normal inspection Respiratory: crackles, rhonchi, other (Chest tube - no air leak but fluctuation with respiration, 250 serosanguinous output in last 24 hours. Tachypnea) Cardiac/Chest: tachycardia Abdomen: non-tender, soft, distended, other (Hypoactive bowel sounds) Male Genitalia: normal genitalia Rectal: deferred Skin: normal color, warm/dry, other (chest wall petechial rash) Neuro/Psych: alert ICD10 Worksheet Patient Problems: Problems Problem Status Onset Acute chest pain Acute Interstitial lung disease Acute Pneumothorax, right Acute Acute respiratory failure with hypoxia Acute Alcohol abuse Acute Hematemesis Acute Lung infiltrate Acute Ribs, multiple fractures Acute Sepsis Acute
[2016-09-07] MEDS: NICOTINE 21 MG/24 HR PATCH TD SCH ×2 (09:17→09:20)
[2016-09-07] MEDS: SENNOSIDES/DOCUSATE SODIUM TAB PO SCH ×2 (09:17→20:43)
[2016-09-07] MEDS: SUCRALFATE 1 GM/10 ML UDCUP TUBE SCH ×4 (09:18→20:43)
[2016-09-07] MEDS: PANTOPRAZOLE SODIUM 40 MG in NS 100 ML IV SCH ×2 (09:19→20:43)
[2016-09-07] MEDS ORDERED: LIDOCAINE 1% 30 ML SDV MISC ONE (11:03)
[2016-09-07] MEDS ORDERED: LIDOCAINE 2% JELLY 5 ML TUBE TP ONE (11:03)
[2016-09-07] MEDS ORDERED: MIDAZOLAM 2 MG/2 ML VIAL ONE ×2 (11:50→12:07)
[2016-09-07] MEDS ORDERED: MIDAZOLAM 2 MG/2 ML VIAL IVP ONE (12:14)
[2016-09-07] MEDS ORDERED: PROPOFOL/EMULSION 100 ML IV SCH (12:30)
[2016-09-07] MEDS ORDERED: fentaNYL/NACL 100 ML IV SCH (12:30)
[2016-09-07] MEDS: METOCLOPRAMIDE 10 MG/2 ML VIAL IVP SCH ×3 (12:34→23:58)
--- NOTE | 2016-09-07 12:40 | PDINTPN ---
[facility] Progress Note Assessment/Plan: Assessment: Acute respiratory failure, recurrent. Likely secondary to aspiration of gastric coffee ground material in the setting of underlying interstitial disease. Status post bronchoscopy and intubation 09/04, 09/06, and now with recurrent respiratory failure, increasing infiltrates, hypoxemia and tachypnea. Will need to be reintubated today, ventilated. Sputum cultures negative from previous bronchoscopy. On Zosyn and vancomycin secondary to aspiration and presumed nosocomial acquired aspiration pneumonia. Hypotension: Multifactorial, resolved, off pressors. In part secondary to blood loss and hypovolemia and sepsis/SIRS associated with acute pulmonary injury/infection. CVP improved, last 6. Interstitial lung disease, status post spontaneous pneumothorax. Has a new chest tube, small pneumothorax today, small leak. Stable. Status post exploratory laparotomy: Secondary to abdominal pain at the time of intubation. Findings were negative. Has residual postop tenderness GI bleed. Clearly had an upper GI bleed with coffee-ground material from his stomach, with almost 3 L of this material in stomach when his NG tube was placed. GI consultation appreciated. EGD did not find much: only some gastric erosions. These may have been the source of his GI bleed. He has had no evidence of active GI bleeding since. Acute blood-loss anemia: Secondary to above. Improved hematocrit/stable: 30 today after 7 units given between 09/03 and 09/05.. No evidence of active ongoing bleeding at this time. Elevated liver function studies. AST and ALT remain increased, stable. Possibly secondary to hypotension or underlying hep C? Will follow. Nutrition: None since intubation and laparotomy. Still with hypoactive bowel sounds. Hopefully we can start tube feedings tomorrow. Will start Reglan today. History of tobacco abuse, alcohol use, hepatitis-C, homelessness, etc Plan: Will re-intube semi-electively this AM, ventilate, sedate, etc. Will re- culture sputums, therapeutic bronch. . Continue CT to suction. Follow x-ray, ABG, laboratory... Consider a trial of empiric steroids. Reglan today, hopefully start tube feedings tomorrow. 45 mins of critical care time spent directly with the patient, not including bronchoscopy and intubation. Discussed with Dr. Dean, hospitalist, nursing, respiratory therapy, and the ICU multi disciplinary team. Subjective: Increased oxygen requirements overnight, now on BiPAP. In some respiratory distress. Objective: Vital Signs Temp Pulse Resp BP Pulse Ox 37.9 C 95 40 H 118/63 100 09/07/16 08:35 09/07/16 08:35 09/07/16 08:35 09/07/16 06:00 09/07/16 08:35 Microbiology 09/04/16 03:15 Blood Panel (PCR) - Final Blood No Organism Detected 09/04/16 03:28 Gram Stain - Final Lung Left Lower Lobe - Bronchial Washings 09/04/16 03:00 Blood Panel (PCR) - Final Blood S.aureus Methicillin Suscept. 09/04/16 03:20 Urine Culture - Final Urine,Catheterized Laboratory Results 09/07/16 05:30 09/07/16 05:30 09/06/16 09/07/16 09/08/16 05:59 05:59 05:59 Intake Total 3525 2228 Output Total 4440 4100 Balance -915 -1872 PT 17.1 SEC (12.0-15.0) H 09/05/16 09:40 INR 1.40 (0.83-1.16) H 09/05/16 09:40 Laboratory Tests 09/07/16 09/07/16 05:30 08:33 pCO2 48 H pO2 167 H ABG pH 7.38 O2 Concentration % 100 Mode BiPAP YES Calcium 7.7 L Total Bilirubin 0.9 AST 86 H ALT 126 H Albumin 2.0 L CXR: Increased hypoventilatory changes with new infiltrate/increasing dense consolidation of the left upper lung zone. Right-sided about the same. Chest tube remains in place, small apical pneumo is present. Physical Exam - Physical Exam General Appearance: mild distress, other (On BiPAP, tachypneic), No unresponsive EENT: PERRL/EOMI, other (BiPAP, NG tube, dry mucous membranes) Neck: other (Jugular venous distension present) Respiratory: decreased breath sounds, rales (Bilaterally), rhonchi, wheezing ( Mild end expiratory with bronchial changes at the bases) Cardiac/Chest: tachycardia (Sinus) Abdomen: soft, No normal bowel sounds (Diminished, present), No non-tender ( Tender) Male Genitalia: other (Ibarra catheter in place, good urine output: Output greater than input by approximately 2800 cc last 48 hours) Skin: warm/dry, pallor Extremities: No pedal edema Neuro/Psych: no motor/sensory deficits, No cognition abnormalities ICD10 Worksheet Patient Problems: Problems Problem Status Onset Hematemesis Acute Acute respiratory failure with hypoxia Acute Alcohol abuse Acute Ribs, multiple fractures Acute Sepsis Acute Lung infiltrate Acute Acute chest pain Acute Pneumothorax, right Acute Interstitial lung disease Acute
--- NOTE | 2016-09-07 13:18 | PCMIDPN ---
Assessment/Plan: Assessment: MSSA bacteremia from an unclear source. Initial pneumothorax right side. Right lung now has the appearance of infection. Bronch wash is also growing MSSA. Covered by regimen of vancomycin and Zosyn. Lactobacillus species in same blood culture 1/2 sets. Probably not a contaminant. This would indicate that an echocardiogram is likely needed to rule out endocarditis which is common in the setting of lactobacillus bacteremia. These isolates are intrinsically resistant to Vancomycin. However Zosyn is likely to have a better coverage profile. Plan: 1. Continue Zosyn. Will discontinue vancomycin. 2. Check 2D echocardiogram. 3. Follow clinical course. 09/07/16 14:14 Subjective: Patient is on BiPAP. Struggling to maintain respiratory stability. No fevers or chills. Objective: Vancomycin #4 Zosyn #4 Vital Signs Temp Pulse Resp BP Pulse Ox 37.5 C 104 H 30 H 118/63 98 09/07/16 12:33 09/07/16 12:33 09/07/16 12:33 09/07/16 06:00 09/07/16 12:33 Microbiology 09/04/16 03:15 Blood Panel (PCR) - Final Blood No Organism Detected 09/04/16 03:28 Gram Stain - Final Lung Left Lower Lobe - Bronchial Washings 09/04/16 03:00 Blood Panel (PCR) - Final Blood S.aureus Methicillin Suscept. 09/04/16 03:20 Urine Culture - Final Urine,Catheterized Laboratory Results 09/07/16 05:30 09/07/16 12:45 09/06/16 09/07/16 09/08/16 05:59 05:59 05:59 Intake Total 5532 2227 Output Total 4490 8434 Balance -913 -4419 - Physical Exam General Appearance: WD/WN, alert, apparent distress (Moderate respiratory distress) Respiratory: crackles, coarse breath sounds, No lungs clear, No normal breath sounds Cardiac/Chest: regular rate, rhythm, No tachycardia Skin: normal color, warm/dry, No rash Neuro/Psych: alert ICD10 Worksheet Patient Problems: Problems Problem Status Onset Acute chest pain Acute Interstitial lung disease Acute Pneumothorax, right Acute Acute respiratory failure with hypoxia Acute Alcohol abuse Acute Hematemesis Acute Lung infiltrate Acute Ribs, multiple fractures Acute Sepsis Acute
--- NOTE | 2016-09-07 14:40 | HOSPPROG ---
Hospitalist Progress Note Assessment/Plan: Shock. Acute, likely multifactoral including hemorrhagic, hypovolemic, and septic, evidenced by lactic 8.1 and requiring 2 pressors off pressors today CVP 3- bolus 1 L plus albumin lactobacillus bacteremia: check echo given high association w SBE Septic shock. Cont broad Abx, cont maint IVF and levo Aspiration PNA. Gastric material noted in R bronchi on bronch by Dr. Betts, cont on Vanco/Zosyn re: recent hospitalization cont Abx D#4 MSSA bacteremia. Present on 09/04 BCx, unclear whether 2/2 pulm source vs. CVC removed CVC, PICC placed s/p 24hrs of Abx repeat BCx 09/06 zosyn monotherapy Acute on chronic hypoxic and hypercapnic respiratory failure. 2/2 suspected aspiration PNA in setting of known ILD reintubated this AM Acute upper gastrointestinal hemorrhage. Coffee ground emesis w/ FOB (+) EGD w/ gastritis, cont PPI Acute blood loss anemia. Hgb 12.5->7, giving 4 units total of 4 units this admit Tension ptx. no w chest tube Pulmonary fibrosis. Chronic, no indication for steroids Distal esophageal thickening. CT findings c/w esophagitis and associated small hiatal hernia, cont PPI Thrombocytopenia. HIT ab neg Diet. NPO PPx. Holding given bleed, on SCDs Code. Full, d/w Ethics, patient would like to clarify his MPOA/[place] when extubated Dispo. ADD uncertain Subjective: case d/w dr thacker. persistent R pneumothorax on cxr (interp by ri, d/w dr thacker) Objective: Vital Signs Temp Pulse Resp BP Pulse Ox 37.5 C 104 H 30 H 118/63 98 09/07/16 12:33 09/07/16 12:33 09/07/16 12:33 09/07/16 06:00 09/07/16 12:33 Microbiology 09/07/16 12:38 - Final Sputum, Induced/Suctioned 09/04/16 03:15 Blood Panel (PCR) - Final Blood No Organism Detected 09/04/16 03:28 Gram Stain - Final Lung Left Lower Lobe - Bronchial Washings 09/04/16 03:00 Blood Panel (PCR) - Final Blood S.aureus Methicillin Suscept. 09/04/16 03:20 Urine Culture - Final Urine,Catheterized Laboratory Results 09/07/16 05:30 03/10/17 12:45 09/06/16 09/07/16 09/08/16 05:59 05:59 05:59 Intake Total 3525 2228 Output Total 4460 4100 Balance -915 -1872 PT 17.1 SEC (12.0-15.0) H 09/05/16 09:40 INR 1.40 (0.83-1.16) H 09/05/16 09:40 - Physical Exam Constitutional: no apparent distress, other (intubated, sedated) Eyes: PERRL, anicteric sclera Ears, Nose, Mouth, Throat: moist mucous membranes, hearing normal Cardiovascular: regular rate and rhythym, no murmur, rub, or gallop Respiratory: no respiratory distress, no rales or rhonchi, other (chest tube) Gastrointestinal: normoactive bowel sounds, soft, non-tender abdomen Genitourinary: rosado in urethra Skin: warm Neurologic: No AAOx3 Psychiatric: interacting appropriately, not anxious ICD10 Worksheet Patient Problems: Problems Problem Status Onset Acute chest pain Acute Interstitial lung disease Acute Pneumothorax, right Acute Acute respiratory failure with hypoxia Acute Alcohol abuse Acute Hematemesis Acute Lung infiltrate Acute Ribs, multiple fractures Acute Sepsis Acute
[2016-09-07 15:11] LABS: BASE EXCESS 2.8 mEq/L (-2.5-2.5); BICARBONATE 29 mEq/L (22-26); MEASURED OXYGEN SATURATION 100 % (92-95); PCO2 54 mmHg (34-38); PO2 289 mmHg (65-75); TCO2 30 mEq/L (23-27)
[2016-09-07 15:12] LABS: O2 CONCENTRATIION 100 % (0-100); P/F RATIO 289 RATIO; SIMV YES
[2016-09-07 15:13] LABS: PRESSURE SUPPORT 7
[2016-09-07] MEDS: POTASSIUM Cl (KCl) 40 MEQ in NS 1,000 ML IV SCH (15:13)
[2016-09-07] MEDS: PROPOFOL/EMULSION 100 ML IV SCH ×3 (15:14→22:22)
[2016-09-07] MEDS ORDERED: NS 1,000 ML IV ONE (15:30)
--- NOTE | 2016-09-07 16:11 | GPN ---
[f rep st] PROCEDURE NOTE DATE OF PROCEDURE: 09/07/2016 PROCEDURE: Intubation. INDICATION: Recurrent respiratory failure, with increasing left-sided infiltrates, hypoxemia and re spiratory distress. DESCRIPTION OF PROCEDURE: The procedure was done in the Intensive Care Unit. The patient was not in a negative-pressure room, as there has been no evidence previously of any communicable airborne res piratory disease. N95 masks were worn. Informed consent was obtained verbally from the patient. Cons cious sedation consisted of 4 mg of IV Versed. Topical anesthesia to the posterior oropharynx and tr achea included a small amount of Hurricaine spray and 10 cc of 1% lidocaine. The fiberoptic bronchoscope was passed via bite block into the larynx. The vocal cords were observed and cannulated. They appeared to move normally with respiration and cough. The endotracheal tube wa s advanced into the trachea and left 2 to 3 cm above the main alessandra. There were some thick secretio ns, not large amounts, and blood in the airways. The latter was likely secondary to mild trauma duri ng intubation. After the bronchoscope was removed, the patient was stabilized by bagging and placed on the ventilat or. IMPRESSION: Successful endotracheal tube intubation. A 7.5 mm tube was used. /[id number]/MODL
--- NOTE | 2016-09-07 16:16 | GPN ---
[f rep st] PROCEDURE NOTE DATE OF PROCEDURE: 09/07/2016 PROCEDURE: Therapeutic bronchoscopy. INDICATION: Recurrent respiratory failure associated with increasing infiltrates, respiratory distr ess, and increased secretions. PROCEDURE NOTE: The procedure was performed following the patient's endotracheal intubation. The fi beroptic bronchoscope was advanced via an adaptor on the end of the patient's endotracheal tube into the distal trachea. Blood and mucus in the trachea and in the lower tracheobronchial tree were serge jonathan. The endobronchium appeared normal. There were at least modest purulent secretions. A sample was obtained for cultures and sent to the laboratory. /[id number]/MODL
[2016-09-07 19:40] LABS: POTASSIUM 5.3 mEq/L (3.5-5.2)
[2016-09-08] MEDS: PROPOFOL/EMULSION 100 ML IV SCH ×4 (03:14→21:24)
[2016-09-08 03:20] LABS: HEMOGLOBIN 9.2 g/dL (13.7-17.5); RED BLOOD CELL COUNT 3.38 10^6/uL (4.40-6.38)
[2016-09-08 03:21] LABS: HEMATOCRIT 29.2 % (40.0-51.0); MEAN CELL HEMOGLOBIN 27.2 pg (27.9-34.1); MEAN CELL HEMOGLOBIN CONCENTR. 31.5 g/dL (32.4-36.7); MEAN CELL VOLUME 86.4 fL (81.5-99.8)
[2016-09-08 03:26] LABS: RED CELL DISTRIBUTION WIDTH 20.2 % (11.5-15.2)
[2016-09-08 03:30] LABS: POTASSIUM 3.6 mEq/L (3.5-5.2)
[2016-09-08] MEDS: IPRATROPIUM/ALBUTEROL 3 ML DEYVIAL IH SCH (03:54)
[2016-09-08] MEDS: POTASSIUM Cl (KCl) 50 ML IV SCH ×3 (04:35→06:28)
[2016-09-08] MEDS: ALBUTEROL 60 PUFFS/8 GM MDI IH SCH ×7 (04:36→23:41)
[2016-09-08] MEDS: METOCLOPRAMIDE 10 MG/2 ML VIAL IVP SCH ×3 (05:28→17:28)
[2016-09-08] MEDS: PIPERACILLIN/TAZO 4.5 GM/DEX 100 ML IV SCH ×3 (05:29→17:28)
[2016-09-08 05:41] LABS: BASE EXCESS 2.6 mEq/L (-2.5-2.5); BICARBONATE 28 mEq/L (22-26); MEASURED OXYGEN SATURATION 90 % (92-95); PCO2 53 mmHg (34-38); PO2 61 mmHg (65-75); TCO2 30 mEq/L (23-27)
[2016-09-08 05:48] LABS: END TIDAL CO2 41; O2 CONCENTRATIION 50 % (0-100); P/F RATIO 122 RATIO; PATIENT RATE 32; PRESSURE SUPPORT 7; SIMV YES
[2016-09-08] MEDS: POTASSIUM Cl (KCl) 40 MEQ in NS 1,000 ML IV SCH (05:53)
[2016-09-08] MEDS: SENNOSIDES/DOCUSATE SODIUM TAB PO SCH ×2 (08:17→20:04)
[2016-09-08] MEDS: PANTOPRAZOLE SODIUM 40 MG in NS 100 ML IV SCH ×2 (08:17→20:05)
[2016-09-08] MEDS: NICOTINE 21 MG/24 HR PATCH TD SCH ×2 (08:17→09:47)
[2016-09-08] MEDS: SUCRALFATE 1 GM/10 ML UDCUP TUBE SCH ×4 (08:17→20:05)
--- NOTE | 2016-09-08 09:51 | SOAPPROG ---
SOAP Progress Note Assessment/Plan: 09/04/16 16:12 POD#1 Assessment: On pressors, HCT stable with augmentation, lactate up slightly. Impression- ongoing GI blood loss. Awaiting GI for endoscopy. Currently on PPI and carafate. Appears to have volume issue secondary to GI blood loss. Presume a posterior duodenal ulcer although gastritis remains a possibility. Intermittent air leak noted. Chest tube to 30 cmH2O and lung up. Plan: Maintain volume replacement (use pressors as second line support), Get GI consult/EGD, Follow lactate, ABG's other labs and CXR. 09/05/16 06:13 POD#2 Assesment/Plan: Etiology of events now a bit clearer. Blood cultures (1 of 2) positive for MSSA. WBC dpwn Bands decreased from 48 to 39. On vancomycin. EGD consistent with gastritis. Minimal bowel sounds. Would not attempt to feed yet. Hct decreased from 28 to 21. IV fluids at ~ 200 cc/hr. ~2000cc urine out this shift. I feel that the hct drop is due to fluid recruitment/overload and hemolysis of transfused blood. I have decreased IV fluids and ordered a F/u HCT. He is not showing compromise from fluids yet so have not ordered diuretics yet. Minimal air leak remains. 200 cc out chest tube ( mainly serous ). Will continue chest tube suction. CXR pending ( done but not available yet) 09/07/16 09:02 POD#4 Assessment: Patient alert on BiPAP. Respiratory rate increasing as is PCO2. Minimal apical Right Ptx but no air leak. Chest tube migrated slightly. Chest tube site looks good. Right pleural fluid on CXR. 250cc serosanguineous fluid out last 24. Increasing left chest infiltrates. Will probably need reintubation. GI- He reports passing flatus. BS, none the less, are quite hypoactive and abdomen tympanitic. Nutrition needs to be addressed (TPN?). That will increase his CO2 production and will also tip him more toward reintubation. Incision looks good. Infection - addressed by ID (WBC up, gram negative venecia on blood culture ( yet to be ID'd ) influence uncertain) Plan: Follow CXR and reassess chest tube. GI tract not yet ready for nutritional challenge. 09/08/16 09:44 POD#5 Assessment: Patient reintubated yesterday. Chest tube - no air leak or "tidaling" - taken off suction. Will follow chest tube output - expect less off suction. Will continue to re-assess regarding return to suction. GI- abdomen less distended, faint scattered bowel sounds, minimal NG output continues. Will consider tube feeds today to address nutritional deficiency. Incision looks good. Issues- Volume status - CVP non functional, tachycardic, slightly hypotensive but good urine output. - will check lactate to aid in volume assessment. Pulmonary - etiology of "blossoming" left lung still unclear. ID input appreciated. GI bleed - stable. Subjective: less responsive today. Intubated Objective: Vital Signs Temp Pulse Resp BP Pulse Ox 37.9 C 104 H 28 H 92/61 L 96 09/08/16 09:02 09/08/16 09:02 09/08/16 09:02 09/08/16 09:02 09/08/16 09:02 Microbiology 09/04/16 03:15 Blood Panel (PCR) - Final Blood No Organism Detected 09/04/16 03:28 Gram Stain - Final Lung Left Lower Lobe - Bronchial Washings Bronchial Washings Culture - Final Staphylococcus Aureus 09/07/16 12:38 - Final Sputum, Induced/Suctioned Laboratory Results 09/08/16 03:10 09/08/16 03:10 09/07/16 09/08/16 09/09/16 05:59 05:59 06:59 Intake Total 2228 3386.1 Output Total 4100 1355 Balance -1872 2031.1 PT 17.1 SEC (12.0-15.0) H 09/05/16 09:40 INR 1.40 (0.83-1.16) H 09/05/16 09:40 - Time Spent With Patient Time Spent With Patient: 30 Physical Exam - Physical Exam General Appearance: no apparent distress Neck: non-tender, full range of motion, supple Respiratory: crackles, rales, rhonchi Cardiac/Chest: tachycardia Abdomen: non-tender, soft, other (incision clean and dry, hypoactive but improved bowel sounds) Rectal: deferred ICD10 Worksheet Patient Problems: Problems Problem Status Onset Acute chest pain Acute Interstitial lung disease Acute Pneumothorax, right Acute Acute respiratory failure with hypoxia Acute Alcohol abuse Acute Hematemesis Acute Lung infiltrate Acute Ribs, multiple fractures Acute Sepsis Acute
[2016-09-08 11:05] LABS: ALANINE AMINOTRANSFERASE 86 IU/L (21-72); ALKALINE PHOSPHATASE 114 IU/L (38-126); ANION GAP 8 mEq/L (8-16); ASPARTATE AMINOTRANSFERASE 48 IU/L (17-59); BILIRUBIN,TOTAL 0.8 mg/dL (0.1-1.4); CALCIUM 7.7 mg/dL (8.5-10.4); CARBON DIOXIDE 28 mEq/l (22-31); CHLORIDE 106 mEq/L (97-110); CREATININE 0.5 mg/dL (0.7-1.3); GLOMERULAR FILTRATION RATE > 60; GLUCOSE 65 mg/dL (70-100); SODIUM 142 mEq/L (134-144); TOTAL PROTEIN 4.2 g/dL (6.3-8.2)
--- NOTE | 2016-09-08 11:48 | ECHO ---
[id number] + + [address] : : [place] [address] : : [phone] + + Adult Echocardiographic Report + + :Name: DANNY ANDERSON Study Date: 09/07/2016 03:08 PM : : Hospital Admission Number: [id number] : :: 1960 Gender: Male Height: 72 in : :Age: 56 yrs Race: AIA Weight: 183 lb : :Reason For Study: Eval LV Fx : : BSA: 2.1 meters2: :History: Intubated, Bacteremia and Sepsis : + + MMode/2D Measurements \T\ Calculations IVSd: 0.72 cm LVIDd: 4.1 cm FS: 40.6 % Ao root diam: 3.6 cm LVPWd: 0.99 cm LVIDs: 2.4 cm EDV(Teich): 74.6 ml ACS: 1.7 cm ESV(Teich): 21.0 ml EF(Teich): 71.8 % Normal Measurement Values: + + :LVIDd (3.5-5.7cm) IVSd (0.6-1.1cm) LVPWd (0.6-1.1cm) Aortic Root (2.0-3.7cm)Left Atrium (1.5-4.0cm): :LV Vol(d) (76-115ml) LV Vol(s) (29-48ml) Ejec Fraction (50-65%)PV Pankaj (0.6- 1.2m/s) TV Pankaj (0.4-1.0m/s) : :MV E Pankaj (0.8-1.0m/s)MV A Pankaj (0.3-1.0m/s)LVOT Pankaj (0.7-1.2m/s) Asc Ao Pankaj ( 0.9-1.8m/s) : + + Doppler Measurements \T\ Calculations MV E max pankaj: 59.7 cm/sec PA V2 max: 85.5 cm/sec TR max pankaj: 407.2 cm/sec MV A max pankaj: 70.6 cm/sec PA max P.9 mmHg TR max P.3 mmHg MV E/A: 0.85 RAP systole: 5.0 mmHg RVSP(TR): 71.3 mmHg Left Ventricle The left ventricle is normal in size and function. There is normal left ventricular wall thickness. The left ventricular ejection fraction is normal. There is Doppler evidence for diastolic dysfunction. Ejection Fraction = 60-65%%. Right Ventricle The right ventricle is normal in size and function. Atria The left atrial size is normal. Right atrial size is normal. Mitral Valve The mitral valve is normal in structure and function. There is mild mitral annular calcification. There is no evidence of mitral valve prolapse. There is no vegetation seen on the mitral valve. There is no mitral valve stenosis. There is no mitral regurgitation noted. Tricuspid Valve There is mild tricuspid regurgitation. Right ventricular systolic pressure is 72mmHg. There is Doppler evidence for severe pulmonary hypertension. Aortic Valve Mild Aortic Valve Calcification. The aortic valve is trileaflet. Calcification of Right Coronary Cusp. There is no aortic valvular vegetation. There is no aortic stenosis. There is no aortic insufficiency. Pulmonic Valve The pulmonic valve is not well visualized. There is no pulmonic valvular regurgitation. Great Vessels The aortic root is normal size. Pericardium/Pleural There is no pericardial effusion. There is no pleural effusion. Conclusion A complete two-dimensional transthoracic echocardiogram was performed (2D, M-mode, Doppler and color flow Doppler). There is no evidence of a mass or vegetation. This does not rule out endocarditis. The left ventricular ejection fraction is normal. There is Doppler evidence for diastolic dysfunction. The mitral valve is normal in structure and function. There is no evidence of mitral valve prolapse. There is no vegetation seen on the mitral valve. There is mild tricuspid regurgitation. Right ventricular systolic pressure is 72mmHg. There is Doppler evidence for severe pulmonary hypertension. Mild Aortic Valve Calcification There is no aortic valvular vegetation. There is no pericardial effusion. Ejection Fraction = 60-65%%. There is no pleural effusion. The left ventricle is normal in size and function. Final Reading Physician: Antonio Condon electronically signed on 09/08/2016 11:47 AM Ordering Physician: Lucas Bowman Performed By: Jose Santos, RDGERARDO
[2016-09-08] MEDS ORDERED: LIDOCAINE 1% 30 ML SDV MISC ONE (12:07)
[2016-09-08] MEDS ORDERED: LIDOCAINE 2% JELLY 5 ML TUBE TP ONE (12:07)
[2016-09-08] MEDS: ACETAMINOPHEN 325 MG TAB PO PRN (12:41)
--- NOTE | 2016-09-08 14:40 | HOSPPROG ---
Hospitalist Progress Note Assessment/Plan: Shock. Acute, likely multifactoral including hemorrhagic, hypovolemic, and septic, evidenced by lactic 8.1 and requiring 2 pressors off pressors today CVP 3- bolus 1 L plus albumin markedly elevated R sided pressures noted, not new lactobacillus bacteremia: check echo given high association w SBE Septic shock. Cont broad Abx, cont maint IVF and levo Aspiration PNA. Gastric material noted in R bronchi on bronch by Dr. Betts, cont on Vanco/Zosyn re: recent hospitalization cont Abx D#5 MSSA bacteremia. Present on 09/04 BCx, unclear whether 2/2 pulm source vs. CVC removed CVC, PICC placed s/p 24hrs of Abx repeat BCx 09/06 zosyn monotherapy Acute on chronic hypoxic and hypercapnic respiratory failure. 2/2 suspected aspiration PNA in setting of known ILD reintubated this AM Acute upper gastrointestinal hemorrhage. Coffee ground emesis w/ FOB (+) EGD w/ gastritis, cont PPI Acute blood loss anemia. Hgb 12.5->7, giving 4 units total of 4 units this admit Tension ptx. no w chest tube Pulmonary fibrosis. Chronic, no indication for steroids Distal esophageal thickening. CT findings c/w esophagitis and associated small hiatal hernia, cont PPI Thrombocytopenia. HIT ab neg Diet. NPO PPx. Holding given bleed, on SCDs Code. Full, d/w Ethics, patient would like to clarify his MPOA/[place] when extubated Dispo. ADD uncertain Subjective: CHEST TUBE TO WATERSEAL BRIEFLY, developed tension, back on suction. hypotensive w maximal sedation. case d/w dr thacker. cxr: severe b/l airspace disease (interp by me) Objective: Vital Signs Temp Pulse Resp BP Pulse Ox 38.1 C 118 H 26 H 106/64 96 09/08/16 14:00 09/08/16 14:00 09/08/16 14:00 09/08/16 14:00 09/08/16 14:00 Microbiology 09/04/16 03:15 Blood Panel (PCR) - Final Blood No Organism Detected 09/07/16 12:38 - Final Sputum, Induced/Suctioned 09/04/16 03:28 Gram Stain - Final Lung Left Lower Lobe - Bronchial Washings Bronchial Washings Culture - Final Staphylococcus Aureus Laboratory Results 09/08/16 03:10 09/07/16 09/08/16 09/09/16 05:59 05:59 06:59 Intake Total 2228 3386.1 Output Total 4100 1355 Balance -1872 2031.1 PT 17.1 SEC (12.0-15.0) H 09/05/16 09:40 INR 1.40 (0.83-1.16) H 09/05/16 09:40 - Physical Exam Constitutional: other (intubated, agitated) Eyes: PERRL, anicteric sclera Ears, Nose, Mouth, Throat: moist mucous membranes, hearing normal Cardiovascular: no murmur, rub, or gallop, tachycardia Respiratory: other (very rhoncorous) Gastrointestinal: normoactive bowel sounds, soft, non-tender abdomen Genitourinary: No rosado in urethra Skin: warm, normal color Musculoskeletal: full muscle strength, no muscle tenderness Neurologic: AAOx3, sensation intact bilaterally Psychiatric: No interacting appropriately, No not anxious Lymph, Heme, Immunologic: no cervical LAD ICD10 Worksheet Patient Problems: Problems Problem Status Onset Acute chest pain Acute Interstitial lung disease Acute Pneumothorax, right Acute Acute respiratory failure with hypoxia Acute Alcohol abuse Acute Hematemesis Acute Lung infiltrate Acute Ribs, multiple fractures Acute Sepsis Acute
--- NOTE | 2016-09-08 15:38 | PCMIDPN ---
Assessment/Plan: Assessment: MSSA bacteremia from an unclear source. Initial pneumothorax right side. Right lung now has the appearance of infection. Bronch wash is also growing MSSA. Covered by regimen of vancomycin and Zosyn. Lactobacillus species in same blood culture 1/2 sets. Probably not a contaminant. 2D echocardiogram reviewed with Cardiology. No evidence of vegetation on heart valves. If bacteremia clears quickly see no need at this point for TEZ. Plan: 1. Continue Zosyn. 2. Follow clinical course. 09/07/16 14:14 09/08/16 15:35 Subjective: Patient is intubated. Persistent air leak on the right side. Some moderate respiratory distress. Objective: Zosyn # 5 Vital Signs Temp Pulse Resp BP Pulse Ox 37.7 C 107 H 28 H 97/66 L 98 09/08/16 15:25 09/08/16 15:25 09/08/16 15:25 09/08/16 15:25 09/08/16 15:25 Microbiology 09/04/16 03:15 Blood Panel (PCR) - Final Blood No Organism Detected 09/07/16 12:38 - Final Sputum, Induced/Suctioned 09/04/16 03:28 Gram Stain - Final Lung Left Lower Lobe - Bronchial Washings Bronchial Washings Culture - Final Staphylococcus Aureus Laboratory Results 09/08/16 03:10 09/08/16 14:00 09/07/16 09/08/16 09/09/16 05:59 05:59 06:59 Intake Total 2228 3386.1 Output Total 4100 1355 Balance -1872 2031.1 - Physical Exam General Appearance: WD/WN, alert, no apparent distress, non-toxic Respiratory: respiratory distress, No lungs clear, No normal breath sounds ( Absent breath sounds on right side. Returned with reintroduction of VAC to the chest tube.) Cardiac/Chest: regular rate, rhythm, tachycardia, No irregularly irregular Skin: normal color, warm/dry, No rash Neuro/Psych: No alert ICD10 Worksheet Patient Problems: Problems Problem Status Onset Acute chest pain Acute Interstitial lung disease Acute Pneumothorax, right Acute Acute respiratory failure with hypoxia Acute Alcohol abuse Acute Hematemesis Acute Lung infiltrate Acute Ribs, multiple fractures Acute Sepsis Acute
--- NOTE | 2016-09-08 16:11 | PDINTPN ---
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 Initially likely secondary to aspiration of gastric coffee ground material in the setting of underlying interstitial disease. Status post bronchoscopy and intubation 09/04, 09/06, and 09/07. Intubation on 09/07 associated with blossoming new infiltrates on the left. Unclear as to their etiology: Question progressive pneumonia, fluid overload, verses ARDS were pneumonitis? On Zosyn. Hypotension: Multifactorial, resolved, off pressors. In part secondary to blood loss and hypovolemia and sepsis/SIRS associated with acute pulmonary injury/infection initially. CVP improved, last 9. Interstitial lung disease, status post spontaneous pneumothorax. Has a new chest tube, small pneumothorax today, small leak. Stable. Status post exploratory laparotomy: Secondary to abdominal pain at the time of initial intubation 09/04. Findings were negative. Has residual postop tenderness. Now tolerating tube feedings GI bleed. Clearly had an upper GI bleed with coffee-ground material from his stomach, with almost 3 L of this material in stomach when his NG tube was placed. GI consultation appreciated. EGD did not find much: only some gastric erosions. These may have been the source of his GI bleed. He has had no evidence of active GI bleeding since. Acute blood-loss anemia: Secondary to above. Improved hematocrit/stable: 29 today after 7 units given between 09/03 and 09/05.. No evidence of active ongoing bleeding at this time. Elevated liver function studies. AST and ALT improving. Possibly secondary to hypotension or underlying hep C? Will follow. Nutrition: On tube feedings as of today. Continue Reglan. History of tobacco abuse, alcohol use, hepatitis-C, homelessness, etc Plan: Continue ventilatory support, sedation. Continue CT to suction. Follow x -ray, ABG, laboratory... Continue antibiotics, bronchodilators, other medications. Continue aggressive supportive care. 50 mins of critical care time spent directly with the patient, not including bronchoscopy. Discussed with Dr. Dean, hospitalist, nursing, respiratory therapy, and the ICU multi disciplinary team. Subjective: Sedated but arouses, can pull on tubes. On the ventilator. Objective: Vital Signs Temp Pulse Resp BP Pulse Ox 37.7 C 107 H 28 H 97/66 L 98 09/08/16 15:25 09/08/16 15:25 09/08/16 15:25 09/08/16 15:25 09/08/16 15:25 Microbiology 09/04/16 03:15 Blood Panel (PCR) - Final Blood No Organism Detected 09/07/16 12:38 - Final Sputum, Induced/Suctioned 09/04/16 03:28 Gram Stain - Final Lung Left Lower Lobe - Bronchial Washings Bronchial Washings Culture - Final Staphylococcus Aureus Laboratory Results 09/08/16 03:10 09/08/16 14:00 09/07/16 09/08/16 09/09/16 05:59 05:59 06:59 Intake Total 2228 3386.1 Output Total 4100 1355 Balance -1872 2031.1 PT 17.1 SEC (12.0-15.0) H 09/05/16 09:40 INR 1.40 (0.83-1.16) H 09/05/16 09:40 Laboratory Tests 09/08/16 09/08/16 05:35 10:27 pCO2 53 H pO2 61 L ABG pH 7.35 ABG O2 Saturation 90 L O2 Concentration % 50 Actual Respiration Rate 32 Set Respiration Rate 28 SIMV YES Tidal Volume 550 PEEP 7 Pressure Support 7 Calcium 7.7 L Total Bilirubin 0.8 AST 48 ALT 86 H NT-Pro-B Natriuret Pep 8530 H Albumin 2.0 L Cultures: MSSA from blood and lungs, lactobacillus in blood: 1 culture Cardiac echo: no evidence of endocarditis. Normal left ventricular ejection fraction. Pulmonary systolic pressure 70, unchanged. Chest x-ray: Unchanged: Bilateral infiltrates persist. Diffuse, left as well as right. Lines and tubes in good position. However PICC may be somewhat deep. Physical Exam - Physical Exam General Appearance: no apparent distress, other (Sedated, on ventilator) EENT: PERRL/EOMI, ET tube, other (NG to) Neck: normal inspection (Mild JVD present) Respiratory: rales (Bilateral), rhonchi (Few present), other (Chest tube in place, small air leak occasionally. Serosanguineous drainage), No decreased breath sounds, No wheezing Cardiac/Chest: tachycardia (Sinus) Abdomen: soft, other (Tolerating tube feeding so far), No normal bowel sounds ( Hypoactive, present), No non-tender (Still with mild tenderness) Male Genitalia: other (Ibarra catheter in place, input greater than output last 24 hours. CVP 9.) Skin: normal color, warm/dry Extremities: pedal edema (Trace) Neuro/Psych: no motor/sensory deficits (Moves all extremities), No cognition abnormalities (Appears intact) ICD10 Worksheet Patient Problems: Problems Problem Status Onset Hematemesis Acute Acute respiratory failure with hypoxia Acute Alcohol abuse Acute Ribs, multiple fractures Acute Sepsis Acute Lung infiltrate Acute Acute chest pain Acute Pneumothorax, right Acute Interstitial lung disease Acute
[2016-09-08] MEDS ORDERED: FUROSEMIDE 20 MG/2 ML VIAL IVP ONE (16:34)
[2016-09-08 18:30] LABS: POTASSIUM 3.8 mEq/L (3.5-5.2)
--- NOTE | 2016-09-08 18:50 | GPN ---
[f rep st] PROCEDURE NOTE PROCEDURE: Therapeutic bronchoscopy. INDICATION: Self-extubation, removal of secretions. DESCRIPTION OF PROCEDURE: The procedure was performed in the patient's room in the intensive care u [facility]. The patient self-extubated, bringing the endotracheal tube up into his larynx and was breathin g around the tube, gurgling secondary to secretions. Saturations on high-flow oxygen were in the lo w 90s and the patient was tachypneic, in some degree of respiratory distress. No informed consent c ould be obtained as this was an emergent re-intubation. Appropriate time-out was performed. An N95 mask was worn. The fiberoptic bronchoscope was advanced through the patient's endotracheal tube. The tip of the en dotracheal tube was at the vocal cords. The trachea could be visualized below. The bronchoscope wa s advanced into the trachea and the endotracheal tube readvanced over this and left approximately 2 cm above the main alessandra. The bronchoscope was removed. The balloon was reinflated. The patient w as stabilized on the ventilator. An adaptor was then placed on the end of the endotracheal tube onc e the patient was stable and saturations returned into the mid 90s on the ventilator. Bronchoscopy was then performed. There were a moderate too large amount of secretions found in the trachea and i n the lower tracheobronchial tree bilaterally. These were removed with suction. The patient tolera theron the procedure well. There were no complications. The patient was on fentanyl and propofol at t he time of the procedure, and no additional medications were required. ASSESSMENT: 1. Successful re-intubation. 2. Moderate to large amount of secretions consistent with bronchopneumonia. These were removed wit h suction. Cultures were not sent as cultures had been sent yesterday. /[id number]/MODL
[2016-09-08] MEDS: methylPREDNISolone SOD SUCC 125 MG/2 ML VIAL IVP SCH (21:24)
[2016-09-08] MEDS ORDERED: POTASSIUM Cl (KCl) 50 ML IV ONE (21:36)
[2016-09-09] MEDS: METOCLOPRAMIDE 10 MG/2 ML VIAL IVP SCH ×4 (01:08→17:55)
[2016-09-09] MEDS: PIPERACILLIN/TAZO 4.5 GM/DEX 100 ML IV SCH ×4 (01:08→17:55)
[2016-09-09] MEDS: ALBUTEROL 60 PUFFS/8 GM MDI IH SCH ×6 (03:39→23:44)
[2016-09-09 04:04] LABS: ALANINE AMINOTRANSFERASE 72 IU/L (21-72); ALBUMIN 2.2 g/dL (3.5-5.0); ALKALINE PHOSPHATASE 131 IU/L (38-126); ANION GAP 10 mEq/L (8-16); ASPARTATE AMINOTRANSFERASE 65 IU/L (17-59); BILIRUBIN,TOTAL 0.9 mg/dL (0.1-1.4); CALCIUM 7.9 mg/dL (8.5-10.4); CARBON DIOXIDE 27 mEq/l (22-31); CHLORIDE 106 mEq/L (97-110); CREATININE 0.5 mg/dL (0.7-1.3); GLOMERULAR FILTRATION RATE > 60; GLUCOSE 99 mg/dL (70-100); POTASSIUM 4.7 mEq/L (3.5-5.2); SODIUM 143 mEq/L (134-144); TOTAL PROTEIN 4.7 g/dL (6.3-8.2)
[2016-09-09] MEDS: methylPREDNISolone SOD SUCC 125 MG/2 ML VIAL IVP SCH ×3 (05:24→21:03)
[2016-09-09] MEDS: PROPOFOL/EMULSION 100 ML IV SCH ×4 (05:25→17:55)
[2016-09-09 06:06] LABS: BASE EXCESS 1.3 mEq/L (-2.5-2.5); BICARBONATE 27 mEq/L (22-26); MEASURED OXYGEN SATURATION 98 % (92-95); PCO2 54 mmHg (34-38); PO2 112 mmHg (65-75); TCO2 29 mEq/L (23-27)
[2016-09-09 06:07] LABS: END TIDAL CO2 45; O2 CONCENTRATIION 55 % (0-100); P/F RATIO 204 RATIO; SIMV YES
[2016-09-09 06:08] LABS: PATIENT RATE 28; PRESSURE SUPPORT 7
[2016-09-09] MEDS: POTASSIUM Cl (KCl) 40 MEQ in NS 1,000 ML IV SCH (06:33)
--- NOTE | 2016-09-09 07:11 | SOAPPROG ---
SOAP Progress Note Assessment/Plan: 09/04/16 16:12 POD#1 Assessment: On pressors, HCT stable with augmentation, lactate up slightly. Impression- ongoing GI blood loss. Awaiting GI for endoscopy. Currently on PPI and carafate. Appears to have volume issue secondary to GI blood loss. Presume a posterior duodenal ulcer although gastritis remains a possibility. Intermittent air leak noted. Chest tube to 30 cmH2O and lung up. Plan: Maintain volume replacement (use pressors as second line support), Get GI consult/EGD, Follow lactate, ABG's other labs and CXR. 09/05/16 06:13 POD#2 Assesment/Plan: Etiology of events now a bit clearer. Blood cultures (1 of 2) positive for MSSA. WBC dpwn Bands decreased from 48 to 39. On vancomycin. EGD consistent with gastritis. Minimal bowel sounds. Would not attempt to feed yet. Hct decreased from 28 to 21. IV fluids at ~ 200 cc/hr. ~2000cc urine out this shift. I feel that the hct drop is due to fluid recruitment/overload and hemolysis of transfused blood. I have decreased IV fluids and ordered a F/u HCT. He is not showing compromise from fluids yet so have not ordered diuretics yet. Minimal air leak remains. 200 cc out chest tube ( mainly serous ). Will continue chest tube suction. CXR pending ( done but not available yet) 09/07/16 09:02 POD#4 Assessment: Patient alert on BiPAP. Respiratory rate increasing as is PCO2. Minimal apical Right Ptx but no air leak. Chest tube migrated slightly. Chest tube site looks good. Right pleural fluid on CXR. 250cc serosanguineous fluid out last 24. Increasing left chest infiltrates. Will probably need reintubation. GI- He reports passing flatus. BS, none the less, are quite hypoactive and abdomen tympanitic. Nutrition needs to be addressed (TPN?). That will increase his CO2 production and will also tip him more toward reintubation. Incision looks good. Infection - addressed by ID (WBC up, gram negative venecia on blood culture ( yet to be ID'd ) influence uncertain) Plan: Follow CXR and reassess chest tube. GI tract not yet ready for nutritional challenge. 09/08/16 09:44 POD#5 Assessment: Patient reintubated yesterday. Chest tube - no air leak or "tidaling" - taken off suction. Will follow chest tube output - expect less off suction. Will continue to re-assess regarding return to suction. GI- abdomen less distended, faint scattered bowel sounds, minimal NG output continues. Will consider tube feeds today to address nutritional deficiency. Incision looks good. Issues- Volume status - CVP non functional, tachycardic, slightly hypotensive but good urine output. - will check lactate to aid in volume assessment. Pulmonary - etiology of "blossoming" left lung still unclear. ID input appreciated. GI bleed - stable. 09/09/16 07:06 POD#6 Assessment: Patient stable. He is more alert in that he opens his eyes promptly and will squeeze my hand on request. He deteriorated yesterday and was placed back on chest tube suction. Again no air leak today. Would consider decreasing chest tube suction from 30 to 20 if still stable tomorrow. Tolerating trickle feeds so far. Bowel sounds noted. Minimal smear of stool noted. Issues: Volume status- lactate normal yesterday, Good urine output, Not on pressors, BP improved, still mildly tachycardic. Pulmonary - CXR improving. GI Bleed - Stable Subjective: intubated but responding Objective: Vital Signs Temp Pulse Resp BP Pulse Ox 37.3 C 103 H 29 H 103/74 100 09/09/16 06:00 09/09/16 06:00 09/09/16 06:00 09/09/16 06:00 09/09/16 06:00 Microbiology 09/04/16 03:00 Blood Culture - Final Blood Staphylococcus Aureus Blood Panel (PCR) - Final S.aureus Methicillin Suscept. 09/04/16 03:15 Blood Culture - Final Blood Lactobacillus Species Blood Panel (PCR) - Final No Organism Detected 09/07/16 12:38 - Final Sputum, Induced/Suctioned Laboratory Results 09/08/16 03:10 09/09/16 03:40 09/08/16 09/09/16 09/10/16 04:59 05:59 05:59 Intake Total Output Total Balance PT 17.1 SEC (12.0-15.0) H 09/05/16 09:40 INR 1.40 (0.83-1.16) H 09/05/16 09:40 - Time Spent With Patient Time Spent With Patient: 35 Physical Exam - Physical Exam General Appearance: other (Arousable, intubated) Respiratory: crackles Cardiac/Chest: tachycardia Abdomen: normal bowel sounds, non-tender, soft Male Genitalia: deferred Rectal: deferred Skin: normal color, warm/dry ICD10 Worksheet Patient Problems: Problems Problem Status Onset Acute chest pain Acute Interstitial lung disease Acute Pneumothorax, right Acute Acute respiratory failure with hypoxia Acute Alcohol abuse Acute Hematemesis Acute Lung infiltrate Acute Ribs, multiple fractures Acute Sepsis Acute
[2016-09-09] MEDS: NICOTINE 21 MG/24 HR PATCH TD SCH (08:12)
[2016-09-09] MEDS: SUCRALFATE 1 GM/10 ML UDCUP TUBE SCH ×4 (08:12→20:56)
[2016-09-09] MEDS: SENNOSIDES/DOCUSATE SODIUM TAB PO SCH ×2 (08:12→20:55)
[2016-09-09] MEDS: PANTOPRAZOLE SODIUM 40 MG in NS 100 ML IV SCH ×2 (11:55→20:55)
[2016-09-09 12:31] LABS: POTASSIUM 4.2 mEq/L (3.5-5.2)
--- NOTE | 2016-09-09 13:54 | PDINTPN ---
Credit Coordinator Progress Note Assessment/Plan: Assessment: Acute respiratory failure, recurrent. Initially likely secondary to aspiration of gastric coffee ground material in the setting of underlying interstitial disease. Status post bronchoscopy and intubation 09/04, 09/06, and 09/07. Intubation on 09/07 associated with blossoming new infiltrates on the left. Unclear as to their etiology: Question progressive pneumonia, fluid overload, verses ARDS were pneumonitis? On Zosyn. Hypotension: Multifactorial, resolved, off pressors. In part secondary to blood loss and hypovolemia and sepsis/SIRS associated with acute pulmonary injury/infection initially. CVP improved, last 9. Interstitial lung disease, status post spontaneous pneumothorax. Has a new chest tube, small pneumothorax today, small leak. Stable. Status post exploratory laparotomy: Secondary to abdominal pain at the time of initial intubation 09/04. Findings were negative. Has residual postop tenderness. Now tolerating tube feedings GI bleed. Clearly had an upper GI bleed with coffee-ground material from his stomach, with almost 3 L of this material in stomach when his NG tube was placed. GI consultation appreciated. EGD did not find much: only some gastric erosions. These may have been the source of his GI bleed. He has had no evidence of active GI bleeding since. Acute blood-loss anemia: Secondary to above. Improved hematocrit/stable: 29 today after 7 units given between 09/03 and 09/05.. No evidence of active ongoing bleeding at this time. Elevated liver function studies. AST and ALT improving. Possibly secondary to hypotension or underlying hep C? Will follow. Nutrition: On tube feedings as of today. Continue Reglan. History of tobacco abuse, alcohol use, hepatitis-C, homelessness, etc Plan: Continue ventilatory support, sedation. Continue CT to suction. Follow x -ray, ABG, laboratory... Continue antibiotics, bronchodilators, other medications. Continue aggressive supportive care. 50 mins of critical care time spent directly with the patient, not including bronchoscopy. Discussed with Dr. Dean, hospitalist, nursing, respiratory therapy, and the ICU multi disciplinary team. Subjective: Sedated, arouses weekly, tries to pull on tubes. On ventilator Objective: Vital Signs Temp Pulse Resp BP Pulse Ox 37.3 C 108 H 29 H 103/74 100 09/09/16 06:00 09/09/16 11:30 09/09/16 06:00 09/09/16 06:00 09/09/16 11:30 Microbiology 09/07/16 12:38 - Final Sputum, Induced/Suctioned Sputum Culture - Final 09/04/16 03:00 Blood Culture - Final Blood Staphylococcus Aureus Blood Panel (PCR) - Final S.aureus Methicillin Suscept. 09/04/16 03:15 Blood Culture - Final Blood Lactobacillus Species Blood Panel (PCR) - Final No Organism Detected Laboratory Results 09/08/16 03:10 09/09/16 12:00 09/08/16 09/09/16 09/10/16 04:59 05:59 05:59 Intake Total Output Total Balance PT 17.1 SEC (12.0-15.0) H 09/05/16 09:40 INR 1.40 (0.83-1.16) H 09/05/16 09:40 Laboratory Tests 09/09/16 09/09/16 03:40 05:55 pCO2 54 H pO2 112 H ABG pH 7.33 L ABG O2 Saturation 98 H O2 Concentration % 55 Actual Respiration Rate 28 Tidal Volume 550 PEEP 7 Pressure Support 7 Calcium 7.9 L Total Bilirubin 0.9 AST 65 H ALT 72 CXR: No significant changes in bilateral pulmonary infiltrates. Lines and tubes in good position. Chest tube in right. No obvious pneumothorax. Physical Exam - Physical Exam General Appearance: no apparent distress, other (On ventilator, restless at times) EENT: PERRL/EOMI, ET tube, other (NG) Neck: normal inspection (No JVD) Respiratory: decreased breath sounds, rales (Bilateral), rhonchi (Few centrally) , other (Chest tube in place, small amount of serosanguineous drainage. No obvious air leak at this time), No wheezing Cardiac/Chest: tachycardia Abdomen: non-tender, soft, other (Tolerating tube feeding), No normal bowel sounds (Hypoactive, present) Male Genitalia: other (Ibarra catheter in place, good urine output) Skin: normal color, warm/dry Extremities: No pedal edema Neuro/Psych: no motor/sensory deficits, No cognition abnormalities (Hard to assess) ICD10 Worksheet Patient Problems: Problems Problem Status Onset Hematemesis Acute Acute respiratory failure with hypoxia Acute Alcohol abuse Acute Ribs, multiple fractures Acute Sepsis Acute Lung infiltrate Acute Acute chest pain Acute Pneumothorax, right Acute Interstitial lung disease Acute
--- NOTE | 2016-09-09 14:11 | PCMIDPN ---
Assessment/Plan: Assessment: MSSA bacteremia from an unclear source. Initial pneumothorax right side. Right lung now has the appearance of infection. Bronch wash is also growing MSSA. Covered by regimen of vancomycin and Zosyn. Lactobacillus species in same blood culture 1/2 sets. Probably not a contaminant. 2D echocardiogram reviewed with Cardiology. No evidence of vegetation on heart valves. If bacteremia clears quickly see no need at this point for TEZ. Respiratory distress yesterday has resolved with in negative pressure reapplied to chest tube on the right side. Patient now looks comfortable on the ventilator. Plan: 1. Continue Zosyn. 2. Follow clinical course. Subjective: Patient remains intubated and sedated. Definitely looks more comfortable today than he did yesterday morning. Objective: Zosyn # 6 Vital Signs Temp Pulse Resp BP Pulse Ox 37.3 C 108 H 29 H 103/74 100 09/09/16 06:00 09/09/16 11:30 09/09/16 06:00 09/09/16 06:00 09/09/16 11:30 Microbiology 09/07/16 12:38 - Final Sputum, Induced/Suctioned Sputum Culture - Final 09/04/16 03:00 Blood Culture - Final Blood Staphylococcus Aureus Blood Panel (PCR) - Final S.aureus Methicillin Suscept. 09/04/16 03:15 Blood Culture - Final Blood Lactobacillus Species Blood Panel (PCR) - Final No Organism Detected Laboratory Results 09/08/16 03:10 09/09/16 12:00 09/08/16 09/09/16 09/10/16 04:59 05:59 05:59 Intake Total Output Total Balance - Physical Exam General Appearance: WD/WN, toxic (Mildly), other (Intubated and sedated but not uncomfortable) Respiratory: crackles (Right side), coarse breath sounds (Right greater than left), No lungs clear, No normal breath sounds, No respiratory distress Cardiac/Chest: regular rate, rhythm, tachycardia (Mildly) Extremities: normal inspection Skin: normal color, warm/dry, No rash ICD10 Worksheet Patient Problems: Problems Problem Status Onset Acute chest pain Acute Interstitial lung disease Acute Pneumothorax, right Acute Acute respiratory failure with hypoxia Acute Alcohol abuse Acute Hematemesis Acute Lung infiltrate Acute Ribs, multiple fractures Acute Sepsis Acute
--- NOTE | 2016-09-09 15:02 | HOSPPROG ---
Hospitalist Progress Note Assessment/Plan: Shock. resolved lactobacillus bacteremia: echo w no vegetation Septic shock. Cont broad Abx, cont maint IVF and levo Aspiration PNA. Gastric material noted in R bronchi on bronch by Dr. Betts, cont on Vanco/Zosyn re: recent hospitalization cont Abx D#6 MSSA bacteremia. Present on 09/04 BCx, unclear whether 2/2 pulm source vs. CVC removed CVC, PICC placed s/p 24hrs of Abx repeat BCx 09/06 zosyn monotherapy Acute on chronic hypoxic and hypercapnic respiratory failure. 2/2 suspected aspiration PNA in setting of known ILD reintubated this AM Acute upper gastrointestinal hemorrhage. Coffee ground emesis w/ FOB (+) EGD w/ gastritis, cont PPI Acute blood loss anemia. Hgb 12.5->7, giving 4 units total of 7 units this admit Tension ptx. now chest tube on 09/08, had tension physiology when tube placed to water seal, resolved w suction Pulmonary fibrosis. Chronic, no indication for steroids Distal esophageal thickening. CT findings c/w esophagitis and associated small hiatal hernia, cont PPI Thrombocytopenia. HIT ab neg Diet. NPO PPx. Holding given bleed, on SCDs Code. Full, d/w Ethics, patient would like to clarify his MPOA/[place] when extubated Dispo. ADD uncertain Subjective: cxr unchanged (interp by me). case d/w dr thacker Objective: Vital Signs Temp Pulse Resp BP Pulse Ox 37.1 C 102 H 29 H 107/71 98 09/09/16 12:00 09/09/16 12:00 09/09/16 12:00 09/09/16 12:00 09/09/16 12:00 Microbiology 09/07/16 12:38 - Final Sputum, Induced/Suctioned Sputum Culture - Final 09/04/16 03:00 Blood Culture - Final Blood Staphylococcus Aureus Blood Panel (PCR) - Final S.aureus Methicillin Suscept. 09/04/16 03:15 Blood Culture - Final Blood Lactobacillus Species Blood Panel (PCR) - Final No Organism Detected Laboratory Results 09/08/16 03:10 09/09/16 12:00 09/08/16 09/09/16 09/10/16 04:59 05:59 05:59 Intake Total Output Total Balance PT 17.1 SEC (12.0-15.0) H 09/05/16 09:40 INR 1.40 (0.83-1.16) H 09/05/16 09:40 - Physical Exam Constitutional: other (intubated, sedated) Eyes: PERRL, anicteric sclera Ears, Nose, Mouth, Throat: moist mucous membranes, hearing normal Cardiovascular: regular rate and rhythym, no murmur, rub, or gallop Respiratory: other (rhoncorous breath sounds anterolat) Gastrointestinal: normoactive bowel sounds, soft, non-tender abdomen Genitourinary: rosado in urethra Skin: warm Musculoskeletal: full muscle strength Neurologic: No AAOx3, No sensation intact bilaterally Psychiatric: No interacting appropriately ICD10 Worksheet Patient Problems: Problems Problem Status Onset Acute chest pain Acute Interstitial lung disease Acute Pneumothorax, right Acute Acute respiratory failure with hypoxia Acute Alcohol abuse Acute Hematemesis Acute Lung infiltrate Acute Ribs, multiple fractures Acute Sepsis Acute
[2016-09-09] MEDS ORDERED: ALBUMIN 5% 500 ML IV ONE (17:23)
[2016-09-09 18:27] LABS: POTASSIUM 4.4 mEq/L (3.5-5.2)
[2016-09-10 00:45] LABS: POTASSIUM 4.4 mEq/L (3.5-5.2)
[2016-09-10] MEDS: METOCLOPRAMIDE 10 MG/2 ML VIAL IVP SCH ×4 (01:06→18:26)
[2016-09-10] MEDS: PIPERACILLIN/TAZO 4.5 GM/DEX 100 ML IV SCH ×3 (01:07→11:49)
[2016-09-10] MEDS: PROPOFOL/EMULSION 100 ML IV SCH ×4 (01:07→22:31)
[2016-09-10] MEDS: ALBUTEROL 60 PUFFS/8 GM MDI IH SCH ×6 (04:28→23:39)
[2016-09-10 05:02] LABS: BASE EXCESS 4.9 mEq/L (-2.5-2.5); BICARBONATE 30 mEq/L (22-26); END TIDAL CO2 45; MEASURED OXYGEN SATURATION 98 % (92-95); O2 CONCENTRATIION 40 % (0-100); P/F RATIO 280 RATIO; PATIENT RATE 28; PCO2 51 mmHg (34-38); PO2 112 mmHg (65-75); PRESSURE SUPPORT 7; SIMV YES; TCO2 32 mEq/L (23-27)
[2016-09-10] MEDS: methylPREDNISolone SOD SUCC 125 MG/2 ML VIAL IVP SCH ×2 (05:56→14:52)
[2016-09-10] MEDS: POTASSIUM Cl (KCl) 40 MEQ in NS 1,000 ML IV SCH (05:57)
[2016-09-10 07:16] LABS: ALANINE AMINOTRANSFERASE 53 IU/L (21-72); ALBUMIN 2.1 g/dL (3.5-5.0); ALKALINE PHOSPHATASE 88 IU/L (38-126); ANION GAP 9 mEq/L (8-16); ASPARTATE AMINOTRANSFERASE 19 IU/L (17-59); BILIRUBIN,TOTAL 0.4 mg/dL (0.1-1.4); CALCIUM 7.5 mg/dL (8.5-10.4); CARBON DIOXIDE 28 mEq/l (22-31); CHLORIDE 102 mEq/L (97-110); CREATININE 0.4 mg/dL (0.7-1.3); GLOMERULAR FILTRATION RATE > 60; GLUCOSE 195 mg/dL (70-100); SODIUM 139 mEq/L (134-144); TOTAL PROTEIN 4.5 g/dL (6.3-8.2)
[2016-09-10] MEDS: PANTOPRAZOLE SODIUM 40 MG in NS 100 ML IV SCH ×2 (08:31→21:12)
[2016-09-10] MEDS: SENNOSIDES/DOCUSATE SODIUM TAB PO SCH ×2 (08:31→21:12)
[2016-09-10] MEDS: SUCRALFATE 1 GM/10 ML UDCUP TUBE SCH ×4 (08:31→21:12)
[2016-09-10] MEDS: NICOTINE 21 MG/24 HR PATCH TD SCH ×2 (08:31→18:40)
--- NOTE | 2016-09-10 08:37 | PDINTPN ---
Linux Server Engineer Progress Note Assessment/Plan: Assessment/Plan: * Acute respiratory failure, recurrent. Initially likely secondary to aspiration of gastric coffee ground material in the setting of underlying interstitial disease. Status post bronchoscopy and intubation 09/04, 09/06, and . Intubation on 09/07 associated with blossoming new infiltrates on the left. Unclear as to their etiology: Question progressive pneumonia, fluid overload , verses ARDS were pneumonitis? On Zosyn. -not weanable at this time. Likely heading for trach * Hypotension: Multifactorial, resolved, off pressors. * Interstitial lung disease-unclear etiology * Status post pneumothorax. Has a new chest tube, small pneumothorax today, small leak. Stable. * Status post exploratory laparotomy: Secondary to abdominal pain at the time of initial intubation 09/04. Findings were negative. Has residual postop tenderness. Now tolerating tube feedings * GI bleed. Clearly had an upper GI bleed with coffee-ground material from his stomach, with almost 3 L of this material in stomach when his NG tube was placed. GI consultation appreciated. EGD did not find much: only some gastric erosions. These may have been the source of his GI bleed. He has had no evidence of active GI bleeding since. * Acute blood-loss anemia: Resolved * Elevated liver function studies. AST and ALT improving. Possibly secondary to hypotension or underlying hep C? Will follow. * Nutrition: On tube feedings as of today. Continue Reglan. * History of tobacco abuse, alcohol use, hepatitis-C, homelessness, etc * Dispo-no POA at this time. Will discuss with ethics 40 min critical care time spent with patient Case discussed with nurse and RT. Subjective: Sedated Objective: Vital Signs Temp Pulse Resp BP Pulse Ox 36.5 C 73 24 H 108/73 100 09/10/16 06:00 09/10/16 08:04 09/10/16 08:04 09/10/16 08:04 09/10/16 08:04 Microbiology 09/07/16 12:38 - Final Sputum, Induced/Suctioned Sputum Culture - Final 09/04/16 03:00 Blood Culture - Final Blood Staphylococcus Aureus Blood Panel (PCR) - Final S.aureus Methicillin Suscept. 09/04/16 03:15 Blood Culture - Final Blood Lactobacillus Species Blood Panel (PCR) - Final No Organism Detected Laboratory Results 09/08/16 03:10 09/10/16 06:05 09/09/16 09/10/16 09/11/16 05:59 05:59 05:59 Intake Total 3686 Output Total 840 Balance 2846 PT 17.1 SEC (12.0-15.0) H 09/05/16 09:40 INR 1.40 (0.83-1.16) H 09/05/16 09:40 Laboratory Results 09/08/16 03:10 09/10/16 06:05 09/10/16 09/10/16 06:05 04:55 Patient Temperature 36.7 DEGREES DEGREES pCO2 51 mmHg H mmHg (34 - 38) pO2 112 mmHg H mmHg (65 - 75) Total CO2 32 mEq/L H mEq/L (23 - 27) ABG pH 7.39 (7.35 - 7.45) ABG PO2/FiO2 Ratio 280 RATIO RATIO ABG O2 Saturation 98 % H % (92 - 95) ABG Base Excess 4.9 mEq/L H mEq/L (-2.5 - 2.5) O2 Concentration % 40 % % Actual Respiration Rate 28 Set Respiration Rate 28 SIMV YES Tidal Volume 550 End Tidal CO2 45 PEEP 7 Pressure Support 7 Calcium 7.5 mg/dL L mg/dL (8.5 - 10.4) Total Bilirubin 0.4 mg/dL D mg/dL (0.1 - 1.4) AST 19 IU/L IU/L (17 - 59) ALT 53 IU/L IU/L (21 - 72) Alkaline Phosphatase 88 IU/L IU/L (38 - 126) Total Protein 4.5 g/dL L g/dL (6.3 - 8.2) Albumin 2.1 g/dL L g/dL (3.5 - 5.0) 09/04/16 03:15 Blood Culture - Final Blood Blood Panel (PCR) - Final Lactobacillus Species No Organism Detected 09/04/16 03:00 Blood Culture - Final Blood Blood Panel (PCR) - Final Staphylococcus Aureus S.aureus Methicillin Suscept. - Time Spent With Patient Time Spent With Patient: 40 Physical Exam - Physical Exam General Appearance: other (sedated), No alert EENT: PERRL/EOMI, normal ENT inspection, ET tube Neck: non-tender, full range of motion, supple, normal inspection Respiratory: crackles, prolonged expiration, No respiratory distress, No wheezing Cardiac/Chest: normal peripheral pulses, regular rate, rhythm, systolic murmur Peripheral Pulses: 2+: carotid (R), carotid (L), femoral (R), femoral (L), dorsalis-pedis (R), dorsalis-pedis (L) Abdomen: normal bowel sounds, non-tender, soft Male Genitalia: deferred Rectal: deferred Skin: normal color, warm/dry Extremities: normal range of motion, non-tender, normal inspection, normal capillary refill Neuro/Psych: No alert ICD10 Worksheet Patient Problems: Problems Problem Status Onset Acute chest pain Acute Interstitial lung disease Acute Pneumothorax, right Acute Acute respiratory failure with hypoxia Acute Alcohol abuse Acute Hematemesis Acute Lung infiltrate Acute Ribs, multiple fractures Acute Sepsis Acute
--- NOTE | 2016-09-10 09:15 | SOAPPROG ---
SOAP Progress Note Assessment/Plan: Assessment: Respiratory failure vented secondary to aspiration pneumonia Pneumothorax with current small air leak and residual ptx on CXR today - 30mmHG suction to maintain current status while on positive pressure ventilation. May consider lowering to 20 mmHg but likely continue these parameters while vented Laparotomy last week for sepsis -(negative) staple intact appropriate mild incisional tenderness - D/C staple in the next week (no wagner due to protein calorie malnutrition) TF at 40cc/he 140 cc residual on recent check reassess per unit criteria Plan: 09/10/16 09:11 Objective: Vital Signs Temp Pulse Resp BP Pulse Ox 36.7 C 73 24 H 108/73 100 09/10/16 08:00 09/10/16 08:04 09/10/16 08:04 09/10/16 08:04 09/10/16 08:04 Microbiology 09/07/16 12:38 - Final Sputum, Induced/Suctioned Sputum Culture - Final 09/04/16 03:00 Blood Culture - Final Blood Staphylococcus Aureus Blood Panel (PCR) - Final S.aureus Methicillin Suscept. 09/04/16 03:15 Blood Culture - Final Blood Lactobacillus Species Blood Panel (PCR) - Final No Organism Detected Laboratory Results 09/08/16 03:10 09/10/16 06:05 09/09/16 09/10/16 09/11/16 05:59 05:59 05:59 Intake Total 3686 Output Total 840 Balance 2846 PT 17.1 SEC (12.0-15.0) H 09/05/16 09:40 INR 1.40 (0.83-1.16) H 09/05/16 09:40 ICD10 Worksheet Patient Problems: Problems Problem Status Onset Acute chest pain Acute Interstitial lung disease Acute Pneumothorax, right Acute Acute respiratory failure with hypoxia Acute Alcohol abuse Acute Hematemesis Acute Lung infiltrate Acute Ribs, multiple fractures Acute Sepsis Acute
[2016-09-10] MEDS: ONDANSETRON 4 MG/2 ML VIAL IVP PRN (09:30)
[2016-09-10 14:15] LABS: BASE EXCESS 6.2 mEq/L (-2.5-2.5); BICARBONATE 32 mEq/L (22-26); MEASURED OXYGEN SATURATION 99 % (92-95); PCO2 53 mmHg (34-38); PO2 117 mmHg (65-75); TCO2 33 mEq/L (23-27)
[2016-09-10 14:20] LABS: O2 CONCENTRATIION 40 % (0-100); P/F RATIO 293 RATIO; PATIENT RATE 23; PRESSURE SUPPORT 7; SIMV YES
[2016-09-10 14:21] LABS: END TIDAL CO2 52
--- NOTE | 2016-09-10 14:56 | HOSPPROG ---
Hospitalist Progress Note Assessment/Plan: Shock. resolved lactobacillus bacteremia: echo w no vegetation Aspiration PNA. Gastric material noted in R bronchi on bronch by Dr. Betts, cont on Vanco/Zosyn re: recent hospitalization cont Abx D#7 MSSA bacteremia. Present on 09/04 BCx, unclear whether 2/2 pulm source vs. CVC removed CVC, PICC placed s/p 24hrs of Abx repeat BCx 09/06 neg zosyn monotherapy Acute on chronic hypoxic and hypercapnic respiratory failure. 2/2 suspected aspiration PNA in setting of known ILD multiple extubations and reintubations Acute upper gastrointestinal hemorrhage. Coffee ground emesis w/ FOB (+) EGD w/ gastritis, cont PPI last transfusion 09/05 repeat cbc 09/11 Acute blood loss anemia. Hgb 12.5->7, giving 4 units total of 7 units this admit Tension ptx. now chest tube on 09/08, had tension physiology when tube placed to water seal, resolved w suction Pulmonary fibrosis. Chronic, steroids started 09/08, dc'd 09/[address] findings c/w esophagitis and associated small hiatal hernia, cont PPI Thrombocytopenia. HIT ab neg Diet. NPO PPx. Holding given bleed, on SCDs Code. Full, d/w Ethics, patient would like to clarify his MPOA/[place] when extubated Dispo. ADD uncertain brother located Subjective: small bm this AM. nuring notes increased secretions. case d/w dr almanza. no events tele (interp by me) Objective: Vital Signs Temp Pulse Resp BP Pulse Ox 36.7 C 76 20 110/72 99 09/10/16 10:00 09/10/16 11:48 09/10/16 11:48 09/10/16 11:48 09/10/16 10:00 Microbiology 09/07/16 12:38 - Final Sputum, Induced/Suctioned Sputum Culture - Final Laboratory Results 09/08/16 03:10 09/10/16 06:05 09/09/16 09/10/16 09/11/16 05:59 05:59 05:59 Intake Total 3686 Output Total 840 Balance 2846 PT 17.1 SEC (12.0-15.0) H 09/05/16 09:40 INR 1.40 (0.83-1.16) H 09/05/16 09:40 - Physical Exam Constitutional: no apparent distress, appears nourished Eyes: PERRL, anicteric sclera Ears, Nose, Mouth, Throat: moist mucous membranes, hearing normal Cardiovascular: regular rate and rhythym, no murmur, rub, or gallop Respiratory: rhonchi, No no respiratory distress Gastrointestinal: normoactive bowel sounds, soft, non-tender abdomen Genitourinary: rosado in urethra Skin: warm, normal color Musculoskeletal: no muscle tenderness, No full muscle strength Neurologic: sensation intact bilaterally, other (following commands), No AAOx3 ICD10 Worksheet Patient Problems: Problems Problem Status Onset Acute chest pain Acute Interstitial lung disease Acute Pneumothorax, right Acute Acute respiratory failure with hypoxia Acute Alcohol abuse Acute Hematemesis Acute Lung infiltrate Acute Ribs, multiple fractures Acute Sepsis Acute
--- NOTE | 2016-09-10 16:58 | PCMIDPN ---
Assessment/Plan: Assessment/Plan: * MSSA/lactobacillus bacteremia: No clearly defined etiology although multiple considerations with complex hospital stay. BAL also with MSSA raising pneumonia as a potential etiology. Will transition Zosyn to Unasyn since no Pseudomonas has been isolated and this will have activity against both MSSA and lactobacillus. * Aspiration pneumonia: Change Zosyn to Unasyn based on BAL showing growth of MSSA and no Pseudomonas being isolated. 09/10/16 16:55 Subjective: Patient intubated. Objective: Vital Signs Temp Pulse Resp BP Pulse Ox 36.7 C 87 22 H 119/89 H 99 09/10/16 10:00 09/10/16 16:27 09/10/16 16:27 09/10/16 16:27 09/10/16 16:27 Laboratory Results 09/08/16 03:10 09/10/16 06:05 09/09/16 09/10/16 09/11/16 05:59 05:59 05:59 Intake Total 3686 Output Total 840 Balance 2846 Zosyn # 7 BAL with growth of MSSA Blood cultures 09/06 and 09/07 no growth - Physical Exam General Appearance: non-toxic EENT: No scleral icterus, No conjunctival petechiae Respiratory: coarse breath sounds Cardiac/Chest: regular rate, rhythm Abdomen: non-tender, other (Staple line intact without erythema or drainage), No distended Skin: No embolic lesions ICD10 Worksheet Patient Problems: Problems Problem Status Onset Acute chest pain Acute Interstitial lung disease Acute Pneumothorax, right Acute Acute respiratory failure with hypoxia Acute Alcohol abuse Acute Hematemesis Acute Lung infiltrate Acute Ribs, multiple fractures Acute Sepsis Acute
[2016-09-10] MEDS: AMPICILLIN/SULBACTAM 3 GM in NS 100 ML IV SCH (18:26)
[2016-09-10 18:52] LABS: POTASSIUM 4.6 mEq/L (3.5-5.2)
[2016-09-11] MEDS: METOCLOPRAMIDE 10 MG/2 ML VIAL IVP SCH ×4 (00:14→18:00)
[2016-09-11] MEDS: AMPICILLIN/SULBACTAM 3 GM in NS 100 ML IV SCH ×4 (00:14→17:59)
[2016-09-11 01:02] LABS: POTASSIUM 4.4 mEq/L (3.5-5.2)
[2016-09-11] MEDS: POTASSIUM Cl (KCl) 40 MEQ in NS 1,000 ML IV SCH ×2 (03:29→20:38)
[2016-09-11] MEDS: PROPOFOL/EMULSION 100 ML IV SCH ×3 (03:29→20:37)
[2016-09-11 04:25] LABS: ABSOLUTE NRBC COUNT 0.05 10^3/uL (0-0.01); ADD DIFF? YES; ADD MORPH? YES; ADD SCAN? NO; ATYPICAL LYMPHOCYTE FLAG 130 (0-99); FRAGMENT RBC FLAG 40 (0-99); HEMATOCRIT 27.1 % (40.0-51.0); HEMOGLOBIN 8.2 g/dL (13.7-17.5); LEFT SHIFT FLG 10 (0-99); LIPEMIA HEMOLYSIS FLAG 80 (0-99); MEAN CELL HEMOGLOBIN 26.7 pg (27.9-34.1); MEAN CELL HEMOGLOBIN CONCENTR. 30.3 g/dL (32.4-36.7); MEAN CELL VOLUME 88.3 fL (81.5-99.8); MEAN PLATELET VOLUME 10.6 fL (8.7-11.7); NRBC-AUTO% 0.5 % (0.0-0.2); PLATELET CLUMPS FLAG 0 (0-99); PLATELET COUNT 197 10^3/uL (150-400); RED BLOOD CELL COUNT 3.07 10^6/uL (4.40-6.38); RED CELL DISTRIBUTION WIDTH 20.5 % (11.5-15.2)
[2016-09-11] MEDS: ALBUTEROL 60 PUFFS/8 GM MDI IH SCH ×6 (04:33→23:42)
[2016-09-11 04:44] LABS: ALANINE AMINOTRANSFERASE 47 IU/L (21-72); ALBUMIN 1.9 g/dL (3.5-5.0); ALKALINE PHOSPHATASE 80 IU/L (38-126); ANION GAP 6 mEq/L (8-16); ASPARTATE AMINOTRANSFERASE 22 IU/L (17-59); BILIRUBIN,TOTAL 0.3 mg/dL (0.1-1.4); CARBON DIOXIDE 30 mEq/l (22-31); CHLORIDE 106 mEq/L (97-110); CREATININE 0.5 mg/dL (0.7-1.3); GLOMERULAR FILTRATION RATE > 60; GLUCOSE 104 mg/dL (70-100); POTASSIUM 4.3 mEq/L (3.5-5.2); SODIUM 142 mEq/L (134-144); TOTAL PROTEIN 4.5 g/dL (6.3-8.2)
[2016-09-11 05:20] LABS: HYPOCHROMIA 1+; MACROCYTES 1+; MICROCYTES 1+; POLYCHROMASIA 1+
[2016-09-11 05:21] LABS: GIANT PLATELETS PRESENT; PLATELET ESTIMATE ADEQUATE (ADEQ)
--- NOTE | 2016-09-11 08:55 | PDINTPN ---
Occup Therapist Progress Note Assessment/Plan: Assessment/Plan: * Acute respiratory failure, recurrent. Hypercarbic -not weanable at this time. Likely heading for trach * Hypotension: Multifactorial, resolved, off pressors. * Interstitial lung disease-unclear etiology, though IPF appears most likely. Likely component of acute pneumonitis as well -CXR unchanged -Will check HRCT chest today to assess active process * Status post pneumothorax. Has a new chest tube, small pneumothorax today, small leak. Stable. * Status post exploratory laparotomy: Secondary to abdominal pain at the time of initial intubation 09/04. Findings were negative. Has residual postop tenderness. Now tolerating tube feedings * GI bleed. Clearly had an upper GI bleed with coffee-ground material from his stomach, with almost 3 L of this material in stomach when his NG tube was placed. GI consultation appreciated. EGD did not find much: only some gastric erosions. These may have been the source of his GI bleed. He has had no evidence of active GI bleeding since. * Acute blood-loss anemia: Resolved * Elevated liver function studies. AST and ALT improving. Possibly secondary to hypotension or underlying hep C? Will follow. * Nutrition: On tube feedings as of today. Continue Reglan. * History of tobacco abuse, alcohol use, hepatitis-C, homelessness, etc * Dispo-brother now POA 35 min critical care time spent with patient Case discussed with nurse and RT. Will discuss with brother Subjective: Awake. Appears comfortable. Objective: Vital Signs Temp Pulse Resp BP Pulse Ox 36.5 C 72 23 H 91/58 L 100 09/11/16 06:00 09/11/16 08:11 09/11/16 08:11 09/11/16 08:11 09/11/16 08:11 Laboratory Results 09/11/16 04:00 09/11/16 04:00 09/10/16 09/11/16 09/12/16 05:59 05:59 05:59 Intake Total 3686 3326 Output Total 840 905 Balance 2846 2421 PT 17.1 SEC (12.0-15.0) H 09/05/16 09:40 INR 1.40 (0.83-1.16) H 09/05/16 09:40 Laboratory Results 09/11/16 04:00 09/11/16 04:00 09/11/16 04:00 Calcium 8.0 mg/dL L mg/dL (8.5 - 10.4) Total Bilirubin 0.3 mg/dL mg/dL (0.1 - 1.4) AST 22 IU/L IU/L (17 - 59) ALT 47 IU/L IU/L (21 - 72) Alkaline Phosphatase 80 IU/L IU/L (38 - 126) Total Protein 4.5 g/dL L g/dL (6.3 - 8.2) Albumin 1.9 g/dL L g/dL (3.5 - 5.0) CXR-reviewed by myself. No change. ETT okay - Time Spent With Patient Time Spent With Patient: 35 Physical Exam - Physical Exam General Appearance: other (awake) EENT: PERRL/EOMI, normal ENT inspection, ET tube Neck: non-tender, full range of motion, supple, normal inspection Respiratory: crackles (diffuse), No respiratory distress, No stridor, No wheezing Cardiac/Chest: normal peripheral pulses, regular rate, rhythm Peripheral Pulses: 2+: carotid (R), carotid (L), femoral (R), femoral (L), dorsalis-pedis (R), dorsalis-pedis (L) Abdomen: normal bowel sounds, non-tender, soft Male Genitalia: deferred Rectal: deferred Skin: normal color, warm/dry Extremities: normal range of motion, non-tender, normal inspection, normal capillary refill ICD10 Worksheet Patient Problems: Problems Problem Status Onset Acute chest pain Acute Interstitial lung disease Acute Pneumothorax, right Acute Acute respiratory failure with hypoxia Acute Alcohol abuse Acute Hematemesis Acute Lung infiltrate Acute Ribs, multiple fractures Acute Sepsis Acute
[2016-09-11] MEDS: PANTOPRAZOLE SODIUM 40 MG in NS 100 ML IV SCH ×2 (08:59→20:38)
[2016-09-11] MEDS: SENNOSIDES/DOCUSATE SODIUM TAB PO SCH (08:59)
[2016-09-11] MEDS: NICOTINE 21 MG/24 HR PATCH TD SCH (08:59)
[2016-09-11] MEDS: SUCRALFATE 1 GM/10 ML UDCUP TUBE SCH ×4 (08:59→20:38)
--- NOTE | 2016-09-11 09:10 | PCMIDPN ---
Assessment/Plan: Assessment/Plan: 1. MSSA and Lactobacillus bacteremia/sepsis: - Currently on Unasyn. - f/u blood cx from 09/06/16 ngtd -TTE without vegetations. -Continue current therapy 2. Aspiration pneumonia: - BAL with MSSA on cx - covered broadly with Unasyn for above. -Requiring vent support -wbc improved. Creatinine stable. LFt stable. -Continue current care. -care d/w RN. Meds Unasyn 3gm q6- 09/10/16 s/p zosyn (09/04/16-09/10/16) , vanco (09/04/16-09/07/16) Subjective: Afebrile. intubated, sedated in ICU. FIO2 40%. Pulled OGT out this AM, new one placed now. Chest tube. Objective: Vital Signs Temp Pulse Resp BP Pulse Ox 36.5 C 72 23 H 91/58 L 100 09/11/16 06:00 09/11/16 08:11 09/11/16 08:11 09/11/16 08:11 09/11/16 08:11 Laboratory Results 09/11/16 04:00 09/11/16 04:00 09/10/16 09/11/16 09/12/16 05:59 05:59 05:59 Intake Total 3686 3326 Output Total 840 905 Balance 2846 2421 - Physical Exam General Appearance: other (intubated, sedated) EENT: ET Tube, other (OGT) Respiratory: coarse breath sounds Cardiac/Chest: regular rate, rhythm Extremities: other (LUE picc line- no swelling), No swelling Abdomen: normal bowel sounds, non-tender, soft, No distended Male Genitalia: rosado Skin: No erythema ICD10 Worksheet Patient Problems: Problems Problem Status Onset Acute chest pain Acute Interstitial lung disease Acute Pneumothorax, right Acute Acute respiratory failure with hypoxia Acute Alcohol abuse Acute Hematemesis Acute Lung infiltrate Acute Ribs, multiple fractures Acute Sepsis Acute
[2016-09-11] MEDS ORDERED: SENNOSIDES 17.6 MG/10 ML UDL TUBE PRN (10:56)
--- NOTE | 2016-09-11 13:23 | SOAPPROG ---
SOAP Progress Note Assessment/Plan: Assessment/Plan: Respiratory failure vented secondary to aspiration pneumonia Infiltrates and aveolar air space disease Pneumothorax without air leak <100ml serous out over last 24 hr No residual ptx on CXR today - 30mmHG suction to maintain current status while on positive pressure ventilation. May consider lowering to 20 mmHg but likely continue these parameters while vented Laparotomy last week for sepsis -(negative) staple intact appropriate mild incisional tenderness - D/C staple in the next week (no wagner due to protein calorie malnutrition) TF at 40cc/he 140 cc residual on recent check reassess per unit criteria 09/11/16 13:20 09/11/16 13:22 Objective: Vital Signs Temp Pulse Resp BP Pulse Ox 36.5 C 88 20 91/58 L 99 09/11/16 06:00 09/11/16 11:46 09/11/16 11:46 09/11/16 08:11 09/11/16 11:46 Microbiology 09/04/16 03:20 Mycobacterial Smear (SOFI) - Final Lung Left Lobe - Bronchial Washings Laboratory Results 09/11/16 04:00 09/11/16 04:00 09/10/16 09/11/16 09/12/16 05:59 05:59 05:59 Intake Total 3686 3326 Output Total 840 905 Balance 2846 2421 PT 17.1 SEC (12.0-15.0) H 09/05/16 09:40 INR 1.40 (0.83-1.16) H 09/05/16 09:40 ICD10 Worksheet Patient Problems: Problems Problem Status Onset Acute chest pain Acute Interstitial lung disease Acute Pneumothorax, right Acute Acute respiratory failure with hypoxia Acute Alcohol abuse Acute Hematemesis Acute Lung infiltrate Acute Ribs, multiple fractures Acute Sepsis Acute
[2016-09-11 15:01] LABS: POTASSIUM 4.5 mEq/L (3.5-5.2)
--- NOTE | 2016-09-11 17:17 | HOSPPROG ---
Hospitalist Progress Note Assessment/Plan: 56 yo M with hx of pulmonary fibrosis recently discharged from [facility] admitted with chest pain and found to have ptx, hospital course complicated by tension ptx developing as well as shock/gi bleed # tension ptx: CT in place, gen surg following, recurrent spontaneous ptx in setting of pulm fibrosis, cxr from today on personal review showing no residual ptx # Shock. resolved, presumed 2/2 sepsis # lactobacillus bacteremia/mssa bacteremia: echo w no vegetation, BAL showing MSSA, currently being treated with unasyn, ID following, surveillance cxs from with ngtd #Aspiration PNA. Gastric material noted in R bronchi on bronch by Dr. Betts, s/ p vanc/zosyn and now monitoring on unasyn, repeat cxr showing stable bilateral infiltrates #Acute on chronic hypoxic and hypercapnic respiratory failure. multifactorial with ptx, aspiration PNA and underlying pulmonary fibrosis. HRCT today to eval extent of ILD, has been reintubated after extubation and not tolerating weans at all. Likely needs trach. # Acute upper gastrointestinal hemorrhage. Coffee ground emesis w/ FOB (+), egd showing only gastritis, has not recurred thus far, monitoring # Acute blood loss anemia. Hgb 12.5->7, stable overnight, sp transfusion of 7 units this hospital stay # Pulmonary fibrosis. Chronic, HRCT pending as above, off steroids since 09/10 # Distal esophageal thickening. CT findings c/w esophagitis and associated small hiatal hernia, cont PPI # Thrombocytopenia. HIT ab neg, nonitoring # Diet. NPO PPx. Holding given bleed, on SCDs FC--brother has been identified as MDPOA, will need to discuss trach Dispo. ADD uncertain brother located Patient new to my care. Old records reviewed and summarized as above. Care plan reviewed with Dr. almanza and multidisciplinary care team. Subjective: no significant overnight events, patient alert, intermittently agitated Objective: Vital Signs Temp Pulse Resp BP Pulse Ox 37.1 C 80 25 H 91/58 L 100 09/11/16 08:00 09/11/16 15:48 09/11/16 15:48 09/11/16 08:11 09/11/16 15:48 Microbiology 09/04/16 03:20 Mycobacterial Smear (SOFI) - Final Lung Left Lobe - Bronchial Washings Laboratory Results 09/11/16 04:00 09/11/16 14:30 09/10/16 09/11/16 09/12/16 05:59 05:59 05:59 Intake Total 3686 3326 Output Total 840 905 Balance 2846 2421 PT 17.1 SEC (12.0-15.0) H 09/05/16 09:40 INR 1.40 (0.83-1.16) H 09/05/16 09:40 intubated alert anxious anicteric ett in place rrr no mrg coarse intubated bs soft nt nd no cce warm dry well perfused responds to commands, moves all 4, alert, gesturing for food ICD10 Worksheet Patient Problems: Problems Problem Status Onset Hematemesis Acute Acute respiratory failure with hypoxia Acute Alcohol abuse Acute Ribs, multiple fractures Acute Sepsis Acute Lung infiltrate Acute Acute chest pain Acute Pneumothorax, right Acute Interstitial lung disease Acute
[2016-09-11 18:53] LABS: POTASSIUM 3.6 mEq/L (3.5-5.2)
[2016-09-11] MEDS: LORazepam 2 MG/ML INJ IVP PRN (20:38)
[2016-09-11] MEDS ORDERED: SENNOSIDES 17.6 MG/10 ML UDL TUBE SCH (21:00)
[2016-09-12] MEDS: METOCLOPRAMIDE 10 MG/2 ML VIAL IVP SCH ×4 (01:44→17:33)
[2016-09-12] MEDS: AMPICILLIN/SULBACTAM 3 GM in NS 100 ML IV SCH ×4 (01:44→17:33)
[2016-09-12 03:38] LABS: BASE EXCESS 8.7 mEq/L (-2.5-2.5); BICARBONATE 33 mEq/L (22-26); MEASURED OXYGEN SATURATION 93 % (92-95); PCO2 47 mmHg (34-38); PO2 62 mmHg (65-75); TCO2 35 mEq/L (23-27)
[2016-09-12 03:39] LABS: % IMMATURE GRANULYOCYTES 2.4 % (0.0-1.1); ABSOLUTE IMMATURE GRANULOCYTES 0.25 10^3/uL (0.00-0.10); ABSOLUTE NRBC COUNT 0.05 10^3/uL (0-0.01); ADD DIFF? NO; ADD MORPH? YES; ADD SCAN? NO; ATYPICAL LYMPHOCYTE FLAG 60 (0-99); FRAGMENT RBC FLAG 20 (0-99); HEMATOCRIT 29.5 % (40.0-51.0); HEMOGLOBIN 8.6 g/dL (13.7-17.5); LEFT SHIFT FLG 20 (0-99); LIPEMIA HEMOLYSIS FLAG 70 (0-99); MEAN CELL HEMOGLOBIN CONCENTR. 29.2 g/dL (32.4-36.7); MEAN CELL VOLUME 89.1 fL (81.5-99.8); NRBC-AUTO% 0.5 % (0.0-0.2); PLATELET CLUMPS FLAG 0 (0-99); PLATELET COUNT 224 10^3/uL (150-400); RED BLOOD CELL COUNT 3.31 10^6/uL (4.40-6.38)
[2016-09-12] MEDS: ALBUTEROL 60 PUFFS/8 GM MDI IH SCH ×4 (03:43→17:22)
[2016-09-12 03:45] LABS: RED CELL DISTRIBUTION WIDTH 20.4 % (11.5-15.2)
[2016-09-12 03:57] LABS: ANION GAP 6 mEq/L (8-16); CALCIUM 7.9 mg/dL (8.5-10.4); CARBON DIOXIDE 30 mEq/l (22-31); CHLORIDE 102 mEq/L (97-110); CREATININE 0.4 mg/dL (0.7-1.3); GLOMERULAR FILTRATION RATE > 60; GLUCOSE 104 mg/dL (70-100); POTASSIUM 3.9 mEq/L (3.5-5.2); SODIUM 138 mEq/L (134-144)
[2016-09-12 04:19] LABS: HYPOCHROMIA 1+; LARGE PLATELETS PRESENT; MACROCYTES 1+; MICROCYTES 1+; PLATELET ESTIMATE ADEQUATE (ADEQ); POLYCHROMASIA 1+
[2016-09-12] MEDS: PROPOFOL/EMULSION 100 ML IV SCH (04:28)
[2016-09-12] MEDS ORDERED: POTASSIUM Cl (KCl) 50 ML IV ONE ×2 (04:32→20:03)
[2016-09-12 04:50] LABS: MAGNESIUM 1.6 mg/dL (1.6-2.3)
[2016-09-12 05:39] LABS: BASE EXCESS 9.1 mEq/L (-2.5-2.5); BICARBONATE 34 mEq/L (22-26); MEASURED OXYGEN SATURATION 97 % (92-95); PCO2 50 mmHg (34-38); PO2 86 mmHg (65-75); TCO2 35 mEq/L (23-27)
[2016-09-12 05:40] LABS: O2 CONCENTRATIION 40 % (0-100); P/F RATIO 215 RATIO; SIMV YES
[2016-09-12 05:41] LABS: PATIENT RATE 23; PIP 18; PRESSURE SUPPORT 7
[2016-09-12] MEDS: PANTOPRAZOLE SODIUM 40 MG in NS 100 ML IV SCH ×2 (08:14→21:15)
[2016-09-12] MEDS: SUCRALFATE 1 GM/10 ML UDCUP TUBE SCH ×4 (08:14→21:19)
[2016-09-12] MEDS: NICOTINE 21 MG/24 HR PATCH TD SCH (08:22)
--- NOTE | 2016-09-12 08:48 | PDINTPN ---
Manager Reimbursement Progress Note Assessment/Plan: Assessment/Plan: * Acute respiratory failure, recurrent. Hypercarbia better -try CPAP trial * Hypotension: resolved, off pressors. * Interstitial lung disease-unclear etiology, though IPF appears most likely. Likely component of acute pneumonitis as well -CT chest shows likely IPF * Status post pneumothorax. Has a new chest tube, small pneumothorax today, small leak. Stable. * Loculated effusion- * Status post exploratory laparotomy: Secondary to abdominal pain at the time of initial intubation 09/04. Findings were negative. Has residual postop tenderness. Now tolerating tube feedings * GI bleed. Resolved * Acute blood-loss anemia: Resolved * Elevated liver function studies. AST and ALT improving. Possibly secondary to hypotension or underlying hep C? Will follow. * Nutrition: On tube feedings as of today. Continue Reglan. * History of tobacco abuse, alcohol use, hepatitis-C, homelessness, etc * Dispo-brother now POA 40 min critical care time spent with patient Case discussed with nurse and RT. Will discuss with brother 09/12/16 08:46 Subjective: Awake and alert Objective: Vital Signs Temp Pulse Resp BP Pulse Ox 37.1 C 76 22 H 92/66 L 99 09/12/16 05:59 09/12/16 05:59 09/12/16 05:59 09/12/16 05:59 09/12/16 04:00 Microbiology 09/06/16 07:00 Blood Culture - Final Blood 09/06/16 07:00 Blood Culture - Final Blood 09/04/16 03:20 Mycobacterial Smear (SOFI) - Final Lung Left Lobe - Bronchial Washings Laboratory Results 09/12/16 03:30 09/12/16 03:30 09/11/16 09/12/16 09/13/16 05:59 05:59 05:59 Intake Total 3326 3198 Output Total 905 2990 Balance 2421 208 PT 17.1 SEC (12.0-15.0) H 09/05/16 09:40 INR 1.40 (0.83-1.16) H 09/05/16 09:40 Laboratory Results 09/12/16 03:30 09/12/16 03:30 09/12/16 09/12/16 04:31 03:30 Patient Temperature 37.0 DEGREES DEGREES pCO2 50 mmHg H mmHg (34 - 38) pO2 86 mmHg H mmHg (65 - 75) Total CO2 35 mEq/L H mEq/L (23 - 27) ABG pH 7.45 (7.35 - 7.45) ABG PO2/FiO2 Ratio 215 RATIO RATIO ABG O2 Saturation 97 % H % (92 - 95) ABG Base Excess 9.1 mEq/L H mEq/L (-2.5 - 2.5) O2 Concentration % 40 % % Actual Respiration Rate 23 Set Respiration Rate 20 SIMV YES Tidal Volume 550 PEEP 5 Peak Inspir Pressure 18 Pressure Support 7 Calcium 7.9 mg/dL L mg/dL (8.5 - 10.4) Phosphorus 2.8 mg/dL mg/dL (2.5 - 4.5) Magnesium 1.6 mg/dL mg/dL (1.6 - 2.3) CT chest-Reviewed by myself shows complex loculations right pleural space. Extensive Pulmonary Fibrosis. Bibasilar infiltrates, right >left. - Time Spent With Patient Time Spent With Patient: 40 Physical Exam - Physical Exam General Appearance: alert, anxiety (mild), thin EENT: PERRL/EOMI, normal ENT inspection, pharynx normal, TMs normal, ET tube Neck: non-tender, full range of motion, supple, normal inspection Respiratory: crackles (bibasilar), No respiratory distress, No stridor, No wheezing Cardiac/Chest: normal peripheral pulses, regular rate, rhythm, systolic murmur Peripheral Pulses: 2+: carotid (R), carotid (L), femoral (R), femoral (L), dorsalis-pedis (R), dorsalis-pedis (L) Abdomen: normal bowel sounds, non-tender, soft Male Genitalia: deferred Rectal: deferred Skin: normal color, warm/dry Extremities: normal range of motion, non-tender, normal inspection, normal capillary refill Neuro/Psych: alert ICD10 Worksheet Patient Problems: Problems Problem Status Onset Acute chest pain Acute Interstitial lung disease Acute Pneumothorax, right Acute Acute respiratory failure with hypoxia Acute Alcohol abuse Acute Hematemesis Acute Lung infiltrate Acute Ribs, multiple fractures Acute Sepsis Acute
--- NOTE | 2016-09-12 09:36 | PCMIDPN ---
Assessment/Plan: #MSSA PNA now with CT scan showing R complex pleural effusion, CT output 30cc/ 24h. Minimal vent setting, on CPAP trial, may be extubated today. CT originally placed for PTX --obtain better analysis of pleural fluid today --Continue Unasyn for coverage MSSA (and lactobacillus) --length of therapy unclear right now because not clear if source control of pulmonary process #MSSA & Lactobacillus bacteremia, blood cx 09/06 are cleared. Unclear source, lactobacillus, although MSSA could be from pulmonary process --on Unasyn Abx #6 unasyn 3gm IV q6hs case discussed with Dr. Spears and Dr Kevin Subjective: no specific events overnight on CPAP trial this AM Objective: Vital Signs Temp Pulse Resp BP Pulse Ox 37.1 C 76 31 H 88/52 L 97 09/12/16 05:59 09/12/16 08:56 09/12/16 08:56 09/12/16 08:56 09/12/16 08:56 Microbiology 09/07/16 07:40 Blood Culture - Final Blood 09/06/16 07:00 Blood Culture - Final Blood 09/06/16 07:00 Blood Culture - Final Blood 09/04/16 03:20 Mycobacterial Smear (SOFI) - Final Lung Left Lobe - Bronchial Washings Laboratory Results 09/12/16 03:30 09/12/16 03:30 09/11/16 09/12/16 09/13/16 05:59 05:59 05:59 Intake Total 3326 3198 Output Total 905 2990 Balance 2421 208 - Physical Exam General Appearance: alert EENT: pale conjunctiva, ET Tube, NG Tube, No scleral icterus Neck: supple Cardiac/Chest: regular rate, rhythm Extremities: pedal edema Abdomen: non-tender, soft Male Genitalia: rosado Skin: pallor, No jaundice, No rash Neuro/Psych: alert, other (answers questions appropriately) - Line/s LUE PICC Lines: other (Triple lumen), No drainage, No erythema - Time Spent With Patient Time Spent with Patient: greater than 35 minutes Time Spent with Patient: Greater than 35 minutes spent on this patients care, greater than 50% of time spent counseling, educating, and coordinating care regarding the above mentioned plan. ICD10 Worksheet Patient Problems: Problems Problem Status Onset Acute chest pain Acute Interstitial lung disease Acute Pleural effusion Acute Pneumothorax, right Acute Acute respiratory failure with hypoxia Acute Alcohol abuse Acute Hematemesis Acute Lung infiltrate Acute Ribs, multiple fractures Acute Sepsis Acute
[2016-09-12 10:17] LABS: BASE EXCESS 8.6 mEq/L (-2.5-2.5); BICARBONATE 33 mEq/L (22-26); MEASURED OXYGEN SATURATION 96 % (92-95); PCO2 48 mmHg (34-38); PO2 79 mmHg (65-75); TCO2 35 mEq/L (23-27)
[2016-09-12 10:18] LABS: END TIDAL CO2 46; O2 CONCENTRATIION 40 % (0-100); P/F RATIO 198 RATIO; PATIENT RATE 41; PRESSURE SUPPORT 7
--- NOTE | 2016-09-12 10:57 | SOAPPROG ---
SOAP Progress Note Assessment/Plan: Assessment:s/p right chest tube placement for tension pneumothorax/no residual BP fistula clinically Pleurovac reduced to 10 cm suction/will likely remove post extubation residual dependent pleural effusion not fully drained by current chest tube. Plan: continue CT drainage consider ultrasound guide aspiration for diagnostic evaluation of loculated effusion if temp spikes occur May require VATS for decortication if evidence of empyema 09/12/16 13:13 Subjective: intubated/awake and alert/recently completed CPAP trial Objective: Vital Signs Temp Pulse Resp BP Pulse Ox 37.1 C 76 31 H 88/52 L 97 09/12/16 05:59 09/12/16 08:56 09/12/16 08:56 09/12/16 08:56 09/12/16 08:56 Microbiology 09/07/16 07:40 Blood Culture - Final Blood 09/06/16 07:00 Blood Culture - Final Blood 09/06/16 07:00 Blood Culture - Final Blood 09/04/16 03:20 Mycobacterial Smear (SOFI) - Final Lung Left Lobe - Bronchial Washings Laboratory Results 09/12/16 03:30 09/12/16 03:30 09/11/16 09/12/16 09/13/16 05:59 05:59 05:59 Intake Total 3326 3198 Output Total 905 2990 1150 Balance 2421 208 -1150 PT 17.1 SEC (12.0-15.0) H 09/05/16 09:40 INR 1.40 (0.83-1.16) H 09/05/16 09:40 - Pending Discharge Pending Discharge Within 24 Hours: No Pending Discharge Within 48 Hours: No Physical Exam - Physical Exam General Appearance: alert, other (intubated) Respiratory: decreased breath sounds, pleural rub, other (right chest tube/no air leak/moderate sero-sanguinous drainage) Cardiac/Chest: regular rate, rhythm Abdomen: non-tender, soft Neuro/Psych: other (remarkably comfortable and cooperative with ETT) ICD10 Worksheet Patient Problems: Problems Problem Status Onset Acute chest pain Acute Interstitial lung disease Acute Pleural effusion Acute Pneumothorax, right Acute Acute respiratory failure with hypoxia Acute Alcohol abuse Acute Hematemesis Acute Lung infiltrate Acute Ribs, multiple fractures Acute Sepsis Acute - ICD10 Problem Qualifiers (1) Pleural effusion
[2016-09-12 12:48] LABS: LACTATE DEHYDROGENASE 777 IU/L (313-618); POTASSIUM 4.2 mEq/L (3.5-5.2)
[2016-09-12] MEDS ORDERED: ALBUTEROL 3 ML DEYVIAL IH PRN (16:50)
--- NOTE | 2016-09-12 17:05 | HOSPPROG ---
Hospitalist Progress Note Assessment/Plan: 56 yo M with hx of pulmonary fibrosis recently discharged from senior living admitted with chest pain and found to have ptx, hospital course complicated by tension ptx developing as well as shock/gi bleed # tension ptx: CT in place, gen surg following, recurrent spontaneous ptx in setting of pulm fibrosis, cxr from today on personal review showing no residual ptx # Shock. resolved, presumed 2/2 sepsis # lactobacillus bacteremia/mssa bacteremia: echo w no vegetation, BAL showing MSSA, currently being treated with unasyn, ID following, surveillance cxs from with ngtd #Aspiration PNA. Gastric material noted in R bronchi on bronch by Dr. Betts, s/ p vanc/zosyn and now monitoring on unasyn, repeat cxr showing stable bilateral infiltrates #Acute on chronic hypoxic and hypercapnic respiratory failure. multifactorial with ptx, aspiration PNA and underlying pulmonary fibrosis. Had rapid turn around and now doing well extubated on nc o2. Continue montioring. Loculated effusion also present, consider VATS. gen surg involved. # Acute upper gastrointestinal hemorrhage. Coffee ground emesis w/ FOB (+), egd showing only gastritis, has not recurred thus far, monitoring # Acute blood loss anemia. Hgb 12.5->7, stable overnight, sp transfusion of 7 units this hospital stay # Pulmonary fibrosis. Chronic, HRCT pending as above, off steroids since 09/10 # Distal esophageal thickening. CT findings c/w esophagitis and associated small hiatal hernia, cont PPI # Thrombocytopenia. HIT ab neg, nonitoring # Diet. NPO PPx. LMWH, on SCDs FC--brother has been identified as MDPOA Dispo. ADD uncertain Care plan reviewed with Dr. almanza and multidisciplinary care team. Subjective: no significant overnight events, patient tolerating cpap trial and now extubated Objective: Vital Signs Temp Pulse Resp BP Pulse Ox 38.1 C 74 28 H 119/70 100 09/12/16 16:00 09/12/16 16:00 09/12/16 16:00 09/12/16 16:00 09/12/16 16:00 Microbiology 09/07/16 07:40 Blood Culture - Final Blood 09/06/16 07:00 Blood Culture - Final Blood 09/06/16 07:00 Blood Culture - Final Blood 09/04/16 03:20 Mycobacterial Smear (SOFI) - Final Lung Left Lobe - Bronchial Washings Laboratory Results 09/12/16 03:30 09/12/16 12:10 09/11/16 09/12/16 09/13/16 05:59 05:59 05:59 Intake Total 3326 3198 Output Total 905 2990 1150 Balance 2421 208 -1150 PT 17.1 SEC (12.0-15.0) H 09/05/16 09:40 INR 1.40 (0.83-1.16) H 09/05/16 09:40 extubated awake alert anicteric ett in place rrr no mrg coarse bs, normal wob soft nt nd no cce warm dry well perfused responds to commands, moves all 4, alert, gesturing for food ICD10 Worksheet Patient Problems: Problems Problem Status Onset Acute chest pain Acute Interstitial lung disease Acute Pleural effusion Acute Pneumothorax, right Acute Acute respiratory failure with hypoxia Acute Alcohol abuse Acute Hematemesis Acute Lung infiltrate Acute Ribs, multiple fractures Acute Sepsis Acute
[2016-09-12 18:57] LABS: POTASSIUM 3.7 mEq/L (3.5-5.2)
[2016-09-12] MEDS: POTASSIUM Cl (KCl) 40 MEQ in NS 1,000 ML IV SCH (21:15)
[2016-09-12] MEDS: HYDROmorphONE/DILAUDID 1 MG/ML SYR IVP PRN (21:18)
[2016-09-12] MEDS: CEPACOL LOZENGE PO PRN (21:18)
[2016-09-12] MEDS: ALBUTEROL 3 ML DEYVIAL IH SCH (21:37)
[2016-09-13 01:06] LABS: POTASSIUM 3.8 mEq/L (3.5-5.2)
[2016-09-13] MEDS: AMPICILLIN/SULBACTAM 3 GM in NS 100 ML IV SCH ×5 (01:24→23:15)
[2016-09-13] MEDS: METOCLOPRAMIDE 10 MG/2 ML VIAL IVP SCH ×3 (01:25→11:34)
[2016-09-13] MEDS ORDERED: POTASSIUM Cl (KCl) 50 ML IV ONE ×2 (01:25→07:18)
[2016-09-13] MEDS: LORazepam 2 MG/ML INJ IVP PRN (01:57)
[2016-09-13] MEDS: ALBUTEROL 3 ML DEYVIAL IH SCH ×4 (05:07→20:24)
[2016-09-13 06:28] LABS: POTASSIUM 3.9 mEq/L (3.5-5.2)
[2016-09-13] MEDS: SUCRALFATE 1 GM/10 ML UDCUP TUBE SCH ×2 (07:16→11:34)
[2016-09-13] MEDS: NICOTINE 21 MG/24 HR PATCH TD SCH (07:47)
[2016-09-13] MEDS: HYDROmorphONE/DILAUDID 1 MG/ML SYR IVP PRN ×2 (08:02→23:15)
[2016-09-13] MEDS: ENOXAPARIN 40 MG/0.4 ML SYR SC SCH (08:02)
[2016-09-13] MEDS: PANTOPRAZOLE SODIUM 40 MG in NS 100 ML IV SCH ×2 (08:02→21:02)
--- NOTE | 2016-09-13 09:19 | PDINTPN ---
Varnish Filterer Progress Note Assessment/Plan: Assessment/Plan: * Acute respiratory failure-stable off vent * Hypotension: resolved, off pressors. * Interstitial lung disease-unclear etiology, though IPF appears most likely. Likely component of acute pneumonitis as well -CT chest shows likely IPF * Status post pneumothorax. Possible D/C today * Loculated effusion-small. Hold intervention * Status post exploratory laparotomy: Secondary to abdominal pain at the time of initial intubation 09/04. Findings were negative. Has residual postop tenderness. Now tolerating tube feedings * GI bleed. Resolved * Anxiety-start Xanax * Acute blood-loss anemia: Resolved * Elevated liver function studies. AST and ALT improving. Possibly secondary to hypotension or underlying hep C? Will follow. * Nutrition: On tube feedings as of today. Continue Reglan. * History of tobacco abuse, alcohol use, hepatitis-C, homelessness, etc * Dispo-brother now POA 09/13/16 09:19 Subjective: Comfortable, but anxious Objective: Vital Signs Temp Pulse Resp BP Pulse Ox 37.9 C 105 H 26 H 115/69 99 09/13/16 08:00 09/13/16 08:00 09/13/16 08:00 09/13/16 08:00 09/13/16 08:00 Microbiology 09/07/16 07:40 Blood Culture - Final Blood 09/06/16 07:00 Blood Culture - Final Blood 09/06/16 07:00 Blood Culture - Final Blood Laboratory Results 09/12/16 03:30 09/13/16 05:50 09/12/16 09/13/16 09/14/16 05:59 05:59 05:59 Intake Total 3198 2145 Output Total 2990 9730 Balance 208 -7585 PT 17.1 SEC (12.0-15.0) H 09/05/16 09:40 INR 1.40 (0.83-1.16) H 09/05/16 09:40 CXR-no change overall Physical Exam - Physical Exam General Appearance: alert, no apparent distress, anxiety EENT: PERRL/EOMI, normal ENT inspection, pharynx normal Neck: non-tender, full range of motion, supple Respiratory: crackles, No respiratory distress, No stridor, No wheezing Cardiac/Chest: normal peripheral pulses, regular rate, rhythm Peripheral Pulses: 2+: carotid (R), carotid (L), femoral (R), femoral (L), dorsalis-pedis (R), dorsalis-pedis (L) Abdomen: normal bowel sounds, non-tender, soft Male Genitalia: deferred Rectal: deferred Extremities: normal range of motion, non-tender, normal inspection, normal capillary refill ICD10 Worksheet Patient Problems: Problems Problem Status Onset Acute chest pain Acute Interstitial lung disease Acute Pleural effusion Acute Pneumothorax, right Acute Acute respiratory failure with hypoxia Acute Alcohol abuse Acute Hematemesis Acute Lung infiltrate Acute Ribs, multiple fractures Acute Sepsis Acute
--- NOTE | 2016-09-13 11:04 | SOAPPROG ---
SOAP Progress Note Assessment/Plan: Assessment: Assessment/Plan:s/p right chest tube placement for tension pneumothorax/no residual BP fistula clinically Pleurovac to waterseal, hope to remove later this afternoon Will not medically tolerate a VATS. If worsening effusion, can consider IR approach if needed Remove every other staple midline. S: Extubated. Comfortable O: Midline lora clean dry and intact. BS present. No airleak with cough Decreased at bases Plan: 09/13/16 11:01 Objective: Vital Signs Temp Pulse Resp BP Pulse Ox 37.9 C 105 H 26 H 115/69 99 09/13/16 08:00 09/13/16 08:00 09/13/16 08:00 09/13/16 08:00 09/13/16 08:00 Microbiology 09/07/16 07:40 Blood Culture - Final Blood 09/06/16 07:00 Blood Culture - Final Blood 09/06/16 07:00 Blood Culture - Final Blood Laboratory Results 09/12/16 03:30 09/13/16 05:50 09/12/16 09/13/16 09/14/16 05:59 05:59 05:59 Intake Total 3198 2145 Output Total 2990 9730 1000 Balance 208 -5353 -1000 PT 17.1 SEC (12.0-15.0) H 09/05/16 09:40 INR 1.40 (0.83-1.16) H 09/05/16 09:40 ICD10 Worksheet Patient Problems: Problems Problem Status Onset Acute chest pain Acute Interstitial lung disease Acute Pleural effusion Acute Pneumothorax, right Acute Acute respiratory failure with hypoxia Acute Alcohol abuse Acute Hematemesis Acute Lung infiltrate Acute Ribs, multiple fractures Acute Sepsis Acute
[2016-09-13] MEDS ORDERED: PROTOCOL POTASSIUM 1 DOSE MISC PRN (11:53)
[2016-09-13] MEDS: ALPRAZolam 0.25 MG TAB PO SCH ×2 (15:30→21:05)
--- NOTE | 2016-09-13 16:35 | HOSPPROG ---
Hospitalist Progress Note Assessment/Plan: 56 yo M with hx of pulmonary fibrosis recently [facility] admitted with chest pain and found to have ptx, hospital course complicated by tension ptx developing as well as shock/gi bleed # tension ptx: CT in place, gen surg following, recurrent spontaneous ptx in setting of pulm fibrosis, cxr from today on personal review showing no residual ptx # Shock. resolved, presumed 2/2 sepsis # lactobacillus bacteremia/mssa bacteremia: echo w no vegetation, BAL showing MSSA, currently being treated with unasyn, ID following, surveillance cxs from with ngtd #Aspiration PNA. Gastric material noted in R bronchi on bronch by Dr. Betts, s/ p vanc/zosyn and now monitoring on unasyn, repeat cxr showing stable bilateral infiltrates #Acute on chronic hypoxic and hypercapnic respiratory failure. multifactorial with ptx, aspiration PNA and underlying pulmonary fibrosis. Had rapid turn around and now doing well extubated on nc o2. Continue montioring. Loculated effusion also present, consider VATS. gen surg involved. # Acute upper gastrointestinal hemorrhage. Coffee ground emesis w/ FOB (+), egd showing only gastritis, has not recurred thus far, monitoring # Acute blood loss anemia. Hgb 12.5->7, stable overnight, sp transfusion of 7 units this hospital stay # Pulmonary fibrosis. Chronic, HRCT pending as above, off steroids since 09/10 # Distal esophageal thickening. CT findings c/w esophagitis and associated small hiatal hernia, cont PPI # Thrombocytopenia. HIT ab neg, nonitoring # Diet. advancing diet, passed swallow with solutions engineer PPx. LMWH, on SCDs FC--brother has been identified as MDPOA Dispo. ADD uncertain Care plan reviewed with Dr. almanza and multidisciplinary care team. Subjective: no significant overnight events, patient feeling better Objective: Vital Signs Temp Pulse Resp BP Pulse Ox 37.7 C 79 26 H 113/69 94 09/13/16 16:00 09/13/16 16:00 09/13/16 16:00 09/13/16 16:00 09/13/16 16:00 Laboratory Results 09/12/16 03:30 09/13/16 05:50 09/12/16 09/13/16 09/14/16 05:59 05:59 05:59 Intake Total 3198 2145 Output Total 2990 9730 1800 Balance 208 -7585 -5039 PT 17.1 SEC (12.0-15.0) H 09/05/16 09:40 INR 1.40 (0.83-1.16) H 09/05/16 09:40 extubated awake alert anicteric ett in place rrr no mrg coarse bs, normal wob soft nt nd no cce warm dry well perfused responds to commands, moves all 4, alert, gesturing for food ICD10 Worksheet Patient Problems: Problems Problem Status Onset Acute chest pain Acute Interstitial lung disease Acute Pleural effusion Acute Pneumothorax, right Acute Acute respiratory failure with hypoxia Acute Alcohol abuse Acute Hematemesis Acute Lung infiltrate Acute Ribs, multiple fractures Acute Sepsis Acute
--- NOTE | 2016-09-13 17:10 | PCMIDPN ---
Assessment/Plan: Assessment: MSSA bacteremia from an unclear source. Initial pneumothorax right side. Right-sided pneumonia became evident afterward. Bronch wash also growing MSSA. Lactobacillus species in same blood culture 1/2 sets. Probably not a contaminant. No evidence of endocarditis either on 2D or TEZ. Clinically appears to be much improved from my last visit. Unasyn covers both isolates. Plan: 1. Continue Unasyn. 2. Follow clinical course. Patient is slowly improving. 09/13/16 17:07 09/13/16 17:08 Subjective: Patient has been extubated. He is awake and alert. He wishes to take oral food and water but has not been cleared by speech therapy yet. Objective: Unasyn # 3 (# 7) Vital Signs Temp Pulse Resp BP Pulse Ox 37.7 C 79 26 H 113/69 94 09/13/16 16:00 09/13/16 16:00 09/13/16 16:00 09/13/16 16:00 09/13/16 16:00 Laboratory Results 09/12/16 03:30 09/13/16 05:50 09/12/16 09/13/16 09/14/16 05:59 05:59 05:59 Intake Total 3198 2145 Output Total 2990 9730 1800 Balance 109 -1309 -5134 - Physical Exam General Appearance: WD/WN, alert, no apparent distress, non-toxic Respiratory: crackles, No lungs clear, No normal breath sounds, No respiratory distress Cardiac/Chest: regular rate, rhythm, No tachycardia Extremities: non-tender, normal inspection Skin: normal color, warm/dry, No rash Neuro/Psych: alert, normal mood/affect ICD10 Worksheet Patient Problems: Problems Problem Status Onset Acute chest pain Acute Interstitial lung disease Acute Pleural effusion Acute Pneumothorax, right Acute Acute respiratory failure with hypoxia Acute Alcohol abuse Acute Hematemesis Acute Lung infiltrate Acute Ribs, multiple fractures Acute Sepsis Acute
[2016-09-13 18:16] LABS: POTASSIUM 3.6 mEq/L (3.5-5.2)
[2016-09-13] MEDS ORDERED: POTASSIUM CL 10 MEQ TAB PO ONE (18:37)
[2016-09-13] MEDS ORDERED: POTASSIUM CL 20 MEQ TAB PO ONE (21:30)
[2016-09-14] MEDS: ALBUTEROL 3 ML DEYVIAL IH SCH ×4 (05:33→20:38)
[2016-09-14] MEDS: AMPICILLIN/SULBACTAM 3 GM in NS 100 ML IV SCH ×3 (06:07→18:19)
[2016-09-14] MEDS: HYDROmorphONE/DILAUDID 1 MG/ML SYR IVP PRN ×2 (06:14→08:35)
[2016-09-14 06:18] LABS: POTASSIUM 3.9 mEq/L (3.5-5.2)
[2016-09-14] MEDS ORDERED: POTASSIUM CL 10 MEQ TAB PO ONE ×2 (07:49→21:49)
[2016-09-14] MEDS: ENOXAPARIN 40 MG/0.4 ML SYR SC SCH (08:00)
[2016-09-14] MEDS: ALPRAZolam 0.25 MG TAB PO SCH ×3 (08:00→22:05)
[2016-09-14] MEDS: PANTOPRAZOLE SODIUM 40 MG in NS 100 ML IV SCH (08:00)
[2016-09-14] MEDS: NICOTINE 21 MG/24 HR PATCH TD SCH (08:01)
--- NOTE | 2016-09-14 08:29 | PCMIDPN ---
Assessment/Plan: #MSSA PNA associated with R complex pleural effusion, chest tube out, extubated. Planning medical management of complex pleural effusion. --4 weeks IV possibly followed by 2 weeks weeks PO depending on clinical response #MSSA & Lactobacillus bacteremia, blood cx 09/06 are cleared. Unclear source lactobacillus, although MSSA could be from pulmonary process. TTE negative on . With rapid clearance of blood cultures and negative transthoracic echo no further workup of endocarditis needed. --on Unasyn, would recommend 4 weeks of IV (stop, 10/04/16) followed by 2 weeks PO abx for complex pulmonary process --PICC placed 09/05 prior to clearance of blood cx, will order exchange # DC rosado if feasible Abx #8 unasyn 3gm IV q6hs Microbiology 09/07 sputum culture: Negative 09/07 blood culture 1 set negative 09/06 blood culture 2 sets negative 09/04 blood culture 1 set MSSA other set lactobacillus 09/04 BAL: MSSA Subjective: Patient reports diffuse body discomfort/pain due to cancer Denies current diarrhea Objective: Vital Signs Temp Pulse Resp BP Pulse Ox 37.0 C 82 35 H 104/72 99 09/14/16 08:00 09/14/16 08:00 09/14/16 08:00 09/14/16 08:00 09/14/16 08:00 Laboratory Results 09/12/16 03:30 09/14/16 05:55 09/13/16 09/14/16 09/15/16 05:59 05:59 05:59 Intake Total 2145 1550 Output Total 9730 4220 Balance -3143 -3845 - Physical Exam General Appearance: alert, thin EENT: poor dentition Respiratory: No accessory muscle use Cardiac/Chest: regular rate, rhythm Extremities: No pedal edema Abdomen: non-tender, soft Male Genitalia: rosado Skin: pallor, No rash Neuro/Psych: alert, normal mood/affect, oriented x 3 - Line/s LUE PICC Lines: No drainage, No erythema ICD10 Worksheet Patient Problems: Problems Problem Status Onset Acute chest pain Acute Interstitial lung disease Acute Pleural effusion Acute Pneumothorax, right Acute Acute respiratory failure with hypoxia Acute Alcohol abuse Acute Hematemesis Acute Lung infiltrate Acute Ribs, multiple fractures Acute Sepsis Acute
[2016-09-14] MEDS ORDERED: ALTEPLASE 2 MG VIAL IVP PRN (09:13)
--- NOTE | 2016-09-14 09:30 | PDINTPN ---
Insole Rounder Progress Note Assessment/Plan: Assessment/Plan: * Acute respiratory failure-stable off vent * Hypotension: resolved, off pressors. * Interstitial lung disease-unclear etiology, though IPF appears most likely. Likely component of acute pneumonitis as well -CT chest shows likely IPF * Status post pneumothorax. Chest tubes out * Loculated effusion-small. * Status post exploratory laparotomy: Secondary to abdominal pain at the time of initial intubation 09/04. Findings were negative. Has residual postop tenderness. Now tolerating tube feedings * GI bleed. Resolved * Anxiety-start Xanax * Acute blood-loss anemia: Resolved * Elevated liver function studies. AST and ALT improving. Possibly secondary to hypotension or underlying hep C? Will follow. * Nutrition: On tube feedings as of today. Continue Reglan. * History of tobacco abuse, alcohol use, hepatitis-C, homelessness, etc * Dispo-to med surg today Subjective: comfortable. Breathing easily. Good appetite Objective: Vital Signs Temp Pulse Resp BP Pulse Ox 37.0 C 82 35 H 104/72 99 09/14/16 08:00 09/14/16 08:00 09/14/16 08:00 09/14/16 08:00 09/14/16 08:00 Laboratory Results 09/12/16 03:30 09/14/16 05:55 09/13/16 09/14/16 09/15/16 05:59 05:59 05:59 Intake Total 2145 1550 Output Total 9730 4220 75 Balance -7585 -2670 -75 PT 17.1 SEC (12.0-15.0) H 09/05/16 09:40 INR 1.40 (0.83-1.16) H 09/05/16 09:40 Physical Exam - Physical Exam General Appearance: WD/WN, alert EENT: PERRL/EOMI, normal ENT inspection, pharynx normal, TMs normal Neck: non-tender, full range of motion, supple, normal inspection Respiratory: crackles, prolonged expiration, No respiratory distress, No wheezing Cardiac/Chest: normal peripheral pulses, regular rate, rhythm, systolic murmur Peripheral Pulses: 2+: carotid (R), carotid (L), femoral (R), femoral (L), dorsalis-pedis (R), dorsalis-pedis (L) Abdomen: normal bowel sounds, non-tender, soft Male Genitalia: deferred Rectal: deferred Skin: normal color, warm/dry Neuro/Psych: no motor/sensory deficits, alert, normal mood/affect, oriented x 3 ICD10 Worksheet Patient Problems: Problems Problem Status Onset Acute chest pain Acute Interstitial lung disease Acute Pleural effusion Acute Pneumothorax, right Acute Acute respiratory failure with hypoxia Acute Alcohol abuse Acute Hematemesis Acute Lung infiltrate Acute Ribs, multiple fractures Acute Sepsis Acute
[2016-09-14] MEDS: PANTOPRAZOLE SODIUM 40 MG TAB PO SCH (09:49)
--- NOTE | 2016-09-14 10:58 | SOAPPROG ---
SOESMER Progress Note Assessment/Plan: Assessment/Plan - 56yo M s/p multiple R sided CTs, ex-lap - CT has had minimal output for the past 3 days. CXR yesterday actually showed that the sentinel eye was out of the chest cavity. Not really tidaling and without leak - CT removed without issue this AM. will plan to get post-pull CXR later this AM. Patient will need remainder of lora out early next week, please call quotation clerk surgeon to do this if necessary. 08/30/16 09:02 08/31/16 14:39 09/03/16 12:15 09/14/16 10:56 09/14/16 10:58 Subjective: Doing well, having some pain around the CT site Objective: Vital Signs Temp Pulse Resp BP Pulse Ox 37.0 C 82 35 H 104/72 99 09/14/16 08:00 09/14/16 08:00 09/14/16 08:00 09/14/16 08:00 09/14/16 08:00 Laboratory Results 09/12/16 03:30 09/14/16 05:55 09/13/16 09/14/16 09/15/16 05:59 05:59 05:59 Intake Total 2145 1550 Output Total 9730 4220 75 Balance -7585 -2670 -75 PT 17.1 SEC (12.0-15.0) H 09/05/16 09:40 INR 1.40 (0.83-1.16) H 09/05/16 09:40 ICD10 Worksheet Patient Problems: Problems Problem Status Onset Acute chest pain Acute Interstitial lung disease Acute Pleural effusion Acute Pneumothorax, right Acute Acute respiratory failure with hypoxia Acute Alcohol abuse Acute Hematemesis Acute Lung infiltrate Acute Ribs, multiple fractures Acute Sepsis Acute
[2016-09-14] MEDS: oxyCODONE IR 5 MG TAB PO PRN ×3 (13:25→22:05)
--- NOTE | 2016-09-14 15:25 | HOSPPROG ---
Hospitalist Progress Note Assessment/Plan: 56 yo M with hx of pulmonary fibrosis recently discharged from [facility] admitted with chest pain and found to have ptx, hospital course complicated by tension ptx developing as well as shock/gi bleed # tension ptx: CT now out and no e/o recurrent ptx, gen surg following, recurrent spontaneous ptx in setting of pulm fibrosis # Shock. resolved, presumed 2/2 sepsis # lactobacillus bacteremia/mssa bacteremia: echo w no vegetation, BAL showing MSSA, currently being treated with unasyn, ID following, surveillance cxs from with ngtd #Aspiration PNA. cxr personally reviewed showing continued diffuse airspace consolidations without real change--on CT noted that largely related to pulm fibrosis with bilateral infiltrates likely related to pna. continued on unasyn. #Acute on chronic hypoxic and hypercapnic respiratory failure. multifactorial with ptx, aspiration PNA and underlying pulmonary fibrosis. Small loculated effusion also present, gen surg does not feel VATS indicated # Acute upper gastrointestinal hemorrhage. Coffee ground emesis w/ FOB (+), egd showing only gastritis, has not recurred thus far, monitoring # Acute blood loss anemia.sp transfusion of 7 units this hospital stay, h/h have been stable for several days now # Pulmonary fibrosis. Chronic, likely IPF, off steroids since 09/10 # Distal esophageal thickening. CT findings c/w esophagitis and associated small hiatal hernia, cont PPI # Thrombocytopenia. HIT ab neg, nonitoring # Diet. advancing diet, passed swallow with hotel security officer PPx. LMWH, on SCDs FC--brother has been identified as MDPOA Dispo. ADD uncertain Care plan reviewed with Dr. almanza and multidisciplinary care team. Subjective: no significant overnight events, patient sitting up and eating, he is feeling much better, has been working with pt Objective: Vital Signs Temp Pulse Resp BP Pulse Ox 37.0 C 85 33 H 104/69 96 09/14/16 11:54 09/14/16 11:54 09/14/16 11:54 09/14/16 11:54 09/14/16 11:54 Laboratory Results 09/12/16 03:30 09/14/16 05:55 09/13/16 09/14/16 09/15/16 05:59 05:59 05:59 Intake Total 2145 1550 Output Total 9730 4220 75 Balance -5500 -2140 -75 PT 17.1 SEC (12.0-15.0) H 09/05/16 09:40 INR 1.40 (0.83-1.16) H 09/05/16 09:40 awake alert anicteric poor dentition op clear rrr no mrg dec bs thoughout, scattered rales, normal wob soft min ttp near incision site no cce warm dry well perfused oriented appropriate - Time Spent With Patient Time Spent with Patient: greater than 35 minutes Time Spent with Patient: Greater than 35 minutes spent on this patients care, greater than 50% of time spent counseling, educating, and coordinating care regarding the above mentioned plan. ICD10 Worksheet Patient Problems: Problems Problem Status Onset Hematemesis Acute Acute respiratory failure with hypoxia Acute Alcohol abuse Acute Ribs, multiple fractures Acute Sepsis Acute Lung infiltrate Acute Acute chest pain Acute Pneumothorax, right Acute Interstitial lung disease Acute Pleural effusion Acute
[2016-09-14 21:30] LABS: POTASSIUM 3.7 mEq/L (3.5-5.2)
[2016-09-14] MEDS ORDERED: POTASSIUM CL 10 MEQ TAB ONE (22:01)
[2016-09-15] MEDS: AMPICILLIN/SULBACTAM 3 GM in NS 100 ML IV SCH ×4 (01:40→18:24)
[2016-09-15] MEDS: oxyCODONE IR 5 MG TAB PO PRN ×6 (01:40→22:39)
[2016-09-15] MEDS: ALBUTEROL 3 ML DEYVIAL IH SCH ×4 (05:43→21:03)
[2016-09-15] MEDS: ACETAMINOPHEN 325 MG TAB PO PRN ×3 (05:59→21:25)
[2016-09-15 06:47] LABS: POTASSIUM 3.7 mEq/L (3.5-5.2)
[2016-09-15] MEDS: NICOTINE 21 MG/24 HR PATCH TD SCH (10:14)
[2016-09-15] MEDS: ENOXAPARIN 40 MG/0.4 ML SYR SC SCH (10:15)
[2016-09-15] MEDS: PANTOPRAZOLE SODIUM 40 MG TAB PO SCH (10:15)
[2016-09-15] MEDS: ALPRAZolam 0.25 MG TAB PO SCH ×3 (10:15→21:26)
--- NOTE | 2016-09-15 13:05 | HOSPPROG ---
Hospitalist Progress Note Assessment/Plan: 56 yo M with hx of pulmonary fibrosis [facility] admitted with chest pain and found to have ptx, hospital course complicated by tension ptx developing as well as shock/gi bleed # Acute tension ptx- CT now out and no recurrent ptx- oxygen saturations 94% on 4L - surgery following # Septic Shock- resolved, presumed 2/2 sepsis # lactobacillus bacteremia/mssa bacteremia-echo w no vegetation- BAL showing MSSA-, surveillance cxs from 09/06 with ngtd - cont unasyn through 10/04/16 (then 2 weeks PO abx) - ID following # Aspiration PNA-CXR ( personally reviewed and interpreted) showing continued diffuse airspace consolidations - continued on unasyn. # Acute on chronic hypoxic and hypercapnic respiratory failure- multifactorial with ptx, aspiration PNA and underlying pulmonary fibrosis. Small loculated effusion also present, gen surg does not feel VATS indicated # Acute upper gastrointestinal hemorrhage- Coffee ground emesis w/ FOB (+)- EGD showing only gastritis, has not recurred thus far, monitoring # Acute blood loss anemia- sp transfusion of 7 units this hospital stay, h/h have been stable for several days now # Pulmonary fibrosis. Chronic, likely IPF, off steroids since 09/10 # Distal esophageal thickening. CT findings c/w esophagitis and associated small hiatal hernia, cont PPI # Thrombocytopenia. HIT ab neg, monitoring # Diet. advancing diet, passed swallow with trouble locater # PPx. LMWH, on SCDs # Dispo- > 2MN as requiring ongoing care and monitoring # Care plan reviewed with case management - working on placement and continued strengthening Subjective: denies pain - tolerating PO Objective: Vital Signs Temp Pulse Resp BP Pulse Ox 36.8 C 82 28 H 109/72 94 09/15/16 11:30 09/15/16 11:51 09/15/16 11:51 09/15/16 11:30 09/15/16 11:51 Laboratory Results 09/12/16 03:30 09/15/16 06:05 09/14/16 09/15/16 09/16/16 05:59 05:59 05:59 Intake Total 1550 336 Output Total 4220 1975 200 Balance -2670 -1639 -200 PT 17.1 SEC (12.0-15.0) H 09/05/16 09:40 INR 1.40 (0.83-1.16) H 09/05/16 09:40 - Physical Exam Constitutional: chronically ill appearing Eyes: anicteric sclera Ears, Nose, Mouth, Throat: moist mucous membranes Cardiovascular: regular rate and rhythym Respiratory: reduced air movement Gastrointestinal: normoactive bowel sounds, tenderness, No guarding, No rebound Genitourinary: no bladder fullness Skin: warm, normal color Musculoskeletal: No asymmetric calves Neurologic: AAOx3 Psychiatric: interacting appropriately Lymph, Heme, Immunologic: no cervical LAD ICD10 Worksheet Patient Problems: Problems Problem Status Onset Acute chest pain Acute Interstitial lung disease Acute Pleural effusion Acute Pneumothorax, right Acute Acute respiratory failure with hypoxia Acute Alcohol abuse Acute Hematemesis Acute Lung infiltrate Acute Ribs, multiple fractures Acute Sepsis Acute
--- NOTE | 2016-09-15 14:11 | PCMIDPN ---
Assessment/Plan: Assessment/Plan: 1. MSSA and Lactobacillus bacteremia/sepsis: - Currently on Unasyn. - f/u blood cx from 09/06/16 ngtd -TTE without vegetations. -Continue current therapy 2.Bilateral pneumonia with small pleural effusions: - BAL with MSSA on cx - covered broadly with Unasyn for above. -wbc noted Creatinine stable. LFt stable. -Continue current care. -Plan is for at least 4 weeks therapy for above Meds Unasyn 3gm q6- 09/10/16 s/p zosyn (09/04/16-09/10/16) , vanco (09/04/16-09/07/16) Subjective: Afebrile. still with productive sputum, but mostly clear or lightly yellow tinged. Feels weak in general. Denies abd pain or diarrhea. Objective: Vital Signs Temp Pulse Resp BP Pulse Ox 36.8 C 82 28 H 109/72 94 09/15/16 11:30 09/15/16 11:51 09/15/16 11:51 09/15/16 11:30 09/15/16 11:51 Laboratory Results 09/12/16 03:30 09/15/16 06:05 09/14/16 09/15/16 09/16/16 05:59 05:59 05:59 Intake Total 1550 336 Output Total 4220 1975 200 Balance -2670 -1639 -200 - Physical Exam General Appearance: alert, no apparent distress Respiratory: coarse breath sounds Cardiac/Chest: regular rate, rhythm Extremities: No swelling Abdomen: normal bowel sounds, non-tender, soft, No distended Skin: No erythema ICD10 Worksheet Patient Problems: Problems Problem Status Onset Acute chest pain Acute Interstitial lung disease Acute Pleural effusion Acute Pneumothorax, right Acute Acute respiratory failure with hypoxia Acute Alcohol abuse Acute Hematemesis Acute Lung infiltrate Acute Ribs, multiple fractures Acute Sepsis Acute
[2016-09-15] MEDS ORDERED: POTASSIUM CL 10 MEQ TAB PO ONE ×2 (14:22→20:43)
--- NOTE | 2016-09-15 14:55 | PDINTPN ---
Gas Operations Analyst Progress Note Assessment/Plan: Assessment/Plan: * Resp-stable * Interstitial lung disease-unclear etiology, though IPF appears most likely. Likely component of acute pneumonitis as well -CT chest shows likely IPF * Status post pneumothorax. * Loculated effusion-small. * Status post exploratory laparotomy: Secondary to abdominal pain at the time of initial intubation 09/04. Findings were negative. * GI bleed. Resolved * Anxiety-start Xanax * Elevated liver function studies. AST and ALT improving. Possibly secondary to hypotension or underlying hep C? Will follow. * Nutrition: On PO Overall much improved Subjective: Resting comfortably. Breathing easier Objective: Vital Signs Temp Pulse Resp BP Pulse Ox 36.8 C 82 28 H 109/72 94 09/15/16 11:30 09/15/16 11:51 09/15/16 11:51 09/15/16 11:30 09/15/16 11:51 Laboratory Results 09/12/16 03:30 09/15/16 06:05 09/14/16 09/15/16 09/16/16 05:59 05:59 05:59 Intake Total 1550 336 Output Total 4220 1975 200 Balance -2670 -1639 -200 PT 17.1 SEC (12.0-15.0) H 09/05/16 09:40 INR 1.40 (0.83-1.16) H 09/05/16 09:40 Physical Exam - Physical Exam General Appearance: alert, no apparent distress EENT: PERRL/EOMI, normal ENT inspection Neck: non-tender, full range of motion, supple Respiratory: crackles, No respiratory distress, No stridor, No wheezing Cardiac/Chest: normal peripheral pulses, regular rate, rhythm Peripheral Pulses: 2+: carotid (R), carotid (L), femoral (R), femoral (L), dorsalis-pedis (R), dorsalis-pedis (L) Abdomen: normal bowel sounds, non-tender, soft Male Genitalia: deferred Rectal: deferred Skin: normal color, warm/dry Extremities: normal range of motion, non-tender, normal inspection, normal capillary refill ICD10 Worksheet Patient Problems: Problems Problem Status Onset Acute chest pain Acute Interstitial lung disease Acute Pleural effusion Acute Pneumothorax, right Acute Acute respiratory failure with hypoxia Acute Alcohol abuse Acute Hematemesis Acute Lung infiltrate Acute Ribs, multiple fractures Acute Sepsis Acute
[2016-09-15 19:27] LABS: POTASSIUM 3.7 mEq/L (3.5-5.2)
[2016-09-16] MEDS: AMPICILLIN/SULBACTAM 3 GM in NS 100 ML IV SCH ×5 (00:49→23:54)
[2016-09-16] MEDS: oxyCODONE IR 5 MG TAB PO PRN ×5 (04:00→21:47)
[2016-09-16] MEDS: ALBUTEROL 3 ML DEYVIAL IH SCH ×4 (05:28→21:17)
[2016-09-16 06:57] LABS: ANION GAP 9 mEq/L (8-16); CALCIUM 7.9 mg/dL (8.5-10.4); CARBON DIOXIDE 22 mEq/l (22-31); CHLORIDE 107 mEq/L (97-110); CREATININE 0.5 mg/dL (0.7-1.3); GLOMERULAR FILTRATION RATE > 60; GLUCOSE 116 mg/dL (70-100); POTASSIUM 3.7 mEq/L (3.5-5.2); SODIUM 138 mEq/L (134-144)
[2016-09-16] MEDS ORDERED: POTASSIUM CL 10 MEQ TAB PO ONE (07:54)
[2016-09-16] MEDS: ENOXAPARIN 40 MG/0.4 ML SYR SC SCH (08:31)
[2016-09-16] MEDS: NICOTINE 21 MG/24 HR PATCH TD SCH (08:32)
[2016-09-16] MEDS: PANTOPRAZOLE SODIUM 40 MG TAB PO SCH (08:32)
[2016-09-16] MEDS: ALPRAZolam 0.25 MG TAB PO SCH ×3 (08:32→21:47)
--- NOTE | 2016-09-16 10:02 | PCMIDPN ---
Assessment/Plan: Assessment/Plan: 1. MSSA and Lactobacillus bacteremia/sepsis: - Currently on Unasyn. - f/u blood cx from 09/06/16 ngtd -TTE without vegetations. -Continue current therapy 2.Bilateral pneumonia with small pleural effusions: - BAL with MSSA on cx - covered broadly with Unasyn for above. -wbc noted Creatinine stable. LFt stable. -Continue current care. -Plan is for at least 4 weeks IV therapy for above with possible oral therapy thereafter -care coordinated with hospitalist team. Meds Unasyn 3gm q6- 09/10/16 s/p zosyn (09/04/16-09/10/16) , vanco (09/04/16-09/07/16) Subjective: Afebrile. Breathing easy. Clear sputum production. Sob with exertion. Denies abd pain or diarrhea. Objective: Vital Signs Temp Pulse Resp BP Pulse Ox 36.5 C 87 18 111/67 94 09/16/16 08:00 09/16/16 08:00 09/16/16 08:00 09/16/16 08:00 09/16/16 08:00 Laboratory Results 09/12/16 03:30 09/16/16 06:25 09/15/16 09/16/16 09/17/16 05:59 05:59 05:59 Intake Total 336 472 Output Total 6056 527 380 [facility] -1639 -253 -375 - Physical Exam General Appearance: alert, no apparent distress Respiratory: coarse breath sounds Cardiac/Chest: regular rate, rhythm Extremities: No swelling Abdomen: normal bowel sounds, non-tender, soft, other (lora in place. no erythema. ), No distended Skin: No erythema ICD10 Worksheet Patient Problems: Problems Problem Status Onset Acute chest pain Acute Interstitial lung disease Acute Pleural effusion Acute Pneumothorax, right Acute Acute respiratory failure with hypoxia Acute Alcohol abuse Acute Hematemesis Acute Lung infiltrate Acute Ribs, multiple fractures Acute Sepsis Acute
--- NOTE | 2016-09-16 10:29 | PDINTPN ---
It Compliance Manager Progress Note Assessment/Plan: Assessment/Plan: * Resp-stable * Interstitial lung disease-unclear etiology, though IPF appears most likely. Likely component of acute pneumonitis as well -CT chest shows likely IPF * Status post pneumothorax. * Loculated effusion-small. * Status post exploratory laparotomy: Secondary to abdominal pain at the time of initial intubation 09/04. Findings were negative. * GI bleed. Resolved * Anxiety-start Xanax * Elevated liver function studies. AST and ALT improving. Possibly secondary to hypotension or underlying hep C? Will follow. * Nutrition: On PO * PT/OT Subjective: Comfortable. Objective: Vital Signs Temp Pulse Resp BP Pulse Ox 36.5 C 87 18 111/67 94 09/16/16 08:00 09/16/16 08:00 09/16/16 08:00 09/16/16 08:00 09/16/16 08:00 Laboratory Results 09/12/16 03:30 09/16/16 06:25 09/15/16 09/16/16 09/17/16 05:59 05:59 05:59 Intake Total 336 472 Output Total 1975 725 375 Balance -1639 -253 -375 PT 17.1 SEC (12.0-15.0) H 09/05/16 09:40 INR 1.40 (0.83-1.16) H 09/05/16 09:40 Physical Exam - Physical Exam General Appearance: alert, no apparent distress EENT: PERRL/EOMI, normal ENT inspection Neck: non-tender, full range of motion, supple Respiratory: chest non-tender, crackles (bases), No respiratory distress, No wheezing Cardiac/Chest: normal peripheral pulses, regular rate, rhythm Peripheral Pulses: 2+: carotid (R), carotid (L), femoral (R), femoral (L), dorsalis-pedis (R), dorsalis-pedis (L) Abdomen: normal bowel sounds, non-tender, soft Male Genitalia: deferred Rectal: deferred Skin: normal color, warm/dry Extremities: normal range of motion, non-tender, normal inspection, normal capillary refill ICD10 Worksheet Patient Problems: Problems Problem Status Onset Acute chest pain Acute Interstitial lung disease Acute Pleural effusion Acute Pneumothorax, right Acute Acute respiratory failure with hypoxia Acute Alcohol abuse Acute Hematemesis Acute Lung infiltrate Acute Ribs, multiple fractures Acute Sepsis Acute
[2016-09-16] MEDS: ACETAMINOPHEN 325 MG TAB PO PRN (12:02)
--- NOTE | 2016-09-16 13:48 | HOSPPROG ---
Hospitalist Progress Note Assessment/Plan: 56 yo M with hx of pulmonary fibrosis recently [facility] admitted with chest pain and found to have ptx, hospital course complicated by tension ptx developing as well as shock/gi bleed # Acute tension ptx- CT now out and no recurrent ptx- oxygen saturations 94% on 4L - surgery following - stitches from CT to be removed 09/26/16 # Septic Shock- resolved, presumed 2/2 sepsis- creatinine 0.5 this am # lactobacillus bacteremia/mssa bacteremia-echo w no vegetation- BAL showing MSSA-, surveillance cxs from 09/06 with ngtd - cont unasyn through 10/04/16 (then 2 weeks PO abx) - ID following # Aspiration PNA-CXR -showing continued diffuse airspace consolidations - continued on unasyn. # Acute on chronic hypoxic and hypercapnic respiratory failure- multifactorial with ptx, aspiration PNA and underlying pulmonary fibrosis. CT chest ( personally reviewed and interpreted) extensive interstitial lung disease - cont pulmonary toilet # Acute upper gastrointestinal hemorrhage- Coffee ground emesis w/ FOB (+)- EGD showing only gastritis, has not recurred thus far, monitoring # Acute blood loss anemia- sp transfusion of 7 units this hospital stay, h/h have been stable for several days now # Pulmonary fibrosis. Chronic, likely IPF, off steroids since 09/10 # Distal esophageal thickening. CT findings c/w esophagitis and associated small hiatal hernia, cont PPI # Thrombocytopenia. HIT ab neg, monitoring # Diet. advancing diet, passed swallow with rd project manager # PPx. LMWH, on SCDs # Dispo- > 2MN as requiring ongoing care and monitoring # Care plan reviewed with case management - working on placement and continued strengthening I have discussed the case with Dr. Spears - the patient is quite stable and recovering well Subjective: feels well Objective: Vital Signs Temp Pulse Resp BP Pulse Ox 36.7 C 100 18 100/65 99 09/16/16 12:00 09/16/16 12:00 09/16/16 12:00 09/16/16 12:00 09/16/16 12:00 Laboratory Results 09/12/16 03:30 09/16/16 06:25 09/15/16 09/16/16 09/17/16 05:59 05:59 05:59 Intake Total 336 472 Output Total 9700 106 745 Balance -7871 -253 -500 PT 17.1 SEC (12.0-15.0) H 09/05/16 09:40 INR 1.40 (0.83-1.16) H 09/05/16 09:40 - Physical Exam Constitutional: chronically ill appearing Eyes: anicteric sclera Ears, Nose, Mouth, Throat: poor dentition Cardiovascular: regular rate and rhythym Respiratory: no respiratory distress, reduced air movement Gastrointestinal: normoactive bowel sounds, soft, non-tender abdomen Genitourinary: no bladder fullness Skin: warm, normal color Musculoskeletal: No asymmetric calves Neurologic: AAOx3 Psychiatric: interacting appropriately, not anxious Lymph, Heme, Immunologic: no cervical LAD ICD10 Worksheet Patient Problems: Problems Problem Status Onset Acute chest pain Acute Interstitial lung disease Acute Pleural effusion Acute Pneumothorax, right Acute Acute respiratory failure with hypoxia Acute Alcohol abuse Acute Hematemesis Acute Lung infiltrate Acute Ribs, multiple fractures Acute Sepsis Acute
[2016-09-17] MEDS: oxyCODONE IR 5 MG TAB PO PRN ×4 (04:45→20:29)
[2016-09-17] MEDS: AMPICILLIN/SULBACTAM 3 GM in NS 100 ML IV SCH ×4 (04:55→23:28)
[2016-09-17] MEDS: ALBUTEROL 3 ML DEYVIAL IH SCH ×4 (05:20→21:05)
[2016-09-17] MEDS ORDERED: LORazepam 2 MG/ML INJ ONE (06:51)
[2016-09-17] MEDS ORDERED: LORazepam 0.5 MG TAB ONE (06:56)
[2016-09-17] MEDS: ALPRAZolam 0.25 MG TAB PO SCH ×3 (06:58→23:27)
--- NOTE | 2016-09-17 07:14 | CPEKG ---
Heart Rate: 75 RR Interval: 800 P-R Interval: 152 QRSD Interval: 92 QT Interval: 372 QTC Interval: 416 P [place]: 25 QRS [place]: 19 T Wave [place]: 9 EKG Severity - ABNORMAL ECG - EKG Impression: PACEMAKER SPIKES OR ARTIFACTS EKG Impression: SINUS RHYTHM EKG Impression: BORDERLINE T ABNORMALITIES, ANTERIOR LEADS Electronically Signed By: Jermain Larsen 17-Sep-2016 08:19:44
--- NOTE | 2016-09-17 08:36 | HOSPPROG ---
Hospitalist Progress Note Assessment/Plan: #Acute tension PTX: chest tube out; remove stitches 09/26. Currently on 4L O2 #Septic shock: resolved #Lactobacilus/MSSA bacteremia: (on culture 09/04). TTE 09/07 with no vegetation. Unasyn 4 wks from negative blood culture #Aspiration PNA: cont Unasyn #Acute on chronic hypercarbic/hypoxemic resp failure: due to PTX/aspiration/ pulm fibrosis #Acute GIB: EGD with gastritis. Cont PPI #Acute blood loss anemia: due to GIB. H/H stable today #Tachycardia: with exertion, but normal with resting. Denies SOB. Suspect severe deconditioning #Chest pain: lasted only a minute; EKG unchanged from prior. Query if anxiety playing a role #Severe deconditioning: plan for DC to to [facility] #Tachypnea: denies SOB, repeat CXR wit no PTX, small effusions. #Thrombocytopenia: resolved. HIT Ab negative #Diet: regular # DVT ppx: Lovenox #Disp: monitor tachycardia overnight. If remains clinically stable, DC to [facility] tomorrow Subjective: had sharp chest pain lasting 1 minute this morning; resolved quickly on own. Denies SOB Objective: Vital Signs Temp Pulse Resp BP Pulse Ox 36.4 C 79 18 92/60 L 97 09/17/16 07:40 09/17/16 07:40 09/17/16 07:40 09/17/16 07:40 09/17/16 07:40 Laboratory Results 09/12/16 03:30 09/16/16 06:25 09/16/16 09/17/16 09/18/16 05:59 05:59 05:59 Intake Total 472 1940 Output Total 725 1325 375 Balance -253 615 -375 PT 17.1 SEC (12.0-15.0) H 09/05/16 09:40 INR 1.40 (0.83-1.16) H 09/05/16 09:40 - Physical Exam Constitutional: chronically ill appearing Eyes: PERRL Ears, Nose, Mouth, Throat: moist mucous membranes Cardiovascular: regular rate and rhythym Respiratory: other (tachypnea, but denies it. Few crackles at bases) Gastrointestinal: normoactive bowel sounds, soft, non-tender abdomen Genitourinary: no bladder fullness Skin: warm Musculoskeletal: generalized weakness Neurologic: AAOx3, CN II-XII Intact Psychiatric: flat affect, other (anxious) ICD10 Worksheet Patient Problems: Problems Problem Status Onset Acute chest pain Acute Interstitial lung disease Acute Pleural effusion Acute Pneumothorax, right Acute Acute respiratory failure with hypoxia Acute Alcohol abuse Acute Hematemesis Acute Lung infiltrate Acute Ribs, multiple fractures Acute Sepsis Acute
[2016-09-17] MEDS: ENOXAPARIN 40 MG/0.4 ML SYR SC SCH (09:01)
[2016-09-17] MEDS: NICOTINE 21 MG/24 HR PATCH TD SCH (09:01)
[2016-09-17] MEDS: PANTOPRAZOLE SODIUM 40 MG TAB PO SCH (09:01)
[2016-09-17] MEDS ORDERED: SENNOSIDES/DOCUSATE SODIUM TAB PO PRN (12:07)
--- NOTE | 2016-09-17 16:00 | PCMIDPN ---
Assessment/Plan: Assessment: MSSA bacteremia from an unclear source. Initial pneumothorax right side. Right-sided pneumonia became evident afterward. Bronch wash also growing MSSA. Lactobacillus species in same blood culture 1/2 sets. Probably not a contaminant. No evidence of endocarditis either on 2D or TEZ. Clinically appears to be much improved from my last visit. Unasyn covers both isolates. Plan: 1. Continue Unasyn. Anticipate a 4 week course from blood culture clearance. 2. Follow clinical course. Patient is slowly improving. Subjective: Patient is resting in his hospital bed. He states he is getting better every day. He remains quite weak however. Quite tachypneic and tachycardic when he makes any effort and his oxygen saturation drops with effort as well. No fevers or chills. Objective: Unasyn # 7 (# 11) Vital Signs Temp Pulse Resp BP Pulse Ox 36.4 C 90 20 103/62 98 09/17/16 15:47 09/17/16 15:47 09/17/16 15:47 09/17/16 15:47 09/17/16 15:47 Laboratory Results 09/12/16 03:30 09/16/16 06:25 09/16/16 09/17/16 09/18/16 05:59 05:59 05:59 Intake Total 472 1940 Output Total 994 2974 375 Balance -253 219 -531 - Physical Exam General Appearance: WD/WN, alert, no apparent distress, non-toxic, other ( Chronically weak) Respiratory: lungs clear, normal breath sounds, No respiratory distress Cardiac/Chest: regular rate, rhythm, No tachycardia Skin: normal color, warm/dry, No rash Neuro/Psych: alert, normal mood/affect, oriented x 3 ICD10 Worksheet Patient Problems: Problems Problem Status Onset Acute chest pain Acute Interstitial lung disease Acute Pleural effusion Acute Pneumothorax, right Acute Acute respiratory failure with hypoxia Acute Alcohol abuse Acute Hematemesis Acute Lung infiltrate Acute Ribs, multiple fractures Acute Sepsis Acute
--- NOTE | 2016-09-17 17:31 | PDIAF ---
- Diagnosis Diagnosis: MSSA pneumonia right side with bacteremia Code Status: Full Code - Medication Management Discharge Medications: Medications to Continue on Transfer Albuterol [Proventil Inhaler HFA (*)] 1 - 2 puffs IH Q4H PRN 08/27/16 [Last Taken 08/27/16] Acetaminophen [Tylenol 325mg (*)] 650 mg PO Q4HRS PRN #0 tab 08/30/16 [Last Taken Unknown] Pantoprazole Sodium [Protonix 40mg (*)] 40 mg PO DAILY #30 tab 08/30/16 [Last Taken Unknown] traMADol [Ultram 50 mg (*)] 50 - 100 mg PO Q6HRS PRN #30 tab 08/30/16 [Last Taken Unknown] Welding Inspector Antibiotics: Unasyn 3 g IV q.6 hours Longterm Antibiotic Stop Date: 10/04/16 Discharge Medications: Refer to the Discharge Home Medication list for PRN reason. PICC Care - Routine: Yes - Orders Services needed: Registered Nurse Diet Recommendation: no restrictions on diet - Labs/Radiology CBC Date: 09/20/16 (Weekly thereafter) CMP Date: 09/20/16 (Weekly thereafter) - Follow Up Care Current Providers and Referrals: Raad Bains MD [Medical Doctor] - As per Instructions NONE *PRIMARY CARE P,. [Primary Care Provider] - As per Instructions [facility],. [Clinic] - As per Instructions
[2016-09-18] MEDS: AMPICILLIN/SULBACTAM 3 GM in NS 100 ML IV SCH ×2 (05:35→13:11)
[2016-09-18] MEDS: oxyCODONE IR 5 MG TAB PO PRN ×3 (05:42→15:40)
[2016-09-18] MEDS: ALBUTEROL 3 ML DEYVIAL IH SCH ×2 (05:48→10:26)
[2016-09-18 05:52] VITALS: RESP 18
[2016-09-18 06:20] LABS: HEMATOCRIT 27.2 % (40.0-51.0); HEMOGLOBIN 8.1 g/dL (13.7-17.5); LIPEMIA HEMOLYSIS FLAG 70 (0-99); MEAN CELL HEMOGLOBIN 25.2 pg (27.9-34.1); MEAN CELL HEMOGLOBIN CONCENTR. 29.8 g/dL (32.4-36.7); MEAN CELL VOLUME 84.7 fL (81.5-99.8); PLATELET COUNT 430 10^3/uL (150-400); RED BLOOD CELL COUNT 3.21 10^6/uL (4.40-6.38); RED CELL DISTRIBUTION WIDTH 19.9 % (11.5-15.2)
[2016-09-18 06:33] LABS: ANION GAP 6 mEq/L (8-16); CALCIUM 7.9 mg/dL (8.5-10.4); CARBON DIOXIDE 25 mEq/l (22-31); CHLORIDE 107 mEq/L (97-110); CREATININE 0.6 mg/dL (0.7-1.3); GLOMERULAR FILTRATION RATE > 60; GLUCOSE 114 mg/dL (70-100); POTASSIUM 3.8 mEq/L (3.5-5.2); SODIUM 138 mEq/L (134-144)
[2016-09-18 07:40] VITALS: TEMP 97.9
--- NOTE | 2016-09-18 08:33 | HOSPPROG ---
Hospitalist Progress Note Assessment/Plan: #Acute tension PTX: chest tube out; remove stitches 09/26. Currently on 4L O2 #Septic shock: resolved #Lactobacilus/MSSA bacteremia: (on culture 09/04). TTE 09/07 with no vegetation. Unasyn 4 wks from negative blood culture #Aspiration PNA: cont Unasyn #Acute on chronic hypercarbic/hypoxemic resp failure: due to PTX/aspiration/ pulm fibrosis #Acute GIB: EGD with gastritis. Cont PPI #Acute blood loss anemia: due to GIB. H/H stable today #Tachycardia: with exertion, but normal with resting. Denies SOB. Suspect severe deconditioning #Chest pain: lasted only a minute; EKG unchanged from prior. Query if anxiety playing a role #Severe deconditioning: plan for DC to to [facility] #Tachypnea: denies SOB, repeat CXR wit no PTX, small effusions. Suspect due to underlying anxiety #Thrombocytopenia: resolved. HIT-Ab negative #Diet: regular # DVT ppx: Lovenox #Disp: DC to [facility] Subjective: Denies CP or SOB. Feel better Objective: Vital Signs Temp Pulse Resp BP Pulse Ox 36.6 C 97 18 112/71 91 L 09/18/16 07:39 09/18/16 07:39 09/18/16 07:39 09/18/16 07:39 09/18/16 07:39 Laboratory Results 09/18/16 05:30 09/18/16 05:30 09/17/16 09/18/16 09/19/16 05:59 05:59 05:59 Intake Total 1940 976 Output Total 1325 1475 Balance 615 -499 PT 17.1 SEC (12.0-15.0) H 09/05/16 09:40 INR 1.40 (0.83-1.16) H 09/05/16 09:40 - Physical Exam Constitutional: chronically ill appearing Eyes: PERRL Ears, Nose, Mouth, Throat: moist mucous membranes, hearing normal Cardiovascular: regular rate and rhythym, no murmur, rub, or gallop Respiratory: other (few crackles at bases. Tachypnea, unchaged from yesterday) Gastrointestinal: normoactive bowel sounds, soft, non-tender abdomen Genitourinary: no bladder fullness Skin: warm Musculoskeletal: generalized weakness Neurologic: CN II-XII Intact Psychiatric: flat affect, other (anxious) ICD10 Worksheet Patient Problems: Problems Problem Status Onset Acute chest pain Acute Interstitial lung disease Acute Pleural effusion Acute Pneumothorax, right Acute Acute respiratory failure with hypoxia Acute Alcohol abuse Acute Hematemesis Acute Lung infiltrate Acute Ribs, multiple fractures Acute Sepsis Acute
[2016-09-18] MEDS: PANTOPRAZOLE SODIUM 40 MG TAB PO SCH (09:22)
[2016-09-18] MEDS: ENOXAPARIN 40 MG/0.4 ML SYR SC SCH (09:22)
[2016-09-18] MEDS: ALPRAZolam 0.25 MG TAB PO SCH ×2 (09:23→15:39)
[2016-09-18] MEDS: NICOTINE 21 MG/24 HR PATCH TD SCH (09:23)
[2016-09-18 11:24] VITALS: BP 103/64; PULSE 85; O2SAT 94
--- NOTE | 2016-09-18 12:54 | GDS ---
[f rep st] DISCHARGE SUMMARY DISCHARGE DIAGNOSES: 1. Acute tension pneumothorax. 2. Septic shock. 3. Lactobacillus/methicillin-sensitive Staphylococcus aureus bacteremia. 4. Aspiration pneumonia. 5. Acute on chronic hypercapnic/hypoxic respiratory failure. 6. Acute upper gastrointestinal hemorrhage. 7. Acute blood loss anemia. 8. Pulmonary fibrosis. 9. Distal esophageal thickening. 10. Small hiatal hernia. 11. Thrombocytopenia: Heparin-induced thrombocytopenia antibody negative. PROCEDURES: 09/04/2016: Exploratory laparoscopy cholecystectomy. No intraabdominal source for sepsis. CONSULTATIONS: 1. Pulmonary. 2. Infectious Disease. 3. Surgery. HPI: The patient is a 56-year-old male who is homeless who was recently released from correction. He presented on 08/27 with chest pain. He was sitting at 3 o'clock the day of admission and developed sharp, stabbing, substernal chest pain that lasted for 1 minute. It felt like a needle and had some associated shortness of breath. He denied other associated symptoms. He reports a productive cough for an unknown amount of time. Of note, patient was a very poor historian. He was recently hospitalized at [facility] in July with sepsis secondary to Streptococcus pneumoniae warranting intubation and ICU admission. He complained of pain all over. Denied fevers, chills, or sweats. No nausea, vomiting, or diarrhea. In the emergency room on day of admission, patient was here for ACS rule out and then incidentally found a right-sided apical pneumothorax. Surgery was consulted. HOSPITAL COURSE BY PROBLEM: 1. Small right apical pneumothorax. This was his initial reason for admission. He had repeat chest x-ray on 08/31 that showed resolution. 2. Acute septic shock on the evening of 09/04/2016. Patient developed acute tachypnea and tachycardia. On the evening of 09/04, the patient was acutely tachypneic and had tachycardia. At the time, he had an elevated white count with a respiration rate of 50 and tachys to 140s. Intraabdominal source was suspected and patient underwent exploratory laparoscopy without identification of infection. He was initiated on pressors. Now resolved. Source secondary to lactobacillus/MSSA bacteremia. 3. Acute on chronic hypercarbic/hypoxemic respiratory failure. The patient was emergently intubated. This is multifactorial with pneumothorax, aspiration pneumonia, and pulmonary fibrosis. Patient is currently stable on 2-4 L. 4. Acute kidney injury secondary to septic shock. The creatinine is now stable. 5. Lactobacillus/MSSA bacteremia. Positive blood cultures on 09/04/2016. TTE on 09/07/2016 was negative for vegetation. The patient will continue Unasyn for 4 weeks from negative blood culture through October 04. He will have weekly labs per ID. 6. Acute GI bleed. The patient underwent EGD that showed gastritis. Continue PPI. H and H are stable. 7. Acute blood loss anemia again secondary to gastritis as evidenced on EGD . Patient to continue PPI. H and H were remaining stable. 8. Tachycardia: The patient severely deconditioned and has tachycardia 110- 120s with exertion, normal with resting. There is no evidence of pulmonary embolism. Had a negative CTA at admission. 9. Tachypnea. I suspect this is at his baseline. He appears to be having increased works of breathing but denies shortness of breath. A repeated chest x -ray on 09/17 that did not show recurrent pneumothorax or infection. 10. Severe deconditioning. Patient was accepted to [facility]. 11. Thrombocytopenia. This has resolved. A HIT antibody was negative. 12. Diet: Regular. DISPOSITION: Patient is stable to discharge to [facility]. MEDICATIONS: See medication reconciliation. FOLLOWUP: 1. Raad Bains MD. 2. [facility]. /[id number]/MODL MTDD
--- NOTE | 2016-09-18 13:28 | PDIAF ---
- Diagnosis Diagnosis: MSSA pneumonia right side with bacteremia Code Status: Full Code - Medication Management Discharge Medications: Medications to Continue on Transfer Albuterol [Proventil Inhaler HFA (*)] 1 - 2 puffs IH Q4H PRN 08/27/16 [Last Taken 08/27/16] Acetaminophen [Tylenol 325mg (*)] 650 mg PO Q4HRS PRN #0 tab 08/30/16 [Last Taken Unknown] Pantoprazole Sodium [Protonix 40mg (*)] 40 mg PO DAILY #30 tab 08/30/16 [Last Taken Unknown] traMADol [Ultram 50 mg (*)] 50 - 100 mg PO Q6HRS PRN #30 tab 08/30/16 [Last Taken Unknown] ALPRAZolam [Xanax 0.25 MG (*)] 0.25 mg PO TID #0 tab 09/18/16 [Last Taken Unknown] Albuterol [Proventil Neb] 3 ml IH QID #0 deyvial 09/18/16 [Last Taken Unknown] Ampicillin/Sulbactam [Unasyn] 3 gm IV Q6HRS #0 vial 09/18/16 [Last Taken Unknown ] Benzocaine/Menthol 15/ [Cepacol Lozenge] 1 ea PO PRN PRN #0 lozenge 09/18/16 [ Last Taken Unknown] Pantoprazole Sodium [Protonix 40mg (*)] 40 mg PO DAILY #0 tab 09/18/16 [Last Taken Unknown] Polyethylene Glycol 3350 [Miralax 17 gm (*)] 17 gm PO DAILY PRN #0 pkt 09/18/16 [Last Taken Unknown] Sennosides/Docusate Sodium [Senokot-S] 1 - 2 tab PO BID PRN #0 tab 09/18/16 [ Last Taken Unknown] oxyCODONE IR [Oxycodone Ir (*)] 5 mg PO Q4HRS PRN #0 tab 09/18/16 [Last Taken Unknown] Chummer Antibiotics: Unasyn 3 g IV q.6 hours [place]mer Antibiotic Stop Date: 10/04/16 Discharge Medications: Refer to the Discharge Home Medication list for PRN reason. PICC Care - Routine: Yes - Orders Services needed: Registered Nurse, Certified Dairy Department Manager, Master Public Utilities Sales Representative , Physical Therapy, Occupational Therapy Diet Recommendation: no restrictions on diet - Labs/Radiology CBC Date: 09/20/16 (Weekly thereafter) CMP Date: 09/20/16 (Weekly thereafter) - Follow Up Care Current Providers and Referrals: Raad Bains MD [Medical Doctor] - As per Instructions NONE *PRIMARY CARE P,. [Primary Care Provider] - As per Instructions [facility],. [Clinic] - As per Instructions
== END 2016-09-18 16:11 | DRG 853 ==
LOC: F3N 21:45 → OBSVTOIN 08-28 14:24 → F1N 08-28 20:28 → F2N 09-02 15:58 → F3E 09-14 17:24
PROVIDERS: ADMIT Internal Medicine; ATTEND Internal Medicine
PROC: 05H533Z Insertion of Infusion Device into Right Subclavian Vein, Percutaneous Approach (ICD-10-PCS; 2016-09-02)
PROC: 0W9930Z Drainage of Right Pleural Cavity with Drainage Device, Percutaneous Approach (ICD-10-PCS; 2016-09-02)
PROC: 02HV33Z Insertion of Infusion Device into Superior Vena Cava, Percutaneous Approach (ICD-10-PCS; 2016-09-03)
PROC: 0DJ68ZZ Inspection of Stomach, Via Natural or Artificial Opening Endoscopic (ICD-10-PCS; 2016-09-04)
PROC: 0W9930Z Drainage of Right Pleural Cavity with Drainage Device, Percutaneous Approach (ICD-10-PCS; 2016-09-04)
PROC: 0B968ZZ Drainage of Right Lower Lobe Bronchus, Via Natural or Artificial Opening Endoscopic (ICD-10-PCS; 2016-09-04)
PROC: 30233N1 Transfusion of Nonautologous Red Blood Cells into Peripheral Vein, Percutaneous Approach (ICD-10-PCS; 2016-09-05)
PROC: 0B918ZZ Drainage of Trachea, Via Natural or Artificial Opening Endoscopic (ICD-10-PCS; 2016-09-07)
PROC: 0BH18EZ Insertion of Endotracheal Airway into Trachea, Via Natural or Artificial Opening Endoscopic (ICD-10-PCS; 2016-09-07)
PROC: 5A1955Z Respiratory Ventilation, Greater than 96 Consecutive Hours (ICD-10-PCS; 2016-09-07)
PROC: 0B978ZZ Drainage of Left Main Bronchus, Via Natural or Artificial Opening Endoscopic (ICD-10-PCS; principal; 2016-09-08)
PROC: 0B938ZZ Drainage of Right Main Bronchus, Via Natural or Artificial Opening Endoscopic (ICD-10-PCS; principal; 2016-09-08)
PROC: 0B918ZZ Drainage of Trachea, Via Natural or Artificial Opening Endoscopic (ICD-10-PCS; principal; 2016-09-08)
PROC: 02HV33Z Insertion of Infusion Device into Superior Vena Cava, Percutaneous Approach (ICD-10-PCS; 2016-09-14)
DX: A41.01 Sepsis due to Methicillin susceptible Staphylococcus aureus (principal); K29.71 Gastritis, unspecified, with bleeding; J93.0 Spontaneous tension pneumothorax; R65.21 Severe sepsis with septic shock; J96.21 Acute and chronic respiratory failure with hypoxia; J96.22 Acute and chronic respiratory failure with hypercapnia; J69.0 Pneumonitis due to inhalation of food and vomit; D62 Acute posthemorrhagic anemia; G89.29 Other chronic pain; I27.2 Other secondary pulmonary hypertension; J84.112 Idiopathic pulmonary fibrosis; K44.9 Diaphragmatic hernia without obstruction or gangrene; Z59.0 Homelessness; K20.9 Esophagitis, unspecified
CPT/HCPCS: 86022-90; 92526-GN; 92610-GN; 97116-GP; 97162-GP; 97166-GO; 97530-GO; 97530-GP; 97535-GO; C1751; G0378; J0295; J1170; J1335; J1650; J1885; J2060; J2250; J2405; J2543; J2704; J2765; J2930; J3010; J3370; P9016; P9021; P9041; Q9967

== ENCOUNTER 2016-09-26 15:25 | Inpatient (IN) | payer MEDICAID ==
--- NOTE | 2016-09-26 15:37 | EDPHY ---
H & P Time Seen by Provider: 09/26/16 15:25 HPI/ROS: CHIEF COMPLAINT: Shortness of breath HISTORY OF PRESENT ILLNESS: Patient had a prolonged hospitalization with septic shock and intubation with methicillin sensitive Staph bacteremia. He was finally discharged on 09/18/2016 to [facility] but today presents with increasing shortness of breath and was found to be saturating in the 50s on his usual 2 L nasal cannula at the skilled nursing. He was brought in emergently by EMS. The patient only complains of severe shortness of breath and associated central sharp stabbing substernal chest pain which was like symptoms he had on the day of his admission back in August. Not positional. Started today. REVIEW OF SYSTEMS: Abdomen: no vomiting, diarrhea, abdominal pain Musculoskeletal: no back pain Neuro: no headache Constitutional: no fever Further history and review of systems is not obtainable because of the patient' s severe dyspnea on arrival. PAST MEDICAL HISTORY: Discharge summary dated 09/18/2016 personally reviewed. Includes pneumothorax, septic shock with MSSA bacteremia, aspiration pneumonia, acute upper GI bleed, pulmonary fibrosis, thrombocytopenia. He also had an exploratory laparoscopy with cholecystectomy on 09/04/2016. Social history: Current resident at [facility] General Appearance: Alert and conversant, cooperative. Eyes: No scleral icterus. ENT, Mouth: Normal mucous membranes. No angioedema. Respiratory: Tachypneic with retractions and abdominal muscle breathing, bilateral rhonchi, decreased lung sounds. Cardiovascular: Regular rate and rhythm. Gastrointestinal: Abdomen is soft and non tender. Dressing over the lower central abdomen. Neurological: Alert and oriented x3. Normally conversant. Face symmetric, normal movement and sensation in all extremities. Skin: Warm and dry, no rashes. No urticaria. Musculoskeletal: No peripheral edema and no joint swelling. Psychiatric: Unable due to severe dyspnea. Emergency Department course/MDM: Patient was placed emergently on BiPAP and supplemental oxygen. He comes in with a pre-hospital directive stating no intubation or mechanical ventilation but noninvasive ventilation is okay. Blood cultures drawn and chest x-ray performed. EKG does not show acute ischemic changes. 1555: IV fluid resuscitation, cefepime 2 g and vancomycin 1 g IV after discussion with admitting hospitalist. Requires ICU admission for high FI02. Severe sepsis orders started, repeat lactate ordered. Elevated respiratory rate and heart rate. Repeat lactate less than 1st. Smoking Status: Current some day smoker Constitutional: Initial Vital Signs Temperature (C) 37.1 C 09/26/16 15:30 Heart Rate 105 H 09/26/16 15:30 Respiratory Rate 35 H 09/26/16 15:30 Blood Pressure 144/97 H 09/26/16 15:30 O2 Sat (%) 100 09/26/16 15:30 O2 Delivery Mode Bi-Pap Allergies/Adverse Reactions: No Known Allergies Allergy (Verified 09/26/16 16:16) Home Medications: Medication Instructions Recorded Acetaminophen [Tylenol 325mg (*)] 650 mg PO Q4HRS PRN #0 tab 08/30/16 Pantoprazole Sodium [Protonix 40mg 40 mg PO DAILY #30 tab 08/30/16 (*)] traMADol [Ultram 50 mg (*)] 50 - 100 mg PO Q6HRS PRN #30 tab 08/30/16 ALPRAZolam [Xanax 0.25 MG (*)] 0.25 mg PO TID #0 tab 09/18/16 Albuterol [Proventil Neb] 3 ml IH QID #0 deyvial 09/18/16 Ampicillin/Sulbactam [Unasyn] 3 gm IV Q6HRS #0 vial 09/18/16 Benzocaine/Menthol 13/10 [Cepacol 1 ea PO PRN PRN #0 lozenge 09/18/16 Lozenge] Pantoprazole Sodium [Protonix 40mg 40 mg PO DAILY #0 tab 09/18/16 (*)] oxyCODONE IR [Oxycodone Ir (*)] 5 mg PO Q4HRS PRN #0 tab 09/18/16 Medical Decision Making - Diagnostics EKG Interpretation: 12-lead EKG interpreted by me; official reading is in trace master. My interpretation is sinus tachycardia 105 with nonspecific T-wave abnormalities. Imaging: Chest x-ray personally interpreted shows bilateral interstitial infiltrates with worsening consolidation right greater than left. Differential Diagnosis: Differential diagnosis considered for shortness of breath including but not limited to pulmonary infectious process, COPD, asthma, pulmonary embolus and congestive heart failure. Consult/Admit Bed Type: [place] [address] Critical Care Time: Critical care time spent by me, Dr. Schroeder, exclusively with the care of this patient was 40 minutes, exclusive of PA or TEAM LEADER time and exclusive of separate procedures. The organ system at risk was pulmonary and I ordered supplemental oxygen, BiPap, broad-spectrum antibiotics, IV fluids and hospitalist consultation; to stabilize the patient and prevent worsening of the patient's condition. - Data Points Laboratory Results: Laboratory Results 09/26/16 15:34 09/26/16 15:34 09/26/16 09/26/16 09/26/16 15:34 15:34 15:34 WBC RBC Hgb Hct MCV MCH MCHC RDW Plt Count MPV Neut % (Auto) Lymph % (Auto) Stanton % (Auto) Eos % (Auto) Baso % (Auto) Nucleat RBC Rel Count Absolute Neuts (auto) Absolute Lymphs (auto) Absolute Monos (auto) Absolute Eos (auto) Absolute Basos (auto) Absolute Nucleated RBC Immature Gran % Immature Gran # PT 15.3 SEC H SEC (12.0-15.0) INR 1.21 H (0.83-1.16) APTT 39.0 SEC H SEC (23.0-38.0) VBG Lactic Acid Sodium 136 mEq/L mEq/L (134-144) Potassium 4.7 mEq/L mEq/L (3.5-5.2) Chloride 104 mEq/L mEq/L (97-110) Carbon Dioxide 25 mEq/l mEq/l (22-31) Anion Gap 7 mEq/L L mEq/L (8-16) BUN 32 mg/dL H mg/dL (7-23) Creatinine 2.6 mg/dL H mg/dL (0.7-1.3) Estimated GFR 25 Glucose 95 mg/dL mg/dL (70-100) Calcium 7.7 mg/dL L mg/dL (8.5-10.4) Total Bilirubin 0.5 mg/dL mg/dL 0.5 mg/dL mg/dL (0.1-1.4) (0.1-1.4) Conjugated Bilirubin 0.5 mg/dL mg/dL (0.0-0.5) Unconjugated Bilirubin 0.0 mg/dL mg/dL (0.0-1.1) AST 25 IU/L IU/L (17-59) ALT 24 IU/L IU/L (21-72) Alkaline Phosphatase 106 IU/L IU/L (38-126) Troponin I 0.016 ng/mL ng/mL (0-0.034) Total Protein 5.9 g/dL L g/dL (6.3-8.2) Albumin 2.3 g/dL L g/dL (3.5-5.0) 09/26/16 09/26/16 15:34 15:34 WBC 9.30 10^3/uL 10^3/uL (3.80-9.50) RBC 3.59 10^6/uL L 10^6/uL (4.40-6.38) Hgb 8.9 g/dL L g/dL (13.7-17.5) Hct 29.4 % L % (40.0-51.0) MCV 81.9 fL fL (81.5-99.8) MCH 24.8 pg L pg (27.9-34.1) MCHC 30.3 g/dL L g/dL (32.4-36.7) RDW 18.9 % H % (11.5-15.2) Plt Count 246 10^3/uL 10^3/uL (150-400) MPV 9.5 fL fL (8.7-11.7) Neut % (Auto) 78.3 % H % (39.3-74.2) Lymph % (Auto) 9.4 % L % (15.0-45.0) Stanton % (Auto) 6.5 % % (4.5-13.0) Eos % (Auto) 4.9 % % (0.6-7.6) Baso % (Auto) 0.6 % % (0.3-1.7) Nucleat RBC Rel Count 0.0 % % (0.0-0.2) Absolute Neuts (auto) 7.28 10^3/uL H 10^3/uL (1.70-6.50) Absolute Lymphs (auto) 0.87 10^3/uL L 10^3/uL (1.00-3.00) Absolute Monos (auto) 0.60 10^3/uL 10^3/uL (0.30-0.80) Absolute Eos (auto) 0.46 10^3/uL H 10^3/uL (0.03-0.40) Absolute Basos (auto) 0.06 10^3/uL 10^3/uL (0.02-0.10) Absolute Nucleated RBC 0.00 10^3/uL 10^3/uL (0-0.01) Immature Gran % 0.3 % % (0.0-1.1) Immature Gran # 0.03 10^3/uL 10^3/uL (0.00-0.10) PT INR APTT VBG Lactic Acid 0.7 mmol/L mmol/L (0.7-2.1) Sodium Potassium Chloride Carbon Dioxide Anion Gap BUN Creatinine Estimated GFR Glucose Calcium Total Bilirubin Conjugated Bilirubin Unconjugated Bilirubin AST ALT Alkaline Phosphatase Troponin I Total Protein Albumin Medications Given: Discontinued Medications Albuterol/Ipratropium (Duoneb) 3 ml IH EDNOW ONE Stop: 09/26/16 15:48 Last Admin: 09/26/16 16:01 Dose: 3 ml Sodium Chloride (Ns) 1,000 mls @ 0 mls/hr IV ONCE ONE PRN Reason: Wide Open Stop: 09/26/16 15:48 Last Admin: 09/26/16 16:02 Dose: 1,000 mls Cefepime HCl 2 gm/ Dextrose 100 mls @ 200 mls/hr IV EDNOW ONE PRN Reason: Protocol Stop: 09/26/16 16:20 Last Admin: 09/26/16 16:30 Dose: 100 mls Vancomycin/Sodium Chloride (Vancomycin 1 Gm (Premix)) 250 mls @ 250 mls/hr IV EDNOW ONE PRN Reason: Protocol Stop: 09/26/16 16:50 Last Admin: 09/26/16 16:15 Dose: 250 mls Sodium Chloride (Ns) 1,000 mls @ 3,000 mls/hr IV ONCE ONE Stop: 09/26/16 17:42 Last Admin: 09/26/16 18:05 Dose: Not Given Methylprednisolone Sodium Succinate (Solu-Medrol) 125 mg IVP EDNOW ONE Stop: 09/26/16 15:48 Last Admin: 09/26/16 16:01 Dose: 125 mg Sodium Chloride (Ns *For Sepsis Order Set Only*) 2,280 ml 30 ml/kg (2280 ml) IV EDNOW ONE Stop: 09/26/16 16:13 Last Admin: 09/26/16 16:42 Dose: 2,280 ml Departure - Departure Disposition: [facility] Acute Clinical Impression: Acute respiratory failure with hypoxia, Interstitial lung disease Pneumonia Qualifiers: Pneumonia type: due to unspecified organism Laterality: bilateral Lung location : unspecified part of lung Qualified Code(s): J18.9 - Pneumonia, unspecified organism Acute renal failure Qualifiers: Acute renal failure type: unspecified Qualified Code(s): N17.9 - Acute kidney failure, unspecified Condition: Serious
--- NOTE | 2016-09-26 15:42 | CPEKG ---
Heart Rate: 105 RR Interval: 571 P-R Interval: 176 QRSD Interval: 92 QT Interval: 344 QTC Interval: 455 P [place]: 56 QRS [place]: 29 T Wave [place]: -5 EKG Severity - ABNORMAL ECG - EKG Impression: SINUS TACHYCARDIA EKG Impression: NONSPECIFIC T ABNORMALITIES, INFERIOR LEADS Electronically Signed By: oYni Schroeder 26-Sep-2016 15:42:37
[2016-09-26 15:45] LABS: % IMMATURE GRANULYOCYTES 0.3 % (0.0-1.1); ABSOLUTE IMMATURE GRANULOCYTES 0.03 10^3/uL (0.00-0.10); ADD DIFF? NO; ADD MORPH? NO; ADD SCAN? NO; ATYPICAL LYMPHOCYTE FLAG 10 (0-99); FRAGMENT RBC FLAG 20 (0-99); HEMATOCRIT 29.4 % (40.0-51.0); HEMOGLOBIN 8.9 g/dL (13.7-17.5); LEFT SHIFT FLG 0 (0-99); LIPEMIA HEMOLYSIS FLAG 80 (0-99); MEAN CELL HEMOGLOBIN 24.8 pg (27.9-34.1); MEAN CELL HEMOGLOBIN CONCENTR. 30.3 g/dL (32.4-36.7); MEAN CELL VOLUME 81.9 fL (81.5-99.8); MEAN PLATELET VOLUME 9.5 fL (8.7-11.7); PLATELET CLUMPS FLAG 0 (0-99); PLATELET COUNT 246 10^3/uL (150-400); RED BLOOD CELL COUNT 3.59 10^6/uL (4.40-6.38); RED CELL DISTRIBUTION WIDTH 18.9 % (11.5-15.2)
[2016-09-26] MEDS ORDERED: methylPREDNISolone SOD SUCC 125 MG/2 ML VIAL IVP ONE (15:47)
[2016-09-26] MEDS ORDERED: IPRATROPIUM/ALBUTEROL 3 ML DEYVIAL IH ONE (15:47)
[2016-09-26] MEDS ORDERED: NS 1,000 ML IV ONE ×3 (15:47→20:59)
[2016-09-26] MEDS ORDERED: VANCOMYCIN HCL/NORMAL SALINE 250 ML IV ONE (15:51)
[2016-09-26] MEDS ORDERED: CEFEPIME HCL 2 GM in D5W 100 ML IV ONE (15:51)
[2016-09-26 15:53] LABS: INR 1.21 (0.83-1.16); PROTIME(PATIENT) 15.3 SEC (12.0-15.0)
[2016-09-26 15:59] LABS: ANION GAP 7 mEq/L (8-16); BILIRUBIN,TOTAL 0.5 mg/dL (0.1-1.4); CALCIUM 7.7 mg/dL (8.5-10.4); CARBON DIOXIDE 25 mEq/l (22-31); CHLORIDE 104 mEq/L (97-110); CREATININE 2.6 mg/dL (0.7-1.3); GLOMERULAR FILTRATION RATE 25; GLUCOSE 95 mg/dL (70-100); POTASSIUM 4.7 mEq/L (3.5-5.2); SODIUM 136 mEq/L (134-144)
[2016-09-26 16:10] LABS: TROPONIN I 0.016 ng/mL (0-0.034)
[2016-09-26] MEDS ORDERED: NS 1,000 ML BAG *FOR SEPSIS ORDER SET ONLY IV ONE (16:12)
[2016-09-26] MEDS ORDERED: ONDANSETRON 4 MG/2 ML VIAL IVP PRN (17:16)
[2016-09-26] MEDS ORDERED: ONDANSETRON DISINTEGRATING 4 MG TAB PO PRN (17:16)
[2016-09-26] MEDS ORDERED: ACETAMINOPHEN 325 MG TAB PO PRN (17:16)
[2016-09-26] MEDS ORDERED: ALBUTEROL 3 ML DEYVIAL IH PRN (17:20)
[2016-09-26] MEDS: IPRATROPIUM/ALBUTEROL 3 ML DEYVIAL IH SCH ×2 (17:55→23:05)
[2016-09-26] MEDS: NS 1,000 ML IV SCH (18:11)
[2016-09-26] MEDS: methylPREDNISolone SOD SUCC 125 MG/2 ML VIAL IVP SCH (18:11)
[2016-09-26 18:25] LABS: ALBUMIN 2.3 g/dL (3.5-5.0); BILIRUBIN,TOTAL 0.5 mg/dL (0.1-1.4); BILIRUBIN-CONJUGATED 0.5 mg/dL (0.0-0.5); TOTAL PROTEIN 5.9 g/dL (6.3-8.2)
--- NOTE | 2016-09-26 18:27 | GHP ---
[f rep st] HISTORY AND PHYSICAL DATE OF ADMISSION: 09/26/2016 CHIEF COMPLAINT: Shortness of breath. HISTORY OF PRESENT ILLNESS: 56-year-old male who has had a very prolonged recent hospitalization fo r acute tension pneumothorax, septic shock, and methicillin-sensitive bacteremia, who was discharged on 09/18/2016 to care home facility. Per the facility's report, the patient had been stable and the day of re-presentation today to the emergency department developed extreme shortness of elizabeth th and markedly decreased oxygenation, prompting his transfer to the emergency department. Here in the emergency department, on BiPAP, the patient reports severe shortness of breath. Endorses cough that is nonproductive. Denies pleuritic chest pain but endorses difficulty breathing. Denies any p receding chest pain. Reports some headache. Denies vision changes. Reports some nausea. Denies a bdominal pain. Denies any changes in his bowel habits, dysuria, or hematuria. Denies any known sic k contacts. PAST MEDICAL HISTORY: 1. Recent acute tension pneumothorax, status post chest tubes. 2. Methicillin-sensitive staphylococcus bacteremia. 3. History of aspiration pneumonia. 4. Acute on chronic hypercapnic and hypoxic respiratory failure. 5. Recent upper GI bleed, on chronic PPI. 6. Advanced pulmonary fibrosis. 7. Anemia secondary to acute blood loss. 8. Hiatal hernia. 9. Chronic thrombocytopenia, HIT negative. 10. Homelessness. 11. History of alcohol abuse. 12. Hepatitis C. 13. Tobacco abuse. 14. Pulmonary hypertension. SOCIAL HISTORY: The patient has been previously incarcerated and homeless, was most recently discha rged to care home. Has a history of alcohol abuse and tobacco abuse. Reports eating edibles prior to his previous hospitalization. FAMILY HISTORY: A brother had a heart attack. ADVANCE DIRECTIVES: Per the snf, the patient wishes to be Do Not Intubate. REVIEW OF SYSTEMS: A 10-point review of systems is negative with the exception of that reported in the HPI. PHYSICAL EXAMINATION: VITAL SIGNS: Blood pressure 135/96, heart rate 104, respiratory rate 34. Wa s reportedly satting in the 60s upon initial evaluation. He is 100% on BiPAP at 60% FiO2. GENERAL: This is a ylqi-ylomueyzy-rifszzqve male in distress. HEENT: Notable for dry mucous membranes. E yes negative for any icterus. CARDIAC: The patient is tachycardic but regular. PULMONARY: Rales bilaterally. Diminished breath sounds at bilateral bases. GASTROINTESTINAL: Positive bowel sounds . ABDOMEN: Soft and nontender in all 4 quadrants. MUSCULOSKELETAL: Negative for any lower extrem ity edema. SKIN: Negative for any rashes. NEUROLOGIC: The patient is alert and oriented x3. PSY CHIATRIC: He appears anxious on interview and examination. DATA: White count is 9.3, hematocrit 29.4, platelet count of 246. These are all near recent baseli lucila. INR 1.2. Creatinine 2.6, discharged at 0.6. Potassium 4.7, BUN 32, anion gap of 7. Chest x-ray, which I personally reviewed and interpreted, shows diffuse bilateral infiltrates. Radi ology comments on a new dense right lower lobe consolidation. ASSESSMENT AND PLAN: This is a 56-year-old male with multiple medical comorbidities and recent disc harge for a prolonged hospitalization, presenting with acute hypoxia. 1. Acute hypoxic on chronic hypoxic respiratory failure. It sounds as if the status change was dewayne te abrupt at the snf. The patient is endorsing severe shortness of breath and some nonprod uctive cough, denying pleuritic chest pain at this time, with a dense infiltrate which appears new o n imaging in the right lower lobe. We will empirically treat for healthcare-associated pneumonia wi th vancomycin and cefepime. He is certainly at risk for Pseudomonas. We will not obtain a CT PE at this point until we see the patient's response to treatment for pneumonia but would keep this in th e back of our minds if his tachycardia does not respond to fluid resuscitation and the antibiotics. We will treat aggressively the patient's underlying interstitial lung disease. He has received lewis us dosing of steroids in the emergency department. We will continue these. We will continue BiPAP support and admit the patient to the ICU. 2. Acute kidney injury. This is acute and new. Based on the patient's review, it is not clear to me why. He has no preceding history of kidney disease. We will aggressively fluid resuscitate, sen d a urinalysis and a urine toxicology. We will recheck his BMP in just a few hours to see if he is responding to initial fluid resuscitation. I have asked the nurses to bladder scan and rule out any possible obstructive component. We will order a renal ultrasound if we do not see prompt improveme nt in his renal function. 3. Sepsis. The patient is presenting with tachycardia, tachypnea, with presumed source pulmonary. We will treat with empiric IV antibiotics and IV fluids. Monitor the patient's respiratory status in the ICU. 4. History of a tension pneumothorax. The patient appears without pneumothorax on his initial ches t imaging. We will monitor closely on positive pressure. 5. History of recent gastrointestinal bleed. We will continue the patient's PPI treatment and julián tor his H and H. 6. Methicillin-sensitive Staphylococcus aureus bacteremia. The patient was discharged on Unasyn. We will switch to vancomycin. Blood cultures have been drawn in the emergency department. We will follow the patient's culture data and clinical status closely. 7. Prophylaxis with Lovenox. 8. Diet: N.p.o., as the patient is currently in respiratory distress. Unclear if he will need BiP AP continuously overnight. DISPOSITION: Greater than 2 midnights, as the patient is presenting septic with respiratory failure . I discussed the case with the emergency room physician. The patient will be triaged to the ICU f or aggressive pulmonary care. /[id number]/MODL
[2016-09-26] MEDS ORDERED: CEPACOL LOZENGE PO PRN (18:44)
[2016-09-26 20:36] LABS: ANION GAP 10 mEq/L (8-16); CALCIUM 7.1 mg/dL (8.5-10.4); CARBON DIOXIDE 21 mEq/l (22-31); CHLORIDE 107 mEq/L (97-110); CREATININE 2.5 mg/dL (0.7-1.3); GLOMERULAR FILTRATION RATE 27; GLUCOSE 131 mg/dL (70-100); SODIUM 138 mEq/L (134-144)
[2016-09-26] MEDS: oxyCODONE IR 5 MG TAB PO PRN (20:57)
[2016-09-26] MEDS: ALPRAZolam 0.25 MG TAB PO SCH (20:57)
[2016-09-26] MEDS: HEPARIN 5,000 UNIT/0.5 ML SYR SC SCH (20:57)
[2016-09-26 21:07] LABS: COLOR YELLOW; LEUKOCYTE ESTERASE,URINE NEGATIVE (NEGATIVE); NITRITE,URINE NEGATIVE (NEGATIVE)
[2016-09-26 21:16] LABS: MUCUS 1+ /lpf (NONE-1+); RBC,URINE 50-182 /hpf (0-3); WBC,URINE 50-182 /hpf (0-3); YEAST PRESENT /hpf (NONE SEEN)
[2016-09-26 21:17] LABS: HYALINE CASTS >182 /lpf (0-1)
[2016-09-26 21:24] LABS: PHENCYCLIDINE URINE BCH < 6 ng/ml (NEGATIVE); PHENCYCLIDINE URINE BCH NEGATIVE (NEGATIVE); TETRAHYDROCANNABINOL URINE < 5 ng/mL (NEGATIVE); TETRAHYDROCANNABINOL URINE NEGATIVE (NEGATIVE)
[2016-09-27] MEDS: methylPREDNISolone SOD SUCC 125 MG/2 ML VIAL IVP SCH ×5 (00:53→23:51)
[2016-09-27] MEDS: oxyCODONE IR 5 MG TAB PO PRN ×4 (04:19→21:33)
[2016-09-27 04:24] LABS: % IMMATURE GRANULYOCYTES 0.2 % (0.0-1.1); ABSOLUTE IMMATURE GRANULOCYTES 0.01 10^3/uL (0.00-0.10); ADD DIFF? NO; ADD MORPH? YES; ADD SCAN? NO; ATYPICAL LYMPHOCYTE FLAG 0 (0-99); FRAGMENT RBC FLAG 40 (0-99); HEMATOCRIT 30.1 % (40.0-51.0); HEMOGLOBIN 8.6 g/dL (13.7-17.5); LEFT SHIFT FLG 0 (0-99); LIPEMIA HEMOLYSIS FLAG 70 (0-99); MEAN CELL HEMOGLOBIN 24.2 pg (27.9-34.1); MEAN CELL VOLUME 84.8 fL (81.5-99.8); MEAN PLATELET VOLUME 8.8 fL (8.7-11.7); PLATELET CLUMPS FLAG 10 (0-99); PLATELET COUNT 206 10^3/uL (150-400); RED BLOOD CELL COUNT 3.55 10^6/uL (4.40-6.38); RED CELL DISTRIBUTION WIDTH 18.9 % (11.5-15.2)
[2016-09-27 04:25] LABS: MEAN CELL HEMOGLOBIN CONCENTR. 28.6 g/dL (32.4-36.7)
[2016-09-27 04:36] LABS: ANION GAP 12 mEq/L (8-16); CALCIUM 7.5 mg/dL (8.5-10.4); CARBON DIOXIDE 20 mEq/l (22-31); CHLORIDE 106 mEq/L (97-110); CREATININE 2.8 mg/dL (0.7-1.3); GLOMERULAR FILTRATION RATE 23; GLUCOSE 177 mg/dL (70-100); POTASSIUM 4.8 mEq/L (3.5-5.2); SODIUM 138 mEq/L (134-144)
[2016-09-27 04:56] LABS: PLATELET ESTIMATE ADEQUATE (ADEQ)
[2016-09-27 05:00] LABS: HYPOCHROMIA 3+; POLYCHROMASIA 1+
[2016-09-27] MEDS: IPRATROPIUM/ALBUTEROL 3 ML DEYVIAL IH SCH ×4 (05:30→22:23)
[2016-09-27] MEDS: HEPARIN 5,000 UNIT/0.5 ML SYR SC SCH ×3 (05:38→21:34)
[2016-09-27] MEDS: CEFEPIME HCL 2 GM in D5W 100 ML IV SCH (08:52)
[2016-09-27] MEDS: PANTOPRAZOLE SODIUM 40 MG TAB PO SCH (08:53)
[2016-09-27] MEDS: ALPRAZolam 0.25 MG TAB PO SCH ×3 (08:53→21:33)
--- NOTE | 2016-09-27 09:57 | HOSPPROG ---
Hospitalist Progress Note Assessment/Plan: # acute on chronic resp failure # likely new RLL pna/diffuse infiltrates - vanc/zosyn - check echo/bnp # ILD/UIP # recent tension ptx - now resolved # sepsis - d/t above # recent MSSA bacteremia d/t pulm source - was on unasyn - now vanc/zosyn # acute renal failure - unclear etiology - check urine lytes, eos, renal US # hx GIB - hgb stable, cont protonix # HCV # hx etOH abuse # cor - limited, no intubation ## chart reviewed discussed with Dr Betts - cont abx, eval for CHF CXR personally reviewed Subjective: ongoing dyspnea Objective: Vital Signs Temp Pulse Resp BP Pulse Ox 36.6 C 92 20 126/69 H 96 09/27/16 04:00 09/27/16 06:00 09/27/16 06:00 09/27/16 06:00 09/27/16 06:00 Laboratory Results 09/27/16 04:12 09/27/16 04:12 09/26/16 09/27/16 09/28/16 05:59 05:59 05:59 Intake Total 4578 Output Total 240 100 Balance 4338 -100 PT 15.3 SEC (12.0-15.0) H 09/26/16 15:34 INR 1.21 (0.83-1.16) H 09/26/16 15:34 - Physical Exam Constitutional: uncomfortable Cardiovascular: regular rate and rhythym, no murmur, rub, or gallop Respiratory: respiratory distress (mod to severe), rhonchi, other (bilat basilar rales), No expiratory wheeze, No inspiratory crackles Gastrointestinal: normoactive bowel sounds, other (soft, mild TTP diffusley, no guarding or rebound) ICD10 Worksheet Patient Problems: Problems Problem Status Onset Acute renal failure Acute Acute respiratory failure with hypoxia Acute Interstitial lung disease Acute Pneumonia Acute Acute chest pain Acute Alcohol abuse Acute Hematemesis Acute Lung infiltrate Acute Pleural effusion Acute Pneumothorax, right Acute Ribs, multiple fractures Acute Sepsis Acute
[2016-09-27] MEDS ORDERED: OSELTAMIVIR 6 MG/ML UDSYR PO SCH (11:30)
--- NOTE | 2016-09-27 14:50 | GCON ---
[f rep st] CONSULTATION PULMONARY/CRITICAL CARE CONSULTATION DATE OF CONSULTATION: 09/27/2016 REFERRING PHYSICIAN: Emeka Ortiz MD REASON FOR REFERRAL: Evaluation and management of hypoxemia with pulmonary infiltrates. HISTORY OF PRESENT ILLNESS: The patient is a 56-year-old gentleman, known to me from a hospitalizat ion earlier this month for septic shock with methicillin-sensitive bacteremia, who was discharged 9 days ago. He had been stable until yesterday, when he developed extreme shortness of breath and sig nificant hypoxemia, which prompted a transfer from his long term facility to the emergency dep artment. In the emergency department, the patient was placed on BiPAP due to severe dyspnea. He al so had a nonproductive cough. He has been treated empirically for a healthcare-associated pneumonia with vancomycin and cefepime. His dyspnea improved, although he had an episode of significant dysp dwight this morning that seemed to be exacerbated by anxiety. He currently states that his breathing i s feeling more comfortable, and he denies chest pain or cough. PAST MEDICAL HISTORY: 1. Recent acute tension pneumothorax, status post chest tube placement. 2. MSSA bacteremia. 3. History of aspiration pneumonia. 4. History of acute on chronic hypercapnic and hypoxemic respiratory failure. 5. Recent upper GI bleed. 6. Pulmonary fibrosis. 7. Chronic thrombocytopenia. 8. Alcohol abuse. 9. Hepatitis C. 10. Pulmonary hypertension. MEDICATIONS: At the time of admission included pantoprazole, tramadol, Unasyn, oxycodone, Xanax, an d albuterol. ALLERGIES: None. SOCIAL HISTORY: The patient has previously been incarcerated and homeless but was [facility]. He has a history of alcohol abuse and tobacco use, as well as use of marijua na. FAMILY HISTORY: His brother had a heart attack. REVIEW OF SYSTEMS: A 10-point review of systems adds nothing to the History of Present Illness. PHYSICAL EXAMINATION: GENERAL: The patient is awake, alert, and in no acute distress. VITAL SIGNS : Blood pressure is 121/72 with a heart rate of 106. He is afebrile. Oxygen saturations are 95% o n 5 L. HEENT: Normocephalic and atraumatic. No icterus. NECK: No adenopathy. Trachea is midlin e. CHEST: Rales in the bases. CARDIAC: Regular tachycardia without murmur. ABDOMEN: Soft and n ontender. Bowel sounds are present. EXTREMITIES: No clubbing, cyanosis, or edema. NEURO: The salazar sandoval is awake but somewhat disoriented. He moves all extremities normally. LABORATORY: White blood count is 6.6. Hemoglobin is 8.6, and platelet count is 206. A chemistry g roup shows a creatinine of 2.8, up from 2.6 at admission. His creatinine was in the normal range ju 10 days ago. An INR is 1.2. A lactate is 0.6. A urinalysis shows active sediment with greater than 180 hyaline casts and greater than 180 white blood cells and red blood cells. Urine bilirubin is negative. A BNP is 12,500. A chest x-ray shows extensive diffuse airspace infiltrates, increased from the prior chest x-ray on September 17. Images reviewed by me. ASSESSMENT: 1. Pulmonary infiltrates and hypoxemia. The patient's symptoms have acutely worsened. He has been started on treatment for empiric healthcare-associated pneumonia with vancomycin and cefepime. How ever, he has no white blood count or fever. The elevated BNP with this pattern of infiltrates could represent acute congestive heart failure. He had an echocardiogram during his prior hospitalizatio n that showed a normal left ventricular ejection fraction with an RVSP of 72 mmHg. He also has some underlying interstitial disease, with a CAT scan during the prior hospitalization suggesting possib le idiopathic pulmonary fibrosis. Nonetheless, given the worsening infiltrates, elevated BNP, and i ncreased creatinine, it is possible that the patient has fluid overload, either from reduced systoli c function or from a primary renal process. 2. Acute kidney injury. The patient has an active urinary sediment, but the sediment and absence o f fever and white blood count would be atypical for a urinary tract infection. 3. Tachycardia. RECOMMENDATIONS: 1. Continue empiric antibiotics. 2. May consider tapering the steroids down, unless there is an ongoing suspicion for a steroid-resp onsive disease. 3. Check an ultrasound of the heart as well as ultrasound of the kidneys to determine cardiac funct ion as well as exclude any urinary obstruction. 4. Continue to monitor in the ICU. 5. Follow blood cultures for signs of sepsis. /[id number]/MODL
[2016-09-27] MEDS: NS 1,000 ML IV SCH (15:14)
[2016-09-27] MEDS: VANCOMYCIN 750 MG in D5W 150 ML IV SCH (17:23)
[2016-09-27] MEDS ORDERED: OSELTAMIVIR PHOSPHATE 75 MG CAP PO SCH (18:00)
[2016-09-27 19:50] LABS: EOSMR EOSINOPHILS FEW EOS (NO EOS SEEN)
[2016-09-27 19:51] LABS: EOSMR EPITHELIAL CELLS NO EPITH CELLS SEEN; EOSMR PMNS NO PMN CELLS SEEN; EOSMR RBCS MODERATE RBCS
[2016-09-28] MEDS: oxyCODONE IR 5 MG TAB PO PRN ×5 (00:53→22:01)
[2016-09-28] MEDS: IPRATROPIUM/ALBUTEROL 3 ML DEYVIAL IH SCH ×4 (05:05→23:49)
[2016-09-28 05:23] LABS: % IMMATURE GRANULYOCYTES 0.4 % (0.0-1.1); ABSOLUTE IMMATURE GRANULOCYTES 0.04 10^3/uL (0.00-0.10); ADD DIFF? NO; ADD MORPH? NO; ADD SCAN? NO; ATYPICAL LYMPHOCYTE FLAG 0 (0-99); FRAGMENT RBC FLAG 40 (0-99); HEMATOCRIT 26.1 % (40.0-51.0); HEMOGLOBIN 7.6 g/dL (13.7-17.5); LEFT SHIFT FLG 0 (0-99); LIPEMIA HEMOLYSIS FLAG 70 (0-99); MEAN CELL HEMOGLOBIN 24.7 pg (27.9-34.1); MEAN CELL HEMOGLOBIN CONCENTR. 29.1 g/dL (32.4-36.7); MEAN CELL VOLUME 84.7 fL (81.5-99.8); MEAN PLATELET VOLUME 10.3 fL (8.7-11.7); PLATELET CLUMPS FLAG 0 (0-99); PLATELET COUNT 170 10^3/uL (150-400); RED BLOOD CELL COUNT 3.08 10^6/uL (4.40-6.38); RED CELL DISTRIBUTION WIDTH 18.8 % (11.5-15.2)
[2016-09-28 05:49] LABS: ANION GAP 10 mEq/L (8-16); CALCIUM 7.5 mg/dL (8.5-10.4); CARBON DIOXIDE 20 mEq/l (22-31); CHLORIDE 107 mEq/L (97-110); CREATININE 3.2 mg/dL (0.7-1.3); GLOMERULAR FILTRATION RATE 20; GLUCOSE 124 mg/dL (70-100); POTASSIUM 4.9 mEq/L (3.5-5.2); SODIUM 137 mEq/L (134-144)
[2016-09-28] MEDS: methylPREDNISolone SOD SUCC 125 MG/2 ML VIAL IVP SCH ×2 (05:52→12:55)
[2016-09-28] MEDS: HEPARIN 5,000 UNIT/0.5 ML SYR SC SCH ×3 (05:52→22:01)
[2016-09-28] MEDS: CEFEPIME HCL 2 GM in D5W 100 ML IV SCH (09:13)
[2016-09-28] MEDS: PANTOPRAZOLE SODIUM 40 MG TAB PO SCH (09:13)
[2016-09-28] MEDS: ALPRAZolam 0.25 MG TAB PO SCH ×3 (09:13→22:01)
--- NOTE | 2016-09-28 11:15 | HOSPPROG ---
Hospitalist Progress Note Assessment/Plan: # acute on chronic resp failure - d/t poss pna, pulm edema, ILD - very tenuous, needed bipap yesterday # likely new RLL pna/diffuse infiltrates - vanc/zosyn - echo still pending # ILD/UIP # recent tension ptx - now resolved # sepsis - d/t above # acute renal failure - suspect d/t AIN - renal consult, may need HD given volume status # recent MSSA and lactobacillus bacteremia, unclear source - was on unasyn as outpt - now vanc/zosyn # hx GIB - hgb stable, cont protonix # HCV # hx etOH abuse # cor - limited, no intubation ## 35 minutes critical care time given renal failure and resp failure Subjective: very dyspneic; had difficulty urinating Objective: Vital Signs Temp Pulse Resp BP Pulse Ox 36.4 C 91 28 H 125/78 H 98 09/28/16 08:00 09/28/16 10:00 09/28/16 10:00 09/28/16 10:00 09/28/16 10:00 Microbiology 09/27/16 12:01 - Final Sputum, Expectorated Laboratory Results 09/28/16 05:10 09/28/16 05:10 09/27/16 09/28/16 09/29/16 05:59 05:59 05:59 Intake Total 4578 2849 Output Total 240 575 Balance 4338 2274 PT 15.3 SEC (12.0-15.0) H 09/26/16 15:34 INR 1.21 (0.83-1.16) H 09/26/16 15:34 - Physical Exam Constitutional: uncomfortable, other (tachypneic, ) Cardiovascular: regular rate and rhythym, no murmur, rub, or gallop Respiratory: inspiratory crackles, respiratory distress (mod-severe), rhonchi, No bronchial breath sounds Gastrointestinal: normoactive bowel sounds, soft, non-tender abdomen, no palpable masses ICD10 Worksheet Patient Problems: Problems Problem Status Onset Hematemesis Acute Acute respiratory failure with hypoxia Acute Alcohol abuse Acute Ribs, multiple fractures Acute Sepsis Acute Lung infiltrate Acute Acute chest pain Acute Pneumothorax, right Acute Interstitial lung disease Acute Pleural effusion Acute Pneumonia Acute Acute renal failure Acute
[2016-09-28] MEDS: traMADol 50 MG TAB PO PRN ×2 (13:04→19:42)
[2016-09-28] MEDS ORDERED: FUROSEMIDE 100 MG/10 ML VIAL IVP ONE ×2 (13:19→20:30)
--- NOTE | 2016-09-28 13:40 | SOAPPROG ---
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 given pyuria and urine eosinophils -antibiotic history -now with severe SOB and hypoxia -stop IVF -attempt diuresis with IV lasix -patient states he would want emergency dialysis to treat his fluid overload and respiratory symptoms if needed -if he does not respond to lasix, he would need to have surgery place a temporary dialysis catheter -his tenuous oxygenation and history of pneumothorax makes him high risk for complications -abx changes per ID -he is on IV steroids for his lungs, and this could help his renal process if indeed it is AIN -will quantify urine protein -renal ultrasound previously performed does not show and evidence of obstruction -creatinine 3.2 -baseline 0.6 -urinalysis with hematuria, pyuria and proteinuria 09/28/16 13:41 Objective: Vital Signs Temp Pulse Resp BP Pulse Ox 36.4 C 87 24 H 125/78 H 97 09/28/16 08:00 09/28/16 12:00 09/28/16 12:00 09/28/16 12:00 09/28/16 12:00 Microbiology 09/27/16 12:01 - Final Sputum, Expectorated Laboratory Results 09/28/16 05:10 09/28/16 05:10 09/27/16 09/28/16 09/29/16 05:59 05:59 05:59 Intake Total 4578 2849 Output Total 240 575 Balance 4338 2274 PT 15.3 SEC (12.0-15.0) H 09/26/16 15:34 INR 1.21 (0.83-1.16) H 09/26/16 15:34 ICD10 Worksheet Patient Problems: Problems Problem Status Onset Acute renal failure Acute Acute respiratory failure with hypoxia Acute Interstitial lung disease Acute Pneumonia Acute Acute chest pain Acute Alcohol abuse Acute Hematemesis Acute Lung infiltrate Acute Pleural effusion Acute Pneumothorax, right Acute Ribs, multiple fractures Acute Sepsis Acute
--- NOTE | 2016-09-28 14:35 | ECHO ---
[id number] + + [address] : : [place] [address] : : [phone] + Adult Echocardiographic Report + --+ :Name: DANNY ANDERSON NStudy Date: 09/27/2016 01:39 PM : : Hospital Admission Number: [id number] Location: 2 48: :: 1960 Gender: Male Height: 73 in : :Age: 56 yrs Race: AIA Weight: 167 lb : :Reason For Study: Eval LV Fx : : BSA: 2.0 meters2 : :History: Increased SOB : + --+ MMode/2D Measurements \T\ Calculations IVSd: 0.89 cm RVDd: 6.1 cm FS: 40.8 % Ao root diam: 3.9 cm LVPWd: 1.2 cm LVIDd: 4.6 cm EDV(Teich): 97.2 ml ACS: 1.4 cm LVIDs: 2.7 cm ESV(Teich): 27.5 ml LA dimension: 3.6 cm EF(Teich): 71.7 % LVOT diam: 2.1 cm LVOT area: 3.5 cm2 Normal Measurement Values: + + :LVIDd (3.5-5.7cm) IVSd (0.6-1.1cm) LVPWd (0.6-1.1cm) Aortic Root (2.0-3.7cm)Left Atrium (1.5-4.0cm): :LV Vol(d) (76-115ml) LV Vol(s) (29-48ml) Ejec Fraction (50-65%)PV Pankaj (0.6- 1.2m/s) TV Pankaj (0.4-1.0m/s) : :MV E Pankaj (0.8-1.0m/s)MV A Pankaj (0.3-1.0m/s)LVOT Pankaj (0.7-1.2m/s) Asc Ao Pankaj ( 0.9-1.8m/s) : + + Doppler Measurements \T\ Calculations MV E max pankaj: Ao V2 max: LV V1 max: PA V2 max: 75.0 cm/sec 155.4 cm/sec 71.1 cm/sec 86.9 cm/sec MV A max pankaj: Ao max P.7 mmHgLV V1 max PG: PA max P.1 cm/sec 2.0 mmHg 3.0 mmHg MV E/A: 0.72 ALEXANDRO(V,D): 1.6 cm2 TR max pankaj: 452.7 cm/sec TR max P.0 mmHg RAP systole: 5.0 mmHg RVSP(TR): 87.0 mmHg Left Ventricle The left ventricle is normal in size. There is normal left ventricular wall thickness. The left ventricular ejection fraction is normal. There is Doppler evidence for diastolic dysfunction. Ejection Fraction = 71%. Flattened septum is consistent with RV pressure/volume overload. Right Ventricle The right ventricle is mild to moderately dilated. The right ventricular systolic function is mild to moderately reduced. Atria The left atrial size is normal. Right atrial size is normal. Mitral Valve The mitral valve is normal. There is no evidence of mitral valve prolapse. There is no mitral valve stenosis. There is no mitral regurgitation noted. Tricuspid Valve There is mild tricuspid regurgitation. Right ventricular systolic pressure is 87mmHg. There is Doppler evidence for severe pulmonary hypertension. Aortic Valve Mild Aortic Valve Calcification. The aortic valve is trileaflet. Calcification of the RCC. There is no aortic stenosis. There is no aortic insufficiency. Pulmonic Valve The pulmonic valve is normal in structure and function. There is no pulmonic valvular regurgitation. Great Vessels The aortic root is normal size. Pericardium/Pleural There is no pericardial effusion. Conclusion A complete two-dimensional transthoracic echocardiogram was performed (2D, M-mode, Doppler and color flow Doppler). Compared to prior study, changes are noted. The left ventricular ejection fraction is normal. There is Doppler evidence for diastolic dysfunction. Ejection Fraction = 71%. Flattened septum is consistent with RV pressure/volume overload. The right ventricle is mild to moderately dilated. The right ventricular systolic function is mild to moderately reduced. The mitral valve is normal. There is mild tricuspid regurgitation. Right ventricular systolic pressure is 87mmHg. There is Doppler evidence for severe pulmonary hypertension. Mild Aortic Valve Calcification The aortic valve is trileaflet. Calcification of the RCC There is no pericardial effusion. Compared to prior study, changes are noted. Final Reading Physician: Leeanne Manzo signed on 09/28/2016 02:33 PM Ordering Physician: Emeka Ortiz Performed By: Jose Santos, CS
--- NOTE | 2016-09-28 14:58 | GCON ---
[f rep st] CONSULTATION NEPHROLOGY CONSULT NOTE DATE OF CONSULTATION: 09/28/2016 REASON FOR ADMISSION: Shortness of breath. REASON FOR CONSULTATION: Acute renal failure. ASSESSMENT: 1. 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 2. Hematuria, proteinuria and pyuria on urinalysis. 3. Urine eosinophils on recent study. 4. History of antibiotic use. 5. History of recent methicillin-sensitive Staph bacteremia with septic shock and acute tension pne umothorax on admission 08/27/2016. 6. Prior admission for bilateral pneumonia 07/02/2016. RECOMMENDATION: 1. Stop IV fluids. 2. Continue present management of IV steroids. 3. Quantify urine protein. 4. Consider dialysis if needed. 5. If patient unresponsive to IV diuretics, I would plan to have surgery or Interventional Radiolog y place a dialysis catheter as the patient is extremely high risk for complications. HISTORY: The patient is a 56-year-old male I have been asked to consult on by Dr. Emeka Ortiz with regard to his acute renal failure. He was admitted on the with a creatinine that was elev ated at a level of 2.6 from his prior baseline of 0.6. He was given IV fluids. Although he has bee n nonoliguric, his creatinine has continued to rise with to level 3.2 today. His oxygenation has be en extremely tenuous with his oxygen needs, going up anywhere from 5 to 15 L to where he is now on 1 00% non-rebreather. In the emergency room, he required BiPAP therapy to stabilize his breathing. PAST MEDICAL HISTORY: Of hep C, thrombocytopenia, alcohol abuse, tobacco use, pulmonary hypertensio n, aspiration pneumonia, interstitial lung disease, gastroesophageal reflux disease, a history of GI bleed and a history of pancreatitis. He had recent hospitalizations related to bilateral pneumonia in July and then spontaneous right pneumothorax in August. MEDICATIONS: Outpatient: Have been acetaminophen, pantoprazole, tramadol, Unasyn, Protonix, oxycod one, Cepacol lozenges, Xanax and albuterol. Current: Include Tylenol, albuterol, DuoNeb, Xanax, cefepime, subcu heparin and heparin methylpredn isolone, ondansetron, oxycodone, Protonix, Cepacol, Ultram, vancomycin. ALLERGIES: None. FAMILY AND SOCIAL HISTORY: Patient was born on the [facility] in [place]. He lived in numerous [facility], including [place], [place], [place] and [place]. At times, he has been h omeless. The remainder of his family and social history are noncontributory. REVIEW OF SYSTEMS: Remarkable for his breathing difficulties. PHYSICAL EXAMINATION: VITAL SIGNS: Temp 37, pulse 98, respirations 36, saturating anywhere between 80% and 94% on OxyMask, blood pressure 120/75. GENERAL APPEARANCE: Tachypneic, mild distress. SK IN: Unremarkable. HEENT: Atraumatic, normocephalic. NECK: Unremarkable. HEART: Regular with n o extra heart Sounds. LUNGS: Coarse with decreased breath sounds at the bases, otherwise benign. ABDOMEN: Benign. EXTREMITIES: Trace to 1+ edema bilaterally. ASSESSMENT: Acute renal failure. Given the antibiotic history with Unasyn, the hematuria, proteinu richi, pyuria, along with positive urine eosinophils, I suspect he does have allergic interstitial nep hritis. The Unasyn has been stopped. ID has been consulted. Certainly there could be some cross r eactivity with Unasyn and cefepime. It would probably be safer for him to be on an agent like aztre onam or imipenem instead of his penicillin or cephalosporin-type antibiotic. We will see what Infec tious Disease has to say. Currently, the patient is also on vancomycin. Certainly other agents oth er than antibiotics could be considered as a cause for allergic interstitial nephritis. Specificall y, proton pump inhibitors have been associated with this process but are much less likely. I would continue his current Protonix. Currently he has volume overload. His IV fluids have been stopped. IV Lasix has been requested to see if he responds to this agent. If he is, we will continue dosing him to try and help stabilize h is respiratory status. If he is unresponsive to IV Lasix, then one could consider use of dialysis with ultrafiltration. Th is would be extremely risky in this gentleman but might be a life-saving intervention. Given his te nuous pulmonary status and prior history of spontaneous pneumothorax, I would think that either surg ical or interventional radiologic placement of a dialysis catheter would be the best option if indee d he needs that therapy. As the patient is already on methylprednisolone for his lungs, this might have the added benefit of helping out with his renal process if it is indeed allergic interstitial nephritis. /[id number]/MODL
--- NOTE | 2016-09-28 15:04 | PDINTPN ---
[employer] Progress Note Assessment/Plan: Assessment: Pulmonary infiltrates, hypoxemia: No WBC, fever. BNP elevated, has JAMIE, likely much/most of his deterioration is due to pulmonary edema. JAMIE: Suspect AIN, probably due to Unasyn, now stopped. Pulmonary Fibrosis: Seen on CT scan. Pulmonary HTN: 87 mmHg on current ECHO, was 72 mmHg on last hospitalization. Plan: Try Lasix. If that's not effective at removing fluid, may need HD for fluid removal. CT Chest. Continue Vancomycin, hold other antibiotics. Reduce steroids. 09/28/16 15:21 09/28/16 15:24 Subjective: C/O intermittent dyspnea. Cough with clear sputum. Objective: Vital Signs Temp Pulse Resp BP Pulse Ox 36.4 C 87 24 H 125/78 H 97 09/28/16 08:00 09/28/16 12:00 09/28/16 12:00 09/28/16 12:00 09/28/16 12:00 Microbiology 09/27/16 12:01 - Final Sputum, Expectorated Laboratory Results 09/28/16 05:10 09/28/16 05:10 09/27/16 09/28/16 09/29/16 05:59 05:59 05:59 Intake Total 4578 2849 400 Output Total 240 575 Balance 4338 2274 400 PT 15.3 SEC (12.0-15.0) H 09/26/16 15:34 INR 1.21 (0.83-1.16) H 09/26/16 15:34 ECHO EF 71 mmHg, diastolic dysfunction. RVSP 87 mmHg. Abd U/S: No hydronephrosis. Images reviewed. Physical Exam - Physical Exam General Appearance: alert, no apparent distress EENT: normal ENT inspection Neck: normal inspection Respiratory: crackles (bilateral) Cardiac/Chest: regular rate, rhythm, edema (1+) Abdomen: normal bowel sounds, non-tender, soft Skin: normal color, warm/dry Extremities: non-tender Neuro/Psych: alert, No motor weakness, No sensory deficit ICD10 Worksheet Patient Problems: Problems Problem Status Onset Acute renal failure Acute Acute respiratory failure with hypoxia Acute Interstitial lung disease Acute Pneumonia Acute Acute chest pain Acute Alcohol abuse Acute Hematemesis Acute Lung infiltrate Acute Pleural effusion Acute Pneumothorax, right Acute Ribs, multiple fractures Acute Sepsis Acute
[2016-09-28] MEDS: VANCOMYCIN 750 MG in D5W 150 ML IV SCH (18:05)
--- NOTE | 2016-09-28 19:24 | PCMIDPN ---
Assessment/Plan: Assessment/Plan: * Respiratory failure with bilateral pulmonary infiltrates: Unclear if this is due to infectious or noninfectious etiology. Recent hospitalization with MSSA isolated from BAL. No fever or leukocytosis present currently to suggest superimposed new bacterial infection. Will proceed with CT scan of the chest to further characterize infiltrates. Obtain influenza swab by PCR. Will continue treatment with vancomycin adjusted for renal insufficiency. Will obtain level today. Will stop cefepime given concerns about acute interstitial nephritis associated with Unasyn use and observe without targeted gram-negative venecia therapy. * MSSA/lactobacillus bacteremia: Was completing a 4 week course of Unasyn and had been scheduled to complete this on 10/04/2016. Will be covered for MSSA with vancomycin. Suspect has received an adequate course of therapy for lactobacillus as he has received approximately 3 weeks of Unasyn. Repeat blood cultures are currently pending. * Acute renal failure: Urine eosinophils present suggestive of acute interstitial nephritis which is likely associated with Unasyn use. This has now been discontinued. Nephrology consultation has been obtained. Time spent, greater than 35 minutes, of which greater than half was spent in coordination of care related to respiratory failure, bacteremia, and acute renal failure. 09/28/16 19:20 Subjective: Patient readmitted after being seen by infectious disease service during recent hospitalization for MSSA/lactobacillus bacteremia and possible MSSA pneumonia. Was completing 4 weeks of Unasyn as an outpatient with stop date of 10/04/2016. Readmitted currently for acute respiratory failure with chest x-ray showing significant bilateral pulmonary infiltrates. Also noted to have new onset acute renal failure. Currently receiving empiric therapy with vancomycin and cefepime. Now asked by Dr. Ortiz to continue follow-up from Infectious Disease perspective. Objective: Vital Signs Temp Pulse Resp BP Pulse Ox 36.4 C 102 H 30 H 129/87 H 91 L 09/28/16 08:00 09/28/16 18:00 09/28/16 18:00 09/28/16 18:00 09/28/16 18:00 Microbiology 09/27/16 12:01 - Final Sputum, Expectorated Laboratory Results 09/28/16 05:10 09/28/16 05:10 09/27/16 09/28/16 09/29/16 05:59 05:59 05:59 Intake Total 4572 2849 976 Output Total 240 575 150 Balance 4338 7734 826 Vancomycin/cefepime Urine with few urine eosinophils Chest x-ray with bilateral diffuse infiltrates Sputum with mixed oral tu - Physical Exam General Appearance: alert, non-toxic EENT: No scleral icterus, No thrush, No conjunctival petechiae Respiratory: other (Increased respiratory effort with occasional crackles present) Cardiac/Chest: tachycardia Abdomen: non-tender, No distended Skin: No embolic lesions ICD10 Worksheet Patient Problems: Problems Problem Status Onset Acute renal failure Acute Acute respiratory failure with hypoxia Acute Interstitial lung disease Acute Pneumonia Acute Acute chest pain Acute Alcohol abuse Acute Hematemesis Acute Lung infiltrate Acute Pleural effusion Acute Pneumothorax, right Acute Ribs, multiple fractures Acute Sepsis Acute
[2016-09-28] MEDS: clonazePAM 0.5 MG TAB PO SCH (20:53)
[2016-09-28] MEDS: methylPREDNISolone SOD SUCC 40 MG/ML VIAL IVP SCH (20:53)
[2016-09-28] MEDS ORDERED: methylPREDNISolone SOD SUCC 125 MG/2 ML VIAL IVP SCH (21:00)
[2016-09-29] MEDS: IPRATROPIUM/ALBUTEROL 3 ML DEYVIAL IH SCH ×3 (04:08→16:52)
[2016-09-29 04:18] LABS: % IMMATURE GRANULYOCYTES 0.6 % (0.0-1.1); ABSOLUTE IMMATURE GRANULOCYTES 0.07 10^3/uL (0.00-0.10); ABSOLUTE NRBC COUNT 0.03 10^3/uL (0-0.01); ADD DIFF? NO; ADD MORPH? NO; ADD SCAN? NO; ATYPICAL LYMPHOCYTE FLAG 0 (0-99); FRAGMENT RBC FLAG 20 (0-99); HEMATOCRIT 26.9 % (40.0-51.0); HEMOGLOBIN 7.8 g/dL (13.7-17.5); LEFT SHIFT FLG 0 (0-99); LIPEMIA HEMOLYSIS FLAG 70 (0-99); MEAN CELL HEMOGLOBIN 24.5 pg (27.9-34.1); MEAN CELL VOLUME 84.6 fL (81.5-99.8); MEAN PLATELET VOLUME 9.4 fL (8.7-11.7); NRBC-AUTO% 0.3 % (0.0-0.2); PLATELET CLUMPS FLAG 10 (0-99); PLATELET COUNT 165 10^3/uL (150-400); RED BLOOD CELL COUNT 3.18 10^6/uL (4.40-6.38); RED CELL DISTRIBUTION WIDTH 18.7 % (11.5-15.2)
[2016-09-29 04:47] LABS: ANION GAP 10 mEq/L (8-16); CALCIUM 8.1 mg/dL (8.5-10.4); CARBON DIOXIDE 20 mEq/l (22-31); CHLORIDE 105 mEq/L (97-110); CREATININE 3.5 mg/dL (0.7-1.3); GLOMERULAR FILTRATION RATE 18; GLUCOSE 101 mg/dL (70-100); POTASSIUM 5.6 mEq/L (3.5-5.2); SODIUM 135 mEq/L (134-144)
[2016-09-29] MEDS: HEPARIN 5,000 UNIT/0.5 ML SYR SC SCH ×3 (06:05→22:30)
[2016-09-29] MEDS ORDERED: FUROSEMIDE 100 MG/10 ML VIAL IVP ONE (07:49)
[2016-09-29] MEDS ORDERED: METOLAZONE 5 MG TAB PO ONE ×2 (07:50→11:41)
[2016-09-29] MEDS: PANTOPRAZOLE SODIUM 40 MG TAB PO SCH (08:41)
[2016-09-29] MEDS: clonazePAM 0.5 MG TAB PO SCH ×2 (08:41→20:10)
[2016-09-29] MEDS: ALPRAZolam 0.25 MG TAB PO SCH ×3 (08:41→22:01)
[2016-09-29] MEDS: methylPREDNISolone SOD SUCC 40 MG/ML VIAL IVP SCH ×2 (08:42→20:10)
[2016-09-29] MEDS ORDERED: SODIUM POLY SULF 15 GM/60 ML BOTTLE PO ONE (10:15)
[2016-09-29] MEDS ORDERED: BUMETANIDE 1 MG/4 ML VIAL IVP ONE (11:40)
--- NOTE | 2016-09-29 11:45 | SOAPPROG ---
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 English of surgery place a temporary dialysis catheter -his tenuous oxygenation and history of pneumothorax makes him high risk for complications -abx changes per ID -he is on IV steroids for his lungs, and this could help his renal process if indeed it is AIN 09/29/16 11:42 Subjective: SOB, tachypneic on BiPAP Objective: Vital Signs Temp Pulse Resp BP Pulse Ox 36.5 C 90 26 H 145/88 H 95 09/29/16 10:00 09/29/16 10:00 09/29/16 10:00 09/29/16 10:00 09/29/16 10:00 Microbiology 09/27/16 12:01 - Final Sputum, Expectorated Sputum Culture - Final Laboratory Results 09/29/16 04:10 09/29/16 04:10 09/28/16 09/29/16 09/30/16 05:59 05:59 05:59 Intake Total 2849 1440 Output Total 575 950 Balance 2274 490 PT 15.3 SEC (12.0-15.0) H 09/26/16 15:34 INR 1.21 (0.83-1.16) H 09/26/16 15:34 Physical Exam - Physical Exam General Appearance: alert, moderate distress EENT: normal ENT inspection Neck: normal inspection Respiratory: decreased breath sounds, crackles Cardiac/Chest: regular rate, rhythm Abdomen: normal bowel sounds, non-tender Extremities: No swelling ICD10 Worksheet Patient Problems: Problems Problem Status Onset Acute renal failure Acute Acute respiratory failure with hypoxia Acute Interstitial lung disease Acute Pneumonia Acute Acute chest pain Acute Alcohol abuse Acute Hematemesis Acute Lung infiltrate Acute Pleural effusion Acute Pneumothorax, right Acute Ribs, multiple fractures Acute Sepsis Acute
--- NOTE | 2016-09-29 11:55 | PDINTPN ---
Scheduling Coordinator Progress Note Assessment/Plan: Assessment: Pulmonary infiltrates, hypoxemia: No fever. WBC up a bit. BNP elevated, has JAMIE , likely much/most of his deterioration is due to pulmonary edema. JAMIE: Suspect AIN, probably due to Unasyn, now stopped. Cr continues to go up, and now has hyperkalemia, but urine output increasing with the help of diuretics. Pulmonary Fibrosis: Seen on CT scan. Pulmonary HTN: 87 mmHg on current ECHO, was 72 mmHg on last hospitalization. Plan: Try Lasix, metolazone. Kayexalate, recheck K+. Continue BiPAP. Given worsening status, would proceed with HD. 09/29/16 11:50 Subjective: More dyspneic, requiring BiPAP. Objective: Vital Signs Temp Pulse Resp BP Pulse Ox 36.5 C 90 26 H 145/88 H 95 09/29/16 10:00 09/29/16 10:00 09/29/16 10:00 09/29/16 10:00 09/29/16 10:00 Microbiology 09/27/16 12:01 - Final Sputum, Expectorated Sputum Culture - Final Laboratory Results 09/29/16 04:10 09/29/16 04:10 09/28/16 09/29/16 09/30/16 05:59 05:59 05:59 Intake Total 2849 1440 Output Total 575 950 Balance 2274 490 PT 15.3 SEC (12.0-15.0) H 09/26/16 15:34 INR 1.21 (0.83-1.16) H 09/26/16 15:34 Physical Exam - Physical Exam General Appearance: alert, moderate distress EENT: normal ENT inspection Neck: normal inspection Respiratory: accessory muscle use, crackles Cardiac/Chest: regular rate, rhythm, edema (1+) Abdomen: normal bowel sounds, non-tender Skin: normal color, warm/dry Extremities: normal inspection Neuro/Psych: alert, normal mood/affect, oriented x 3 ICD10 Worksheet Patient Problems: Problems Problem Status Onset Acute renal failure Acute Acute respiratory failure with hypoxia Acute Interstitial lung disease Acute Pneumonia Acute Acute chest pain Acute Alcohol abuse Acute Hematemesis Acute Lung infiltrate Acute Pleural effusion Acute Pneumothorax, right Acute Ribs, multiple fractures Acute Sepsis Acute
--- NOTE | 2016-09-29 13:05 | GOP ---
[f rep st] OPERATIVE REPORT DATE OF OPERATION: 09/29/2016 SURGEON: Devon English MD ANESTHESIA: Local. PREOPERATIVE DIAGNOSIS: 1. Respiratory failure. 2. Fluid overload. 3. Acute kidney injury. POSTOPERATIVE DIAGNOSIS: 1. Respiratory failure. 2. Fluid overload. 3. Acute kidney injury. PROCEDURE PERFORMED: Right internal jugular hemodialysis catheter placement with ultrasound guidance. DESCRIPTION OF PROCEDURE: The neck was sterilely prepped using chlorhexidine. The neck was infiltrated with 1% lidocaine. Using ultrasound guidance, the jugular vein was directly punctured and a guidewire passed smoothly into the atrium. No ectopy was noted on the quality assurance monitor final. The vein was serially dilated and the 20 cm catheter passed to its hub without resistance. There was good venous blood return out of all 3 lumens. These were flushed with saline solution. The catheter was secured to the neck with a nylon suture. A sterile dressing was applied. A portable chest x-ray was obtained upon completion showing good placement without pneumothorax. /[id number]/MODL MTDD
--- NOTE | 2016-09-29 13:44 | HOSPPROG ---
Hospitalist Progress Note Assessment/Plan: # acute on chronic resp failure - d/t poss pna, pulm edema, ILD - very tenuous, may be bipap dependent # likely new RLL pna/diffuse infiltrates - vanc # ILD/UIP # severe pulm htn # recent tension ptx - now resolved # sepsis - d/t above # acute renal failure - suspect d/t AIN - attempted diuresis, will proceed with HD # hyperK - kayexalate, HD # recent MSSA (pulm source) and lactobacillus bacteremia (unclear source) - was on unasyn as outpt - now vanc # hx GIB - hgb stable, cont protonix # HCV # hx etOH abuse # cor - limited, no intubation ## 35 minutes critical care time, starting HD, concern for impending resp failure Subjective: still very dyspneic Objective: Vital Signs Temp Pulse Resp BP Pulse Ox 36.5 C 99 29 H 157/94 H 97 09/29/16 10:00 09/29/16 12:08 09/29/16 12:08 09/29/16 12:08 09/29/16 12:08 Microbiology 09/27/16 12:01 - Final Sputum, Expectorated Sputum Culture - Final Laboratory Results 09/29/16 04:10 09/29/16 04:10 09/28/16 09/29/16 09/30/16 05:59 05:59 05:59 Intake Total 2849 1440 Output Total 575 950 Balance 2274 490 PT 15.3 SEC (12.0-15.0) H 09/26/16 15:34 INR 1.21 (0.83-1.16) H 09/26/16 15:34 - Physical Exam Constitutional: uncomfortable Cardiovascular: regular rate and rhythym, no murmur, rub, or gallop, systolic murmur Respiratory: reduced air movement, inspiratory crackles, respiratory distress ( severe, on bipap), No expiratory wheeze Gastrointestinal: normoactive bowel sounds, soft, non-tender abdomen, no palpable masses ICD10 Worksheet Patient Problems: Problems Problem Status Onset Hematemesis Acute Acute respiratory failure with hypoxia Acute Alcohol abuse Acute Ribs, multiple fractures Acute Sepsis Acute Lung infiltrate Acute Acute chest pain Acute Pneumothorax, right Acute Interstitial lung disease Acute Pleural effusion Acute Pneumonia Acute Acute renal failure Acute
[2016-09-29] MEDS: oxyCODONE IR 5 MG TAB PO PRN ×2 (14:04→20:10)
[2016-09-29] MEDS ORDERED: HEPARIN 50,000 UNIT/10 ML VIAL DIAL ONE (14:30)
[2016-09-29 15:39] LABS: POTASSIUM 5.1 mEq/L (3.5-5.2)
--- NOTE | 2016-09-29 17:31 | PCMIDPN ---
Assessment/Plan: Assessment/Plan: * Respiratory failure with bilateral pulmonary infiltrates: Influenza PCR negative. CT scan shows changes consistent with pulmonary fibrosis as well as diffuse ground-glass opacities. May have significant component related to volume overload and will begin dialysis today. Continue vancomycin providing coverage for previously isolated MSSA. * MSSA/lactobacillus bacteremia: Completed approximately 3 weeks of Unasyn. Will continue vancomycin through 10/04/2016 for MSSA bacteremia; prior Unasyn should be adequate course for lactobacillus. * Acute renal failure: Unasyn discontinue with concern for interstitial nephritis. Hemodialysis to be initiated today. 09/29/16 17:27 Subjective: Progressive respiratory decline today. Plans to initiate hemodialysis for volume removal. Objective: Vital Signs Temp Pulse Resp BP Pulse Ox 37.1 C 106 H 29 H 153/87 H 98 09/29/16 16:52 09/29/16 16:52 09/29/16 16:52 09/29/16 16:52 09/29/16 16:52 Microbiology 09/27/16 12:01 - Final Sputum, Expectorated Sputum Culture - Final Laboratory Results 09/29/16 04:10 09/29/16 14:46 09/28/16 09/29/16 09/30/16 05:59 05:59 05:59 Intake Total 2849 1440 Output Total 575 950 Balance 2274 490 Vancomycin # 4 (end date 10/04/2016 representing 4 weeks of treatment for MSSA bacteremia) Flu PCR negative Blood cultures 09/28/2016 no growth Sputum mixed oral tu CT chest reviewed showing evidence of probable pulmonary fibrosis with diffuse ground-glass opacity superimposed - Physical Exam General Appearance: alert, apparent distress (Significant increase in respiratory effort with BiPAP) EENT: No scleral icterus Respiratory: coarse breath sounds Cardiac/Chest: tachycardia Abdomen: tender (Mild diffusely) Skin: No embolic lesions ICD10 Worksheet Patient Problems: Problems Problem Status Onset Acute renal failure Acute Acute respiratory failure with hypoxia Acute Interstitial lung disease Acute Pneumonia Acute Acute chest pain Acute Alcohol abuse Acute Hematemesis Acute Lung infiltrate Acute Pleural effusion Acute Pneumothorax, right Acute Ribs, multiple fractures Acute Sepsis Acute
[2016-09-29] MEDS ORDERED: VANCOMYCIN HCL/NORMAL SALINE 250 ML IV ONE ×2 (18:00→20:00)
[2016-09-29] MEDS ORDERED: LORazepam 2 MG/ML INJ IVP ONE (22:12)
[2016-09-29] MEDS: HYDROmorphONE/DILAUDID 1 MG/ML SYR IVP PRN (23:29)
[2016-09-30] MEDS: IPRATROPIUM/ALBUTEROL 3 ML DEYVIAL IH SCH ×5 (00:42→22:16)
[2016-09-30] MEDS: HYDROmorphONE/DILAUDID 1 MG/ML SYR IVP PRN ×5 (02:04→22:44)
[2016-09-30] MEDS ORDERED: methylPREDNISolone SOD SUCC 125 MG/2 ML VIAL IVP ONE (02:10)
--- NOTE | 2016-09-30 02:15 | HOSPPROG ---
Hospitalist Progress Note Assessment/Plan: Cross cover note: 56 yo M with complicated PMH that includes ILD/UIP, severe phtn, recent recurrent ptx and tension ptx s/p prolonged intubation and dc to snf now with recurrent hospitalization for acute hypoxia that appears to be largely volume mediated with bilateral diffuse pulmonary infiltrates and anderson sp HD and removal of 2L of volume today. Called by nursing for increased respiratory distress--initially felt to be largely anxiety mediated as when patient quiet and calm, respiratory status significantly improved and remained stable for some time following administration of ativan, however over the course of the night, patient noted to have increasing respiratory distress--currently despite BIPAP at 100% he has been desaturating to 70%, with respiratory rates in the 40-50's. Repeat cxr obtained and personally reviewed, notable for what appears to be worsening bilateral infiltrates compared to cxr performed earlier in the day. On exam he is noted to be in acute respiratory distress, quite tachypneic and agitated intermittently pulling at the bipap mask and requesting pain medications. Notes from earlier in the stay reviewed including pulmonary/ID/renal and hospitalist notes. CT chest performed on 09/28 reviewed with diffuse bilateral infiltrates and groundglass opacities. Possible concurrent pna initially treated with cefepime/vanc but cefepime dc'ed for concerns that unasyn contributed to AIN development and he has been monitored off of targeted GN therapy on vanc alone. Continued on IV methylpred for his UIP, currently at 20 bid. At this point, patient appears to be in worsening acute respiratory failure and failing BIPAP therapy. He is a DNI after his last prolonged intubation. Given lack of improvement despite HD and volume removal, and in fact, rather worsening respiratory status, will attempt to treat other contributing conditions more aggressively including UIP with increased steroid dose (given one time 125mg and monitoring for response), as well as possible underlying pna with abx coverage broadened to include GN organisms/pseudomonas with addition of merrem given issues with pcns/cephalosporins. Will also increase pain/ anxiety treatment as this is undoubtedly contributing and furthermore, if treatment continues to be unsuccessful, would like to ease his suffering. > 45 minutes in critical care time spent in care of this patient, more than half in direct face to face patient care as well as evaluating/interpreting labs and xray findings and reviewing peoplesoft consultant notes Objective: Vital Signs Temp Pulse Resp BP Pulse Ox 37.7 C 138 H 42 H 144/96 H 71 L 09/30/16 02:00 09/30/16 02:00 09/30/16 02:00 09/30/16 02:00 09/30/16 02:00 Microbiology 09/27/16 12:01 - Final Sputum, Expectorated Sputum Culture - Final Laboratory Results 09/29/16 04:10 09/29/16 14:46 09/28/16 09/29/16 09/30/16 05:59 05:59 05:59 Intake Total 2849 1440 100 Output Total 575 950 950 Balance 2274 490 -850 PT 15.3 SEC (12.0-15.0) H 09/26/16 15:34 INR 1.21 (0.83-1.16) H 09/26/16 15:34 ICD10 Worksheet Patient Problems: Problems Problem Status Onset Hematemesis Acute Acute respiratory failure with hypoxia Acute Alcohol abuse Acute Ribs, multiple fractures Acute Sepsis Acute Lung infiltrate Acute Acute chest pain Acute Pneumothorax, right Acute Interstitial lung disease Acute Pleural effusion Acute Pneumonia Acute Acute renal failure Acute
[2016-09-30] MEDS ORDERED: MEROPENEM 1 GM in NS 100 ML IV SCH (02:30)
[2016-09-30] MEDS: LORazepam 2 MG/ML INJ IVP PRN ×4 (02:31→22:43)
[2016-09-30 05:22] LABS: % IMMATURE GRANULYOCYTES 0.6 % (0.0-1.1); ABSOLUTE IMMATURE GRANULOCYTES 0.09 10^3/uL (0.00-0.10); ABSOLUTE NRBC COUNT 0.02 10^3/uL (0-0.01); ADD DIFF? NO; ADD MORPH? NO; ADD SCAN? NO; ATYPICAL LYMPHOCYTE FLAG 0 (0-99); FRAGMENT RBC FLAG 40 (0-99); HEMATOCRIT 26.1 % (40.0-51.0); HEMOGLOBIN 7.8 g/dL (13.7-17.5); LEFT SHIFT FLG 10 (0-99); LIPEMIA HEMOLYSIS FLAG 70 (0-99); MEAN CELL HEMOGLOBIN 24.5 pg (27.9-34.1); MEAN CELL HEMOGLOBIN CONCENTR. 29.9 g/dL (32.4-36.7); MEAN CELL VOLUME 81.8 fL (81.5-99.8); MEAN PLATELET VOLUME 10.5 fL (8.7-11.7); NRBC-AUTO% 0.1 % (0.0-0.2); PLATELET CLUMPS FLAG 10 (0-99); PLATELET COUNT 198 10^3/uL (150-400); RED BLOOD CELL COUNT 3.19 10^6/uL (4.40-6.38); RED CELL DISTRIBUTION WIDTH 18.9 % (11.5-15.2)
[2016-09-30 05:38] LABS: ANION GAP 13 mEq/L (8-16); CALCIUM 8.1 mg/dL (8.5-10.4); CARBON DIOXIDE 22 mEq/l (22-31); CHLORIDE 102 mEq/L (97-110); CREATININE 2.7 mg/dL (0.7-1.3); GLOMERULAR FILTRATION RATE 24; GLUCOSE 80 mg/dL (70-100); POTASSIUM 4.8 mEq/L (3.5-5.2); SODIUM 137 mEq/L (134-144)
[2016-09-30] MEDS: HEPARIN 5,000 UNIT/0.5 ML SYR SC SCH ×3 (05:42→21:30)
[2016-09-30] MEDS: PANTOPRAZOLE SODIUM 40 MG in NS 100 ML IV SCH ×2 (08:52→08:57)
[2016-09-30] MEDS: ALPRAZolam 0.25 MG TAB PO SCH ×3 (09:03→21:30)
[2016-09-30] MEDS: methylPREDNISolone SOD SUCC 40 MG/ML VIAL IVP SCH ×2 (09:03→21:29)
--- NOTE | 2016-09-30 10:24 | SOAPPROG ---
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 given pyuria and urine eosinophils -antibiotic history -now with severe SOB and hypoxia -no better after ultrafiltration and dialysis yesterday -he appears to be at the end of his life -no intubation -will try ultrafiltration again today to see if we can relieve any of his respiratory distress 09/30/16 10:22 Subjective: unresponsive Objective: Vital Signs Temp Pulse Resp BP Pulse Ox 37.3 C 116 H 34 H 125/75 H 90 L 09/30/16 08:00 09/30/16 10:00 09/30/16 10:00 09/30/16 10:00 09/30/16 10:00 Microbiology 09/27/16 12:01 - Final Sputum, Expectorated Sputum Culture - Final Laboratory Results 09/30/16 05:00 09/30/16 05:00 09/29/16 09/30/16 10/01/16 05:59 05:59 05:59 Intake Total 1440 571 Output Total 950 1275 Balance 490 -704 PT 15.3 SEC (12.0-15.0) H 09/26/16 15:34 INR 1.21 (0.83-1.16) H 09/26/16 15:34 Physical Exam - Physical Exam General Appearance: other (severe distress) EENT: other (BiPAP) Neck: normal inspection Respiratory: decreased breath sounds, rales, rhonchi Cardiac/Chest: regular rate, rhythm Abdomen: normal bowel sounds Extremities: swelling (1+ at his ankles) ICD10 Worksheet Patient Problems: Problems Problem Status Onset Acute renal failure Acute Acute respiratory failure with hypoxia Acute Interstitial lung disease Acute Pneumonia Acute Acute chest pain Acute Alcohol abuse Acute Hematemesis Acute Lung infiltrate Acute Pleural effusion Acute Pneumothorax, right Acute Ribs, multiple fractures Acute Sepsis Acute
--- NOTE | 2016-09-30 11:16 | PDINTPN ---
Chief Librarian Circulation Department Progress Note Assessment/Plan: Assessment: Pulmonary infiltrates, hypoxemia: No fever. WBC up a bit. BNP elevated, has JAMIE , likely much/most of his deterioration is due to pulmonary edema. No better despite HD, diuresis. On Meropenem JAMIE: Suspect AIN, probably due to Unasyn, now stopped. Cr continues to go up, and now has hyperkalemia, but urine output increasing with the help of diuretics. Pulmonary Fibrosis: Seen on CT scan. Likely contributes to hypoxemia, but not the primary cause. Pulmonary HTN: 87 mmHg on current ECHO, was 72 mmHg on last hospitalization. Plan: Continue Lasix, metolazone, meropenem. Follow K+. Continue BiPAP. Repeat HD. He is DNI. Prognosis poor. 09/30/16 11:18 Subjective: Dyspneic Objective: Vital Signs Temp Pulse Resp BP Pulse Ox 37.3 C 116 H 34 H 125/75 H 90 L 09/30/16 08:00 09/30/16 10:00 09/30/16 10:00 09/30/16 10:00 09/30/16 10:00 Microbiology 09/27/16 12:01 - Final Sputum, Expectorated Sputum Culture - Final Laboratory Results 09/30/16 05:00 09/30/16 05:00 09/29/16 09/30/16 10/01/16 05:59 05:59 05:59 Intake Total 1440 571 Output Total 950 1275 Balance 490 -704 PT 15.3 SEC (12.0-15.0) H 09/26/16 15:34 INR 1.21 (0.83-1.16) H 09/26/16 15:34 CXR: Stable extensive alveolar infiltrates. Images reviewed. Physical Exam - Physical Exam General Appearance: alert, moderate distress EENT: normal ENT inspection Neck: normal inspection Respiratory: crackles Cardiac/Chest: edema (1+), tachycardia Abdomen: normal bowel sounds, non-tender Skin: normal color, warm/dry Extremities: non-tender, normal inspection Neuro/Psych: alert, normal mood/affect, oriented x 3 ICD10 Worksheet Patient Problems: Problems Problem Status Onset Acute renal failure Acute Acute respiratory failure with hypoxia Acute Interstitial lung disease Acute Pneumonia Acute Acute chest pain Acute Alcohol abuse Acute Hematemesis Acute Lung infiltrate Acute Pleural effusion Acute Pneumothorax, right Acute Ribs, multiple fractures Acute Sepsis Acute
--- NOTE | 2016-09-30 14:00 | HOSPPROG ---
Hospitalist Progress Note Assessment/Plan: # acute on chronic resp failure - d/t poss pna, pulm edema, ILD - very tenuous, may be bipap dependent; he will tire soon - will treat for ILD, infection, vol overload (with HD) # likely new RLL pna/diffuse infiltrates - cont vanc, merrem started overnight # ILD/UIP # severe pulm htn # recent tension ptx - now resolved # acute renal failure - suspect d/t AIN - HD for volume removal mainly # sepsis - d/t above # recent MSSA bacteremia (pulm source) and lactobacillus bacteremia (unclear source) - was on unasyn as outpt - vanc # hx GIB - hgb stable, cont protonix # HCV # hx etOH abuse # cor - limited, no intubation ## 50 minutes of critical care time Subjective: worsensed overnight; was on bipap 100% O2 at 70%, sats have mproved; . I spoke extensively with Mr Maria today - he confirms DNI but would want an attempt at CPR if necessary. I also spoke with his brother Julio ([facility]) extensively - he is currently unable to come to [facility]. He is aware of the dire prognosis. Objective: Vital Signs Temp Pulse Resp BP Pulse Ox 37.3 C 121 H 45 H 150/94 H 84 L 09/30/16 08:00 09/30/16 12:00 09/30/16 12:00 09/30/16 12:00 09/30/16 12:00 Microbiology 09/27/16 12:01 - Final Sputum, Expectorated Sputum Culture - Final Laboratory Results 09/30/16 05:00 09/30/16 05:00 09/29/16 09/30/16 10/01/16 05:59 05:59 05:59 Intake Total 1440 571 Output Total 950 1275 Balance 490 -704 PT 15.3 SEC (12.0-15.0) H 09/26/16 15:34 INR 1.21 (0.83-1.16) H 09/26/16 15:34 - Physical Exam Constitutional: no apparent distress, appears nourished Cardiovascular: regular rate and rhythym, no murmur, rub, or gallop, systolic murmur Respiratory: inspiratory crackles, respiratory distress (severe) Gastrointestinal: normoactive bowel sounds, soft, non-tender abdomen, no palpable masses ICD10 Worksheet Patient Problems: Problems Problem Status Onset Hematemesis Acute Acute respiratory failure with hypoxia Acute Alcohol abuse Acute Ribs, multiple fractures Acute Sepsis Acute Lung infiltrate Acute Acute chest pain Acute Pneumothorax, right Acute Interstitial lung disease Acute Pleural effusion Acute Pneumonia Acute Acute renal failure Acute
--- NOTE | 2016-09-30 16:31 | PCMIDPN ---
Assessment/Plan: Assessment/Plan: * Respiratory failure with bilateral pulmonary infiltrates: Progressive respiratory distress overnight with steroid dose increased and empiric initiation of meropenem. Repeat hemodialysis underway for additional volume removal. Prognosis remains grave with persistent respiratory failure and underlying lung disease. Repeat vancomycin level post dialysis. Continue empiric meropenem which is dose adjusted for hemodialysis. * MSSA/lactobacillus bacteremia: Completed approximately 3 weeks of Unasyn. Will continue vancomycin through 10/04/2016 for MSSA bacteremia; prior Unasyn should be adequate course for lactobacillus. * Acute renal failure: Hemodialysis as outlined above. 09/30/16 16:28 09/30/16 16:29 Subjective: Worsening respiratory status over last 24 hours. Remains on BiPAP. Dialysis ongoing this afternoon. Objective: Vital Signs Temp Pulse Resp BP Pulse Ox 37.3 C 110 H 39 H 139/91 H 92 09/30/16 16:00 09/30/16 16:00 09/30/16 16:00 09/30/16 16:00 09/30/16 16:00 Microbiology 09/27/16 12:01 - Final Sputum, Expectorated Sputum Culture - Final Laboratory Results 09/30/16 05:00 09/30/16 05:00 09/29/16 09/30/16 10/01/16 05:59 05:59 05:59 Intake Total 1440 571 Output Total 950 1275 Balance 490 -704 Vancomycin # 5 Meropenem # 1 Chest x-ray with worsening bilateral infiltrates - Physical Exam General Appearance: other (BiPAP with significantly increased respiratory effort ) EENT: No scleral icterus Respiratory: respiratory distress, coarse breath sounds Cardiac/Chest: tachycardia Abdomen: non-tender, No distended ICD10 Worksheet Patient Problems: Problems Problem Status Onset Acute renal failure Acute Acute respiratory failure with hypoxia Acute Interstitial lung disease Acute Pneumonia Acute Acute chest pain Acute Alcohol abuse Acute Hematemesis Acute Lung infiltrate Acute Pleural effusion Acute Pneumothorax, right Acute Ribs, multiple fractures Acute Sepsis Acute
[2016-09-30] MEDS: MEROPENEM 500 MG in NS 100 ML IV SCH (18:00)
[2016-10-01] MEDS: IPRATROPIUM/ALBUTEROL 3 ML DEYVIAL IH SCH ×4 (04:04→23:48)
[2016-10-01 04:14] LABS: % IMMATURE GRANULYOCYTES 0.3 % (0.0-1.1); ABSOLUTE IMMATURE GRANULOCYTES 0.04 10^3/uL (0.00-0.10); ABSOLUTE NRBC COUNT 0.03 10^3/uL (0-0.01); ADD DIFF? NO; ADD MORPH? NO; ADD SCAN? NO; ATYPICAL LYMPHOCYTE FLAG 0 (0-99); FRAGMENT RBC FLAG 40 (0-99); HEMATOCRIT 26.9 % (40.0-51.0); HEMOGLOBIN 7.9 g/dL (13.7-17.5); LEFT SHIFT FLG 0 (0-99); LIPEMIA HEMOLYSIS FLAG 70 (0-99); MEAN CELL HEMOGLOBIN 24.3 pg (27.9-34.1); MEAN CELL HEMOGLOBIN CONCENTR. 29.4 g/dL (32.4-36.7); MEAN CELL VOLUME 82.8 fL (81.5-99.8); MEAN PLATELET VOLUME 10.1 fL (8.7-11.7); NRBC-AUTO% 0.3 % (0.0-0.2); PLATELET CLUMPS FLAG 10 (0-99); PLATELET COUNT 213 10^3/uL (150-400); RED BLOOD CELL COUNT 3.25 10^6/uL (4.40-6.38)
[2016-10-01 04:36] LABS: ANION GAP 17 mEq/L (8-16); CALCIUM 8.6 mg/dL (8.5-10.4); CARBON DIOXIDE 19 mEq/l (22-31); CHLORIDE 103 mEq/L (97-110); CREATININE 3.7 mg/dL (0.7-1.3); GLOMERULAR FILTRATION RATE 17; GLUCOSE 111 mg/dL (70-100); POTASSIUM 5.1 mEq/L (3.5-5.2); SODIUM 139 mEq/L (134-144)
[2016-10-01] MEDS: HEPARIN 5,000 UNIT/0.5 ML SYR SC SCH ×3 (06:17→20:57)
[2016-10-01] MEDS: ALPRAZolam 0.25 MG TAB PO SCH ×3 (08:35→20:59)
[2016-10-01] MEDS: methylPREDNISolone SOD SUCC 40 MG/ML VIAL IVP SCH ×2 (08:35→20:58)
--- NOTE | 2016-10-01 10:24 | SOAPPROG ---
SOAP Progress Note Assessment/Plan: Assessment/Plan: JAMIE: likely has AIN given urine eos and pyuria, oliguric, Cr continues to uptrend. - Will do HD again today. - Will continue to monitor renal function. - Avoid MOM, morphine, demerol, NSAIDs, contrast, aminoglycosides, fleets, and other nephrotoxins. Respiratory distress: oxygen saturation improved but still on BiPAP with 100% FiO2. - Will try for more fluid removal on HD today. - Will continue to assess daily. Metabolic acidosis: 2/2 JAMIE, will modulate with HD. Subjective: No acute events overnight. Pt now satting in high 90s today on 100% FiO2, remains on BiPAP. Pt had UF with 2500ml removed yesterday. Objective: Vital Signs Temp Pulse Resp BP Pulse Ox 36.4 C 101 H 25 H 134/89 H 100 10/01/16 06:00 10/01/16 10:00 10/01/16 10:00 10/01/16 10:00 10/01/16 10:00 Laboratory Results 10/01/16 04:00 10/01/16 04:00 09/30/16 10/01/16 10/02/16 05:59 05:59 05:59 Intake Total 571 476 Output Total 3275 2615 Balance -2704 -2139 PT 15.3 SEC (12.0-15.0) H 09/26/16 15:34 INR 1.21 (0.83-1.16) H 09/26/16 15:34 General: awake, no acute distress, looks tired Eyes: EOMI, PERRL CV: tachycardic, regular rhythm Resp: tachypneic, on BiPAP Abd: Soft, NT Ext: +1 edema BLE Neuro: CN II-XII grossly intact, no asterixis ICD10 Worksheet Patient Problems: Problems Problem Status Onset Acute renal failure Acute Acute respiratory failure with hypoxia Acute Interstitial lung disease Acute Pneumonia Acute Acute chest pain Acute Alcohol abuse Acute Hematemesis Acute Lung infiltrate Acute Pleural effusion Acute Pneumothorax, right Acute Ribs, multiple fractures Acute Sepsis Acute
--- NOTE | 2016-10-01 11:53 | HOSPPROG ---
Hospitalist Progress Note Assessment/Plan: # acute on chronic resp failure - d/t poss pna, pulm edema, ILD - very tenuous, continues to be bipap dependent; I am concerned he will tire soon - will treat for ILD, infection (vanc/merrem), vol overload (with HD) - DNI # likely new RLL pna/diffuse infiltrates - cont vanc, merrem started overnight # ILD/UIP # severe pulm htn # recent tension ptx - now resolved # acute renal failure - suspect d/t AIN - HD for volume removal mainly # sepsis - d/t above # recent MSSA bacteremia (pulm source) and lactobacillus bacteremia (unclear source) - was on unasyn as outpt - vanc # hx GIB - hgb stable, cont protonix # HCV # hx etOH abuse # cor - limited, no intubation; he would like CPR which I told him would be futile ## 35 minutes of critical care time; bipap dependent, needing HD for volume removal Subjective: still on bipap; desats very quickly when off bipap Objective: Vital Signs Temp Pulse Resp BP Pulse Ox 36.4 C 101 H 25 H 134/89 H 100 10/01/16 06:00 10/01/16 10:00 10/01/16 10:00 10/01/16 10:00 10/01/16 10:00 Laboratory Results 10/01/16 04:00 10/01/16 04:00 09/30/16 10/01/16 10/02/16 05:59 05:59 05:59 Intake Total 571 476 Output Total 1635 2615 Balance -2704 -2139 PT 15.3 SEC (12.0-15.0) H 09/26/16 15:34 INR 1.21 (0.83-1.16) H 09/26/16 15:34 - Physical Exam Constitutional: chronically ill appearing Cardiovascular: systolic murmur, tachycardia, No irregularly irregular, No diastolic murmur Respiratory: reduced air movement, inspiratory crackles, respiratory distress ( severe), No rhonchi Gastrointestinal: normoactive bowel sounds, soft, non-tender abdomen, no palpable masses ICD10 Worksheet Patient Problems: Problems Problem Status Onset Hematemesis Acute Acute respiratory failure with hypoxia Acute Alcohol abuse Acute Ribs, multiple fractures Acute Sepsis Acute Lung infiltrate Acute Acute chest pain Acute Pneumothorax, right Acute Interstitial lung disease Acute Pleural effusion Acute Pneumonia Acute Acute renal failure Acute
[2016-10-01] MEDS: LORazepam 2 MG/ML INJ IVP PRN ×3 (12:56→20:58)
[2016-10-01] MEDS: HYDROmorphONE/DILAUDID 1 MG/ML SYR IVP PRN ×2 (12:56→17:56)
--- NOTE | 2016-10-01 13:02 | PDINTPN ---
Transplant Surgeon Progress Note Assessment/Plan: Assessment: Pulmonary infiltrates, hypoxemia: No fever. WBC up a bit. BNP elevated, has JAMIE , likely much/most of his deterioration is due to pulmonary edema. Better with hemodialysis. On Meropenem, but doubt pneumonia clinically. 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 Acute respiratory failure: Multifactorial. On BiPAP support. DNI. JAMIE: Suspect AIN, probably due to Unasyn, now stopped. On daily dialysis with approximately 2 L of fluid being removed per day. This seems to have helped. For dialysis again today. Pulmonary Fibrosis: Seen on CT scan. Significantly contributes to his underlying hypoxemia and chronic respiratory failure. In addition, acute issues as outlined above playing a major role at this time.. Pulmonary HTN: Secondary: 87 mmHg on current ECHO, was 72 mmHg on last hospitalization. Nutrition: Eating but not much. Will try strategies to improve this. DVT prophylaxis: On subcu heparin GI prophylaxis: On pantoprazole Cor status: Do not intubate. Plan: Continue daily hemodialysis for now. Follow K+ comma chest x-ray, laboratory, blood gas. Adjust BiPAP to increase respiratory comfort. Will try strategies to increase oral intake when BiPAP is taken off for short periods. Prognosis poor secondary to the severity of his underlying lung disease. Discussed with respiratory, renal, hospitalist, nursing, discharge planning, and the ICU multi disciplinary team. I tried to discuss more issues with the patient however he had a hard time communicating on BiPAP. 45 minutes of critical care time spent directly with the patient today. Objective: Vital Signs Temp Pulse Resp BP Pulse Ox 36.7 C 99 26 H 152/92 H 100 10/01/16 12:00 10/01/16 12:00 10/01/16 12:00 10/01/16 12:00 10/01/16 12:00 Laboratory Results 10/01/16 04:00 10/01/16 04:00 09/30/16 10/01/16 10/02/16 05:59 05:59 05:59 Intake Total 571 476 Output Total 3273 2614 Balance -6939 -6478 PT 15.3 SEC (12.0-15.0) H 09/26/16 15:34 INR 1.21 (0.83-1.16) H 09/26/16 15:34 ICD10 Worksheet Patient Problems: Problems Problem Status Onset Hematemesis Acute Acute respiratory failure with hypoxia Acute Alcohol abuse Acute Ribs, multiple fractures Acute Sepsis Acute Lung infiltrate Acute Acute chest pain Acute Pneumothorax, right Acute Interstitial lung disease Acute Pleural effusion Acute Pneumonia Acute Acute renal failure Acute
[2016-10-01] MEDS: PANTOPRAZOLE SODIUM 40 MG TAB PO SCH (15:54)
[2016-10-01] MEDS: MEROPENEM 500 MG in NS 100 ML IV SCH (17:59)
--- NOTE | 2016-10-01 18:05 | PCMIDPN ---
Assessment/Plan: Assessment: fluid overload and respiratory failure after JAMIE - likely from unasyn. Seems more stable on BiPap today than recent notes describe. Dialysis slowly taking volume off. On meropenem (renally dosed) empirically in case there is a component of bacterial infection driving his recent respiratory illness. Plan: 1) Given DNI status and extreme situation with regards to BiPap and respiratory stability, will continue a course of empiric meropenem. 2) Follow his clinical change. Subjective: Patient nods that he is comfortable -- on BiPap and has a hard time verbalizing. No new issues. Objective: Vital Signs meropenem #2 Temp Pulse Resp BP Pulse Ox 36.7 C 98 35 H 132/88 H 98 10/01/16 14:00 10/01/16 16:00 10/01/16 15:57 10/01/16 15:57 10/01/16 16:00 Laboratory Results 10/01/16 04:00 10/01/16 04:00 09/30/16 10/01/16 10/02/16 05:59 05:59 05:59 Intake Total 571 476 589 Output Total 6815 2617 500 Balance -8012 -2845 89 - Physical Exam General Appearance: WD/WN, alert, apparent distress (mild respiratory), non- toxic Respiratory: respiratory distress (mild), crackles, No lungs clear Cardiac/Chest: regular rate, rhythm, No tachycardia Extremities: non-tender, normal inspection Skin: normal color, warm/dry, No rash ICD10 Worksheet Patient Problems: Problems Problem Status Onset Acute renal failure Acute Acute respiratory failure with hypoxia Acute Interstitial lung disease Acute Pneumonia Acute Acute chest pain Acute Alcohol abuse Acute Hematemesis Acute Lung infiltrate Acute Pleural effusion Acute Pneumothorax, right Acute Ribs, multiple fractures Acute Sepsis Acute
[2016-10-02] MEDS: LORazepam 2 MG/ML INJ IVP PRN ×3 (00:31→17:37)
[2016-10-02] MEDS: HYDROmorphONE/DILAUDID 1 MG/ML SYR IVP PRN ×4 (00:34→21:30)
[2016-10-02] MEDS ORDERED: HEPARIN 50,000 UNIT/10 ML VIAL ONE ×2 (01:43→22:09)
[2016-10-02] MEDS: IPRATROPIUM/ALBUTEROL 3 ML DEYVIAL IH SCH ×4 (04:18→23:17)
[2016-10-02 05:26] LABS: POTASSIUM 4.2 mEq/L (3.5-5.2)
[2016-10-02 05:27] LABS: ANION GAP 9 mEq/L (8-16); CALCIUM 8.3 mg/dL (8.5-10.4); CARBON DIOXIDE 25 mEq/l (22-31); CHLORIDE 104 mEq/L (97-110); CREATININE 2.5 mg/dL (0.7-1.3); GLOMERULAR FILTRATION RATE 27; GLUCOSE 131 mg/dL (70-100); SODIUM 138 mEq/L (134-144)
[2016-10-02 05:32] LABS: % IMMATURE GRANULYOCYTES 0.6 % (0.0-1.1); ABSOLUTE IMMATURE GRANULOCYTES 0.04 10^3/uL (0.00-0.10); ABSOLUTE NRBC COUNT 0.05 10^3/uL (0-0.01); ADD DIFF? NO; ADD MORPH? YES; ADD SCAN? NO; ATYPICAL LYMPHOCYTE FLAG 0 (0-99); FRAGMENT RBC FLAG 20 (0-99); HEMATOCRIT 26.4 % (40.0-51.0); HEMOGLOBIN 7.5 g/dL (13.7-17.5); LEFT SHIFT FLG 0 (0-99); LIPEMIA HEMOLYSIS FLAG 70 (0-99); MEAN CELL HEMOGLOBIN 23.7 pg (27.9-34.1); MEAN CELL VOLUME 83.3 fL (81.5-99.8); MEAN PLATELET VOLUME 10.2 fL (8.7-11.7); NRBC-AUTO% 0.7 % (0.0-0.2); PLATELET CLUMPS FLAG 0 (0-99); PLATELET COUNT 190 10^3/uL (150-400); RED BLOOD CELL COUNT 3.17 10^6/uL (4.40-6.38); RED CELL DISTRIBUTION WIDTH 18.8 % (11.5-15.2)
[2016-10-02 05:37] LABS: MEAN CELL HEMOGLOBIN CONCENTR. 28.4 g/dL (32.4-36.7)
[2016-10-02 05:58] LABS: HYPOCHROMIA 2+
[2016-10-02 05:59] LABS: MACROCYTES 1+; PLATELET ESTIMATE ADEQUATE (ADEQ)
[2016-10-02] MEDS: HEPARIN 5,000 UNIT/0.5 ML SYR SC SCH ×3 (06:27→21:40)
--- NOTE | 2016-10-02 08:58 | PCMIDPN ---
Assessment/Plan: #Resp Failure, still quite hypoxic, AF, WBC normalized, persistent diffuse alveolar infiltrates (chest x-ray personally reviewed by me), multifactorial, concern for HAP and started on meropenem 09/30. He is also on steroids. Blood and sputum cultures from re-admission are negative. --consider short course of meropenem 5-7 days #MSSA/lactobacillus bacteremia secondary to pneumonia, abx through 10/04 for 4 weeks, vanco level 14 yesterday, last dose 09/28, very slow clearance of vancomycin --vancomycin level stat at 13 still okay. Will recheck at a.m. labs #ARF secondary to AIN to Unasyn: on HD Medications 3 Generic Name Dose Route Start Last Admin Trade Name Freq PRN Reason Stop Dose Admin Meropenem 500 mg/ Sodium 100 mls @ 100 mls/hr 09/30/16 18:00 10/01/16 17:59 Chloride IV 10/30/16 17:59 100 mls Q24H BANDAR, D#3 Methylprednisolone Sodium Succinate 20 mg 09/28/16 21:00 10/01/16 20:58 Solu-Medrol IVP 03/27/17 20:59 20 mg BID BANDAR Vancomycin 1gm on 09/28 x 1 Subjective: Awakes to voice unable to get history due to dyspnea Objective: Vital Signs Temp Pulse Resp BP Pulse Ox 36.1 C 94 19 111/71 100 10/02/16 08:16 10/02/16 08:16 10/02/16 08:16 10/02/16 08:16 10/02/16 08:16 Laboratory Results 10/02/16 04:48 10/02/16 04:48 10/01/16 10/02/16 10/03/16 05:59 05:59 05:59 Intake Total 476 917 Output Total 2615 650 Balance -2139 267 - Physical Exam General Appearance: apparent distress, thin EENT: poor dentition Respiratory: accessory muscle use, coarse breath sounds Neck: supple Cardiac/Chest: tachycardia Extremities: No pedal edema Abdomen: normal bowel sounds, non-tender, soft Male Genitalia: rosado, scrotal edema Skin: pallor, No rash Neuro/Psych: alert - Line/s RUE PICC Lines: No drainage, No erythema ICD10 Worksheet Patient Problems: Problems Problem Status Onset Acute renal failure Acute Acute respiratory failure with hypoxia Acute Interstitial lung disease Acute Pneumonia Acute Acute chest pain Acute Alcohol abuse Acute Hematemesis Acute Lung infiltrate Acute Pleural effusion Acute Pneumothorax, right Acute Ribs, multiple fractures Acute Sepsis Acute
[2016-10-02] MEDS ORDERED: PANTOPRAZOLE SODIUM 40 MG TAB PO SCH (09:00)
[2016-10-02] MEDS: methylPREDNISolone SOD SUCC 40 MG/ML VIAL IVP SCH ×2 (09:32→21:37)
--- NOTE | 2016-10-02 09:47 | SOAPPROG ---
SOAP Progress Note Assessment/Plan: Assessment: 1. Acute GN Pyuria, hematuria, and P:C ratio are suggestive of an acute glomerulonephritis. Discussed with primary team. May represent a coinfectious process. He could have a primary GN or pulmonary renal process. Seros ordered. HD again today. He is on some solumedrol. 2. Pulmonary status Severely dyspneic. Will attempt some additional UF. 3. Plan of Care He looks uncomfortable. He is do not resuscitate. Given his appearance, I will communicate further with primary team. A palliative care approach seems appropriate. Plan: 10/02/16 09:39 Subjective: Dyspneic, cachexic Objective: Vital Signs Temp Pulse Resp BP Pulse Ox 36.1 C 94 19 111/71 100 10/02/16 08:16 10/02/16 08:16 10/02/16 08:16 10/02/16 08:16 10/02/16 08:16 Laboratory Results 10/02/16 04:48 10/02/16 04:48 10/01/16 10/02/16 10/03/16 05:59 05:59 05:59 Intake Total 476 917 Output Total 2615 650 Balance -2139 267 PT 15.3 SEC (12.0-15.0) H 09/26/16 15:34 INR 1.21 (0.83-1.16) H 09/26/16 15:34 Physical Exam - Physical Exam General Appearance: severe distress Respiratory: other (tachypneic) Cardiac/Chest: tachycardia Abdomen: soft Extremities: other (trace LE edema) Neuro/Psych: alert ICD10 Worksheet Patient Problems: Problems Problem Status Onset Acute renal failure Acute Acute respiratory failure with hypoxia Acute Interstitial lung disease Acute Pneumonia Acute Acute chest pain Acute Alcohol abuse Acute Hematemesis Acute Lung infiltrate Acute Pleural effusion Acute Pneumothorax, right Acute Ribs, multiple fractures Acute Sepsis Acute
[2016-10-02 10:06] LABS: BASE EXCESS -1.6 mEq/L (-2.5-2.5); BICARBONATE 26 mEq/L (22-26); MEASURED OXYGEN SATURATION 99 % (92-95); PCO2 66 mmHg (34-38); PO2 167 mmHg (65-75); TCO2 28 mEq/L (23-27)
[2016-10-02 10:08] LABS: BIPAP YES; EXP PRESSURE 5; INSP PRESSURE 15; O2 CONCENTRATIION 100 % (0-100); P/F RATIO 167 RATIO
[2016-10-02] MEDS: ALPRAZolam 0.25 MG TAB PO SCH ×3 (11:01→21:37)
[2016-10-02] MEDS: PANTOPRAZOLE SODIUM 40 MG TAB PO SCH (11:01)
--- NOTE | 2016-10-02 11:32 | HOSPPROG ---
Hospitalist Progress Note Assessment/Plan: 56-year-old man with severe lung disease, recently discharged. Readmitted with respiratory distress. He is BiPAP dependent. Treating for pneumonia. He had acute kidney injury, initially thought to be AIN, now unclear. He has been getting volume removal with hemodialysis. Will pursue palliative care consult today. His prognosis is poor. # acute on chronic resp failure - d/t poss pna, pulm edema, ILD - very tenuous, continues to be bipap dependent; I am concerned he will tire soon - will treat for ILD, infection (vanc/merrem), vol overload (with HD) - DNI # likely new RLL pna/diffuse infiltrates - cont vanc, merrem started overnight # ILD/UIP # severe pulm htn # recent tension ptx - now resolved # acute renal failure - suspect d/t AIN - HD for volume removal mainly # sepsis - d/t above # recent MSSA bacteremia (pulm source) and lactobacillus bacteremia (unclear source) - was on unasyn as outpt - vanc # hx GIB - hgb stable, cont protonix # HCV # hx etOH abuse # cor - limited, no intubation; he would like CPR which I told him would be futile ## high risk Subjective: continues on bipap Objective: Vital Signs Temp Pulse Resp BP Pulse Ox 36.6 C 99 21 H 127/82 H 100 10/02/16 10:00 10/02/16 10:00 10/02/16 10:00 10/02/16 10:00 10/02/16 10:00 Laboratory Results 10/02/16 04:48 10/02/16 04:48 10/01/16 10/02/16 10/03/16 05:59 05:59 05:59 Intake Total 476 917 Output Total 2615 650 Balance -2139 267 PT 15.3 SEC (12.0-15.0) H 09/26/16 15:34 INR 1.21 (0.83-1.16) H 09/26/16 15:34 - Physical Exam Constitutional: uncomfortable Respiratory: inspiratory crackles, respiratory distress (severe), No clear to auscultation, No reduced air movement, No expiratory wheeze Gastrointestinal: normoactive bowel sounds, soft, non-tender abdomen, no palpable masses ICD10 Worksheet Patient Problems: Problems Problem Status Onset Hematemesis Acute Acute respiratory failure with hypoxia Acute Alcohol abuse Acute Ribs, multiple fractures Acute Sepsis Acute Lung infiltrate Acute Acute chest pain Acute Pneumothorax, right Acute Interstitial lung disease Acute Pleural effusion Acute Pneumonia Acute Acute renal failure Acute
[2016-10-02 13:36] LABS: HEPATITIS Bs Ab QUANT <5.0 mIU/mL
--- NOTE | 2016-10-02 14:34 | PDINTPN ---
[employer] Worker Progress Note Assessment/Plan: Assessment: Pulmonary infiltrates, hypoxemia: Has underlying interstitial lung disease, now with BNP elevated, has JAMIE, likely much/most of his deterioration is due to pulmonary edema. Better with hemodialysis. On Meropenem, but doubt pneumonia clinically. 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 Acute respiratory failure: Multifactorial. On BiPAP support. DNI. JAMIE: Suspect AIN, probably due to Unasyn, now stopped. On daily dialysis with approximately 2 L of fluid being removed per day. This seems to have helped. Chest x-ray somewhat better. For dialysis again today. Pulmonary Fibrosis: Present since prior to 1st seen a year or so ago. Significantly contributes to his underlying hypoxemia and chronic respiratory failure. In addition, acute issues as outlined above playing a major role at this time. Pulmonary HTN: Secondary: 87 mmHg on current ECHO, was 72 mmHg on last hospitalization. Nutrition: Eating but not much secondary to BiPAP and obtundation. DVT prophylaxis: On subcu heparin GI prophylaxis: On pantoprazole Cor status: Do not intubate. Plan: Continue daily hemodialysis for now. Follow K+, chest x-ray, laboratory, blood gas. Adjust BiPAP to increase respiratory comfort. Continue oral intake when BiPAP is taken off for short periods. Prognosis poor secondary to the severity of his underlying lung disease. Palliative care consultation should be re-obtained to address cor status and the possibility of transitioning to comfort care. Patient difficult to communicate with at this point and probably does not have full understanding of where he is at clinically. Discussed with respiratory, renal, hospitalist, nursing, discharge planning, and the ICU multi disciplinary team. 40 minutes of critical care time spent directly with the patient today. Subjective: Sleepy, decreased mental status but will arouse at times. He is on BiPAP pretty much full-time. He does not indicate discomfort. Objective: Vital Signs Temp Pulse Resp BP Pulse Ox 36.6 C 101 H 26 H 123/80 H 95 10/02/16 10:00 10/02/16 14:00 10/02/16 14:00 10/02/16 14:00 10/02/16 14:00 Laboratory Results 10/02/16 04:48 10/02/16 04:48 10/01/16 10/02/16 10/03/16 05:59 05:59 05:59 Intake Total 476 917 Output Total 2615 650 Balance -2139 267 PT 15.3 SEC (12.0-15.0) H 09/26/16 15:34 INR 1.21 (0.83-1.16) H 09/26/16 15:34 Laboratory Tests 10/02/16 10/02/16 04:48 10:00 pCO2 66 H pO2 167 H ABG pH 7.22 L O2 Concentration % 100 Expiratory Pressure 5 Inspiratory Pressure 15 Mode BiPAP YES Calcium 8.3 L CXR: Some improvement in the bilateral pulmonary infiltrates representing congestive heart failure/fluid retention on top of high LD. Physical Exam - Physical Exam General Appearance: obtunded (Arouses), thin EENT: other (BiPAP in place) Neck: normal inspection Respiratory: respiratory distress (Mild, somewhat tachypneic, leak around BiPAP mask), decreased breath sounds, rales (Bilaterally at bases, extending up), No rhonchi, No wheezing Cardiac/Chest: tachycardia Abdomen: non-tender, soft, other (Eating very little at this point), No normal bowel sounds (Decreased, present) Male Genitalia: other (Ibarra catheter in place, improved urine output) Skin: warm/dry, pallor Extremities: pedal edema (1+) Neuro/Psych: no motor/sensory deficits (Moves all extremities weakly), cognition abnormalities (Secondary to somnolence), disoriented to time ICD10 Worksheet Patient Problems: Problems Problem Status Onset Hematemesis Acute Acute respiratory failure with hypoxia Acute Alcohol abuse Acute Ribs, multiple fractures Acute Sepsis Acute Lung infiltrate Acute Acute chest pain Acute Pneumothorax, right Acute Interstitial lung disease Acute Pleural effusion Acute Pneumonia Acute Acute renal failure Acute
--- NOTE | 2016-10-02 16:18 | PDPCPN ---
Palliative Care Progress Note Assessment/Plan: Referring provider: Dr Rios Reason for consult: Complex medical decision making Symptom control HPI: Jimi Maria is a 56 yo male with PMH of ISLD, pul HTN, and pul fibrosis admitted to the hospital for dyspnea. Found to have MSSA bacteremia, JAMIE started on dialysis, and resp failure from poss PNA vs pul edema with underlying chronic lung issues. Requiring ICU care with bipap continuous for the past few days. Palliative care consulted for complex medical decision making. spoke with Jimi at bedside. He was was able to nod yes or no to some questions but not with consistency. He stated he was SOB and that he understood his lungs were failing. Spoke with Julio Krause's brother and MDPOA. explained medical status and update on Jimi. Discussed advanced care planning. Julio shared background on Jimi' s life of being addicted to drugs and alcohol. he described him as a very smart person who was never able to stop drinking alcohol. Julio states he feels Jimi has suffered throughout his life and does not feel he should suffer at the end of his life. We discussed code status and Julio feels he does not want CPR or any resuscitation efforts. He wants Jimi to be as comfortable as possible. He understands his poor prognosis and hopes he can be comfortable at the end. Spent > 20 minutes in direct face to face contact, counseling, and coordination of care. Assessment: Physical: - Pain: appears comfortable - Tylenol PRN - Dyspnea: - dilaudid PRN - bipap per primary - a fan can also be helpful for subjective dyspnea if needed - constipation - at risk if using opiates Emotional/psychological: Hx of ETOH and drug abuse. Finds support from spiritual guidance Advanced Care Planning: Is patient decisional?: No Code Status: DNR/DNI POA: brother Julio Bran is MDPOA. Plan: No escalation of care. Julio understands he may soon and the chronic medical conditions he has. He does not want him to suffer. Subjective: shakes head yes to dyspnea Objective: Social History: [place] few [place] and [place] local. 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 Enjoys listening to classic rock and enjoys Medication list reviewed ROS: limited due to bipap and fatigue. Denies pain but stated yes to dyspnea. Functional assessment: PPS: 30% Functional status: dependent on ADLs, IADLs Vital Signs Temp Pulse Resp BP Pulse Ox 36.6 C 102 H 26 H 120/77 100 10/02/16 10:00 10/02/16 16:00 10/02/16 16:00 10/02/16 16:00 10/02/16 16:00 Laboratory Results 10/02/16 04:48 10/02/16 04:48 10/01/16 10/02/16 10/03/16 05:59 05:59 05:59 Intake Total 476 917 Output Total 2615 650 Balance -2139 267 PT 15.3 SEC (12.0-15.0) H 09/26/16 15:34 INR 1.21 (0.83-1.16) H 09/26/16 15:34 Physical Exam - Physical Exam General Appearance: no apparent distress, other (fatigued) Respiratory: No respiratory distress, No accessory muscle use Skin: normal color, warm/dry Extremities: No pedal edema Neuro/Psych: alert, other (fatigued ) ICD10 Worksheet Patient Problems: Problems Problem Status Onset Acute renal failure Acute Acute respiratory failure with hypoxia Acute Interstitial lung disease Acute Palliative care encounter Acute Pneumonia Acute Acute chest pain Acute Alcohol abuse Acute Hematemesis Acute Lung infiltrate Acute Pleural effusion Acute Pneumothorax, right Acute Ribs, multiple fractures Acute Sepsis Acute - ICD10 Problem Qualifiers (1) Palliative care encounter
[2016-10-02] MEDS: MEROPENEM 500 MG in NS 100 ML IV SCH (17:36)
[2016-10-03] MEDS: HYDROmorphONE/DILAUDID 1 MG/ML SYR IVP PRN ×2 (01:05→20:15)
[2016-10-03 04:19] LABS: % IMMATURE GRANULYOCYTES 0.8 % (0.0-1.1); ABSOLUTE IMMATURE GRANULOCYTES 0.09 10^3/uL (0.00-0.10); ABSOLUTE NRBC COUNT 0.03 10^3/uL (0-0.01); ADD DIFF? NO; ADD MORPH? YES; ADD SCAN? NO; ATYPICAL LYMPHOCYTE FLAG 0 (0-99); FRAGMENT RBC FLAG 20 (0-99); HEMATOCRIT 27.4 % (40.0-51.0); HEMOGLOBIN 7.9 g/dL (13.7-17.5); LEFT SHIFT FLG 0 (0-99); LIPEMIA HEMOLYSIS FLAG 70 (0-99); MEAN CELL HEMOGLOBIN 24.2 pg (27.9-34.1); MEAN PLATELET VOLUME 9.9 fL (8.7-11.7); NRBC-AUTO% 0.3 % (0.0-0.2); PLATELET CLUMPS FLAG 0 (0-99); PLATELET COUNT 196 10^3/uL (150-400); RED BLOOD CELL COUNT 3.26 10^6/uL (4.40-6.38); RED CELL DISTRIBUTION WIDTH 18.6 % (11.5-15.2)
[2016-10-03 04:32] LABS: MEAN CELL HEMOGLOBIN CONCENTR. 28.8 g/dL (32.4-36.7)
[2016-10-03 04:48] LABS: ALBUMIN 2.8 g/dL (3.5-5.0); ANION GAP 9 mEq/L (8-16); CALCIUM 8.6 mg/dL (8.5-10.4); CARBON DIOXIDE 28 mEq/l (22-31); CHLORIDE 102 mEq/L (97-110); CREATININE 2.5 mg/dL (0.7-1.3); GLOMERULAR FILTRATION RATE 27; GLUCOSE 130 mg/dL (70-100); POTASSIUM 4.3 mEq/L (3.5-5.2); SODIUM 139 mEq/L (134-144)
[2016-10-03 05:33] LABS: PLATELET ESTIMATE ADEQUATE (ADEQ)
[2016-10-03 05:36] LABS: HYPOCHROMIA 2+; POLYCHROMASIA 1+
[2016-10-03] MEDS: IPRATROPIUM/ALBUTEROL 3 ML DEYVIAL IH SCH ×4 (05:48→23:30)
[2016-10-03] MEDS: HEPARIN 5,000 UNIT/0.5 ML SYR SC SCH ×3 (06:22→21:42)
[2016-10-03] MEDS: PANTOPRAZOLE SODIUM 40 MG TAB PO SCH (08:20)
[2016-10-03] MEDS: oxyCODONE IR 5 MG TAB PO PRN ×3 (08:20→20:13)
[2016-10-03] MEDS: ALPRAZolam 0.25 MG TAB PO SCH ×3 (08:20→21:41)
[2016-10-03] MEDS: methylPREDNISolone SOD SUCC 40 MG/ML VIAL IVP SCH ×2 (08:40→20:20)
--- NOTE | 2016-10-03 12:59 | PDINTPN ---
[employer] Operator Progress Note Assessment/Plan: Assessment: Pulmonary infiltrates, hypoxemia: Has underlying interstitial lung disease, now with CHF/JAMIE, likely much/most of his deterioration is due to pulmonary edema. Better with hemodialysis. On Meropenem, but doubt pneumonia clinically. 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 On steroids. Acute respiratory failure: Multifactorial. On BiPAP support. DNI/DNR. JAMIE: Suspect AIN, probably due to Unasyn, now stopped. On daily dialysis with approximately 2 L of fluid being removed per day. This seems to have helped. Chest x-ray somewhat better. Pulmonary Fibrosis: Present since prior to 1st seen a year or so ago. Significantly contributes to his underlying hypoxemia and chronic respiratory failure. In addition, acute issues as outlined above playing a major role at this time. Pulmonary HTN: Secondary: 87 mmHg on current ECHO, was 72 mmHg on last hospitalization. Nutrition: Eating but not much secondary to BiPAP and obtundation. DVT prophylaxis: On subcu heparin GI prophylaxis: On pantoprazole Cor status: Do not intubate. Plan: Continue hemodialysis. Follow K+, chest x-ray intermittently, laboratory. Adjust BiPAP for respiratory comfort. Continue oral intake when BiPAP is taken off for short periods. Prognosis poor secondary to the severity of his underlying lung disease. Palliative care consultation appreciated. Will continue to discuss moving toward comfort care, possibly in-patient hospice? Discussed with respiratory, hospitalist, nursing, and the ICU multi disciplinary team. 35 minutes of critical care time spent directly with the patient. Subjective: Somewhat more alert today, responsive. Remains on BiPAP almost full-time. Off this on a non-rebreather mask for short periods of time to eat. Objective: Vital Signs Temp Pulse Resp BP Pulse Ox 37.1 C 96 20 111/77 100 10/03/16 12:00 10/03/16 12:00 10/03/16 12:00 10/03/16 12:00 10/03/16 12:00 Laboratory Results 10/03/16 04:00 10/03/16 04:00 10/02/16 10/03/16 10/04/16 05:59 05:59 05:59 Intake Total 917 610 Output Total 650 2250 Balance 267 -1640 PT 15.3 SEC (12.0-15.0) H 09/26/16 15:34 INR 1.21 (0.83-1.16) H 09/26/16 15:34 Laboratory Tests 10/03/16 10/03/16 04:00 06:38 Calcium 8.6 Phosphorus 5.4 H Albumin 2.8 L Random Vancomycin 12.2 Physical Exam - Physical Exam General Appearance: mild distress, thin, other (Lethargic, arousable) EENT: other (On BiPAP) Neck: normal inspection (No obvious JVD) Respiratory: decreased breath sounds (Bilaterally, shallow excursions), rales ( Present bilaterally), No rhonchi, No wheezing Cardiac/Chest: regular rate, rhythm, systolic murmur, other (Increased P2) Abdomen: normal bowel sounds, non-tender, soft Male Genitalia: other (Ibarra catheter, improved urine output) Skin: warm/dry Extremities: pedal edema Neuro/Psych: no motor/sensory deficits (Moves all extremities weakly), cognition abnormalities (More alert today but difficult to communicate regarding more complicated issues, cor status, comfort care issues, etc.) ICD10 Worksheet Patient Problems: Problems Problem Status Onset Hematemesis Acute Acute respiratory failure with hypoxia Acute Alcohol abuse Acute Ribs, multiple fractures Acute Sepsis Acute Lung infiltrate Acute Acute chest pain Acute Pneumothorax, right Acute Interstitial lung disease Acute Pleural effusion Acute Pneumonia Acute Acute renal failure Acute Palliative care encounter Acute
--- NOTE | 2016-10-03 14:47 | SOAPPROG ---
SOAP Progress Note Assessment/Plan: Assessment: 1. JAMIE. B/l creat 0.6 09/18. Suspected AIN from abx. Also 10 g proteinuria, + hematuria, suspicious for GN, possibly infection related from prior staph sepsis. Serologies pending. Not optimistic that increase in steroids would alter outcome at this point. Currently on 40mg/d. Borderline oliguric. O2 needs improving with dialysis, will plan rx again tomorrow. 2. Acute respiratory failure. Concern for ILD. Also volume likely contributing. On abx for HCAP. HD tomorrow. 3. MSSA sepsis. Completes vanco tomorrow. 4. Dispo. Pt DNR/DNI. Palliative care involved. Moving toward comfort measures. Plan: 10/03/16 14:53 Subjective: O2 requirement on BIPAP has improved since dialysis yesterday. 2 L removed on HD. Objective: Vital Signs Temp Pulse Resp BP Pulse Ox 37.1 C 96 32 H 131/80 H 100 10/03/16 14:00 10/03/16 14:00 10/03/16 14:00 10/03/16 14:00 10/03/16 14:00 Laboratory Results 10/03/16 04:00 10/03/16 04:00 10/02/16 10/03/16 10/04/16 05:59 05:59 05:59 Intake Total 917 610 Output Total 650 2250 Balance 267 -1640 PT 15.3 SEC (12.0-15.0) H 09/26/16 15:34 INR 1.21 (0.83-1.16) H 09/26/16 15:34 Chronically ill, somnolent, on bipap, tachypneic Tachy, RR, no m/g/r R sided crackles Abdom soft, nontender No LE edema ICD10 Worksheet Patient Problems: Problems Problem Status Onset Hematemesis Acute Acute respiratory failure with hypoxia Acute Alcohol abuse Acute Ribs, multiple fractures Acute Sepsis Acute Lung infiltrate Acute Acute chest pain Acute Pneumothorax, right Acute Interstitial lung disease Acute Pleural effusion Acute Pneumonia Acute Acute renal failure Acute Palliative care encounter Acute
--- NOTE | 2016-10-03 14:58 | HOSPPROG ---
Hospitalist Progress Note Assessment/Plan: * Acute respiratory failure - BIPAP dependent -ILD vs. infectious vs. volume -empiric steroids/abx (IV Vanco/keena)/volume removal * ARF - acute GN vs. AIN - possible pulmonary/renal syndrome -ANCA/complements pending - had mild + STEVE in Jul 17 -nephrotic - 10gm proteinuria -acute dialysis per renal * ILD/UIP * Recent MSSA/lactobacillus bacteremia - IV Unasyn as outpatient -holding Unasyn due to concerns for AIN * GIB - Protonix * Hep C Subjective: Tolerates off BIPAP for only very brief episodes. Objective: Vital Signs Temp Pulse Resp BP Pulse Ox 37.1 C 96 32 H 131/80 H 100 10/03/16 14:00 10/03/16 14:00 10/03/16 14:00 10/03/16 14:00 10/03/16 14:00 Laboratory Results 10/03/16 04:00 10/03/16 04:00 10/02/16 10/03/16 10/04/16 05:59 05:59 05:59 Intake Total 917 610 Output Total 650 2250 Balance 267 -1640 PT 15.3 SEC (12.0-15.0) H 09/26/16 15:34 INR 1.21 (0.83-1.16) H 09/26/16 15:34 d/w Dr. Ordonez regarding steroid tx and renal biopsy options - too sick and likely too late CXR viewed, my personal interpretation is - bilateral infiltrates - Physical Exam Constitutional: no apparent distress, appears nourished, not in pain Cardiovascular: regular rate and rhythym, no murmur, rub, or gallop Respiratory: reduced air movement, inspiratory crackles, respiratory distress, rhonchi Gastrointestinal: normoactive bowel sounds, soft, non-tender abdomen, no palpable masses Skin: no rashes or abrasions, no fluctuance, no induration Neurologic: weakness Psychiatric: encephalopathic, poor insight, poor judgement, poor memory ICD10 Worksheet Patient Problems: Problems Problem Status Onset Acute renal failure Acute Acute respiratory failure with hypoxia Acute Interstitial lung disease Acute Palliative care encounter Acute Pneumonia Acute Acute chest pain Acute Alcohol abuse Acute Hematemesis Acute Lung infiltrate Acute Pleural effusion Acute Pneumothorax, right Acute Ribs, multiple fractures Acute Sepsis Acute
[2016-10-03 15:46] LABS: GLOMERULAR BSMNT MEMBRANE IGG <0.2 U
--- NOTE | 2016-10-03 16:38 | PCMIDPN ---
Assessment/Plan: Assessment/Plan: * Respiratory failure with bilateral pulmonary infiltrates: Remains with tenuous respiratory status. Unclear if infectious contribution present. Plan to complete 5 days of meropenem (# 4/5). Significant contribution from underlying lung disease and probable volume overload. * MSSA/lactobacillus bacteremia: Completed approximately 3 weeks of Unasyn. Will continue vancomycin through 10/04/2016 for MSSA bacteremia - plan last dose of vancomycin 1 g tomorrow after hemodialysis as still has therapeutic level today. * Acute renal failure: Hemodialysis as outlined above. 10/03/16 16:36 Subjective: Patient is somnolent on BiPAP. Objective: Vital Signs Temp Pulse Resp BP Pulse Ox 37.1 C 90 20 128/84 H 100 10/03/16 16:00 10/03/16 16:00 10/03/16 16:00 10/03/16 16:00 10/03/16 16:00 Laboratory Results 10/03/16 04:00 10/03/16 04:00 10/02/16 10/03/16 10/04/16 05:59 05:59 05:59 Intake Total 917 610 Output Total 650 2250 Balance 267 -8415 Meropenem # 4/5 Vancomycin by levels (stop date for therapy targeting MSSA 10/04/2016) - Physical Exam General Appearance: apparent distress (Tachypneic), other (Somnolent) Respiratory: coarse breath sounds Neck: other (Right IJ hemodialysis catheter without erythema or drainage) Cardiac/Chest: regular rate, rhythm Abdomen: tender (Mild tenderness diffusely) ICD10 Worksheet Patient Problems: Problems Problem Status Onset Acute renal failure Acute Acute respiratory failure with hypoxia Acute Interstitial lung disease Acute Palliative care encounter Acute Pneumonia Acute Acute chest pain Acute Alcohol abuse Acute Hematemesis Acute Lung infiltrate Acute Pleural effusion Acute Pneumothorax, right Acute Ribs, multiple fractures Acute Sepsis Acute
[2016-10-03] MEDS: MEROPENEM 500 MG in NS 100 ML IV SCH (18:03)
[2016-10-03 18:23] LABS: C3 COMPLEMENT COMPONENT 95 mg/dL (75 - 175); C4 COMPLEMENT COMPONENT 19 mg/dL (14 - 40)
[2016-10-04] MEDS: oxyCODONE IR 5 MG TAB PO PRN (02:47)
[2016-10-04] MEDS: LORazepam 2 MG/ML INJ IVP PRN ×2 (02:52→18:08)
[2016-10-04 03:47] LABS: % IMMATURE GRANULYOCYTES 0.7 % (0.0-1.1); ABSOLUTE IMMATURE GRANULOCYTES 0.08 10^3/uL (0.00-0.10); ABSOLUTE NRBC COUNT 0.05 10^3/uL (0-0.01); ADD DIFF? NO; ADD MORPH? NO; ADD SCAN? NO; ATYPICAL LYMPHOCYTE FLAG 0 (0-99); FRAGMENT RBC FLAG 40 (0-99); HEMATOCRIT 25.8 % (40.0-51.0); HEMOGLOBIN 7.5 g/dL (13.7-17.5); LEFT SHIFT FLG 0 (0-99); LIPEMIA HEMOLYSIS FLAG 70 (0-99); MEAN CELL HEMOGLOBIN 24.2 pg (27.9-34.1); MEAN CELL HEMOGLOBIN CONCENTR. 29.1 g/dL (32.4-36.7); MEAN CELL VOLUME 83.2 fL (81.5-99.8); NRBC-AUTO% 0.4 % (0.0-0.2); PLATELET CLUMPS FLAG 0 (0-99); PLATELET COUNT 181 10^3/uL (150-400); RED CELL DISTRIBUTION WIDTH 18.6 % (11.5-15.2)
[2016-10-04 04:01] LABS: ALBUMIN 2.5 g/dL (3.5-5.0); ANION GAP 10 mEq/L (8-16); CALCIUM 8.3 mg/dL (8.5-10.4); CARBON DIOXIDE 24 mEq/l (22-31); CHLORIDE 103 mEq/L (97-110); CREATININE 2.8 mg/dL (0.7-1.3); GLOMERULAR FILTRATION RATE 23; GLUCOSE 149 mg/dL (70-100); POTASSIUM 4.7 mEq/L (3.5-5.2); SODIUM 137 mEq/L (134-144)
[2016-10-04] MEDS: HEPARIN 5,000 UNIT/0.5 ML SYR SC SCH ×3 (05:03→22:32)
[2016-10-04] MEDS: IPRATROPIUM/ALBUTEROL 3 ML DEYVIAL IH SCH ×3 (05:03→16:52)
[2016-10-04] MEDS: methylPREDNISolone SOD SUCC 40 MG/ML VIAL IVP SCH ×2 (09:13→22:32)
[2016-10-04] MEDS: PANTOPRAZOLE SODIUM 40 MG TAB PO SCH (09:13)
[2016-10-04] MEDS: ALPRAZolam 0.25 MG TAB PO SCH ×3 (09:13→22:32)
--- NOTE | 2016-10-04 09:13 | SOAPPROG ---
SOAP Progress Note Assessment/Plan: Assessment: 1. Acute GN Pyuria, hematuria, and P:C ratio are suggestive of an acute glomerulonephritis. Serologies are negative. Suspect coinfectious (though C3 not low). Would not further increase solumedrol at present for renal reasons. HD today. Assess tomorrow. 2. Pulmonary status Severely dyspneic, hypoxemic. Combination of volume, infection, and ILD. Pulmonary and ID following. 3. Anemia Hg drifting down slowly. Continue to follow. 4. Plan of Care He is do not resuscitate. A palliative care approach seems appropriate. 5. MSSA bacteremia On Vanco Subjective: Slightly better than when I saw him 2 days ago, but still uncomfortable, dyspneic, and weak Objective: Vital Signs Temp Pulse Resp BP Pulse Ox 37 C 90 25 H 125/78 H 97 10/04/16 06:00 10/04/16 06:00 10/04/16 06:00 10/04/16 06:00 10/04/16 06:00 Laboratory Results 10/04/16 03:35 10/04/16 03:35 10/03/16 10/04/16 10/05/16 05:59 05:59 05:59 Intake Total 610 940 Output Total 2250 425 Balance -1640 515 PT 15.3 SEC (12.0-15.0) H 09/26/16 15:34 INR 1.21 (0.83-1.16) H 09/26/16 15:34 Physical Exam - Physical Exam General Appearance: mild distress Respiratory: decreased breath sounds, other (tachypneic, dyspneic) Cardiac/Chest: regular rate, rhythm Abdomen: soft Extremities: pedal edema (trace) Neuro/Psych: alert ICD10 Worksheet Patient Problems: Problems Problem Status Onset Acute renal failure Acute Acute respiratory failure with hypoxia Acute Interstitial lung disease Acute Palliative care encounter Acute Pneumonia Acute Acute chest pain Acute Alcohol abuse Acute Hematemesis Acute Lung infiltrate Acute Pleural effusion Acute Pneumothorax, right Acute Ribs, multiple fractures Acute Sepsis Acute
[2016-10-04] MEDS: HYDROmorphONE/DILAUDID 1 MG/ML SYR IVP PRN ×4 (09:24→20:38)
--- NOTE | 2016-10-04 09:24 | PCMIDPN ---
Assessment/Plan: #Resp Failure, still quite hypoxic, AF. Poor prognosis. Unclear if new PNA --DC merem after dose today, MAR adjusted --will follow peripherally #MSSA/lactobacillus bacteremia secondary to pneumonia, abx through 10/04 for 4 weeks, vanco level 14 yesterday, last dose 09/28, very slow clearance of vancomycin --one more dose of vancomycin today and Rx completed (4 weeks therapy) #ARF secondary to AIN to Unasyn: on HD Medications Meropenem 500 mg IV q24, #5 vancomycin 500mg IV x 1 Micro 09/26 blood cx (2) negative Subjective: Remains severely dyspneic Objective: Vital Signs Temp Pulse Resp BP Pulse Ox 37 C 90 25 H 125/78 H 97 10/04/16 06:00 10/04/16 06:00 10/04/16 06:00 10/04/16 06:00 10/04/16 06:00 Laboratory Results 10/04/16 03:35 10/04/16 03:35 10/03/16 10/04/16 10/05/16 05:59 05:59 05:59 Intake Total 610 940 Output Total 2250 425 Balance -1640 515 - Physical Exam General Appearance: alert, thin Respiratory: respiratory distress, accessory muscle use, crackles Cardiac/Chest: tachycardia Extremities: No pedal edema Abdomen: soft, other, No distended Male Genitalia: rosado, scrotal edema Skin: pallor, No rash Neuro/Psych: oriented x 3 - Line/s RUE PICC Lines: No drainage, No erythema - Time Spent With Patient Time Spent with Patient: greater than 25 minutes Time Spent with Patient: Greater than 25 minutes spent on this patients care, greater than 50% of time spent counseling, educating, and coordinating care regarding the above mentioned plan. ICD10 Worksheet Patient Problems: Problems Problem Status Onset Acute renal failure Acute Acute respiratory failure with hypoxia Acute Interstitial lung disease Acute Palliative care encounter Acute Pneumonia Acute Acute chest pain Acute Alcohol abuse Acute Hematemesis Acute Lung infiltrate Acute Pleural effusion Acute Pneumothorax, right Acute Ribs, multiple fractures Acute Sepsis Acute
[2016-10-04] MEDS ORDERED: VANCOMYCIN 500 MG in D5W 100 ML IV ONE ×2 (09:30→16:00)
[2016-10-04 13:10] LABS: HCV QT RNA PCR < 1 IU/mL (<15)
--- NOTE | 2016-10-04 14:12 | PDINTPN ---
Hammer Operator Progress Note Assessment/Plan: Assessment: Pulmonary infiltrates, hypoxemia: Has underlying interstitial lung disease, now with CHF/JAMIE, likely much/most of his deterioration is due to pulmonary edema. Better with hemodialysis. On Meropenem, but doubt pneumonia clinically. 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 On steroids. Acute respiratory failure: Multifactorial. On BiPAP support. DNI/DNR. JAMIE: Suspect AIN, probably due to Unasyn, now stopped. On daily dialysis with approximately 2 L of fluid being removed per day. This seems to have helped. Chest x-ray somewhat better. Pulmonary Fibrosis: Present since prior to 1st seen a year or so ago. Significantly contributes to his underlying hypoxemia and chronic respiratory failure. In addition, acute issues as outlined above playing a major role at this time. Pulmonary HTN: Secondary: 87 mmHg on current ECHO, was 72 mmHg on last hospitalization. Nutrition: Eating but not much secondary to BiPAP and obtundation. DVT prophylaxis: On subcu heparin GI prophylaxis: On pantoprazole Cor status: No cor. I did speak to him at length today about his prognosis and the fact that we were not able to improve him any further. I told him he was towards the end of his life and recommended comfort care, possibly at in-pt hospice. He seemed possibly agreeable to this and is open to an inpatient hospice consult. Plan: Continue hemodialysis, with dialysis today. Follow K+, chest x-ray intermittently, laboratory. Adjust BiPAP verses oxygen by mask for respiratory comfort. Continue oral intake when BiPAP is taken off for short periods. Hospice consult today. Discussed with respiratory, hospitalist, nursing, and the ICU multi disciplinary team. 45 minutes of critical care time spent directly with the patient, and included a 20 minute discussion directly with the patient. Subjective: Complains of shortness of breath. Uncomfortable. Is able to be off BiPAP more. Struggling with his breathing. Coughing. Objective: Vital Signs Temp Pulse Resp BP Pulse Ox 37 C 88 26 H 126/80 H 100 10/04/16 06:00 10/04/16 12:00 10/04/16 12:00 10/04/16 12:00 10/04/16 12:00 Laboratory Results 10/04/16 03:35 10/04/16 03:35 10/03/16 10/04/16 10/05/16 05:59 05:59 05:59 Intake Total 610 940 Output Total 2250 425 Balance -1640 515 PT 15.3 SEC (12.0-15.0) H 09/26/16 15:34 INR 1.21 (0.83-1.16) H 09/26/16 15:34 Laboratory Tests 10/04/16 03:35 Calcium 8.3 L Phosphorus 4.8 H Albumin 2.5 L CXR: Bilateral pulmonary infiltrates are better than they were 4 days ago but about the same compared with 2 days ago. Consistent with interstitial lung disease and improving fluid retention from renal failure Physical Exam - Physical Exam General Appearance: moderate distress, thin EENT: other (On oxygen mask with variable saturations. Desats into the 70s when he takes this off) Neck: normal inspection (Jugular venous distension present) Respiratory: decreased breath sounds, rales (Bilaterally), wheezing (Few in expiration, possibly secondary to mucus), No rhonchi (No jd rhonchi but some central congestion with cough) Cardiac/Chest: regular rate, rhythm, systolic murmur, other (Increased P2) Abdomen: non-tender, soft, No normal bowel sounds (Decreased, present) Male Genitalia: other (Ibarra catheter in place, decreased urine output last 24 hours) Skin: warm/dry, pallor Extremities: pedal edema (1+) Neuro/Psych: no motor/sensory deficits (Moves all extremities), cognition abnormalities (Mental status waxes and wanes) ICD10 Worksheet Patient Problems: Problems Problem Status Onset Hematemesis Acute Acute respiratory failure with hypoxia Acute Alcohol abuse Acute Ribs, multiple fractures Acute Sepsis Acute Lung infiltrate Acute Acute chest pain Acute Pneumothorax, right Acute Interstitial lung disease Acute Pleural effusion Acute Pneumonia Acute Acute renal failure Acute Palliative care encounter Acute
[2016-10-04] MEDS ORDERED: HEPARIN 50,000 UNIT/10 ML VIAL ONE (16:48)
--- NOTE | 2016-10-04 16:50 | HOSPPROG ---
Hospitalist Progress Note Assessment/Plan: * Acute respiratory failure - BIPAP dependent -ILD vs. infectious vs. volume -empiric steroids/abx (IV Vanco/keena)/volume removal * ARF - acute GN vs. AIN - possible pulmonary/renal syndrome -ANCA/complements negative - had mild + STEVE in Jul 17 -nephrotic - 10gm proteinuria -acute dialysis per renal -pulmonary status to poor to pursue renal biopsy * ILD/UIP * Recent MSSA/lactobacillus bacteremia - IV Unasyn as outpatient -holding Unasyn due to concerns for AIN * GIB - Protonix * Hep C -viral load undetectable Subjective: moaning constantly due to discomfort and trouble breathing. Mostly okay with comfort measure but wants to say goodbye to a few momin people before transitioning Objective: Vital Signs Temp Pulse Resp BP Pulse Ox 37 C 91 40 H 138/81 H 98 10/04/16 06:00 10/04/16 14:00 10/04/16 14:00 10/04/16 14:00 10/04/16 14:00 Laboratory Results 10/04/16 03:35 10/04/16 03:35 10/03/16 10/04/16 10/05/16 05:59 05:59 05:59 Intake Total 610 940 Output Total 2250 425 Balance -1640 515 PT 15.3 SEC (12.0-15.0) H 09/26/16 15:34 INR 1.21 (0.83-1.16) H 09/26/16 15:34 d/w Dr. Antonio Rios - given pulmonary status he feels comfort measures is most appropriate CXR viewed, my personal interpretation is - bilateral infiltrates - Physical Exam Constitutional: chronically ill appearing, uncomfortable, unkempt, cachectic Cardiovascular: regular rate and rhythym, no murmur, rub, or gallop Respiratory: inspiratory crackles, respiratory distress, No expiratory wheeze, No rhonchi Gastrointestinal: normoactive bowel sounds, soft, non-tender abdomen, no palpable masses Skin: no rashes or abrasions, no fluctuance, no induration Neurologic: AAOx3, sensation intact bilaterally Psychiatric: interacting appropriately, not anxious, not encephalopathic, thought process linear ICD10 Worksheet Patient Problems: Problems Problem Status Onset Acute renal failure Acute Acute respiratory failure with hypoxia Acute Interstitial lung disease Acute Palliative care encounter Acute Pneumonia Acute Acute chest pain Acute Alcohol abuse Acute Hematemesis Acute Lung infiltrate Acute Pleural effusion Acute Pneumothorax, right Acute Ribs, multiple fractures Acute Sepsis Acute
[2016-10-04] MEDS: MEROPENEM 500 MG in NS 100 ML IV SCH (17:05)
[2016-10-04 18:01] LABS: ANTINUCLEAR ANTIBODIES SCREEN 1.18 UNITS (<1.00)
[2016-10-05] MEDS: IPRATROPIUM/ALBUTEROL 3 ML DEYVIAL IH SCH ×4 (00:30→15:37)
[2016-10-05 04:15] LABS: % IMMATURE GRANULYOCYTES 2.8 % (0.0-1.1); ABSOLUTE IMMATURE GRANULOCYTES 0.28 10^3/uL (0.00-0.10); ABSOLUTE NRBC COUNT 0.03 10^3/uL (0-0.01); ADD DIFF? NO; ADD MORPH? NO; ADD SCAN? NO; ATYPICAL LYMPHOCYTE FLAG 0 (0-99); FRAGMENT RBC FLAG 40 (0-99); HEMATOCRIT 25.7 % (40.0-51.0); HEMOGLOBIN 7.5 g/dL (13.7-17.5); LEFT SHIFT FLG 20 (0-99); LIPEMIA HEMOLYSIS FLAG 70 (0-99); MEAN CELL HEMOGLOBIN 24.4 pg (27.9-34.1); MEAN CELL HEMOGLOBIN CONCENTR. 29.2 g/dL (32.4-36.7); MEAN CELL VOLUME 83.4 fL (81.5-99.8); MEAN PLATELET VOLUME 10.7 fL (8.7-11.7); NRBC-AUTO% 0.3 % (0.0-0.2); PLATELET CLUMPS FLAG 0 (0-99); PLATELET COUNT 157 10^3/uL (150-400); RED BLOOD CELL COUNT 3.08 10^6/uL (4.40-6.38); RED CELL DISTRIBUTION WIDTH 18.6 % (11.5-15.2)
[2016-10-05 04:25] LABS: ALBUMIN 2.6 g/dL (3.5-5.0); ANION GAP 5 mEq/L (8-16); CALCIUM 8.5 mg/dL (8.5-10.4); CARBON DIOXIDE 29 mEq/l (22-31); CHLORIDE 101 mEq/L (97-110); CREATININE 1.9 mg/dL (0.7-1.3); GLOMERULAR FILTRATION RATE 37; GLUCOSE 121 mg/dL (70-100); POTASSIUM 4.4 mEq/L (3.5-5.2); SODIUM 135 mEq/L (134-144)
[2016-10-05] MEDS: HEPARIN 5,000 UNIT/0.5 ML SYR SC SCH ×3 (05:21→21:42)
[2016-10-05] MEDS: LORazepam 2 MG/ML INJ IVP PRN ×2 (08:57→15:51)
[2016-10-05] MEDS: methylPREDNISolone SOD SUCC 40 MG/ML VIAL IVP SCH ×2 (08:57→21:41)
--- NOTE | 2016-10-05 09:45 | SOAPPROG ---
SOAP Progress Note Assessment/Plan: Assessment: 1. JAMIE. B/l creat 0.6 09/18. Suspected AIN from abx. Also 10 g proteinuria, + hematuria, suspicious for GN, possibly infection related from prior staph sepsis. c3/4 pending. Mildly elevated STEVE of questionable significance. Not optimistic that increase in steroids would alter outcome at this point. Currently on 40mg/d. Borderline oliguric. HD yesterday. Appears respiratory status at limit of benefit from dialysis. Moving toward comfort measures. Will not schedule HD for tomorrow. 2. Acute respiratory failure. Concern for ILD. Also volume likely contributing. On abx for HCAP. 3. MSSA sepsis. Completed vancomycin. 4. Dispo. Pt DNR/DNI. Hospice involved. Moving toward comfort measures. Waiting to see several people. Plan: 10/03/16 14:53 10/05/16 09:44 10/05/16 09:45 10/05/16 09:46 10/05/16 09:48 Subjective: Had dialysis yesterday with 2 L UF. Pt reports breathing was better but no objective evidence of this. Has met with hospice. Objective: Vital Signs Temp Pulse Resp BP Pulse Ox 36.8 C 93 22 H 117/67 100 10/05/16 08:00 10/05/16 08:00 10/05/16 08:00 10/05/16 08:00 10/05/16 08:00 Laboratory Results 10/05/16 04:00 10/05/16 04:00 10/04/16 10/05/16 10/06/16 05:59 05:59 05:59 Intake Total 940 747 Output Total 425 360 Balance 515 387 PT 15.3 SEC (12.0-15.0) H 09/26/16 15:34 INR 1.21 (0.83-1.16) H 09/26/16 15:34 Frail, ill appearing, dyspneic male with face mask O2 RRR, no m/g/r Bilateral rales anteriorly Abdom soft, nontender No edema ICD10 Worksheet Patient Problems: Problems Problem Status Onset Hematemesis Acute Acute respiratory failure with hypoxia Acute Alcohol abuse Acute Ribs, multiple fractures Acute Sepsis Acute Lung infiltrate Acute Acute chest pain Acute Pneumothorax, right Acute Interstitial lung disease Acute Pleural effusion Acute Pneumonia Acute Acute renal failure Acute Palliative care encounter Acute
[2016-10-05] MEDS: ALPRAZolam 0.25 MG TAB PO SCH ×3 (09:48→21:41)
[2016-10-05] MEDS: PANTOPRAZOLE SODIUM 40 MG TAB PO SCH (09:48)
--- NOTE | 2016-10-05 13:20 | PDINTPN ---
Parking Meter Mechanic Progress Note Assessment/Plan: Assessment: Pulmonary infiltrates, hypoxemia: Has underlying interstitial lung disease, now with CHF/JAMIE, likely much/most of his deterioration is due to pulmonary edema. Better with hemodialysis, but still severely compromised. Off antibiotics at this point. 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 On steroids: 20 BID. Acute respiratory failure: Multifactorial. On BiPAP support alternating with oxygen. DNI/DNR. JAMIE: Suspect AIN, probably due to Unasyn, now stopped. GN possible as significant proteinuria is present. On every other day dialysis now. Renal following. Urine output remains marginal. Pulmonary Fibrosis: Present since prior to 1st seen a year or so ago. Significantly contributes to his underlying hypoxemia and chronic respiratory failure. In addition, acute issues as outlined above playing a major role at this time. Pulmonary HTN: Secondary: 87 mmHg on current ECHO, was 72 mmHg on last hospitalization. Nutrition: Eating but not much secondary to BiPAP and obtundation. DVT prophylaxis: On subcu heparin GI prophylaxis: On pantoprazole Cor status/disposition: No cor. His immediate prognosis is poor secondary to ongoing respiratory failure. Is clearly struggling and now appears to be ready for inpatient hospice. However, his brother and POA is driving from [place] today and will arrive tomorrow. Will thus keep him in the hospital today and continue present therapies and respiratory support, including BiPAP as needed, possible dialysis tomorrow and continue medications otherwise. Plan: Continue hemodialysis tomorrow. Follow K+, chest x-ray intermittently, laboratory. Adjust BiPAP verses oxygen by mask for respiratory comfort. Continue oral intake when BiPAP is taken off for short periods. Continue supportive care. We will meet again with hospice today in anticipation of transferring him to the inpatient facility tomorrow or the next day.. Discussed with the patient, respiratory, hospitalist, nursing, and the ICU multi disciplinary team. 40 minutes of critical care time spent directly with the patient. Subjective: Short of breath, uncomfortable, indicates he wants to go to hospice and comfort care. Objective: Vital Signs Temp Pulse Resp BP Pulse Ox 36.8 C 93 22 H 117/67 100 10/05/16 08:00 10/05/16 08:00 10/05/16 08:00 10/05/16 08:00 10/05/16 08:00 Laboratory Results 10/05/16 04:00 10/05/16 04:00 10/04/16 10/05/16 10/06/16 05:59 05:59 05:59 Intake Total 940 747 Output Total 425 360 Balance 515 387 PT 15.3 SEC (12.0-15.0) H 09/26/16 15:34 INR 1.21 (0.83-1.16) H 09/26/16 15:34 Physical Exam - Physical Exam General Appearance: mild distress, moderate distress, thin, other (OxyMask in place currently) EENT: PERRL/EOMI, other (Oxygen mask in place) Neck: normal inspection (Positive JVD) Respiratory: decreased breath sounds, rales (Bilaterally at posterior bases and above), No rhonchi, No wheezing Cardiac/Chest: regular rate, rhythm, systolic murmur Abdomen: normal bowel sounds, non-tender, soft Male Genitalia: other (Ibarra catheter in place, urine output remains decreased) Skin: normal color, warm/dry Lymphatic: no adenopathy Extremities: No pedal edema Neuro/Psych: no motor/sensory deficits (Moves all extremities but quite weak.), cognition abnormalities (Lethargic, arouses, responds appropriately.) ICD10 Worksheet Patient Problems: Problems Problem Status Onset Hematemesis Acute Acute respiratory failure with hypoxia Acute Alcohol abuse Acute Ribs, multiple fractures Acute Sepsis Acute Lung infiltrate Acute Acute chest pain Acute Pneumothorax, right Acute Interstitial lung disease Acute Pleural effusion Acute Pneumonia Acute Acute renal failure Acute Palliative care encounter Acute
--- NOTE | 2016-10-05 15:04 | HOSPPROG ---
Hospitalist Progress Note Assessment/Plan: * Acute respiratory failure - BIPAP -ILD vs. infectious vs. volume -empiric steroids/abx (IV Vanco/keena)/volume removal * ARF - acute GN vs. AIN - possible pulmonary/renal syndrome -ANCA/complements negative - had mild + STEVE in Jul 17 -nephrotic - 10gm proteinuria -acute dialysis per renal -pulmonary status to poor to pursue renal biopsy * ILD/UIP * Recent MSSA/lactobacillus bacteremia - IV Unasyn as outpatient -holding Unasyn due to concerns for AIN * GIB - Protonix * Hep C -viral load undetectable Dispo - patient understands he is terminal and agreeable to hospice. Waiting for brother who is taking bus from [place] - arriving tomorrow night. IV morphine for SOB Subjective: Still SOB Objective: Vital Signs Temp Pulse Resp BP Pulse Ox 36.9 C 90 30 H 134/70 H 100 10/05/16 12:00 10/05/16 12:00 10/05/16 12:00 10/05/16 12:00 10/05/16 12:00 Laboratory Results 10/05/16 04:00 10/05/16 04:00 10/04/16 10/05/16 10/06/16 05:59 05:59 05:59 Intake Total 940 747 Output Total 425 360 Balance 515 387 PT 15.3 SEC (12.0-15.0) H 09/26/16 15:34 INR 1.21 (0.83-1.16) H 09/26/16 15:34 - Physical Exam Constitutional: chronically ill appearing, uncomfortable, unkempt, cachectic, No obese Cardiovascular: regular rate and rhythym, no murmur, rub, or gallop Respiratory: inspiratory crackles, respiratory distress, rhonchi, No expiratory wheeze Gastrointestinal: normoactive bowel sounds, soft, non-tender abdomen, no palpable masses Skin: no rashes or abrasions, no fluctuance, no induration Neurologic: AAOx3, sensation intact bilaterally Psychiatric: interacting appropriately, not anxious, not encephalopathic, thought process linear ICD10 Worksheet Patient Problems: Problems Problem Status Onset Acute renal failure Acute Acute respiratory failure with hypoxia Acute Interstitial lung disease Acute Palliative care encounter Acute Pneumonia Acute Acute chest pain Acute Alcohol abuse Acute Hematemesis Acute Lung infiltrate Acute Pleural effusion Acute Pneumothorax, right Acute Ribs, multiple fractures Acute Sepsis Acute
[2016-10-05] MEDS: BEER 1 EACH EA PO SCH ×2 (17:09→21:50)
[2016-10-05] MEDS: HYDROmorphONE/DILAUDID 1 MG/ML SYR IVP PRN (19:27)
[2016-10-06] MEDS: IPRATROPIUM/ALBUTEROL 3 ML DEYVIAL IH SCH ×5 (00:01→23:33)
[2016-10-06] MEDS: LORazepam 2 MG/ML INJ IVP PRN ×2 (00:21→15:01)
[2016-10-06] MEDS: HYDROmorphONE/DILAUDID 1 MG/ML SYR IVP PRN ×5 (06:15→22:03)
[2016-10-06] MEDS: HEPARIN 5,000 UNIT/0.5 ML SYR SC SCH ×3 (06:16→22:07)
[2016-10-06 06:32] LABS: ALBUMIN 2.4 g/dL (3.5-5.0); ANION GAP 5 mEq/L (8-16); CALCIUM 8.4 mg/dL (8.5-10.4); CARBON DIOXIDE 28 mEq/l (22-31); CHLORIDE 100 mEq/L (97-110); CREATININE 2.4 mg/dL (0.7-1.3); GLOMERULAR FILTRATION RATE 28; GLUCOSE 140 mg/dL (70-100); POTASSIUM 4.7 mEq/L (3.5-5.2); SODIUM 133 mEq/L (134-144)
[2016-10-06] MEDS: methylPREDNISolone SOD SUCC 40 MG/ML VIAL IVP SCH ×2 (11:14→22:03)
[2016-10-06] MEDS: PANTOPRAZOLE SODIUM 40 MG TAB PO SCH (11:15)
[2016-10-06] MEDS: ALPRAZolam 0.25 MG TAB PO SCH ×3 (11:20→22:19)
[2016-10-06] MEDS: BEER 1 EACH EA PO SCH ×2 (13:28→22:11)
--- NOTE | 2016-10-06 13:33 | PDINTPN ---
Security Systems Integrator Progress Note Assessment/Plan: Assessment: Pulmonary infiltrates, hypoxemia: Has underlying interstitial lung disease, now with CHF/JAMIE, likely much/most of his deterioration is due to pulmonary edema. Better with hemodialysis, but still severely compromised. Off antibiotics at this point. 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 On steroids: 20 BID. Acute respiratory failure: Multifactorial. On BiPAP support alternating with oxygen. DNI/DNR. JAMIE: Suspect AIN vs GN. On every other day dialysis now, incl today. Renal following. Urine output remains marginal. Pulmonary Fibrosis: Present since prior to 1st seen a year or so ago. Significantly contributes to his underlying hypoxemia and chronic respiratory failure. In addition, acute issues as outlined above playing a role at this time. Pulmonary HTN: Secondary: 87 mmHg on current ECHO, was 72 mmHg on last hospitalization. Nutrition: Eating but not much secondary to respiratory status. DVT prophylaxis: On subcu heparin GI prophylaxis: On pantoprazole Cor status/disposition: No cor. His prognosis is poor secondary to ongoing respiratory failure. He continues to have significant dyspnea and hypoxemia and now appears to be ready for inpatient hospice. His brother and POA is driving from [place] today and will arrive tomorrow. Will continue present supportive care for now with plans on transferring him to inpatient hospice tomorrow.. Plan: Continue present management and supportive care. His brother is to arrive later today. Possible transfer to hospice is planned for tomorrow. Discussed with the patient, respiratory, hospitalist, nursing, and the ICU multi disciplinary team. 35 minutes of critical care time spent directly with the patient. Subjective: More alert, conversant today. Not short of breath. On oxygen by mask. Will desat into the 70s when he takes it off. On hemodialysis. Objective: Vital Signs Temp Pulse Resp BP Pulse Ox 36.9 C 99 28 H 134/70 H 90 L 10/05/16 20:00 10/06/16 11:30 10/06/16 11:30 10/06/16 04:00 10/06/16 11:30 Laboratory Results 10/05/16 04:00 10/06/16 06:00 10/05/16 10/06/16 10/07/16 05:59 05:59 05:59 Intake Total 747 1150 Output Total 360 425 Balance 387 725 PT 15.3 SEC (12.0-15.0) H 09/26/16 15:34 INR 1.21 (0.83-1.16) H 09/26/16 15:34 Physical Exam - Physical Exam General Appearance: alert, mild distress, thin EENT: other (Oxygen mask in place) Neck: normal inspection (Mild JVD) Respiratory: decreased breath sounds (Bilaterally), rales (Bilaterally), No lungs clear, No normal breath sounds, No rhonchi, No wheezing Cardiac/Chest: regular rate, rhythm, systolic murmur (Soft systolic murmur present, increased P2) Abdomen: normal bowel sounds, non-tender, soft Male Genitalia: other (Ibarra catheter in place, urine output remains diminished : 400 - 500 mLs per day) Skin: normal color, warm/dry Extremities: pedal edema Neuro/Psych: No no motor/sensory deficits (Non focal but very weak, cannot raise himself in bed), No cognition abnormalities (Improved, more lucid today) ICD10 Worksheet Patient Problems: Problems Problem Status Onset Hematemesis Acute Acute respiratory failure with hypoxia Acute Alcohol abuse Acute Ribs, multiple fractures Acute Sepsis Acute Lung infiltrate Acute Acute chest pain Acute Pneumothorax, right Acute Interstitial lung disease Acute Pleural effusion Acute Pneumonia Acute Acute renal failure Acute Palliative care encounter Acute
--- NOTE | 2016-10-06 14:06 | SOAPPROG ---
SOAP Progress Note Assessment/Plan: Assessment: JAMIE, HD today looking forward to seeing his family today likely will go into hospice care in next day or so no more HD planned for now Jimi seems comfortable with his decision Plan: HD today comfort care once his family is here 10/06/16 14:03 Subjective: denies cp, +sob, no nausea no vomiting spirits good all things considered enjoying a beer Objective: Vital Signs Temp Pulse Resp BP Pulse Ox 36.9 C 99 28 H 134/70 H 90 L 10/05/16 20:00 10/06/16 11:30 10/06/16 11:30 10/06/16 04:00 10/06/16 11:30 Laboratory Results 10/05/16 04:00 10/06/16 06:00 10/05/16 10/06/16 10/07/16 05:59 05:59 05:59 Intake Total 747 1150 Output Total 360 425 Balance 387 725 PT 15.3 SEC (12.0-15.0) H 09/26/16 15:34 INR 1.21 (0.83-1.16) H 09/26/16 15:34 Physical Exam - Physical Exam General Appearance: cachetic Respiratory: rales, rhonchi, wheezing Cardiac/Chest: regular rate, rhythm, No edema, No friction rub Abdomen: non-tender, soft Extremities: No pedal edema Neuro/Psych: alert, oriented x 3, No cognition abnormalities ICD10 Worksheet Patient Problems: Problems Problem Status Onset Acute renal failure Acute Acute respiratory failure with hypoxia Acute Interstitial lung disease Acute Palliative care encounter Acute Pneumonia Acute Acute chest pain Acute Alcohol abuse Acute Hematemesis Acute Lung infiltrate Acute Pleural effusion Acute Pneumothorax, right Acute Ribs, multiple fractures Acute Sepsis Acute
--- NOTE | 2016-10-06 14:51 | HOSPPROG ---
Hospitalist Progress Note Assessment/Plan: * Acute respiratory failure - advanced ILD -possible component of infectious vs. volume -empiric steroids/abx (IV Vanco/keena)/volume removal * ARF - acute GN vs. AIN - possible pulmonary/renal syndrome -ANCA/complements negative - mild + STEVE -nephrotic - 10gm proteinuria -acute dialysis per renal -pulmonary status to poor to pursue renal biopsy * ILD/UIP * Recent MSSA/lactobacillus bacteremia - IV Unasyn as outpatient -holding Unasyn due to concerns for AIN * GIB - Protonix * Hep C -viral load undetectable To hospice tomorrow IV morphine for symptom control Subjective: no new events Objective: Vital Signs Temp Pulse Resp BP Pulse Ox 37.4 C 100 24 H 135/71 H 99 10/06/16 12:00 10/06/16 12:00 10/06/16 12:00 10/06/16 12:00 10/06/16 12:00 Laboratory Results 10/05/16 04:00 10/06/16 06:00 10/05/16 10/06/16 10/07/16 05:59 05:59 05:59 Intake Total 747 1150 Output Total 360 425 Balance 387 725 PT 15.3 SEC (12.0-15.0) H 09/26/16 15:34 INR 1.21 (0.83-1.16) H 09/26/16 15:34 - Physical Exam Constitutional: no apparent distress, appears nourished, not in pain Cardiovascular: regular rate and rhythym, no murmur, rub, or gallop Respiratory: inspiratory crackles, respiratory distress, rhonchi, No expiratory wheeze Gastrointestinal: normoactive bowel sounds, soft, non-tender abdomen, no palpable masses Skin: no rashes or abrasions, no fluctuance, no induration Neurologic: AAOx3, sensation intact bilaterally Psychiatric: interacting appropriately, not anxious, not encephalopathic, thought process linear ICD10 Worksheet Patient Problems: Problems Problem Status Onset Acute renal failure Acute Acute respiratory failure with hypoxia Acute Interstitial lung disease Acute Palliative care encounter Acute Pneumonia Acute Acute chest pain Acute Alcohol abuse Acute Hematemesis Acute Lung infiltrate Acute Pleural effusion Acute Pneumothorax, right Acute Ribs, multiple fractures Acute Sepsis Acute
[2016-10-06] MEDS ORDERED: HEPARIN 50,000 UNIT/10 ML VIAL ONE (22:06)
[2016-10-07] MEDS: HYDROmorphONE/DILAUDID 1 MG/ML SYR IVP PRN ×3 (01:30→05:41)
[2016-10-07] MEDS: IPRATROPIUM/ALBUTEROL 3 ML DEYVIAL IH SCH ×2 (05:29→11:12)
[2016-10-07 05:35] VITALS: RESP 28
[2016-10-07] MEDS: HEPARIN 5,000 UNIT/0.5 ML SYR SC SCH (05:40)
[2016-10-07 05:58] LABS: ALBUMIN 2.5 g/dL (3.5-5.0); ANION GAP 3 mEq/L (8-16); CALCIUM 8.2 mg/dL (8.5-10.4); CARBON DIOXIDE 30 mEq/l (22-31); CHLORIDE 97 mEq/L (97-110); GLOMERULAR FILTRATION RATE 34; GLUCOSE 132 mg/dL (70-100); POTASSIUM 4.8 mEq/L (3.5-5.2); SODIUM 130 mEq/L (134-144)
[2016-10-07 07:28] VITALS: BP 154/90; PULSE 101; TEMP 99; O2SAT 98
[2016-10-07] MEDS: ALPRAZolam 0.25 MG TAB PO SCH (10:06)
[2016-10-07] MEDS: methylPREDNISolone SOD SUCC 40 MG/ML VIAL IVP SCH (10:06)
[2016-10-07] MEDS: PANTOPRAZOLE SODIUM 40 MG TAB PO SCH (10:07)
[2016-10-07] MEDS: BEER 1 EACH EA PO SCH (10:07)
--- NOTE | 2016-10-07 11:36 | PDIAF ---
- Diagnosis Diagnosis: end stage ILD Code Status: Do Not Resuscitate - Medication Management Discharge Medications: Medications to Continue on Transfer Acetaminophen [Tylenol 325mg (*)] 650 mg PO Q4HRS PRN #0 tab 08/30/16 [Last Taken Unknown] Pantoprazole Sodium [Protonix 40mg (*)] 40 mg PO DAILY #30 tab 08/30/16 [Last Taken 09/26/16] traMADol [Ultram 50 mg (*)] 50 - 100 mg PO Q6HRS PRN #30 tab 08/30/16 [Last Taken Unknown] ALPRAZolam [Xanax 0.25 MG (*)] 0.25 mg PO TID #0 tab 09/18/16 [Last Taken ] Benzocaine/Menthol 13/10 [Cepacol Lozenge] 1 ea PO PRN PRN #0 lozenge 09/18/16 [ Last Taken Unknown] Albuterol [Proventil Neb] 3 ml IH Q2HRS PRN #0 deyvial 10/07/16 [Last Taken Unknown] Ipratropium/Albuterol [Duoneb (*)] 3 ml IH Q6HRS #0 deyvial 10/07/16 [Last Taken Unknown] LORazepam [Ativan inj 2 mg/ml (*)] 1 mg IVP Q4HRS PRN #0 inj 10/07/16 [Last Taken Unknown] Ondansetron HCl Pf [Zofran 4 mg Inj (*)] 4 mg IVP Q4HRS PRN #0 vial 10/07/16 [ Last Taken Unknown] Ondansetron Odt [Zofran Odt 4 mg (*)] 4 mg PO Q4HRS PRN #0 tab 10/07/16 [Last Taken Unknown] morphINE [morphINE 2mg/ml Inj (*)] 1 - 2 mg IVP Q2 PRN #0 syr 10/07/16 [Last Taken Unknown] oxyCODONE IR [Oxycodone Ir (*)] 5 - 10 mg PO Q4HRS PRN #0 tab 10/07/16 [Last Taken Unknown] Discharge Medications: Refer to the Discharge Home Medication list for PRN reason. - Orders Oxygen: PRN Diet Recommendation: no restrictions on diet Additional: HOSPCIE CARE - Follow Up Care Current Providers and Referrals: HANG MCCANN [Primary Care Provider] - As per Instructions
[2016-10-07] MEDS: LORazepam 2 MG/ML INJ IVP PRN (11:49)
--- NOTE | 2016-10-07 12:31 | PDINTPN ---
[employer] Progress Note Assessment/Plan: Assessment: Pulmonary infiltrates, hypoxemia: Secondary to severe underlying interstitial lung disease and postinflammatory pulmonary fibrosis. This hospitalization his acute renal failure clearly has contributed. His last hemodialysis was yesterday. For hospice placement. Please see the comments below. Acute respiratory failure: Multifactorial. Remains very dyspneic, struggling, uncomfortable. On high-flow oxygen. DNI/DNR. No further therapies available. For hospice. JAMIE: Suspect AIN vs GN. Last hemodialysis was yesterday. Dialysis catheters to be pulled today for transfer to hospice. Pulmonary Fibrosis: Present since prior to 1st seen a year or so ago. See comments above Pulmonary HTN: Secondary: 87 mmHg on current ECHO, was 72 mmHg on last hospitalization. Nutrition: Eating but not much secondary to respiratory status. Does enjoy drinking the beers that we have provided him. DVT prophylaxis: On subcu heparin GI prophylaxis: On pantoprazole Cor status/disposition: No cor. His prognosis is poor secondary to ongoing respiratory failure. He continues to have significant dyspnea and hypoxemia and now is ready for inpatient hospice. He is appreciative of his blood pressure being year. For transport to inpatient hospice today. Plan: To in-patient hospice. Discussed again with the patient. Subjective: Doing okay. Off BiPAP, on OxyMask or Oxymizer. Remains quite short of breath. Indicates he is ready to go to hospice. His brother arrived yesterday. Objective: Vital Signs Temp Pulse Resp BP Pulse Ox 37.2 C 101 H 28 H 154/90 H 98 10/07/16 07:26 10/07/16 07:26 10/07/16 07:26 10/07/16 07:26 10/07/16 07:26 Laboratory Results 10/05/16 04:00 10/07/16 05:30 10/06/16 10/07/16 10/08/16 05:59 05:59 05:59 Intake Total 1150 3083 Output Total 425 405 Balance 725 2678 PT 15.3 SEC (12.0-15.0) H 09/26/16 15:34 INR 1.21 (0.83-1.16) H 09/26/16 15:34 Physical Exam - Physical Exam General Appearance: moderate distress, thin EENT: other (Oxymizer in place at 15 L) Neck: normal inspection (Positive JVD) Respiratory: decreased breath sounds, rales (Bilateral rales present), wheezing , No rhonchi Cardiac/Chest: regular rate, rhythm (To sinus tach), other (Increased P2) Abdomen: normal bowel sounds, non-tender, soft Male Genitalia: other (Ibarra catheter in place, did decreased urine output) Skin: warm/dry, pallor Neuro/Psych: no motor/sensory deficits (Very weak globally), No cognition abnormalities ICD10 Worksheet Patient Problems: Problems Problem Status Onset Hematemesis Acute Acute respiratory failure with hypoxia Acute Alcohol abuse Acute Ribs, multiple fractures Acute Sepsis Acute Lung infiltrate Acute Acute chest pain Acute Pneumothorax, right Acute Interstitial lung disease Acute Pleural effusion Acute Pneumonia Acute Acute renal failure Acute Palliative care encounter Acute
--- NOTE | 2016-10-07 15:39 | GDS ---
[f rep st] DISCHARGE SUMMARY DISCHARGE DIAGNOSES: 1. Acute respiratory failure. 2. Advanced interstitial lung disease. 3. Acute renal failure due to acute glomerulonephritis versus acute interstitial nephritis. 4. Recent methicillin-susceptible Staphylococcus aureus bacteremia. 5. Gastrointestinal bleed. 6. Hepatitis C. HISTORY: The patient is a 56-year-old male who presented with severe acute respiratory failure with bilateral infiltrates. He does have underlying ILD, which is suspicious for UIP. He also went int o renal failure, and urine indices were consistent with an acute glomerulonephritis versus an AIN du e to his recent IV Unasyn treatment. His rheumatologic workup, however, was negative. He had nephr otic range proteinuria of 10 g. He was started on acute dialysis. His pulmonary status, however, w as very poor requiring continuous BiPAP and non rebreather and did not show any signs of improvement . He was started on acute dialysis for volume removal, but this did not improve his respiratory sta tus. He was treated broadly with antibiotics and steroids. He continued to have severe respiratory failure, and per Dr. Antonio Rios's evaluation of his imaging studies, felt this was end-stage ILD and that his situation was terminal. Comfort measures were recommended, and the patient discharged to inpatient hospice. DISCHARGE MEDICATIONS: Please see computer record for full detailed list. New medications include comfort medications, such as IV morphine, IV Ativan, as he did leave us with a PICC line in place. He is going to the inpatient unit at [facility]. Greater than 30 minutes' time was spent arranging this discharge. Patient seen and examined by me emeterio feldman the day of discharge. /[id number]/MODL
== END 2016-10-07 13:47 | disposition hospice, home (50) | DRG 871 ==
LOC: EDUNIT# → F2N 17:37
PROVIDERS: ADMIT Hospitalist; ATTEND Hospitalist
PROC: 5A1D00Z (ICD-10-PCS; 2016-09-26)
PROC: 02H633Z Insertion of Infusion Device into Right Atrium, Percutaneous Approach (ICD-10-PCS; principal; 2016-09-29)
PROC: 5A09557 Assistance with Respiratory Ventilation, Greater than 96 Consecutive Hours, Continuous Positive Airway Pressure (ICD-10-PCS; principal; 2016-09-29)
DX: A41.01 Sepsis due to Methicillin susceptible Staphylococcus aureus (principal); J96.21 Acute and chronic respiratory failure with hypoxia; J84.9 Interstitial pulmonary disease, unspecified; N17.9 Acute kidney failure, unspecified; N00.9 Acute nephritic syndrome with unspecified morphologic changes; E87.5 Hyperkalemia; D64.9 Anemia, unspecified; I27.2 Other secondary pulmonary hypertension; B19.20 Unspecified viral hepatitis C without hepatic coma; Z87.01 Personal history of pneumonia (recurrent); Z66 Do not resuscitate; Z51.5 Encounter for palliative care
CPT/HCPCS: 80307; 83516-90; 83520-90; 86705-90; 96365; 97116-GP; 97161-GP; 97165-GO; G0472; G0480; J0692; J1170; J1644; J2060; J2185; J3370